=== PATIENT | male | born 1965 | race Caucasian/White ===

== ENCOUNTER → 2016-07-03 | Outpatient (CLI) | payer BC ==
[~2016-07-03] MED LIST: CALC500T7 PO; CEPH-583 PO; DAPT500V3 IV; ESOM20CA PO; HYDR-4246 PO; HYDR25TA PO; INSU100I3 SQ; INSU100V13 SQ; INSU3INS3 SQ; LEVO750T46 PO; MAGN400T31 PO; METF-200 PO; NITR0.4T39 SL; POLY17PO6 PO; POTA10CA37 PO; PRAV20TA4 PO
--- NOTE | 2016-07-03 21:37 | WOUNDCONF ---
DATE July 03, 2016. CHIEF COMPLAINT Infectious Disease consultation was requested by Dr. Lira for antibiotic recommendations for osteomyelitis. HISTORY OF PRESENT ILLNESS Mr. Mcclelland is a 50-year-old man who has been followed in the wound clinic for wound to the bottom of the right foot that has been present since approximately and more recently for a wound involving the left great toe. The wound involving the right foot has been improving. However, the wound on the left great toe he states has been present since June 18. Records, however, indicate that the wound has been present for about that same period of time. The patient is not sure how this wound started. However, he was noted to have an area of blackness within this ulcer. He underwent an MRI of the left foot with and without contrast on June 21 which showed focal edema within the great toe distal phalanx consistent with osteomyelitis. He had a wound culture obtained June 21 which had rare gram positive cocci on the Gram stain and grew methicillin-resistant Staph aureus resistant only to oxacillin. He was referred to Dr. Nolasco who took him to surgery on June 28 for debridement to bone of the left foot diabetic foot ulcer with left great toe distal phalanx bone biopsy. There were two specimens sent for culture from that surgery and they both grew methicillin-resistant Staph aureus. However, this was sensitive only to doxycycline, gentamicin, linezolid, tetracycline, Bactrim and vancomycin. The biopsy was not sent for pathology. He was started on doxycycline on July 01. PAST MEDICAL HISTORY Diabetes mellitus type 2 on insulin, with diabetic nephropathy and neuropathy. Coronary artery disease status post stenting. Hyperlipidemia. Hypertension. Sleep apnea. Depression. History of myocardial infarction. PAST SURGICAL HISTORY Status post appendectomy. Irrigation and debridement of scrotal abscess. Cardiac catheterization with stent placements. ALLERGIES Penicillin caused a rash. SOCIAL HISTORY He quit smoking several years ago. He admits to drinking 12-24 beers on the weekends. He denies any drug use to me. FAMILY HISTORY Reviewed, noncontributory. REVIEW OF SYSTEMS He reports that he has some shaking chills in the evenings when he goes to bed and he cannot tell me how long this has been going on but least for one month. He has taken his temperature during these episodes and is not having any fevers. He denies any sweats. He does report that he has some diarrhea off and on. He denies much in the way of pain in his foot. He denies any cough or shortness of breath, any headaches, any rashes or skin problems. Denies any problems with urination. The rest of the review of systems is negative other than that mentioned above. PHYSICAL EXAMINATION Temperature 97, blood pressure 128/85. Pulse is 103, respirations 12. Weight is 288 pounds. GENERAL: He appears comfortable and is in no acute distress. HEENT: Pupils equal, round, reactive to light. EOMI. Oropharynx is clear. He is missing a few teeth. Dentition is rather poor. NECK: Supple. HEART: Regular rate and rhythm. No murmurs noted. LUNGS: Clear to auscultation bilaterally anteriorly. ABDOMEN: Soft, nontender. He has bowel sounds present. EXTREMITIES: No joint effusions are noted. He has 1+ edema involving the left lower extremity. No significant edema of the right lower extremity. His wound is covered. However, I reviewed photographs on the computer. The initial photograph had an area of black eschar over this ulcer and more recently there is a wound with some granulation tissue but also some fibrinous exudate noted. NEUROLOGIC: Exam is grossly nonfocal. He is alert and oriented x 3. Speech is normal. PSYCHIATRIC: His mood and affect are appropriate. SKIN: No rashes. LABORATORY Reviewed from June 21. White count 9.9, hemoglobin 13.3, platelets 291,000. Creatinine 0.9. Liver function tests are normal. Sedimentation rate was 76. C-reactive protein was 28. IMPRESSION 1. Acute osteomyelitis of the left great toe distal phalanx, bone biopsy culture with methicillin-resistant Staph aureus obtained June 28, 2016. 2. Diabetes mellitus type 2 with neuropathy and requiring insulin. 3. Hypertension. 4. Hyperlipidemia. 5. Coronary artery disease. 6. Sleep apnea. 8. History of depression. 9. Penicillin allergy, rash. 7. Alcohol use. PLAN/DISCUSSION I discussed with the patient that I would recommend six weeks of IV antibiotics to try to treat this bone infection and help his wound heal. He is agreeable to that and in fact is thinking that it might be the easiest for him just to come in to the infusion center here at the hospital for his doses every day. Will make arrangements for a PICC line to be placed. I would recommend daptomycin 6 mg/kg IV daily for six weeks. Will check weekly labs including a CBC with differential, BMP, CRP, sed rate and CPK while he is on the IV antibiotic. I will plan to see him back in followup in approximately three weeks. Thank you for allowing me to participate in the care of this patient. MURRAY
== END ==
LOC: NWCC 10:29
PROVIDERS: ATTEND Internal Medicine
DX: E11.621 Type 2 diabetes mellitus with foot ulcer (principal); L97.412 Non-pressure chronic ulcer of right heel and midfoot with fat layer exposed; Y83.5 Amputation of limb(s) as the cause of abnormal reaction of the patient, or of later complication, without mention of misadventure at the time of the procedure; Y82.8 Other medical devices associated with adverse incidents; M86.172 Other acute osteomyelitis, left ankle and foot; Z86.14 Personal history of Methicillin resistant Staphylococcus aureus infection; I10 Essential (primary) hypertension; E78.5 Hyperlipidemia, unspecified; I25.10 Atherosclerotic heart disease of native coronary artery without angina pectoris; Z87.898 Personal history of other specified conditions; Z72.89 Other problems related to lifestyle; G47.30 Sleep apnea, unspecified; R60.0 Localized edema; Z87.891 Personal history of nicotine dependence; E11.40 Type 2 diabetes mellitus with diabetic neuropathy, unspecified; E11.21 Type 2 diabetes mellitus with diabetic nephropathy

== ENCOUNTER → 2016-07-15 | Outpatient (CLI) | payer BC | LOC: NWCC 11:19 | PROVIDERS: ATTEND Internal Medicine | DX: E10.621 Type 1 diabetes mellitus with foot ulcer (principal); L97.412 Non-pressure chronic ulcer of right heel and midfoot with fat layer exposed; L97.522 Non-pressure chronic ulcer of other part of left foot with fat layer exposed; M86.172 Other acute osteomyelitis, left ankle and foot | CPT/HCPCS: 11042; 11045 ==

== ENCOUNTER 2016-07-25 09:47 | Day surgery (SDC) | payer BC ==
[~2016-07-25] VITALS: Ht 172.7 cm; Wt 122.7 kg
[2016-07-25] VITALS (10 sets, daily range): BP systolic 106–163; BP diastolic 58–94; PULSE 88–98; RESP 16–21; TEMP 97.3–98.3; O2SAT 94–98; Ht 172.7 cm; Wt 122.7 kg
[~2016-07-25 09:47] MED LIST changes: -CEPH-583 PO; +LIDOCAINE 1% (10mg/ml) 2ml SDV INJ ONE; +LR 1,000 ML IV PRN
--- OUTSIDE RECORDS SUMMARY | 2016-07-25 09:51 | XMS REPORT | Continuity of Care Document ---
Author Author [facility] Organization [facility] Address Unknown Phone Unavailable Support Name Relationship Address Phone LESLEY MARK MD Caregiver [address] [place] [address] Unavailable PRESTON TRAVIS MD Caregiver [address] [place] [address] [place] [address] Unavailable SOM KEANE Next Of Kin [address] [place] [address] C Insurance Providers Guarantor Harvey Keane Iii Address [address] [place] [place] [address] C Email [email or web address] Policy Number [id number] Subscriber's Name Harvey Keane Iii Relationship 18 Self Group Number [id number] Advance Directives Directive Response Recorded Date/Time Ordered Resuscitation Status Full Code 07/16/16 5:58pm Resuscitation Documents on File No 07/17/16 6:22am DPOA for Healthcare Only No 07/17/16 6:22am Living Will No 07/17/16 6:22am Problems Active Problems Medical Problem Onset Date Status Chest pain Unknown Acute Dizziness Unknown Acute Hand Laceration Unknown Acute Headache Unknown Acute Heart burn Unknown Acute Right calf pain Unknown Acute Right-sided chest wall pain Unknown Acute Vision changes Unknown Acute Past Problems Medical Problem Onset Date Cellulitis Unknown Diabetic foot ulcer Unknown Medications Current Home Medications Medication Dose Units Route Directions Days Qty Instructions Start Date Calcium Carbonate (Tums) 200 Mg Tab.chew 1-2 Tab Oral Every 2 Hr Prn 06/26/16 Daptomycin 500 Mg Vial 340 Mg Intraven Daily 07/17/16 Esomeprazole Mag Trihydrate (Nexium) 20 Mg Capsule 1 Tab Oral Daily as needed for Heartburn 06/26/16 Hydrochlorothiazide 25 Mg Tablet 12.5 Mg Oral Daily 06/26/16 Hydrocodone/Acetaminophen ([place] 5-325 Tablet) 5-325 Tablet 1-2 Tab Oral Every 6 Hours as needed for Pain 40 Tablet This medication contains Tylenol , do not take more than 3,000 mg of Tylenol in a 24 hr period. 06/28/16 Insulin Aspart (Novolog Flexpen) 1 Unit Pen 5 Unit Sub-Q Before Meals 06/26/16 Insulin Glargine,Hum.rec.anlog (Lantus Solostar) 1 Unit Pen 15 Unit Sub-Q Bedtime 06/26/16 Magnesium Oxide (Magox 400) 400 Mg Tablet 400 Mg Oral Daily 06/26 Metformin Hcl 500 Mg Tablet 1,000 Mg Oral Twice A Day 09/15/11 Pravastatin Sodium 20 Mg Tablet 20 Mg Oral Bedtime 06/26/16 Past Home Medications Medication Directions Ordered Status Exenatide Microspheres (Bydureon Pen) 2 Mg/0.65 Ml Pen.injctr, Unknown Dose Sub-Q 1 Week 02/05/15 Discontinued Famotidine (Pepcid) 20 Mg Tablet, 40 Mg Oral Daily 02/05/15 Discontinued Glyburide 5 Mg Tablet, 5 Mg Oral Twice A Day 09/15/11 Discontinued Lisinopril 5 Mg Tablet, 5 Mg Oral Daily 11/21/14 Discontinued Lisinopril 20 Mg Tablet, 20 Mg Oral Daily 09/15/11 Discontinued Lovastatin 10 Mg Tablet, 10 Mg Oral Daily 09/15/11 Discontinued Meloxicam (Mobic) 15 Mg Tablet, 15 Mg Oral Daily 09/15/11 Discontinued Sitagliptin Phosphate (Januvia) 100 Mg Tablet, 100 Mg Oral Daily 09/15/11 Discontinued Social History Social History Problem Response Recorded Date/Time Onset Date Status Reason for Hospitalization heart cath 07/17/2016 10:55am Not Applicable Not Applicable Chewing Tobacco Status No 07/17/2016 6:30am Not Applicable Not Applicable Hx Substance Use Y HISTORY OF MARIJUANA USE, LAST TIME ABOUT 4 YEARS AGO 12/2016 6:30am Not Applicable Not Applicable Hx Alcohol Use Y ADMITS TO 30-40 BEERS ON WEEKENDS 07/17/2016 6:30am Not Applicable Not Applicable Has the pt used tobacco in the last 12 months No 07/17/2016 6:30am Not Applicable Not Applicable Tobacco Usage none 03/01/2015 10:52pm Not Applicable Not Applicable Query Response Start Date Stop Date Smoking Status Former smoker Hospital Discharge Instructions Instructions: Care Instructions: I was in the hospital because (patient own words): "ANGIOGRAM" Discharge Diet: Resume heart healthy diet Discharge Activity: Limit activity for 2 days. No lifting more than 10 pounds, no pushing or pulling for 1 week. Follow Up Appointments: Follow up with Dr. Travis on: 08/06/16 at 11:10AM Pending Lab / Results: No Pending Lab Patient Instructions: Do not drive, operate machinery or drink alcohol for 2 days. You may resume your Metformin on the evening of Friday the Expected Signs/Symptoms: Bruising and tenderness at the site. Notify Physician If: Site is bleeding, abnormal drainage, increased pain or fever of 101.5 or more. During Business Hours:: Call Dr. Travis's office at [phone]. After Business Hours:: Please call [phone] and have the aviation electronic warfare operator page the physician. Pain Management/Treatment: Over the counter pain medication if needed. Pain Scale Utilized to Educate Patient: 0-10 Pain Scale Wound/Incision Care: Keep site clean and dry. No tub baths or swimming for 1 week. You may shower. Condition at time of discharge: Good Plan of Care Discharge Date 07/17/16 11:35am Instructions/Education Provided [facility] [place] Prescriptions See Medication Section Functional Status Query Response Date Recorded Mobility Status Ambulatory July 17, 2016 6:26am Assistive Devices Cane July 17, 2016 6:26am Activity Limitations None July 17, 2016 6:26am Feeding Ability Independent July 17, 2016 6:26am Toileting Ability Independent July 17, 2016 6:26am Grooming Ability Independent July 17, 2016 6:26am Dressing Ability Independent July 17, 2016 6:26am Driving Ability Independent July 17, 2016 6:26am Housework Ability Independent July 17, 2016 6:26am Meal Preparation Ability Independent July 17, 2016 6:26am Stair Climbing Ability Independent July 17, 2016 6:26am Ability to complete ADL's impeded by No change July 17, 2016 6:26am Cognitive/Perceptual Impairments Impaired vision July 17, 2016 6:26am Visual Assistive Devices Glasses With patient July 17, 2016 6:26am Preferred Method of Learning Reading Listening July 17, 2016 6:26am Allergies, Adverse Reactions, Alerts Allergen Type Severity Reaction Status Last Updated Penicillin Allergy Unknown HIVES Active 07/17/16 Lisinopril Allergy Intermediate DIZZINESS Active 03/08/17 Immunizations Query Response on File Recorded Date/Time Hx Influenza Vaccination Y 201507/17/16 6:30am Hx Pneumococcal Vaccination Y 201507/17/16 6:30am Hx Tetanus, Diptheria, Pertussis Y 02/16/13 02/05/15 7:34pm Hx Influenza Vaccination Y 201507/17/16 6:30am Hx Tetanus, Diptheria, Pertussis Y 02/16/13 02/05/15 7:34pm Influenza Vaccine Hx FEB 2016 07/17/16 6:55am Vital Signs Acute Vital Signs Vital Response Date/Time Temperature (Fahrenheit) 98.0 deg F (96.8 - 99.1) 07/17/2016 8:35am Temperature (Calculated Celsius) 36.41538 degrees C (36.0 - 37.3) 07/17/2016 8:35am Temperature Source Oral 07/17/2016 8:35am Pulse Rate (adult) 86 bpm (60 - 100) 07/17/2016 11:15am Respiratory Rate 18 breaths/min (10 - 20) 07/17/2016 11:15am O2 Sat by Pulse Oximetry 98 % (90 - 100) 07/17/2016 11:15am Oxygen Delivery Method Room Air 07/17/2016 11:15am Oxygen Delivery Method Room Air 07/17/2016 6:28am Oxygen Flow Rate 2.00 L/min 07/17/2016 10:00am Blood Pressure 150/80 mm Hg 07/17/2016 11:15am Blood Pressure Source Automatic Cuff 07/17/2016 11:15am Height (Feet) 5 feet 07/17/2016 6:22am Height (Inches) 8.00 inches 07/17/2016 6:22am Weight (Kilograms) 123.100 kg 07/17/2016 6:29am Body Mass Index (BMI) 41.3 07/17/2016 6:22am Results Laboratory Results Test Name Result Units Flags Reference Collection Date/Time Result Date/ Time Comments Total Bilirubin 0.60 MG/DL 0.20-1.30 06/21/2016 9:28am 06/21/2016 9: 43am Alkaline Phosphatase 73 U/L 38-126 06/21/2016 9:28am 06/21/2016 9:43am Total Protein 7.9 G/DL 6.3-8.2 06/21/2016 9:06/21/2016 9:43am Albumin 3.8 G/DL 3.5-5.0 06/21/2016 9:06/21/2016 9:43am Globulin 4.1 G/DL H 2.4-3.6 06/21/2016 9:06/21/2016 9:43am Albumin/Globulin Ratio 0.9 RATIO L 1.1-2.2 06/21/2016 9:06/21/2016 9:43am Aspartate Amino Transf (AST/SGOT) 19 U/L 17-59 06/21/2016 9:2016 9:43am Alanine Aminotransferase (ALT/SGPT) 25 U/L 21-72 06/21/2016 9:02/2017 9:43am D-Dimer < 150 NG/ML 0-230 06/18/2016 12:55pm 06/18/2016 1:19pm <230 NG /ML D-DU=PRESUMPTIVE NEGATIVE FOR PE OR DVT >230 NG/ML D-DU=ADDITIONAL EVAL FOR PE OR DVT RECOMMENDED Magnesium Level 1.5 MG/DL L 1.6-2.3 06/20/2016 11:56am 06/20/2016 12: 14pm Glucometer 177 mg/dL H 75-110 06/28/2016 12:40pm 06/28/2016 12:50pm Neutrophils % (Manual) 60.0 % 33-66 07/15/2016 10:33am 07/15/2016 11: 32am Band Neutrophils % 6.0 % 0-6 07/15/2016 10:33am 07/15/2016 11:32am Lymphocytes % (Manual) 25.0 % 23-45 07/15/2016 10:33am 07/15/2016 11: 32am Monocytes % (Manual) 3.0 % 0-9.0 07/15/2016 10:33am 07/15/2016 11:32am Eosinophils % (Manual) 5.0 % H 0-4 07/15/2016 10:33am 07/15/2016 11: 32am Basophils % (Manual) 1.0 % 0-2 07/08/2016 10:26am 07/08/2016 11:25am Metamyelocytes % 1.0 % H 0-0 07/15/2016 10:33am 07/15/2016 11:32am Band Neutrophils # 0.6 T/MM3 07/15/2016 10:33am 07/15/2016 11:32am Absolute Neutrophils (Manual) 5.7 T/MM3 1.8-7.7 07/15/2016 10:33am 10/2016 11:32am Lymphocytes # (Manual) 2.4 T/MM3 1-4.8 07/15/2016 10:33am 07/15/2016 11 :32am Monocytes # (Manual) 0.3 T/MM3 0-0.8 07/15/2016 10:33am 07/15/2016 11: 32am Eosinophils # (Manual) 0.5 T/MM3 0-0.5 07/15/2016 10:33am 07/15/2016 11 :32am Basophils # (Manual) 0.1 T/MM3 0-0.2 07/08/2016 10:26am 07/08/2016 11: 25am Metamyelocytes # 0.1 T/MM3 07/15/2016 10:33am 07/15/2016 11:32am Red Cell Morphology Comment NORMAL 07/15/2016 10:33am 07/15/2016 11 :32am Total Creatine Kinase 56 U/L 55-170 07/15/2016 10:33am 07/15/2016 3: 02pm C-Reactive Protein 22.7 MG/L H 0-9 07/15/2016 10:33am 07/15/2016 11: 10am Erythrocyte Sedimentation Rate 89 mm/h H 0-15 07/15/2016 10:34am 2016 11:37pm Sedimentation Rate performed at [facility] Reference Lab, [address] , [place] [address] Paving Crew Foreman Christine Romeo DO White Blood Count 10.4 T/MM3 4.5-11.0 07/17/2016 6:33am 07/17/2016 6: 56am Red Blood Count 4.43 M/MM3 L 4.50-5.90 07/17/2016 6:33am 07/17/2016 6: 56am Hemoglobin 11.9 GM/DL L 13.5-17.5 07/17/2016 6:33am 07/17/2016 6:56am Hematocrit 36.6 % L 41-53 07/17/2016 6:3307/17/2016 6:56am Mean Corpuscular Volume 82.6 UM3 80-100 07/17/2016 6:33am 07/17/2016 6: 56am Mean Corpuscular Hemoglobin 26.9 UUG 26-34 07/17/2016 6:33am 2016 6:56am Mean Corpuscular Hemoglobin Concent 32.5 GM/DL 31-37 07/17/2016 6:3307/17/2016 6:56am RDW Standard Deviation 37.8 FL 36.9-50.2 07/17/2016 6:3307/17/2016 6 :56am Platelet Count 398 T/MM3 130-400 07/17/2016 6:3307/17/2016 6:56am Mean Platelet Volume 10.4 UM3 9.4-12.4 07/17/2016 6:33am 07/17/2016 6: 56am Neutrophils (%) (Auto) 64.2 % 33-66 07/17/2016 6:3307/17/2016 6: 56am Lymphocytes (%) (Auto) 27.2 % 23-45 07/17/2016 6:33am 07/17/2016 6: 56am Monocytes (%) (Auto) 5.7 % 0-9.0 07/17/2016 6:3307/17/2016 6:56am Eosinophils (%) (Auto) 2.2 % 0-4 07/17/2016 6:33am 07/17/2016 6:56am Basophils (%) (Auto) 0.3 % 0-2 07/17/2016 6:07/17/2016 6:56am Immature Granulocyte % (Auto) 0.4 % 0.0-0.5 07/17/2016 6:33am 2016 6:56am Absolute Neutrophils (auto) 6.7 T/MM3 1.8-7.7 07/17/2016 6:332016 6:56am Absolute Lymphocytes (auto) 2.8 T/MM3 1-4.8 07/17/2016 6:33am 2016 6:56am Absolute Monocytes (auto) 0.6 T/MM3 0-0.8 07/17/2016 6:3307/17/2016 6:56am Absolute Eosinophils (auto) 0.2 T/MM3 0-0.5 07/17/2016 6:332016 6:56am Absolute Basophils (auto) 0.0 T/MM3 0-0.2 07/17/2016 6:3307/17/2016 6:56am Absolute Immature Granulocyte (auto 0.04 T/MM3 H 0.00-0.03 07/17/2016 6: 3307/17/2016 6:56am Icterus Index < 2 0-7 07/17/2016 6:3307/17/2016 7:10am Chemistry Specimen Hemolysis < 15 0-25 07/17/2016 6:3307/17/2016 7 :10am 0-25: Specimen Exhibited No Hemolysis. Turbidity < 20 0-20 07/17/2016 6:3307/17/2016 7:10am Sodium Level 139 MEQ/L 134-144 07/17/2016 6:3307/17/2016 7:10am Potassium Level 4.2 MEQ/L 3.6-5 07/17/2016 6:3307/17/2016 7:10am Chloride Level 99 MEQ/L 98-107 07/17/2016 6:3307/17/2016 7:10am Carbon Dioxide Level 27 MEQ/L 22-30 07/17/2016 6:3307/17/2016 7: 10am Anion Gap 13 MEQ/L 5-15 07/17/2016 6:3307/17/2016 7:10am Blood Urea Nitrogen 26.0 MG/DL H 9-20 07/17/2016 6:3307/17/2016 7: 10am Creatinine 0.8 MG/DL 0.8-1.5 07/17/2016 6:3307/17/2016 7:10am BUN/Creatinine Ratio 33 RATIO H 6-26 07/17/2016 6:3307/17/2016 7: 10am Glomerular Filtration Rate Calc 103 07/17/2016 6:3307/17/2016 7: 10am Glucose Level 258 MG/DL H 75-110 07/17/2016 6:3307/17/2016 7:10am Calculated Osmolality 282 MOSM/KG H 261-280 07/17/2016 6:332016 7:10am Calcium Level 9.5 MG/DL 8.4-10.2 07/17/2016 6:33am 07/17/2016 7:10am Microbiology Results Procedure Source Organism/Result Collection Date/Time Result Date/Time Result Status WOUND CULTURE DEEP TISS-AER/AN Unknown S. AUREUS, METH-RESISTANT 2016 9:01am 06/24/2016 11:57am Final COAG NEGATIVE STAPHYLOCOCCUS 06/21/2016 9:01am 06/24/2016 11:57am Final ENTEROCOC FAECALIS - (GROUP D) 06/21/2016 9:01am 06/24/2016 11:57am Final Surgical Culture Toe, Left First S. AUREUS, METH-RESISTANT 06/28/2016 11: 45am 06/30/2016 8:19am Final WOUND CULTURE DEEP TISS-AER/AN Toe, Left First S. AUREUS, METH-RESISTANT 11:48am 06/30/2016 8:21am Final Procedures Procedure Status Date Provider(s) Shayla subq tissue 20 sq cm/< Completed 04/25/16 Office/outpatient visit est Completed 04/25/16 079956"COLLAGEN DRESSING, PAD SIZE 16 SQ. IN. OR LESS, EACH" Completed Shayla subq tissue 20 sq cm/< Completed 05/09/16 Office/outpatient visit est Completed 05/09/16 249332"BORDER, EACH DRESSING" Completed 05/09/16 112853"EQUAL TO 48 SQ. IN., WITHOUT ADHESIVE BORDER, EACH DR Completed Shayla subq tissue 20 sq cm/< Completed 05/22/16 563213"BORDER, EACH DRESSING" Completed 05/22/16 718925"BORDER, EACH DRESSING" Completed 05/22/16 Shayla subq tissue 20 sq cm/< Completed 06/10/16 093963"BORDER, EACH DRESSING" Completed 06/10/16 045976"EQUAL TO 48 SQ. IN., WITHOUT ADHESIVE BORDER, EACH DR Completed Shayla subq tissue 20 sq cm/< Completed 06/17/16 836055"BORDER, EACH DRESSING" Completed 06/17/16 972765"BORDER, EACH DRESSING" Completed 06/17/16 Shayla subq tissue 20 sq cm/< Completed 06/21/16 Routine venipuncture Completed 06/21/16 Comprehen metabolic panel Completed 06/21/16 Bl smear w/diff wbc count Completed 06/21/16 Complete cbc automated Completed 06/21/16 Rbc sed rate automated Completed 06/21/16 C-reactive protein Completed 06/21/16 Culture othr specimn aerobic Completed 06/21/16 Cultr bacteria except blood Completed 06/21/16 Culture aerobic identify Completed 06/21/16 Culture type immunologic Completed 06/21/16 Microbe susceptible kristel Completed 06/21/16 Microbe susceptible kristel Completed 06/21/16 Smear gram stain Completed 06/21/16 Office/outpatient visit est Completed 06/21/16 [id number]"EQUAL TO 48 SQ. IN., WITHOUT ADHESIVE BORDER, EACH DR Completed Fibrin degradation quant Completed 06/18/16 Lower extremity study Completed 06/18/16 Extremity study Completed 06/18/16 Routine venipuncture Completed 06/20/16 Assay of magnesium Completed 06/20/16 Assay of serum potassium Completed 06/20/16 Mri lwr extremity w/o&w/dye Completed 06/21/16 GADAVIST 10ML SDV - Contrast,Gadavist 10ml Completed 06/21/16 Shayla subq tissue 20 sq cm/< Completed 06/24/16 Shayla musc/fascia 20 sq cm/< Completed 06/28/16 BETH LUJAN MD Bone biopsy trocar/needle Completed 06/28/16 BETH LUJAN MD Routine venipuncture Completed 06/28/16 Metabolic panel total ca Completed 06/28/16 Reagent strip/blood glucose Completed 06/28/16 Culture othr specimn aerobic Completed 06/28/16 Culture othr specimn aerobic Completed 06/28/16 Cultr bacteria except blood Completed 06/28/16 Cultr bacteria except blood Completed 06/28/16 Culture type immunologic Completed 06/28/16 Culture type immunologic Completed 06/28/16 Microbe susceptible kristel Completed 06/28/16 Microbe susceptible kristel Completed 06/28/16 Smear gram stain Completed 06/28/16 Smear gram stain Completed 06/28/16 Electrocardiogram tracing Completed 06/28/16 540679"16 SQ. IN. OR LESS, WITHOUT ADHESIVE BORDER, EACH ADOLFO Completed 699857"INJECTION, MIDAZOLAM HYDROCHLORIDE, PER 1 MG" Completed 06/28/16 PROPOFOL INJ 500 MG/50ML Completed 06/28/16 [id number]"RINGERS LACTATE INFUSION, UP TO 1000 CC" Completed 06/28/16 Encounters Encounter Location Arrival/Admit Date Discharge/Depart Date Attending Provider Departed [facility] 07/17/16 5:54am 07/17/16 11:35am PRESTON TRAVIS MD Registered [facility] 07/16/16 4:00pm KRISTI INMAN MD Registered [facility] 07/15/16 11:19am WES CANO MD Registered [facility] 07/08/16 11:17am WES CANO MD Registered [facility] 07/03/16 10:29am WES CANO MD Registered [facility] 07/01/16 11:22am WES CANO MD Departed [facility] 06/28/16 8:53am 06/28/16 1: 50pm BETH LUJAN MD Registered [facility] 06/24/16 2:49pm WES CANO MD Registered [facility] 06/21/16 4:05pm WES CANO MD Registered [facility] 06/21/16 8:33am WES CANO MD Registered [facility] 06/20/16 11:43am LESLEY MARK MD Registered [facility] 06/18/16 12:42pm LESLEY MARK MD Registered [facility] 06/17/16 1:25pm WES CANO MD Registered [facility] 06/10/16 1:19pm WES CANO MD Registered [facility] 05/22/16 11:17am WES CANO MD Registered [facility] 05/09/16 10:45am WES CANO MD Registered [facility] 04/25/16 9:50am WES CANO MD
--- OUTSIDE RECORDS SUMMARY | 2016-07-25 09:51 | XMS REPORT | Continuity of Care Document ---
Author Author [facility] Organization [facility] Address Unknown Phone Unavailable Support Name Relationship Address Phone LESLEY MARK MD Caregiver [address] [place] [address] Unavailable BETH NOLASCO MD Caregiver [address] [place] [address] Unavailable SOM KEANE Next Of Kin [address] [address] C Insurance Providers Guarantor Harvey Keane Iii Address [address] [address] C Email [email or web address] [facility] Policy Number [id number] Subscriber's Name Harvey Keane Iii Relationship 18 Self Group Number [id number] Advance Directives Directive Response Recorded Date/Time Ordered Resuscitation Status Full Code, unverified 06/27/16 2:53pm Resuscitation Documents on File No 06/28/16 10:01am DPOA for Healthcare Only No 06/28/16 10:01am Living Will No 06/28/16 10:01am Problems Active Problems Medical Problem Onset Date [...] Tab Oral Every 2 Hr Prn 06/26/16 Esomeprazole Mag Trihydrate (Nexium) 20 Mg Capsule 1 Tab Oral Daily as needed for Heartburn 06/26/16 Hydrochlorothiazide 25 Mg Tablet 12.5 Mg Oral Daily 06/26/16 Hydrocodone/Acetaminophen ([place] 5-325 Tablet) 5-325 Tablet 1-2 Tab Oral Every 6 Hours as needed for Pain 40 Tablet This medication contains Tylenol , do not take more than 3,000 mg of Tylenol in a 24 hr period. 06/28/16 Insulin Aspart (Novolog Flexpen) 1 Unit Pen 5 Unit Sub-Q Before Meals 06/26/16 Insulin Glargine,Hum.rec.anlog (Lantus Solostar) 1 Unit Pen 15 Unit Sub-Q Bedtime 06/26/16 Levofloxacin 750 Mg Tablet 750 Mg Oral Before Breakfast Once daily before breakfast. 06/26/16 Magnesium Oxide (Magox 400) 400 Mg Tablet 400 Mg Oral Daily 06/26 Metformin Hcl 500 Mg Tablet 1,000 Mg Oral Twice A Day 09/15/11 Nitroglycerin 0.4 Mg Tab.subl 0.4 Mg Sublingual Every 5 Minutes X 3 as needed for Chest Pain 10/17/14 Polyethylene Glycol 3350 (Miralax) 17 Gm Powd.pack 17 G Oral Daily as needed for Constipation 1 Bottle Take 17 Grams (1 capful), by mouth, once a day. 06/28/16 Pravastatin Sodium 20 Mg Tablet 20 Mg [...] Date/Time Onset Date Status Reason for Hospitalization DEBRIDEMENT WITH BONE BIOPSY LEFT FOOT 06/28/2016 12:58pm Not Applicable Not Applicable Chewing Tobacco Status No 06/26/2016 3:56pm Not Applicable Not Applicable Hx Substance Use Y HISTORY OF MARIJUANA USE, LAST TIME ABOUT 4 YEARS AGO 3:56pm Not Applicable Not Applicable Hx Alcohol Use Y ADMITS TO 30-40 BEERS ON WEEKENDS 06/26/2016 3:56pm Not Applicable Not Applicable Has the pt used tobacco in the last 12 months No 06/26/2016 3:56pm Not Applicable Not Applicable Tobacco Usage none 03/01/2015 10:52pm Not Applicable Not Applicable Query Response Start Date Stop Date Smoking Status Former smoker Hospital Discharge Instructions Instructions: Care Instructions: I was in the hospital because (patient own words): "MAKE WOUND BIGGER, CLEAN IT OUT, AND CHECK BONE Discharge Diet: Resume your normal diet as tolerated. Discharge Activity: -Elevate extremity while sitting or sleeping at night to reduce swelling. Follow Up Appointments: Follow up in wound clinic on Friday07/01/16 @ 11:30 AM[address] Follow up with Dr. Nolasco 07/15/16 at 2:45 PM Pending Lab / Results: No Pending Lab Patient Instructions: DO NOT DRIVE, OPERATE MACHINERY, DRINK ALCOHOL, OR SIGN IMPORTANT PAPERS FOR 24 HOURS OR WHILE TAKING PAIN MEDICATIONS. Expected Signs/Symptoms: You can expect some pain around the incsion site. Notify Physician If: You should contact our office if you develop significant drainage from the surgical incision, redness, or fever about 102 degrees. During Business Hours:: Please call our office at [phone]. After Business Hours:: After office hours, please call [facility] at [phone] and have the embossing unit operator page the physician. Pain Management/Treatment: Use prescribed medications Wound/Incision Care: -Do not remove splint and/or dressings. -Keep the incision clean and dry. -Do not apply creams or ointments (bacitracin, tiple antibiotic) to the to the incisions. -Do not soak in a tub or go swimming. Condition at time of discharge: Good Plan of Care Discharge Date 06/28/16 1:50pm Prescriptions See Medication Section Functional Status Query Response Date Recorded Ability to complete ADL's impeded by No change June 28, 2016 10:01am Allergies, Adverse Reactions, Alerts Allergen Type Severity Reaction Status Last Updated Penicillin Allergy Unknown HIVES Active 06/28/16 Immunizations Query Response on File Recorded Date/Time Hx Influenza Vaccination Y 201506/26/16 3:56pm Hx Pneumococcal Vaccination [place]BE IN 201506/26/16 3:56pm Hx Tetanus, Diptheria, Pertussis Y 02/16/13 02/05/15 7:34pm Hx Influenza Vaccination Y 201506/26/16 3:56pm Hx Tetanus, Diptheria, Pertussis Y 02/16/13 02/05/15 7:34pm Vital Signs Acute Vital Signs Vital Response Date/Time Temperature (Fahrenheit) 97.0 deg F (96.8 - 99.1) 06/28/2016 12:05pm Temperature (Calculated Celsius) 36.96170 degrees C (36.0 - 37.3) 06/28/2016 12:05pm Temperature Source Temporal 06/28/2016 12:05pm Pulse Rate (adult) 95 bpm (60 - 100) 06/28/2016 1:30pm Respiratory Rate 20 breaths/min (10 - 20) 06/28/2016 1:30pm O2 Sat by Pulse Oximetry 96 % (90 - 100) 06/28/2016 1:30pm Oxygen Delivery Method Room Air 06/28/2016 1:30pm Oxygen Flow Rate 5.00 L/min 06/28/2016 12:10pm Blood Pressure 160/78 mm Hg 06/28/2016 1:30pm Blood Pressure Source Automatic Cuff 06/28/2016 1:30pm Height (Feet) 5 feet 06/28/2016 9:51am Height (Inches) 8.00 inches 06/28/2016 9:51am Weight (Kilograms) 125.800 kg 06/28/2016 9:51am Body Mass Index (BMI) 42.2 06/28/2016 9:51am Results Laboratory Results Test Name Result Units Flags Reference Collection Date/Time Result Date/ Time Comments White Blood Count 9.9 T/MM3 4.5-11.0 06/21/2016 9:28am 06/21/2016 9: 33am Red Blood Count 4.60 M/MM3 4.50-5.90 06/21/2016 9:28am 06/21/2016 9: 33am Hemoglobin 13.3 GM/DL L 13.5-17.5 06/21/2016 9:28am 06/21/2016 9:33am Hematocrit 39.0 % L 41-53 06/21/2016 9:28am 06/21/2016 9:33am Mean Corpuscular Volume 84.8 UM3 80-100 06/21/2016 9:28am 06/21/2016 9: 33am Mean Corpuscular Hemoglobin 28.9 UUG 26-34 06/21/2016 9:2016 9:33am Mean Corpuscular Hemoglobin Concent 34.1 GM/DL 31-37 06/21/2016 9:06/21/2016 9:33am RDW Standard Deviation 40.1 FL 36.9-50.2 06/21/2016 9:06/21/2016 9 :33am Platelet Count 291 T/MM3 130-400 06/21/2016 9:06/21/2016 9:33am Mean Platelet Volume 10.6 UM3 9.4-12.4 06/21/2016 9:06/21/2016 9: 33am Neutrophils % (Manual) 70.0 % H 33-66 06/21/2016 9:06/21/2016 9: 50am Lymphocytes % (Manual) 25.0 % 23-45 06/21/2016 9:06/21/2016 9: 50am Monocytes % (Manual) 4.0 % 0-9.0 06/21/2016 9:06/21/2016 9:50am Basophils % (Manual) 1.0 % 0-2 06/21/2016 9:06/21/2016 9:50am Absolute Neutrophils (Manual) 6.9 T/MM3 1.8-7.7 06/21/2016 9:06/21 9:50am Lymphocytes # (Manual) 2.5 T/MM3 1-4.8 06/21/2016 9:06/21/2016 9: 50am Monocytes # (Manual) 0.4 T/MM3 0-0.8 06/21/2016 9:06/21/2016 9: 50am Basophils # (Manual) 0.1 T/MM3 0-0.2 06/21/2016 9:06/21/2016 9: 50am Red Cell Morphology Comment NORMAL 06/21/2016 9:06/21/2016 9: 50am Total Bilirubin 0.60 MG/DL 0.20-1.30 06/21/2016 9:06/21/2016 9: 43am Alkaline Phosphatase 73 U/L 38-126 06/21/2016 9:06/21/2016 9:43am Total Protein 7.9 G/DL 6.3-8.2 06/21/2016 9:06/21/2016 9:43am Albumin 3.8 G/DL 3.5-5.0 06/21/2016 9:06/21/2016 9:43am Globulin 4.1 G/DL H 2.4-3.6 06/21/2016 9:06/21/2016 9:43am Albumin/Globulin Ratio 0.9 RATIO L 1.1-2.2 06/21/2016 9:06/21/2016 9:43am Aspartate Amino Transf (AST/SGOT) 19 U/L 17-59 06/21/2016 9:2016 9:43am Alanine Aminotransferase (ALT/SGPT) 25 U/L 21-72 06/21/2016 9:02/2017 9:43am C-Reactive Protein 28.0 MG/L H 0-9 06/21/2016 9:06/21/2016 9:45am Erythrocyte Sedimentation Rate 76 mm/h H 0-15 06/21/2016 9:2016 5:30pm Sedimentation Rate performed at [facility], [address] [place] [address] Hydrographical Technical Officer Christine Romeo DO D-Dimer < 150 NG/ML 0-230 06/18/2016 12:55pm 06/18/2016 1:19pm <230 NG /ML D-DU=PRESUMPTIVE NEGATIVE FOR PE OR DVT >230 NG/ML D-DU=ADDITIONAL EVAL FOR PE OR DVT RECOMMENDED Magnesium Level 1.5 MG/DL L 1.6-2.3 06/20/2016 11:56am 06/20/2016 12: 14pm Icterus Index < 2 0-7 06/28/2016 9:33am 06/28/2016 9:53am Chemistry Specimen Hemolysis < 15 0-25 06/28/2016 9:33am 06/28/2016 9 :53am 0-25: Specimen Exhibited No Hemolysis. Turbidity < 20 0-20 06/28/2016 9:33am 06/28/2016 9:53am Sodium Level 135 MEQ/L 134-144 06/28/2016 9:33am 06/28/2016 9:53am Potassium Level 4.9 MEQ/L 3.6-5 06/28/2016 9:33am 06/28/2016 9:53am Chloride Level 98 MEQ/L 98-107 06/28/2016 9:33am 06/28/2016 9:53am Carbon Dioxide Level 29 MEQ/L 22-30 06/28/2016 9:33am 06/28/2016 9: 53am Anion Gap 8 MEQ/L 5-15 06/28/2016 9:33am 06/28/2016 9:53am Blood Urea Nitrogen 29.0 MG/DL H 9-20 06/28/2016 9:33am 06/28/2016 9: 53am Creatinine 1.1 MG/DL 0.8-1.5 06/28/2016 9:33am 06/28/2016 9:53am BUN/Creatinine Ratio 26 RATIO 6-06/28/2016 9:33am 06/28/2016 9:53am Glomerular Filtration Rate Calc 71 06/28/2016 9:33am 06/28/2016 9: 53am Glucose Level 221 MG/DL H 75-110 06/28/2016 9:33am 06/28/2016 9:53am Calculated Osmolality 273 MOSM/KG 261-280 06/28/2016 9:33am 06/28/2016 9:53am Calcium Level 9.6 MG/DL 8.4-10.2 06/28/2016 9:33am 06/28/2016 9:53am Glucometer 177 mg/dL H 75-110 06/28/2016 12:40pm 06/28/2016 12:50pm Microbiology Results Procedure Source Organism/Result Collection Date/Time Result Date/Time Result Status WOUND CULTURE DEEP TISS-AER/AN Unknown S. AUREUS, METH-RESISTANT 2016 9:01am 06/24/2016 11:57am Final COAG NEGATIVE STAPHYLOCOCCUS 06/21/2016 9:01am 06/24/2016 11:57am Final ENTEROCOC FAECALIS - (GROUP D) 06/21/2016 9:01am 06/24/2016 11:57am Final Surgical Culture Toe, Left First CULTURE INITIATED - RESULTS PENDING 2016 11:45am 06/28/2016 12:54pm Preliminary WOUND CULTURE DEEP TISS-AER/AN Toe, Left First CULTURE INITIATED - RESULTS PENDING 06/28/2016 11:48am 06/28/2016 12:54pm Preliminary Procedures Procedure Status Date Provider(s) Rmvl devital tis 20 cm/< Completed 04/03/16 MARIPOSA FAYE MD Emergency dept visit Completed 04/03/16 016463"16 SQ. IN. OR LESS, WITHOUT ADHESIVE BORDER, EACH ADOLFO Completed Shayla subq tissue 20 sq cm/< Completed 04/10/16 Culture othr specimn aerobic Completed 04/10/16 Cultr bacteria except blood Completed 04/10/16 Culture type immunologic Completed 04/10/16 Microbe susceptible kristel Completed 04/10/16 Smear gram stain Completed 04/10/16 Office/outpatient visit est Completed 04/10/16 [id number]"EQUAL TO 48 SQ. IN., WITHOUT ADHESIVE BORDER, EACH DR Completed 017857"WOUND CLEANSERS, ANY TYPE, ANY SIZE" Completed 04/10/16 Shayla subq tissue 20 sq cm/< Completed 04/17/16 [id number]"COLLAGEN DRESSING, PAD SIZE 16 SQ. IN. OR LESS, EACH" Completed 867300"BORDER, EACH DRESSING" Completed 04/17/16 X-ray exam of foot Completed 04/10/16 Shayla subq tissue 20 sq cm/< Completed 04/25/16 Office/outpatient visit est Completed 04/25/16 [id number]"COLLAGEN DRESSING, PAD SIZE 16 SQ. IN. OR LESS, EACH" Completed Shayla subq tissue 20 sq cm/< Completed 05/09/16 Office/outpatient visit est Completed 05/09/16 541046"BORDER, EACH DRESSING" Completed 05/09/16 523562"EQUAL TO 48 SQ. IN., WITHOUT ADHESIVE BORDER, EACH DR Completed Shayla subq tissue 20 sq cm/< Completed 05/22/16 [id number]"BORDER, EACH DRESSING" Completed 05/22/16 [id number]"BORDER, EACH DRESSING" Completed 05/22/16 Shayla subq tissue 20 sq cm/< Completed 06/10/16 [id number]"BORDER, EACH DRESSING" Completed 06/10/16 722142"EQUAL TO 48 SQ. IN., WITHOUT ADHESIVE BORDER, EACH DR Completed Fibrin degradation quant Completed 06/18/16 Lower extremity study Completed 06/18/16 Extremity study Completed 06/18/16 Routine venipuncture Completed 06/20/16 Assay of magnesium Completed 06/20/16 Assay of serum potassium Completed 06/20/16 Incision and drainage of joint Completed 06/28/16 BETH NOLASCO MD Encounters Encounter Location Arrival/Admit Date Discharge/Depart Date Attending Provider Departed Surgical Day Care [facility] 06/28/16 8:53am 06/28/16 1: 50pm BETH NOLASCO MD Registered [facility] 06/24/16 2:49pm WES CANO MD Registered [facility] 06/21/16 4:05pm WES CANO MD Registered [facility] 06/21/16 8:33am WES CANO MD Registered [facility] 06/20/16 11:43am LESLEY MARK MD Registered [facility] 06/18/16 12:42pm LESLEY MARK MD Registered [facility] 06/17/16 1:25pm WES CANO MD Registered [facility] 06/10/16 1:19pm WES CANO MD Registered [facility] 05/22/16 11:17am WES CANO MD Registered [facility] 05/09/16 10:45am WES CANO MD Registered [facility] 04/25/16 9:50am WES CANO MD Registered [facility] 04/17/16 11:00am WES CANO MD Registered [facility] 04/10/16 4:25pm WES CANO MD Registered [facility] 04/10/16 2:34pm WES CANO MD Departed Emergency Room [facility] 04/03/16 11:26pm 04/04/16 1: 32am MARIPOSA FAYE MD
--- NOTE | 2016-07-25 11:19 | ANESPREOP ---
Anesthesia Record Date and Time DATE: 07/25/16 TIME: 11:08 Proposed Surgical Procedure LEFT TOE AMPUTATION NPO since: > MN Allergies: Coded Allergies: lisinopril (Verified Allergy, Intermediate, DIZZINESS, 07/17/16) Penicillins (Verified Allergy, Unknown, HIVES, 07/17/16) Ht/Wt/BMI Height: 5 ' 8.00 " Weight: 122.700 kg BMI: 41.1 kg/m2 Vital Signs Date Time Temp Pulse Resp B/P Pulse Ox O2 Delivery O2 Flow Rate FiO2 07/25/16 10:58 98.3 98 18 146/82 98 Room Air Medications Inpatient Medications Current Medications Medications (Trade) Dose Ordered Sig/Ariadne Start Time Stop Time Status Last Admin Dose Admin Lactated Ringer's (Lactated Ringers) 1,000 ml @ 50 mls/hr Q20H PRN 07/25/16 07:00 Calcium Carbonate (Tums) 200 Mg Tab.chew, 1-2 TAB PO Q2HPRN, (Reported) Daptomycin (Daptomycin) 500 Mg Vial, 340 MG IV DAILY, (Reported) Esomeprazole Mag Trihydrate (Nexium) 20 Mg Capsule, 1 TAB PO DAILY PRN for HEARTBURN, (Reported) Hydrochlorothiazide (Hydrochlorothiazide) 25 Mg Tablet, 1 TAB PO DAILY, ( Reported) Hydrocodone/Acetaminophen ([place] 5-325 Tablet) 5-325 Tablet, 1-2 TAB PO Q6H PRN for PAIN This medication contains Tylenol, do not take more than 3,000 mg of Tylenol in a 24 hr period. Insulin Aspart (Novolog Flexpen) 1 Unit Pen, 5 UNIT SQ ACB, (Reported) Insulin Aspart (Novolog) 100 Unit/Ml Inj, 7 UNIT SQ ACL, (Reported) Insulin Aspart (Novolog) 100 Unit/Ml Inj, 7 UNIT SQ ACS, (Reported) Insulin Glargine,Hum.rec.anlog (Lantus Solostar) 1 Unit Pen, 18 UNIT SQ HS, ( Reported) Magnesium Oxide (Magox 400) 400 Mg Tablet, 400 MG PO DAILY, (Reported) Metformin Hcl (Metformin Hcl) 500 Mg Tablet, 1,000 MG PO BID, (Reported) Potassium Chloride (Potassium Chloride) 10 Meq Capsule.er, 10 MEQ PO WB, ( Reported) Take 1 capsule, by mouth, daily with breakfast Pravastatin Sodium (Pravastatin Sodium) 20 Mg Tablet, 20 MG PO HS, (Reported) Currently on Beta Vivien: No Medical/Surgical History Anesthesia PMH: Reports: *Angina (NONE SINCE STENT PLACEMENT in 2011), * Diabetes (IDDM), *Hypertension, *NC (2011 STENT PLACED), Arthritis (KNEES; RT SHOULDER TORN ROTATOR CUFF), Hyperlipidemia, Obesity, Pneumonia (HX OF IN 2015) , Reflux (TUMS OR NEXIUM PRN), Sleep Apnea, Denies: *Dyspnea, Anesthesia Reactions, Asthma, Blood Transfusion Reac, CHF, COPD, CVA/Stroke/TIA, Cancer, Cardiac Arrythmia, Clotting Problems, Deep Vein Thrombosis, Glaucoma, Hepatitis , Hiatal Hernia, Malignant Hyperthermia, Pacemaker, Renal Disease, Rheumatic Fever, Seizures, Thyroid Disease, Tuberculosis Smoking Status: Former smoker (quit 1988) Has pt. smoked today?: No Use Chewing Tobacco?: No Second Hand Exposure: No Substance Use Type: does not use Alcohol Intake: none, a few times a month Past Surgical History Orthopedic Surgeries: Yes - L TOE SURGERY 06/2016 Abdominal Surgeries: Yes - APPENDIX Genitourinary Surgeries: No Cardiac Surgeries: Yes - HEART CATH X3, STENT Endocrine Surgeries: No Reproductive Surgeries: Yes - SCROTAL INFECTION 2006 Neurological Surgeries: No Ear Surgeries: No Nose Surgeries: No Throat Surgeries: No Other Surgeries: Yes - HEART CATH X3, STENT, PICC LINE Anesthesia Adverse Reactions: FOUND none Family Hx of Anesthesia Advers: none Hx of Motion Sickness: No Pertinent Findings EKG Rhythm: Sinus Rhythm Physical Exam Respiratory: Lungs clear Cardiovascular: FOUND Regular rate, rhythm Airway Assessment Mallampati Score: III TMD: 3 Fingerbreadths Neck Extension: Good Teeth: Poor Dentation Overall Assessment: No Airway Concerns ASA: 3 Plan Anesthesia Plan: TIVA, LMA, MAC Discussion Discussed risks/options/alternatives of anesthesia and questions answered. Patient consents. Nursing pain assessment noted. Present: Spouse Attestation Statement Prior to the delivery of any anesthetic medication, I examined the patient, developed the plan, obtained the patient's consent and discussed the risk and benefits of the procedure with the patient/guardian. CASSIDY AGUIAR CONSUMER RELATIONS COMPLAINT CLERK STUDENT Jul 25, 2016 11:13
[2016-07-25] MEDS ORDERED: PROPOFOL 200mg 20 ML IV ONE (11:47)
[2016-07-25] MEDS ORDERED: LIDOCAINE (2%) 100 MG/5 ML PF SYRINGE IV ONE (12:01)
[2016-07-25] MEDS ORDERED: BUPIVACAINE 0.25% (2.5mg/ml) INJ 30ml SDV ONE (12:02)
[2016-07-25] MEDS ORDERED: LIDOCAINE 1% (10mg/ml) 30ml SDV ONE (12:02)
--- NOTE | 2016-07-25 12:07 | HPPDOC ---
Ortho HPI HPI Elements HPI DATE 07/25/2016 CHIEF COMPLAINT Followup for osteomyelitis of the left great toe. HISTORY OF PRESENT ILLNESS Mr. Mcclelland is a 50-year-old man who has been followed in the wound clinic for a wound to the bottom of the right foot since approximately [place] which has nearly healed and more recently he has been followup for a wound involving the left great toe. The wound on the left great toe has been present since June 18. He was noted to have an area of blackness within the ulcer there. He underwent MRI of the left foot with and without contrast June 21 which showed focal edema in the great toe distal phalanx consistent with osteomyelitis. He had a wound culture obtained June 21 which had rare gram-positive cocci on the Gram stain and grew methicillin-resistant Staph aureus resistant only to oxacillin. Dr. Nolasco took him to surgery June 28 for debridement to bone of the left foot diabetic foot ulcer with left great toe distal phalanx bone biopsy. There were two specimens sent for culture from that surgery and they both grew methicillin-resistant Staph aureus. That isolate was sensitive to doxycycline, gentamicin, linezolid, tetracycline, Bactrim and vancomycin. The biopsy was not sent for pathology. He was started on doxycycline on July 01. I saw him on July 03 and recommended IV antibiotics for six weeks. He had a PICC line placed and was started on daptomycin at 6 mg/kg IV daily. He has been going to the infusion center and he denies missing any doses. He returns for followup today and he has been on this for three weeks now. He reports that over the past week he has developed increased swelling of the left foot and his left great toe has turned black. He also underwent an angiogram on July 17 which was negative for any significant vascular disease. Past Medical History Adult Past Medical History Patient History: (1) Diabetes (2) Hyperlipemia (3) Hypertension (4) Coronary artery disease (5) MAXIME (obstructive sleep apnea) (6) Depression Current Medications Calcium Carbonate (Tums) 200 Mg Tab.chew, 1-2 TAB PO Q2HPRN, (Reported) Last Taken: Unknown Dose on 07/23/16 Daptomycin (Daptomycin) 500 Mg Vial, 340 MG IV DAILY, (Reported) Last Taken: Unknown Dose on 07/24/16 Esomeprazole Mag Trihydrate (Nexium) 20 Mg Capsule, 1 TAB PO DAILY PRN for HEARTBURN, (Reported) Hydrochlorothiazide (Hydrochlorothiazide) 25 Mg Tablet, 1 TAB PO DAILY, ( Reported) Last Taken: Unknown Dose on 07/24/16 Hydrocodone/Acetaminophen ([place] 5-325 Tablet) 5-325 Tablet, 1-2 TAB PO Q6H PRN for PAIN This medication contains Tylenol, do not take more than 3,000 mg of Tylenol in a 24 hr period. Last Taken: Unknown Dose on 07/23/16 Insulin Aspart (Novolog Flexpen) 1 Unit Pen, 5 UNIT SQ ACB, (Reported) Last Taken: Unknown Dose on 07/24/16 Insulin Aspart (Novolog) 100 Unit/Ml Inj, 7 UNIT SQ ACL, (Reported) Last Taken: 7U on 07/24/16 Insulin Aspart (Novolog) 100 Unit/Ml Inj, 7 UNIT SQ ACS, (Reported) Last Taken: Unknown Dose on 07/24/16 Insulin Glargine,Hum.rec.anlog (Lantus Solostar) 1 Unit Pen, 18 UNIT SQ HS, (Reported) Last Taken: Unknown Dose on 07/23/16 Magnesium Oxide (Magox 400) 400 Mg Tablet, 400 MG PO DAILY, (Reported) Last Taken: Unknown Dose on 07/24/16 Metformin Hcl (Metformin Hcl) 500 Mg Tablet, 1,000 MG PO BID, (Reported) Last Taken: Unknown Dose on 07/24/16 Potassium Chloride (Potassium Chloride ) 10 Meq Capsule.er, 10 MEQ PO WB, (Reported) Take 1 capsule, by mouth, daily with breakfast Last Taken: Unknown Dose on 07/24/16 Pravastatin Sodium (Pravastatin Sodium ) 20 Mg Tablet, 20 MG PO HS, (Reported) Last Taken: Unknown Dose on 07/23/16 Allergies Allergies: Coded Allergies: lisinopril (Verified Allergy, Intermediate, DIZZINESS, 07/17/16) Penicillins (Verified Allergy, Unknown, HIVES, 07/17/16) Vaccines FEB 20162015 Social History Smoking Status: Former smoker (quit 1988) Does patient use chewing tobac: No Second Hand Exposure: No Substance Use Type: does not use Sexuality: female partner Advance Directives: No DPOA for Healthcare Only Review of Systems Constitutional: DENIES: chills, fever, night sweats Cardiovascular DENIES: chest pain Rhythm/Rate: DENIES: palpitations GI Upper Abdomen: DENIES: nausea, vomiting Lower Abdomen: DENIES: pain General: DENIES: burning, dysuria, pain Musculoskeletal General: see HPI Integumentary Skin: see HPI Neurological General: DENIES: paralysis/paresis, syncope Psychiatric Psychiatric: depression Physical Exam General General: well developed, no acute distress, obese Respiratory FOUND non-labored Cardiovascular FOUND pedal pulses intact Musculoskeletal Comments He has some edema of bilat LE. The left great toe has a large hardened necrotic area at the tip with some edematous changes in the great toe itself. There is mild erythema to the level of the MTP joint. No signs of cellulitis extending proximally. Neurologic FOUND no deficits Psychiatric FOUND alert Assessment & Plan Problems: (1) Osteomyelitis of toe of left foot Status: Acute Assessment & Plan: PLAN/DISCUSSION IMPRESSION 1. Osteomyelitis of the left great toe distal phalanx, now with developing gangrene of the left great toe. Bone biopsy June 28, 2016 cultured out methicillin-resistant Staph aureus. Clinically it appears that his toe is worsening despite the IV daptomycin. His angiogram did not show any significant vascular disease. The pt has seen Dr Nolasco and he recommends an amputation of this toe. After his amputation, he will not need to complete the entire course of IV antibiotics. His IV antibiotics will be stopped within 24 hours of surgery. He might need some additional oral antibiotics to treat any remaining soft tissue infection. TIFFANIE DOMINGO Jul 25, 2016 12:01
[2016-07-25] MEDS ORDERED: CEFAZOLIN 2 G in NORMAL SALINE 100 ML IV ONE (12:49)
[2016-07-25] MEDS ORDERED: ONDANSETRON 4mg/2ml INJECTION ONE (13:10)
[2016-07-25] MEDS ORDERED: DEXAMETHASONE 4mg/ml - 1ml INJECTION ONE (13:10)
[2016-07-25] MEDS ORDERED: CEPH-583 PO (13:14)
[2016-07-25] MEDS ORDERED: HYDR-4246 PO (13:14)
[2016-07-25] MEDS ORDERED: POLY17PO6 PO (13:14)
--- NOTE | 2016-07-25 14:17 | ANESPO ---
Post-Op Note Date 07/25/16 Time: 14:16 Status Pt Participated in Evaluation: Pt participated in person Vital Signs Date Time Temp Pulse Resp B/P Pulse Ox O2 Delivery O2 Flow Rate FiO2 07/25/16 14:00 95 16 140/75 95 Room Air 07/25/16 13:25 97.3 Respiratory Function: Airway patent Cardiovascular Function: Regular pulse Telemetry Pattern: SR Mental Status: Alert/oriented Pain Level Intensity: 0 Hydration: Taking po fluids Complications during Recovery None apparent Follow-Up Instructions Instructions Per Surgeon PEDRO MCKEON SHEET ROCK NAILER Jul 25, 2016 14:17
--- NOTE | 2016-07-25 14:41 | NUR ---
STATUS CONTACTED WOUND CARE CLINIC IN REGARDS TO FOLLOW UP APPOINTMENT FOR PATIENT. PATIENT HAS FOLLOW UP APPOINTMENT ON 07/30/16 AT 11:00. RN INSTRUCTED TO INFORM PATIENT AND PATIENT IF DRESSING BECOMES SOILED AND NEEDS CHANGED PRIOR TO CONTACT WOUND CARE CLINIC AND APPOINTMENT WOULD BE MADE SOONER
--- NOTE | 2016-07-25 14:45 | NUR ---
STATUS PATIENT TAKEN VIA W/C TO INFUSION THERAPY PER ORDER.
--- NOTE | 2016-07-25 21:17 | OPNOTEF ---
DATE OF SURGERY 07/25/2016 PREOPERATIVE DIAGNOSIS Left big toe osteomyelitis. POSTOPERATIVE DIAGNOSIS Left big toe osteomyelitis. PROCEDURE Left great toe amputation. SURGEON Kim Nolasco MD [employer] None. COMPLICATIONS None. ANESTHESIA General. DESCRIPTION OF PROCEDURE Mr. Mcclelland and his left big toe were identified. He was brought back to the operating suite and placed supine on the operating table. He was placed under general anesthesia. The left lower extremity was prepped and draped in my normal sterile fashion. Timeout was performed. His wound was significant with exposed distal and proximal phalanx of the great toe. There was full-thickness skin loss encompassing about 25%-40% of the medial and distal aspect of the toe. I began by debriding first the distal phalanx and then proximal phalanx. This was done with a series of rongeurs as well as sharply dividing the ligaments and tendons as needed. Once the entire distal and proximal phalanxes were removed I did evaluate the metatarsal head which appeared to be in good shape without signs of infection or damage. The wound was thoroughly irrigated. I cleaned up the skin edges to allow for a closure over the first metatarsal head with no tension. This was a fishmouth type of closure. Final closure was done with 3-0 nylon in a simple interrupted fashion. I used a tiny bit of cautery at the very end for some skin bleeders but a tourniquet was not used during the case. The foot was then cleaned and a sterile dressing placed with Xeroform, 4 x 4's and Kerlix. The drapes were then removed. He was placed into a postop shoe, allowed to awaken from general anesthesia and taken to the recovery room under the care of Anesthesia. He tolerated the procedure well. There were no complications. MURRAY
== END 2016-07-25 14:45 | disposition home or self-care (01) ==
LOC: SCU 09:47
PROVIDERS: ATTEND Orthopaedic Surgery
DX: M86.8X7 Other osteomyelitis, ankle and foot (principal); Z88.0 Allergy status to penicillin; Z88.8 Allergy status to other drugs, medicaments and biological substances; Z87.891 Personal history of nicotine dependence; Z95.5 Presence of coronary angioplasty implant and graft
CPT/HCPCS: 28820; 82948; A6222; J0690; J1100; J2405; J2704; J7050; J7120; S0020

== ENCOUNTER → 2016-07-30 | Outpatient (CLI) | payer BC ==
[~2016-07-30] MED LIST changes: +CEPH-583 PO; -LEVO750T46 PO; -LIDOCAINE 1% (10mg/ml) 2ml SDV INJ ONE; -LR 1,000 ML IV PRN; -NITR0.4T39 SL
== END ==
LOC: NWCC 11:37
PROVIDERS: ATTEND Internal Medicine
DX: T87.9 Unspecified complications of amputation stump (principal); Y83.8 Other surgical procedures as the cause of abnormal reaction of the patient, or of later complication, without mention of misadventure at the time of the procedure; E10.8 Type 1 diabetes mellitus with unspecified complications; Z79.4 Long term (current) use of insulin
CPT/HCPCS: 99212; A6210

== ENCOUNTER → 2016-08-07 | Outpatient (CLI) | payer BC ==
--- NOTE | 2016-08-07 18:57 | WOUNDPNF ---
DATE 08/07/2016 CHIEF COMPLAINT One week status post left great toe amputation. SUBJECTIVE Mr. Mcclelland is doing well. He is off of antibiotics now. His pain seems to be well controlled. PHYSICAL EXAMINATION Exam of the amputation site of the left great toe shows sutures are intact. The wound is well approximated. There is a small opening in the most lateral aspect of the incision with no drainage. No erythema. He has healthy appearing subcutaneous tissue after eschar is removed. ASSESSMENT Status post amputation of left great toe. PLAN I would like to treat his incision with silver dressing. I will have him change it every two days. I would like to see him back in one week. We will leave the sutures in at this time. MURRAY
--- NOTE | 2016-08-07 19:07 | WOUNDPNF ---
DATE August 07, 2016 CHIEF COMPLAINT Followup for osteomyelitis of the great toe. HISTORY OF PRESENT ILLNESS Mr. Mcclelland is a 50-year-old man who has been followed in the wound clinic for a wound to the bottom of the right foot since approximately . This wound has nearly healed but more recently he has developed a wound involving the left great toe since June 18. MRI done June 21 showed focal edema in the great toe distal phalanx consistent with osteomyelitis. A wound culture obtained June 21 had rare gram-positive cocci on the Gram stain and grew methicillin-resistant Staph aureus. Dr. Nolasco took him to surgery June 28 for debridement to bone of the left foot diabetic foot ulcer with great toe distal phalanx bone biopsy. Two specimens were sent for culture from that surgery and they both grew methicillin-resistant Staph aureus. He was started on doxycycline on July 01. I saw him initially July 03 and recommended IV antibiotics for six weeks. He had a PICC line placed and was started on daptomycin at 6 mg/kg IV daily. He returned for followup on July 24 and the left great toe had turned black. He also had an angiogram July 17 which was negative for any significant vascular disease. Given the appearance of the great toe on July 24 he was taken to surgery by Dr. Nolasco on July 25 for amputation of the left great toe. Intraoperatively it was noted that the metatarsal head appeared within normal limits. There were no cultures obtained during that surgery. He was given Keflex for five days postoperatively. I am seeing him today for the first time since his surgery. He states he has been doing well although he does report some diarrhea just in the past two days. He states that his son has diarrhea currently as well. PAST MEDICAL HISTOR/PAST SURGICAL HISTORY Reviewed. ALLERGIES Penicillin caused a rash. SOCIAL HISTORY He quit smoking several years ago. He does drink some alcohol on weekends. REVIEW OF SYSTEMS He denies fevers, chills or sweats. He denies any nausea or vomiting. He reports having about four watery stools per day in the past two days. He denies any abdominal cramping or pain. He denies any other complaints. PHYSICAL EXAM VITAL SIGNS: Temperature is 97.1, blood pressure 133/88, pulse 96, respirations 12. Weight is 277 pounds. GENERAL: He appears comfortable and is in no acute distress. HEENT: Pupils are equal, round, reactive to light. Extraocular movements are intact. Oropharynx is clear. NECK: Supple. HEART: Regular rate and rhythm. No murmur is noted. LUNGS: Clear to auscultation bilaterally anteriorly. ABDOMEN: Soft, nontender. He has bowel sounds present, although somewhat hypoactive. No guarding or rebound. EXTREMITIES: He has trace edema of the left foot and the edema actually appears improved. The left great toe is surgically absent and the incision appears to be intact. There is no redness or drainage noted around the incision. The sutures remain intact. There is no superficial erythema noted. NEUROLOGIC: Exam is grossly nonfocal. SKIN: No rashes. IMPRESSION 1. Osteomyelitis of the left great toe distal phalanx, with bone biopsy June 28, 2016 growing out methicillin-resistant Staph aureus. 2. Gangrene of the left great toe leading to amputation on July 25, 2016. 3. 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 4. Hypertension. 5. Hyperlipidemia. 6. Coronary artery disease. 7. Sleep apnea. 8. History of depression. 9. Penicillin allergy, rash. 10. Alcohol use. RECOMMENDATIONS At this point I do not feel that he needs any further antibiotics. I would assume that the infected bone has been resected. He does not appear to have any evidence of a soft tissue infection at this particular time. With regard to his diarrhea I discussed with him that he is at risk for Clostridium difficile infection given his recent antibiotic use. He did not think that he needed to submit any stool samples today. However, if he continues to have diarrhea then I recommend that he be tested for Clostridium difficile. I will plan to see him back in followup as needed. MURRAY
== END ==
LOC: NWCC 10:03
PROVIDERS: ATTEND Internal Medicine
DX: T87.9 Unspecified complications of amputation stump (principal); Y83.8 Other surgical procedures as the cause of abnormal reaction of the patient, or of later complication, without mention of misadventure at the time of the procedure; E11.40 Type 2 diabetes mellitus with diabetic neuropathy, unspecified; Z79.4 Long term (current) use of insulin; I10 Essential (primary) hypertension; E78.5 Hyperlipidemia, unspecified; I25.10 Atherosclerotic heart disease of native coronary artery without angina pectoris; G47.30 Sleep apnea, unspecified; Z87.898 Personal history of other specified conditions; Z72.89 Other problems related to lifestyle
CPT/HCPCS: 99212; A6210

== ENCOUNTER → 2016-08-19 | Outpatient (CLI) | payer BC | LOC: NWCC 11:30 | PROVIDERS: ATTEND Internal Medicine | DX: T87.89 Other complications of amputation stump (principal); Y83.8 Other surgical procedures as the cause of abnormal reaction of the patient, or of later complication, without mention of misadventure at the time of the procedure; E11.40 Type 2 diabetes mellitus with diabetic neuropathy, unspecified | CPT/HCPCS: 99212; A6209 ==

== ENCOUNTER → 2016-08-26 | Outpatient (CLI) | payer BC ==
[~2016-08-26] MED LIST changes: +CALMOSEPTINE OINTMENT 3.5 G PACKET TOP ONE
== END ==
LOC: NWCC 11:24
PROVIDERS: ATTEND Internal Medicine
DX: T87.89 Other complications of amputation stump (principal); Y83.8 Other surgical procedures as the cause of abnormal reaction of the patient, or of later complication, without mention of misadventure at the time of the procedure; S90.822A Blister (nonthermal), left foot, initial encounter; E11.40 Type 2 diabetes mellitus with diabetic neuropathy, unspecified
CPT/HCPCS: 11042; 99213; A6209; A6212

== ENCOUNTER → 2016-09-09 | Outpatient (CLI) | payer BC ==
[~2016-09-09] MED LIST changes: -CALMOSEPTINE OINTMENT 3.5 G PACKET TOP ONE
== END ==
LOC: NWCC 11:30
PROVIDERS: ATTEND Internal Medicine
DX: T87.89 Other complications of amputation stump (principal); Y83.8 Other surgical procedures as the cause of abnormal reaction of the patient, or of later complication, without mention of misadventure at the time of the procedure; S90.822A Blister (nonthermal), left foot, initial encounter; E11.8 Type 2 diabetes mellitus with unspecified complications
CPT/HCPCS: 99213; A6209

== ENCOUNTER 2016-10-21 19:38 | Observation (INO) ==
[2016-10-21] MEDS ORDERED: ASPIRIN 81 MG CHEWABLE TABLET PO ONE (19:46)
[2016-10-21] MEDS ORDERED: SALINE FLUSH 10ml SYRINGE IVF PRN (19:47)
--- NOTE | 2016-10-21 19:48 | Emergency Department Report ---
Chest Pain HPI - General Stated Complaint: Chest Pain Time Seen by Provider: 10/21/16 19:46 Source: patient Limitations: no limitations - History of Present Illness HPI narrative: Patient is a 50-year-old male presents emergency room for evaluation of chest discomfort. Patient does have a history of prior IL with LAD stenting in 2011 repeat catheterization 2014 showing no significant lesions anywhere. Patient was outside working in the heat, started to feel short of air so went into the house and rested. Patient started to feel better went back outside and developed some anterior chest pressure with radiation up to his left arm associated nausea and diaphoresis. Patient states this feels the same as when he had his prior IL in 2011 so patient decided present to the ER for evaluation. On arrival patient's current complaint is 4/10 anterior left-sided chest pain/pressure MD complaint: chest pain Occurred At: home Onset (ago): hour(s) (1) Duration: constant Onset: during exertion Pain location: substernal, left chest Severity: moderate Severity scale (1-10): 4 Aspirin Today: 81 mg x 4, provided by ED - Related Data Home Medications Medication Instructions Recorded Confirmed Metformin HCl 1,000 mg PO BID #0 09/15/11 10/21/16 Insulin Aspart [Novolog Flexpen] 7 unit SQ ACB #0 06/26/16 10/21/16 Insulin Glargine,Hum.rec.anlog 18 unit SQ HS #0 06/26/16 10/21/16 [Lantus Solostar] Pravastatin Sodium 20 mg PO HS #0 06/26/16 10/21/16 hydroCHLOROthiazide 25 mg PO DAILY #0 06/26/16 10/21/16 [Hydrochlorothiazide] Insulin Aspart [NovoLOG] 10 unit SQ ACL #0 vial 07/24/16 10/21/16 Insulin Aspart [NovoLOG] 10 unit SQ ACS #0 vial 07/24/16 10/21/16 Potassium Chloride 10 meq PO WB #0 cap 07/24/16 10/21/16 Doxycycline [Vibramycin] 100 mg PO BID 10/21/16 10/21/16 Magnesium Oxide [Magnesium] 400 mg PO DAILY 10/21/16 10/21/16 Allergies Allergy/AdvReac Type Severity Reaction Status Date / Time lisinopril Allergy Intermediate DIZZINESS Verified 10/17/16 09:34 Penicillins Allergy Unknown HIVES Verified 10/17/16 09:34 Review of Systems Constitutional: Reports: weakness. Denies: fever, chills ENT: Denies: ear pain Cardiovascular: Reports: chest pain, dyspnea on exertion. Denies: palpitations Respiratory: Denies: cough, dyspnea, wheezes Gastrointestinal: Denies: abdominal pain, nausea, vomiting Musculoskeletal: Denies: back pain Neurological: Denies: headache, weakness Psychiatric: Denies: anxiety, depression Endocrine: Reports: fatigue PFSH Patient Stated Medical History Angina Yes Coronary Artery Disease Yes Hypertension Yes Myocardial Infarction Yes Sleep Apnea Yes Diabetes Mellitus Type 1 Yes Diabetes Mellitus Type 2 Yes Gastroesophageal Reflux Yes Disease Cellulitis Yes Clinic Medical History (Last Updated 10/21/16 @ 21:20 by Neel Mcfarland MD) HTN (hypertension) (Chronic Medical) Myocardial infarction (Chronic Medical) Type 2 diabetes mellitus (Chronic Medical) Surgical History: Amputation left first toe - Social History Smoking status: Former smoker Substance use type: does not use Alcohol intake frequency: does not drink Physical Exam - Limitations Limitations: no limitations - General General appearance: alert, in no apparent distress - Eye Eye exam: Present: EOMI. Absent: periorbital swelling - Neck Neck exam: Present: full ROM, trachea midline. Absent: tenderness - Chest Chest inspection: Present: symmetric chest wall rise. Absent: tenderness - Respiratory Respiratory exam: Present: normal lung sounds bilaterally. Absent: respiratory distress, stridor, accessory muscle use - Cardiovascular Cardiovascular exam: Present: regular rate, normal rhythm - Abdominal Exam Abdominal exam: Present: soft. Absent: distention, tenderness, guarding, rebound - Back Exam Back exam: Present: normal inspection - Skin Skin exam: Present: warm, dry - Neurological Exam Neurological exam: Present: alert, oriented X3 - Psychiatric Psychiatric exam: Present: normal affect, normal mood Course Vital Signs Temperature 99.1 F 10/21/16 19:40 Pulse Rate 94 10/21/16 19:40 Respiratory Rate 18 10/21/16 19:40 Blood Pressure 147/71 H 10/21/16 19:40 Pulse Oximetry 98 10/21/16 19:40 Temperature 97.4 F 10/22/16 02:40 Pulse Rate 81 10/22/16 02:40 Respiratory Rate 20 10/22/16 02:40 Blood Pressure 137/83 10/22/16 02:40 Pulse Oximetry 98 10/22/16 02:40 Chest Pain - Differential Diagnosis Likely: pneumothorax, stable angina, unstable angina pectoris, atypical chest pain, chest pain - Medical Records Data Attestation: I reviewed the patient's medical records. - Lab Data Attestation: I reviewed the patient's lab results. Result diagrams: 10/21/16 19:56 10/21/16 19:56 Lab Results 10/21/16 10/21/16 Range/Units 19:56 19:56 WBC 12.0 H (4.5-11.0) T/MM3 RBC 4.32 L (4.50-5.90) M/MM3 Hgb 12.3 L (13.5-17.5) GM/DL Hct 36.5 L (41-53) % MCV 84.5 (80-100) UM3 MCH 28.5 (26-34) UUG MCHC 33.7 (31-37) GM/DL RDW Std Deviation 41.6 (36.9-50.2) FL Plt Count 477 H D (130-400) T/MM3 MPV 10.4 (9.4-12.4) UM3 Immature Gran % (Auto) 0.2 (0.0-0.5) % Neut % (Auto) 79.9 H (33-66) % Lymph % (Auto) 13.4 L (23-45) % Stephenson % (Auto) 5.3 (0-9.0) % Eos % (Auto) 1.0 (0-4) % Baso % (Auto) 0.2 (0-2) % Neut # 9.6 H (1.8-7.7) T/MM3 Lymph # 1.6 (1-4.8) T/MM3 Stephenson # 0.6 (0-0.8) T/MM3 Eos # 0.1 (0-0.5) T/MM3 Baso # 0.0 (0-0.2) T/MM3 Abs Immat Gran (auto) 0.03 (0.00-0.03) T/MM3 Turbidity < 20 (0-20) Sodium 141 (134-144) MEQ/L Potassium 4.8 (3.6-5) MEQ/L Chloride 101 (98-107) MEQ/L Carbon Dioxide 25 (22-30) MEQ/L Anion Gap 15 (5-15) MEQ/L BUN 25.0 H (9-20) MG/DL Creatinine 1.7 H (0.8-1.5) MG/DL GFR Calculation 43 BUN/Creatinine Ratio 15 (6-26) RATIO Glucose 108 (75-110) MG/DL Calculated Osmolality 276 (261-280) MOSM/KG Calcium 9.5 (8.4-10.2) MG/DL Magnesium 1.7 (1.6-2.3) MG/DL Total Bilirubin 0.50 (0.20-1.30) MG/DL Icterus Index < 2 (0-7) AST 19 (17-59) U/L ALT 35 (21-72) U/L Alkaline Phosphatase 90 (38-126) U/L Troponin I < 0.012 (0-0.12) ng/ml B-Natriuretic Peptide 234 H (0-175) pg/mL Total Protein 8.6 H (6.3-8.2) G/DL Albumin 4.2 (3.5-5.0) G/DL Globulin 4.4 H (2.4-3.6) G/DL Albumin/Globulin Ratio 1.0 L (1.1-2.2) RATIO TSH 1.73 (0.47-4.68) MIU/L Specimen Hemolysis < 15 (0-25) - Radiology Data Attestation: I reviewed the patient's radiology results. Single view chest no acute cardiopulmonary findings - ECG Data Tracing #1 I reviewed this ECG and interpreted as documented below: Normal sinus rhythm, normal axis, normal rate, right bundle-branch block, no acute ST elevations or depressions ECG compared to prior tracings: there are no significant changes Disposition Clinical Impression: Chest pain Qualifiers: Chest pain type: unspecified Qualified Code(s): R07.9 - Chest pain, unspecified Disposition: [facility] [place] Condition: Stable - Seen By: physician
[2016-10-21] MEDS: NITROGLYCERIN 0.4 MG SUBLINGUAL TABLET SL PRN ×3 (19:57→20:37)
[2016-10-21] MEDS ORDERED: NS 1,000 ML IV ONE (20:14)
[2016-10-21] MEDS ORDERED: KETOROLAC 30 MG/ML INJECTION IVP ONE (20:26)
[2016-10-21] MEDS ORDERED: MORPHINE SULFATE 2 MG SYRINGE IVP ONE (20:48)
[2016-10-21] MEDS: 1/2 NS 1,000 ML IV SCH (22:34)
[2016-10-21] MEDS ORDERED: PRAVASTATIN 20 MG TABLET PO ONE (23:27)
--- NOTE | 2016-10-22 08:36 | XRay Report ---
Indication: chest pain PROCEDURE: XR chest 1V: Encounter: Initial Comparison: March 01, 2015 FINDINGS: The lungs are clear. There is no abnormal airspace opacity, pleural effusion or pneumothorax identified. The heart size, pulmonary vasculature and mediastinum are within normal limits. No significant skeletal abnormality is seen. IMPRESSION: No acute cardiopulmonary abnormality. .
[2016-10-22] MEDS ORDERED: NITROGLYCERIN 0.4 MG SUBLINGUAL TABLET SL PRN (08:54)
[2016-10-22] MEDS ORDERED: MORPHINE SULFATE 10 MG SYRINGE IVP PRN (09:04)
[2016-10-22] MEDS: 1/2 NS 1,000 ML IV SCH ×2 (09:14→19:31)
--- NOTE | 2016-10-22 11:01 | Cardiology Consult Note ---
History of Present Illness Consult date: 10/22/16 <Josefina Xie 10/22/16 11:09> Requesting physician: Elver Best <Josefina Xie 10/22/16 11:09> Consult reason: chest pain <Josefina Xie 10/22/16 11:09> Chief complaint: chest pain <Josefina Xie 10/22/16 11:09> History of present illness: Fer is a 50-year-old male who is well known to Dr. Galvez with a history of SC , CAD with LAD Stent in 2011, HTN, HLD, DM II who presented to the ED for evaluation of chest discomfort last evening. Catheterization in 2014 showing RCA posterolateral occlusion with left to right collaterals. He was outside working in the heat, started to feel short of air so went into the office and rested. He started to feel better went back outside and developed some anterior chest pressure with radiation up to his left arm associated nausea and diaphoresis. He states this feels the same as when he had his prior SC in 2011 so patient decided present to the ED for evaluation. He was admitted to Dr. Best and Dr. Page is consulted. Fer is examined in his room on Medical. He currently denies chest pain or pressure. He denies palpitations, dyspnea, dizziness, or syncope. He denies recent illness, fever, chills, N/V/D. <Josefina Xie 10/22/16 11:09> Review of Systems - Constitutional Constitutional: Present: fatigue. Absent: chills, fever(s) <Josefina Xie 10/22/16 11:09> - EENMT Eyes: Present: change in vision (prior to chest pain) <Josefina Xie 11:09> Mouth/Throat: Absent: sore throat <Josefina Xie 10/22/16 11:09> - Cardiovascular Cardiovascular: Present: chest pain, dyspnea on exertion. Absent: palpitations , syncope, orthopnea <Josefina Xie 10/22/16 11:09> - Respiratory Respiratory: Absent: cough <Josefina Xie 10/22/16 11:09> - Gastrointestinal Gastrointestinal: Absent: diarrhea, nausea, vomiting <Josefina Xie - 11:09> - Genitourinary Genitourinary: Absent: dysuria <Josefina Xie - 10/22/16 11:09> - Neurological Neurological: Absent: dizziness <RojasJosefina mcgregor - 10/22/16 11:09> FORMERLY [facility], 1928–1983 Patient Stated Medical History Angina Yes Coronary Artery Disease Yes Hypertension Yes Myocardial Infarction Yes Sleep Apnea Yes Diabetes Mellitus Type 1 Yes Diabetes Mellitus Type 2 Yes Gastroesophageal Reflux Yes Disease Cellulitis Yes Clinic Medical History (Last Updated 10/22/16 @ 11:09 by Josefina Xie APRN) HTN (hypertension) (Chronic Medical) Myocardial infarction (Chronic Medical) Type 2 diabetes mellitus (Chronic Medical) <Tremaine Page - 10/24/16 13:27> Patient Stated Medical History Angina Yes Coronary Artery Disease Yes Hypertension Yes Myocardial Infarction Yes Sleep Apnea Yes Diabetes Mellitus Type 1 Yes Diabetes Mellitus Type 2 Yes Gastroesophageal Reflux Yes Disease Cellulitis Yes Clinic Medical History (Last Updated 10/21/16 @ 21:20 by Neel Mcfarland MD) HTN (hypertension) (Chronic Medical) Myocardial infarction (Chronic Medical) Type 2 diabetes mellitus (Chronic Medical) <Josefina Xie - 10/22/16 11:09> Surgical History: Amputation left first toe <Josefina Xie - 10/22/16 11:09> - Social History Smoking status: Former smoker <Josefina Xie - 10/22/16 11:09> Medications Home Medications Medication Instructions Recorded Confirmed Type Insulin Aspart [Novolog Flexpen] 7 unit SQ ACB #0 06/26/16 10/21/16 History Insulin Glargine,Hum.rec.anlog 18 unit SQ HS #0 06/26/16 10/21/16 History [Lantus Solostar] Pravastatin Sodium 20 mg PO HS #0 06/26/16 10/21/16 History hydroCHLOROthiazide 25 mg PO DAILY #0 06/26/16 10/21/16 History [Hydrochlorothiazide] Insulin Aspart [NovoLOG] 10 unit SQ ACL #0 vial 07/24/16 10/21/16 History Insulin Aspart [NovoLOG] 10 unit SQ ACS #0 vial 07/24/16 10/21/16 History Potassium Chloride 10 meq PO WB #0 cap 07/24/16 10/21/16 History Doxycycline [Vibramycin] 100 mg PO BID 10/21/16 10/21/16 History Magnesium Oxide [Magnesium] 400 mg PO DAILY 10/21/16 10/21/16 History <Tremaine Page - 10/24/16 13:27> Allergies Allergy/AdvReac Type Severity Reaction Status Date / Time lisinopril Allergy Intermediate DIZZINESS Verified 10/17/16 09:34 Penicillins Allergy Unknown HIVES Verified 10/17/16 09:34 <Tremaine Page - 10/24/16 13:27> Exam Vital signs: Temp Pulse Resp BP Pulse Ox 95.8 F L 82 18 143/69 H 98 10/22/16 16:00 10/22/16 16:00 10/22/16 16:00 10/22/16 16:00 10/22/16 16:00 <ShakiraTremaine hyman - 10/24/16 13:27> Temp Pulse Resp BP Pulse Ox 95.5 F L 85 16 143/79 H 97 10/22/16 08:00 10/22/16 09:10 10/22/16 08:57 10/22/16 09:10 10/22/16 08:57 <Josefina Xie [facility] 10/22/16 11:09> - Constitutional no acute distress, obese, cooperative <Josefina Xie [facility] 10/22/16 11:09> - Routine HEENT Exam ENT: Present: mucous membranes moist <Josefina Xie 10/22/16 11:09> - Routine Neck Exam Absent: JVD, carotid bruit <Josefina Xie 10/22/16 11:09> - Routine Chest/Breast/Axilla Exam Chest wall: Absent: tenderness <Josefina Xie 10/22/16 11:09> - Routine Respiratory Exam Present: CTA bilaterally. Absent: rales, wheezes <Josefina Xie 10/22/16 11:09> - Routine Cardiovascular Exam Present: RRR, no murmur. Absent: JVD <Josefina Xie 10/22/16 11:09> - Routine Abdominal Exam Present: soft, non tender <Josefina Xie 10/22/16 11:09> - Routine Skin Exam Absent: rash <Josefina Xie - 10/22/16 11:09> - Routine Neurological Exam Present: alert, oriented X3 <Josefina Xie - 10/22/16 11:09> - Routine Psychiatric Exam Present: normal affect, normal thought process <Josefina Xie - 10/22/16 11: 09> Results 10/22/16 07:55 10/22/16 07:55 <Tremaine Page - 10/24/16 13:27> Cardiac Enzymes 10/22/16 10/22/16 Range/Units 02:12 07:55 Troponin I < 0.012 < 0.012 (0-0.12) ng/ml CBC 10/22/16 Range/Units 07:55 WBC 8.5 (4.5-11.0) T/MM3 RBC 4.20 L (4.50-5.90) M/MM3 Hgb 12.0 L (13.5-17.5) GM/DL Hct 35.7 L (41-53) % Plt Count 404 H (130-400) T/MM3 Neut # 5.5 (1.8-7.7) T/MM3 Lymph # 2.1 (1-4.8) T/MM3 [place] # 0.6 (0-0.8) T/MM3 Eos # 0.2 (0-0.5) T/MM3 Baso # 0.0 (0-0.2) T/MM3 Comprehensive Metabolic Panel 10/22/16 Range/Units 07:55 Sodium 140 (134-144) MEQ/L Potassium 4.1 (3.6-5) MEQ/L Chloride 103 (98-107) MEQ/L Carbon Dioxide 26 (22-30) MEQ/L BUN 26.0 H (9-20) MG/DL Creatinine 1.1 D (0.8-1.5) MG/DL Glucose 120 H (75-110) MG/DL Calcium 9.0 (8.4-10.2) MG/DL Intake and Output 10/21/16 10/22/16 10/22/16 22:59 06:59 14:59 Intake Total 240 / 240 1920 / 1920 Output Total 450 / 450 800 / 800 Balance 240 / 240 -450 / -450 1120 / 1120 Intake: IV 1000 / 1000 2 Normal Saline 1,000 1000 / 1000 ml @ 100 mls/hr IV .Q10H [facility] Rx#:[id number] Oral 240 / 240 920 / 920 Output: Urine 450 / 450 800 / 800 Other: Weight 285 lb 11.505 oz Patient Weight 10/23/16 06:59 Weight 285 lb 11.505 oz Laboratory Results - last 48 hr 10/21/16 10/21/16 10/21/16 19:56 19:56 23:44 WBC 12.0 H RBC 4.32 L Hgb 12.3 L Hct 36.5 L MCV 84.5 MCH 28.5 MCHC 33.7 RDW Std Deviation 41.6 Plt Count 477 H D MPV 10.4 Immature Gran % (Auto) 0.2 Neut % (Auto) 79.9 H Lymph % (Auto) 13.4 L [place] % (Auto) 5.3 Eos % (Auto) 1.0 Baso % (Auto) 0.2 Neut # 9.6 H Lymph # 1.6 [place] # 0.6 Eos # 0.1 Baso # 0.0 Abs Immat Gran (auto) 0.03 D-Dimer Turbidity < 20 Sodium 141 Potassium 4.8 Chloride 101 Carbon Dioxide 25 Anion Gap 15 BUN 25.0 H Creatinine 1.7 H GFR Calculation 43 BUN/Creatinine Ratio 15 Glucose 108 Glucometer 133 Calculated Osmolality 276 Calcium 9.5 Magnesium 1.7 Total Bilirubin 0.50 Icterus Index < 2 AST 19 ALT 35 Alkaline Phosphatase 90 Troponin I < 0.012 B-Natriuretic Peptide 234 H Total Protein 8.6 H Albumin 4.2 Globulin 4.4 H Albumin/Globulin Ratio 1.0 L TSH 1.73 Specimen Hemolysis < 15 10/22/16 10/22/16 10/22/16 02:12 06:18 07:55 WBC RBC Hgb Hct MCV MCH MCHC RDW Std Deviation Plt Count MPV Immature Gran % (Auto) Neut % (Auto) Lymph % (Auto) [place] % (Auto) Eos % (Auto) Baso % (Auto) Neut # Lymph # [place] # Eos # Baso # Abs Immat Gran (auto) D-Dimer Turbidity Sodium Potassium Chloride Carbon Dioxide Anion Gap BUN Creatinine GFR Calculation BUN/Creatinine Ratio Glucose Glucometer 104 Calculated Osmolality Calcium Magnesium Total Bilirubin Icterus Index AST ALT Alkaline Phosphatase Troponin I < 0.012 < 0.012 B-Natriuretic Peptide Total Protein Albumin Globulin Albumin/Globulin Ratio TSH Specimen Hemolysis 22 < 15 10/22/16 10/22/16 10/22/16 07:55 07:55 07:55 WBC 8.5 RBC 4.20 L Hgb 12.0 L Hct 35.7 L MCV 85.0 MCH 28.6 MCHC 33.6 RDW Std Deviation 41.5 Plt Count 404 H MPV 10.8 Immature Gran % (Auto) 0.2 Neut % (Auto) 64.5 Lymph % (Auto) 24.8 [place] % (Auto) 7.4 Eos % (Auto) 2.6 Baso % (Auto) 0.5 Neut # 5.5 Lymph # 2.1 [place] # 0.6 Eos # 0.2 Baso # 0.0 Abs Immat Gran (auto) 0.02 D-Dimer < 150 Turbidity < 20 Sodium 140 Potassium 4.1 Chloride 103 Carbon Dioxide 26 Anion Gap 11 BUN 26.0 H Creatinine 1.1 D GFR Calculation 71 BUN/Creatinine Ratio 24 Glucose 120 H Glucometer Calculated Osmolality 275 Calcium 9.0 Magnesium Total Bilirubin Icterus Index < 2 AST ALT Alkaline Phosphatase Troponin I B-Natriuretic Peptide Total Protein Albumin Globulin Albumin/Globulin Ratio TSH Specimen Hemolysis < 15 <Josefina Xie - 10/22/16 11:09> - Imaging and Cardiology Imaging & Cardiology Narrative: Date of Exam: 10/21/16 Ordering Provider: Neel Mcfarland MD Type of Exam(s): XR chest 1V Reason for Exam(s): chest pain Indication: chest pain PROCEDURE: XR chest 1V: Encounter: Initial Comparison: March 01, 2015 FINDINGS: The lungs are clear. There is no abnormal airspace opacity, pleural effusion or pneumothorax identified. The heart size, pulmonary vasculature and mediastinum are within normal limits. No significant skeletal abnormality is seen. IMPRESSION: No acute cardiopulmonary abnormality. 10/22/16 11:04 <Josefina Xie 10/22/16 11:09> EKG interpretations - EKG EKG shows: sinus rhythm <Josefina Xie 10/22/16 11:09> - Blocks, axis, hypertrophy, ST abn AV and intraventricular conduction: right bundle branch block (fixed/ intermittent, complete/incomplete) (incomplete) <Josefina Xie 10/22/16 11: 09> Assessment and Plan (1) Chest pain Status: Acute (2) Atherosclerotic heart disease of [place] coronary artery without angina pectoris Status: Chronic (3) Essential (primary) hypertension Status: Chronic (4) Mixed hyperlipidemia Status: Chronic (5) Type 2 diabetes mellitus without complications Status: Chronic <Tremaine Page - 10/24/16 13:27> (1) Chest pain Start date: 10/21/16 Status: Acute Chest pain while at work, diaphoresis and nausea. Serial troponin levels negative, EKG without ischemic changes. Scheduled for stress test in January, will move it up to 11/21/16 at 11:15 (2) Atherosclerotic heart disease of [place] coronary artery without angina pectoris Status: Chronic Stent LAD 09/2011, last cath 10/2014, no intervention. (3) Essential (primary) hypertension Status: Chronic Takes HCTZ 25mg daily. Add Losartan 50mg daily for better control. (4) Mixed hyperlipidemia Status: Chronic Takes Pravastatin. PCP manages (5) Type 2 diabetes mellitus without complications Status: Chronic PCP manages <Josefina Xie - 10/22/16 15:51> Hospital Course Summary Disclaimer: The visit summary below is not to be considered part of the above Progress Note. <Tremaine Page - 10/24/16 13:27> The visit summary below is not to be considered part of the above Progress Note. <Josefina Xie - 10/22/16 11:09> Hospital Course: 10/24/16 13:27 Recommendation After examining the patient I agree with the above assessment. I am involved in the formulation of the patient's plan of care. <Tremaine Page - 10/24/16 13:27> Sepsis Assessment - Evaluation Sepsis screening result: No Definite Risk <Josefina Xie 10/22/16 11:09> - Focused Exam Vital Signs Temp Pulse Resp BP Pulse Ox 10/22/16 09:10 85 143/79 H 10/22/16 08:57 65 16 172/87 H 97 10/22/16 08:00 95.5 F L 85 16 162/87 H 98 10/22/16 02:40 97.4 F 81 20 137/83 98 <Josefina Xie 10/22/16 11:09>
--- NOTE | 2016-10-22 11:54 | CT Scan Report ---
Indication: Recurrent headache PROCEDURE: CT head/brain wo con: Encounter: Initial Comparison: 02/05/2015 Technique: Axial CT images through the head were performed without contrast. Iterative Reconstruction dose reducing technique was utilized. FINDINGS: The ventricles are of normal size, shape, and configuration for the patient's age. There is no evidence of acute intracranial hemorrhage, midline displacement, or mass effect. The CT attenuation of the brain parenchyma is normal within the cerebellum, brain stem, and cerebral hemispheres. The tympanic cavities and mastoid air cells are free of appreciable disease. There are no definite fractures of the skull base, calvarium, or visualized portion of the midface. IMPRESSION: No CT evidence of acute intracranial abnormality. Stable head CT. .
[2016-10-22] MEDS ORDERED: LOSARTAN 50 MG TABLET PO SCH (16:00)
[2016-10-22] MEDS ORDERED: METFORMIN 500 MG TABLET PO SCH (17:00)
[2016-10-22] MEDS ORDERED: POM INSULIN ASPART 100unit/ml INJECTION SQ SCH (17:00)
--- NOTE | 2016-10-22 18:49 | Discharge Summary ---
Discharge Plan - Med Rec/Dispo Referrals/Follow Up: Elver Best MD [Family Provider] - 1 Week Prescriptions: New Insulin Glargine,Hum.rec.anlog [Lantus] 18 unit SQ HS vial Metformin [Glucophage] 500 mg PO WB Aspirin *EC* [Ecotrin] 81 mg PO DAILY Losartan [Cozaar] 50 mg PO DAILY #30 Continue Pravastatin Sodium 20 mg PO HS #0 Insulin Glargine,Hum.rec.anlog [Lantus Solostar] 18 unit SQ HS #0 Insulin Aspart [NovoLOG] 10 unit SQ ACL #0 vial Magnesium Oxide [Magnesium] 400 mg PO DAILY Doxycycline [Vibramycin] 100 mg PO BID hydroCHLOROthiazide [Hydrochlorothiazide] 25 mg PO DAILY #0 Insulin Aspart [Novolog Flexpen] 7 unit SQ ACB #0 Potassium Chloride 10 meq PO WB #0 cap Insulin Aspart [NovoLOG] 10 unit SQ ACS #0 vial Discontinued Metformin HCl 1,000 mg PO BID #0 - Disposition 01 Discharged Home, Self-Care
--- NOTE | 2016-10-22 20:04 | History and Physical ---
ADMITTING DIAGNOSES 1. Chest pain. 2. Coronary artery disease. 3. Headache. 4. Type 2 diabetes mellitus needing insulin. 5. Chronic diabetic left foot infection. REASON FOR ADMISSION Patient is a 50-year-old male who presented to [facility] ER last evening with chief complaint of chest pressure, chest tightness that started at work earlier that day and went into his left arm. Feels a squeezing * * in his chest. He was treated with nitroglycerin which did not help. He got some relief with morphine sulfate in the emergency room. He has a history of coronary artery disease and had a stent to the LAD in 2011. He had cardiac catheterization in 2014 that showed no significant lesions at that time. Medical management was just suggested by his trimmer hand, Dr. Page. PAST MEDICAL HISTORY 1. Hypertension. 2. Dyslipidemia. 3. Coronary artery disease with stent to LAD. 4. Type 2 diabetes mellitus needing insulin - poorly controlled. 5. GERD. 6. Sleep apnea. 7. Myocardial infarction in the past. 8. Diabetic foot ulcer. FAMILY HISTORY Not recorded. REVIEW OF SYSTEMS Patient denies chest pain other than when I first saw him this morning. When I finished the evaluation he was having chest pressure again. Denies palpitations , orthopnea, PND, leg-swelling, hematochezia, melena, TIA or seizure symptoms. CURRENT MEDICATIONS 1. Metformin 1000 mg p.o. b.i.d. 2. NovoLog 7 units subcutaneously a.c. breakfast, 10 units subcutaneously lunch , 10 units subcutaneously supper. 3. Lantus 18 units at bedtime. 4. Pravastatin 20 mg at bedtime. 5. Hydrochlorothiazide 25 mg one tablet daily. 6. Potassium chloride 10 mEq one tablet with breakfast. 7. Doxycycline 100 mg p.o. b.i.d. 8. Magnesium oxide 400 mg one tablet daily. ALLERGIES Lisinopril, penicillin which cause dizziness and hives, respectively. PHYSICAL EXAM GENERAL: The patient looks comfortable, in no distress at this moment. VITAL SIGNS (in the morning when recorded at 8 a.m.): Blood pressure 160/87, pulse 85, temperature 95.5, oxygen saturation 98% on room air. NECK: Supple. LUNGS: Clear. CARDIOVASCULAR: Regular rate and rhythm. ABDOMEN: Soft. No tenderness. EXTREMITIES: No significant changes other than the ulcer. His left foot is wrapped and is being cared for by Dr. Lira in the wound center. I did not get a chance to look at the wound this morning. ASSESSMENT 1. Angina/chest pain. 2. Coronary artery disease. 3. Type 2 diabetes mellitus needing insulin - poorly controlled. 4. Hypertension. Blood pressure is slightly high today. PLAN I had a lengthy discussion with the patient. Went over differential diagnoses. His and son were at bedside. I told him I will have Dr. Page see him in consultation since his symptoms seem to be angina-related. Dr. Page is the patient's trimmer hand and is well known to him. Will go ahead and do D-dimer. If high, will do CT chest angiogram. In the meantime will get CT of his head because of the persistent headache he has been having over the last week or so. Will resume his home medications as well. I told him I would probably send him home later today after Dr. Page has seen him and thinks the patient can go home from a cardiac standpoint. This is a late dictation from this morning rounding. MURRAY
[2016-10-22] MEDS ORDERED: INSULIN GLARGINE 100unit/ml INJECTION SQ SCH (22:00)
[2016-10-22] MEDS ORDERED: PRAVASTATIN 20 MG PO SCH (22:00)
[2016-10-22] MEDS ORDERED: PRAVASTATIN 20 MG TABLET PO SCH (22:00)
[2016-10-23] MEDS ORDERED: POM INSULIN ASPART 100unit/ml INJECTION SQ SCH ×2 (06:30→11:30)
[2016-10-23] MEDS ORDERED: ASPIRIN *EC* 81 MG TABLET PO SCH (09:00)
[2016-10-23] MEDS ORDERED: MAGNESIUM OXIDE 400 MG TABLET PO SCH (09:00)
--- NOTE | 2016-10-26 12:41 | Discharge Summary ---
FINAL DIAGNOSES 1. Chest pain. 2. Coronary artery disease. 3. Headache. 4. Type 2 diabetes needing insulin. 5. Chronic diabetic, left wound infection. CONSULTANTS Dr. Page. REASON FOR ADMISSION Patient is a 50-year-old male who presented to [facility] in the evening with chief complaint of chest pressure/chest tightness that started when he was at work earlier that day. It went to his left arm. He felt some squeezing sensation in his chest. He was started with sublingual nitro in the emergency room. That did not help. He got some relief with morphine sulfate. He has a history of coronary artery disease with a stent to LAD in 2011. He had cardiac catheterization in 2014 that showed no significant lesion at that time. 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 PHYSICAL EXAMINATION GENERAL: Patient looks comfortable, in no distress. NECK: Supple. LUNGS: Clear. CARDIOVASCULAR: Regular rate and rhythm. ABDOMEN: Soft. EXTREMITIES: There is no significant edema at this time. NEUROLOGIC: Grossly intact. LABORATORY DATA Chest x-ray is unremarkable. EKG shows no acute ischemic changes. Troponin I is normal. Other labs show no concern. HOSPITAL COURSE Patient admitted to general medical floor under the care of Dr. Elver Best. Patient was admitted on an outpatient basis. He had serial cardiac enzymes which were normal on two occasions. No EKG changes throughout hospitalization. Dr. Page saw this patient. He believed that the patient can be sent home in the absence of EKG changes or elevated troponin I. The plan was for the patient to go his office and set up a stress test on an outpatient basis. Patient also was treated for headache that was very worrisome to him while he was in the hospital. Patient's chest pain was resolved with morphine. His headache was improved with morphine sulfate. He had a CT head that was unremarkable. A D-dimer was less than 150. He was dismissed to home at the suggestion of Cardiology and to follow up at the office. Patient's creatinine was 1.7. It improved to 1.1 after hydration. His metformin was decreased from 2000 mg daily to 500 mg daily. DISCHARGE MEDICATIONS 1. Losartan 50 mg one tablet daily. 2. Aspirin 81 mg one tablet daily. 3. Doxycycline 100 mg p.o. twice daily. 4. Hydrochlorothiazide 25 mg one tablet p.o. daily. 5. NovoLog 7 units a.c. breakfast, NovoLog 10 units a.c. lunch. NovoLog 10 units a.c. supper. 6. Lantus 18 units at bedtime. 7. Magnesium 500 mg p.o. daily. 8. Metformin 500 mg with breakfast. 9. Potassium chloride 10 mEq one tablet with breakfast. 10. Pravastatin 20 mg one tablet daily. 11. Sublingual nitroglycerin. FOLLOWUP 1. Follow up with Dr. Page as scheduled. 2. Follow up with Dr. Best in one week. We need to repeat his BMP at that time. MTDD
== END 2016-10-22 20:05 | disposition home or self-care (01) ==
LOC: MED 19:38 → ED 19:38 → MED 21:24
PROVIDERS: ADMIT Family Medicine; ATTEND Family Medicine

== ENCOUNTER 2016-11-28 09:35 | Inpatient (IN) ==
[2016-11-28 10:39] VITALS: BMI 39.9
[2016-11-28] MEDS: LR 1,000 ML IV SCH ×3 (11:34→16:19)
[2016-11-28] MEDS ORDERED: ROPIVACAINE 0.5% (5mg/ml) 30ml INJ ONE ×2 (12:28→16:04)
[2016-11-28] MEDS ORDERED: FentaNYL 100 MCG/2 ML INJECTION ONE ×2 (12:34→13:33)
[2016-11-28] MEDS ORDERED: KETAMINE 500 MG/10 ML INJECTION ONE (12:34)
[2016-11-28] MEDS ORDERED: PROPOFOL 500 MG/50 ML VIAL IV ONE (12:34)
[2016-11-28] MEDS ORDERED: MIDAZOLAM 2mg/2ml INJECTION IVP ONE (13:01)
[2016-11-28] MEDS ORDERED: MIDAZOLAM 2mg/2ml INJECTION ONE (13:34)
[2016-11-28] MEDS ORDERED: SALINE FLUSH 10ml SYRINGE ONE (13:58)
[2016-11-28] MEDS ORDERED: PHENYLEPHRINE INJ 10 MG/ML VIAL IV ONE (13:58)
--- NOTE | 2016-11-28 14:10 | Anesthesia Preoperative Report ---
Anesthesia Preoperative Record - Date and Time Date: 11/28/16 Preoperative Diagnosis: BELOW KNEE AMPUTATION ON THE LEFT, M86.172 Proposed Procedure: left below the knee amputation NPO Since Date: 11/27/16 NPO Since Time: 23:00 Allergies/Adverse Reactions: Allergies Allergy/AdvReac Type Severity Reaction Status Date / Time lisinopril Allergy Intermediate DIZZINESS Verified 11/28/16 10:39 Penicillins Allergy Unknown HIVES Verified 11/28/16 10:39 - Vital Signs Vital Signs: Temperature 98.3 F 11/28/16 10:36 Pulse Rate 88 11/28/16 13:27 Respiratory Rate 15 11/28/16 13:27 Blood Pressure 132/67 11/28/16 13:27 Pulse Oximetry 96 11/28/16 13:27 Oxygen Delivery Method Room Air Height and Weight: Height 5 ft 10 in Weight 126.1 kg Body Mass Index 39.9 - Medications Inpatient Medications: Current Medications Lactated Ringer's (Lactated Ringers) 1,000 mls @ 50 mls/hr IV .Q20H MARILUZ Last Admin: 11/28/16 11:34 Dose: 50 mls/hr Home Medications: Home Medications Medication Instructions Recorded Confirmed Type Insulin Aspart [Novolog Flexpen] 7 unit SQ ACB #0 06/26/16 11/28/16 History hydroCHLOROthiazide 25 mg PO DAILY #0 06/26/16 11/28/16 History [Hydrochlorothiazide] Insulin Aspart [NovoLOG] 10 unit SQ ACL #0 vial 07/24/16 11/28/16 History Insulin Aspart [NovoLOG] 10 unit SQ ACS #0 vial 07/24/16 11/28/16 History Potassium Chloride 10 meq PO WB #0 cap 07/24/16 11/28/16 History Doxycycline [Vibramycin] 100 mg PO BID 10/21/16 11/28/16 History Magnesium Oxide [Magnesium] 400 mg PO DAILY 10/21/16 11/28/16 History Pregabalin Cap [Lyrica] 50 mg PO TID 11/04/16 11/28/16 History Is Patient on Beta Vivien?: No - Medical History Respiratory: Reports: Sleep Apnea DENIES: Asthma Cardiovascular: Reports: Angina (none since stents in 2011), Coronary Artery Disease, Hypertension, Myocardial Infarction (2011) DENIES: Congestive Heart Failure Gastrointestional: DENIES: Gastroesophageal Reflux Disease Renal/Endocrine: Reports: Diabetes Mellitus Type 1 Other History: DENIES: Anesthesia Reactions - Surgical History Neurological Surgeries: Reports: Other (HX MIGRAINE) Cardiac Surgeries/Treatments: Reports: Cardiac Catheterization (x3, Stent 2011) , Other Respiratory Surgery/Treatments: Reports: Other (DOES NOT WEAR CPAP) GI Surgery/Treatments: Reports: Appendectomy Musculoskeletal Surgery/Tx: Reports: Other (debridements,toe amputations) Reproductive Surgery/Treatment: Reports: Other (Scrotum 2006) Anesthesia Reactions: None Hx Family Anesthesia Reaction: No History of Motion Sickness: No - Social History Smoking Status: Former smoker Hx Chewing Tobacco Use: No Second Hand Exposure: No Substance Use Type: does not use - Physical Exam Respiratory Exam: Present: lungs clear Cardiovascular Exam: Present: regular rate and rhythm - Airway Assessment Mallampati Score: II TMD: 3 Fingerbreadths Neck Extension: good Teeth: poor dentation (multiple missing, exposed roots) Overall Assessment: may be difficult mask vent, may be difficult intubation - ASA ASA Score: 3 - Plan Anesthesia: General Inhalation Gases - Discussion Discussion: Discussed risks/options/alternatives of anesthesia and questions answered. Patient consents. Nursing pain assessment noted. Present for Discussion: spouse Attestation Statement: Prior to the delivery of any anesthetic medication, I examined the patient, developed the plan, obtained the patient's consent and discussed the risk and benefits of the procedure with the patient/guardian. - Additional Information Seen by Anesthesia: Yes
[2016-11-28] MEDS ORDERED: FentaNYL 100 MCG/2 ML INJECTION IVP PRN (15:41)
[2016-11-28] MEDS ORDERED: ACETAMINOPHEN IV 1,000 MG/100 ML VIAL IV ONE (15:42)
--- NOTE | 2016-11-28 15:47 | Operative Note ---
- Procedure Date of Admission: 11/28/16 Side: left Preoperative Diagnosis: other (left foot chronic osteomyelitis and diabetic foot ulceration) Postoperative Diagnosis: Same as preoperative diagnosis. Operation: Left leg transtibial amputation Surgeon: Kim Nolasco MD Funeral Director'S Assistant: GWYN Rosa Complications: None. Anesthesia: General Inhalation Gases Estimated Blood Loss: See Anesthesia Record. Fluids: Please see Anesthesia Record. Description of Procedure: Mr. Mcclelland in his left leg were identified and marked in the preoperative holding area. He was brought back to the operating suite and placed supine on the operating table. His left lower extremity was prepped and draped in the normal sterile fashion. Timeout was performed. I leanna out incisions starting 13 cm distal to the joint line. Short anterior flap and a long posterior flap were withdrawn. A tourniquet was placed on his left thigh but was not used during the case. We started amputation with the skin incision anteriorly. Cautery was then used to subcutaneous tissue to the anterior compartment as well as the lateral compartments bleeders were cauterized or tied off as they were encountered. Dissection was very down to the tibia periosteum was removed to allow for a tibial cut 1 cm proximal to the anterior skin flap cut was made with sagittal saw and the tibia was beveled anteriorly and medially. The fibula was dissected out and again a saw was used make an osteotomy 1 cm proximal to the tibial transection level. Sharp dissection was then carried down just posterior to the tibia and fibula coming out through the previously marked skin incision posteriorly. The leg was then handed off the table. This point we begun debulking musculature posteriorly as well as some anteriorly. His deep vessels unfortunately were severely calcified. Approximately 50% of these vessels are calcified. Once the muscle was sufficiently debulked to allow the posterior flap to come over top the wound was thoroughly irrigated and hemostasis was obtained with electrocautery. A 15 Indian drain was then placed out the lateral skin. The posterior flap was then brought over and the deep fascia was brought to the anterior fashion periosteum with #1 Vicryl. Once the deep layer was closed superficial layer was closed with 2-0 Vicryl. 3-0 nylon was then used in the skin in a simple interrupted fashion. A sterile dressing was then placed the drapes were removed and he was allowed to awake from general anesthesia and taken to the recovery room under the care of anesthesia. He tolerated the procedure well and there were no complications.
[2016-11-28] MEDS: HYDROMORPHONE 2 MG/ML INJECTION IVP PRN ×3 (15:56→16:44)
--- NOTE | 2016-11-28 16:26 | Anesthesia Procedure Note ---
Peripheral Nerve Blockade - Procedure Physician: Chris Nolasco MD Date: 11/28/16 Surgical Procedure: left BKA Discussion: Discussed risks/options/alternatives of anesthesia and questions answered. Patient consents. Nursing pain assessment noted. Block Start: 16:08 Block Stop: 16:12 Blocked Employed: Popliteal Indication: Post-Operative Pain Approach: Left Side Confirmed Position: Supine Patient: Consent, Risks/Benefits Discussed, Informed, Post Block Act. Discussed IV Sedation: No Sedation: Awake Initial Vital Signs: Temperature 98.3 F 11/28/16 10:36 Temperature Source Oral 11/28/16 10:36 Pulse Rate 98 11/28/16 10:36 Respiratory Rate 17 11/28/16 10:36 Blood Pressure 147/82 H 11/28/16 10:36 Blood Pressure Mean 103 11/28/16 10:36 Blood Pressure Position Sitting 11/28/16 10:36 Pulse Oximetry 97 11/28/16 10:36 Oxygen Delivery Method 11/28/16 10:36 Post Vital Signs: Temperature 98.3 F 11/28/16 10:36 Pulse Rate 88 11/28/16 13:27 Respiratory Rate 15 11/28/16 13:27 Blood Pressure 132/67 11/28/16 13:27 Pulse Oximetry 96 11/28/16 13:27 Oxygen Delivery Method Room Air Initial Pain Pain Score: 8 Post Block Pain Score: 0 (waiting to assess) Prep: Chlorhexadine/ETOH Ultrasound Used?: Yes - Nerve Simulator Paresthesia/Pain: None - Injectate Ropivacaine (%): 0.5 Ropivacaine (mL): 30 Was Epi 1:200,000 Used?: No Injection: Injection made incrementally with constant monitoring and aspiration every ml
--- NOTE | 2016-11-28 16:58 | Anesthesia Postoperative Note ---
- Date and Time Date: 11/28/16 Time: 16:58 - Status Patient Participated in Evaluation: Patient Participated in Person Vital Signs: Temperature 97.6 F 11/28/16 15:30 Pulse Rate 80 11/28/16 16:30 Respiratory Rate 10 11/28/16 16:30 Blood Pressure 97/54 11/28/16 16:30 Pulse Oximetry 100 11/28/16 16:30 Oxygen Delivery Method Nasal Cannula Oxygen Flow Rate 4 Respiratory Function: Airway Patent Cardiovascular Function: Regular Pulse Mental Status: Alert and Oriented Pain Intensity: 4 Hydration: IV Infusing Complications During Recover: None Apparent - Follow-Up Instructions Instructions: Per Surgeon
[2016-11-28] MEDS ORDERED: ONDANSETRON 4 MG/2 ML INJECTION IVP PRN (17:39)
[2016-11-28] MEDS ORDERED: LORazepam 1 MG TABLET PO PRN (17:39)
[2016-11-28] MEDS ORDERED: SENNA + DOCUSATE TABLET PO PRN (17:39)
[2016-11-28] MEDS: NS 1,000 ML IV SCH (17:44)
[2016-11-28] MEDS: HYDROCODONE/APAP 7.5 MG/325 MG TABLET PO PRN ×2 (18:07→22:13)
[2016-11-28] MEDS: LOSARTAN 50 MG TABLET PO SCH (18:25)
[2016-11-28] MEDS: PRAVASTATIN 20 MG TABLET PO SCH (21:29)
[2016-11-28] MEDS: PREGABALIN 50 MG CAPSULE PO SCH (21:29)
[2016-11-28] MEDS: INSULIN ASPART 100unit/ml INJECTION SQ PRN (21:29)
[2016-11-28] MEDS: INSULIN GLARGINE 100unit/ml INJECTION SQ SCH (21:30)
[2016-11-29] MEDS: HYDROCODONE/APAP 7.5 MG/325 MG TABLET PO PRN ×5 (03:34→21:46)
[2016-11-29] MEDS: HYDROMORPHONE 2 MG/ML INJECTION IVP PRN ×2 (04:29→10:31)
[2016-11-29] MEDS: INSULIN ASPART 100unit/ml INJECTION SQ PRN (06:19)
[2016-11-29] MEDS: INSULIN ASPART 100unit/ml INJECTION SQ SCH ×3 (08:37→17:29)
[2016-11-29] MEDS: NS 1,000 ML IV SCH ×2 (08:38→22:18)
[2016-11-29] MEDS: METFORMIN 500 MG TABLET PO SCH (08:39)
[2016-11-29] MEDS: PREGABALIN 50 MG CAPSULE PO SCH ×3 (08:39→21:45)
[2016-11-29] MEDS: LOSARTAN 50 MG TABLET PO SCH (08:39)
[2016-11-29] MEDS: MAGNESIUM OXIDE 400 MG TABLET PO SCH (08:39)
[2016-11-29] MEDS: ASPIRIN *EC* 81 MG TABLET PO SCH (08:40)
[2016-11-29] MEDS: PRAVASTATIN 20 MG TABLET PO SCH (21:45)
[2016-11-29] MEDS: INSULIN GLARGINE 100unit/ml INJECTION SQ SCH (21:46)
[2016-11-30] MEDS: NS 1,000 ML IV SCH (07:09)
[2016-11-30] MEDS: HYDROCODONE/APAP 7.5 MG/325 MG TABLET PO PRN (07:54)
[2016-11-30] MEDS: INSULIN ASPART 100unit/ml INJECTION SQ SCH ×3 (08:15→17:05)
--- NOTE | 2016-11-30 09:06 | Orthopedic Progress Note ---
Date: Subjective/Severity of Illness: Fer reports moderate pain most of the time. He did sleep okay. Eating well. No N/V. No drainage on the bandage and minimal output in the Jvac. Transfers are going ok but he has pain with movement. Orthopedic Objective PO Vital signs: Temperature 96.8 F 11/30/16 04:33 Pulse Rate 87 11/30/16 04:33 Respiratory Rate 16 11/30/16 04:33 Blood Pressure 137/70 11/30/16 04:33 Pulse Oximetry 96 11/30/16 04:33 Oxygen Delivery Method BiPAP Oxygen Flow Rate 2.0 Fraction of Inspired Oxygen 21 Height and Weight: Height 5 ft 10 in Weight 278 lb 10.629 oz Body Mass Index 39.9 - Constitutional General Appearance: Present: alert, mild distress - Respiratory Exam Present: non-labored - Surgical Site Incision: dressing intact, no drainage Drains Present: marie naqvi Drain Output: minimal amount - Psychiatric Exam Present: alert, normal affect - Labs Result Diagrams: 11/30/16 04:26 11/30/16 04:26 Abnormal lab results 11/30/16 11/30/16 Range/Units 04:26 04:26 WBC 11.9 H (4.5-11.0) T/MM3 RBC 3.34 L (4.50-5.90) M/MM3 Hgb 9.1 L (13.5-17.5) GM/DL Hct 27.9 L (41-53) % Neut % (Auto) 76.2 H (33-66) % Lymph % (Auto) 15.4 L (23-45) % Neut # 9.1 H (1.8-7.7) T/MM3 Abs Immat Gran (auto) 0.05 H (0.00-0.03) T/MM3 Sodium 133 L (134-144) MEQ/L Glucose 151 H (75-110) MG/DL H & H 11/29/16 11/30/16 Range/Units 04:07 04:26 Hgb 9.5 L 9.1 L (13.5-17.5) GM/DL Hct 29.5 L 27.9 L (41-53) % Orthopedic Assessment and Plan (1) Osteomyelitis of left foot Status: Acute Assessment and Plan: S/P BKA left LE 11/28/16. Blood sugars have been 120-180 range throughout the hospitalization. J-vac removed this AM. Monitor for drainage this AM and consider discharge later today if dressing is dry and pain controlled. Will try Oxycodone IR in place of Dexter for better pain management. He has done well with PT/OT. WBC stable, Hgb about 9. Stop IVF this AM. 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 Continue to monitor closely. Hospital Course Summary Disclaimer: The visit summary below is not to be considered part of the above Progress Note.
--- NOTE | 2016-11-30 09:17 | Discharge Summary ---
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 operator use Qualified Code( s): E11.9 - Type 2 diabetes mellitus without complications; Z79.4 - intermodal dispatcher ( current) use of insulin Status: Chronic - Procedures Procedures: Left BKA 11/28/16 - Laboratory Result Diagrams: 11/30/16 04:26 11/30/16 04:26 Laboratory: Abnormal lab results 11/30/16 11/30/16 Range/Units 04:26 04:26 WBC 11.9 H (4.5-11.0) T/MM3 RBC 3.34 L (4.50-5.90) M/MM3 Hgb 9.1 L (13.5-17.5) GM/DL Hct 27.9 L (41-53) % Neut % (Auto) 76.2 H (33-66) % Lymph % (Auto) 15.4 L (23-45) % Neut # 9.1 H (1.8-7.7) T/MM3 Abs Immat Gran (auto) 0.05 H (0.00-0.03) T/MM3 Sodium 133 L (134-144) MEQ/L Glucose 151 H (75-110) MG/DL H & H 11/29/16 11/30/16 Range/Units 04:07 04:26 Hgb 9.5 L 9.1 L (13.5-17.5) GM/DL Hct 29.5 L 27.9 L (41-53) % Orthopedic Discharge HPI - HPI Comments Pt admitted for Left BKA due to chronic osteomyelitis of the left foot that has not responded to debridement, antibiotics and treatment by the wound care center. See H&P for more details. Orthopedic Hospital Course Hospital course: 11/30/16 09:59 After appropriate preoperative clearance and signing of operative consent, the patient was given IV antibiotics, according to orthopedic protocol. The patient was taken to the operating room and underwent a BKA of the left leg. Following surgery, antibiotics were discontinued less than 24 hours. Aspirin was initiated and SCDs added to the Rt LE for DVT prevention. The dressing was clean, dry, and intact. J-vac removed on POD #2. Pain control was obtained via multimodal approach. Bowel motivation addressed with scheduled and PRN medications. Early mobilization was initiated through PT services. Discharge arrangements made by a collaborative effort between the patient and Case Management. Follow-up is scheduled next week. Discharge instructions given by orthopedic providers and nursing staff at discharge. Discharge condition was good. Ongoing care required?: Yes Discharge Plan - Med Rec/Dispo Referrals/Follow Up: Jason Valdez PA [Physician Publishing Agent] - 12/04/16 8:30 am [place] Instructions: [facility] [place]o Postop Instructions Prescriptions: New Oxycodone *Ir* [Roxicodone *Ir*] 5 - 15 mg PO Q3H PRN #60 tablet PRN Reason: Pain Senna + Docusate [Senna Plus Tablet] 1 tab PO BID PRN tablet PRN Reason: Constipation Milk of Magnesia [Mom] 30 ml PO DAILY PRN udc PRN Reason: Constipation Peg 3350 238 G Bottle [Miralax] 17 gm PO DAILY PRN #1 bottle PRN Reason: Constipation Continue Insulin Aspart [NovoLOG] 10 unit SQ ACL #0 vial Metformin [Glucophage] 500 mg PO WB Insulin Aspart [Novolog Flexpen] 7 unit SQ ACB #1 Insulin Aspart [NovoLOG] 10 unit SQ ACS #1 vial Magnesium Oxide [Magnesium] 400 mg PO DAILY 30 Days Pregabalin Cap [Lyrica] 50 mg PO TID 30 Days hydroCHLOROthiazide [Hydrochlorothiazide] 25 mg PO DAILY #0 Aspirin *EC* [Ecotrin] 81 mg PO DAILY Losartan [Cozaar] 50 mg PO DAILY #30 Potassium Chloride 10 meq PO WB #1 cap insulin glargine 100 unit/mL (3 mL) subcutaneous pen 18 unit SQ HS #15 ml pravastatin 20 mg tablet 20 mg PO HS #90 tab Discontinued Doxycycline [Vibramycin] 100 mg PO BID Hydrocodone/APAP 7.5/325 [Belen 7.5/325] 1 - 2 tab PO Q4H PRN #60 tablet PRN Reason: Pain - Disposition 01 Discharged Home, Self-Care
[2016-11-30] MEDS: ASPIRIN *EC* 81 MG TABLET PO SCH (09:39)
[2016-11-30] MEDS: LOSARTAN 50 MG TABLET PO SCH (09:39)
[2016-11-30] MEDS: PREGABALIN 50 MG CAPSULE PO SCH ×2 (09:39→15:09)
[2016-11-30] MEDS: MAGNESIUM OXIDE 400 MG TABLET PO SCH (09:39)
[2016-11-30] MEDS: METFORMIN 500 MG TABLET PO SCH (09:39)
[2016-11-30] MEDS: Oxycodone *IR* 5 MG TABLET PO PRN ×3 (09:45→15:44)
[2016-11-30] MEDS: INSULIN ASPART 100unit/ml INJECTION SQ PRN ×2 (11:32→15:16)
[2016-11-30 16:10] VITALS: RESP 18
[2016-11-30 20:01] VITALS: BP 167/71; PULSE 100; TEMP 99.7; O2SAT 95
--- NOTE | 2016-12-23 13:53 | History and Physical ---
CHIEF COMPLAINT Left foot osteomyelitis. HISTORY OF PRESENT ILLNESS Mr. Mcclelland is a kind gentleman I am treating for his left foot diabetic foot ulcerations and osteomyelitis. He has undergone two previous amputations. Unfortunately his osteomyelitis persists and his wounds are worsening. After a thorough discussion, we did decide to proceed with left transtibial amputation. We discussed the risks and benefits of surgery and expected postoperative course. He agreed with this plan and all questions were answered. PAST MEDICAL HISTORY 1. Type 2 diabetes. 2. Gastroesophageal reflux disease. 3. Hypertension. 4. Hyperlipidemia. 5. Sleep apnea. 6. Coronary artery disease. 7. Depression. 8. History of myocardial infarction. PAST SURGICAL HISTORY 1. Appendectomy. 2. I&D of scrotal abscess. 3. Heart cath with stent placements. MEDICATIONS I reviewed his current home medication list and it is available in the EMR. ALLERGIES PENICILLIN. REVIEW OF SYSTEMS Negative for chills, fever, skin infection, rash, numbness of extremity, chest pain or shortness of breath. PHYSICAL EXAM GENERAL: He is alert and oriented, in no acute distress. He is well nourished and well developed. He is here with his this morning. EXTREMITIES: Exam of his left lower extremity shows he has an open grade 4 diabetic foot ulceration over a transmetatarsal amputation site of the left foot. Skin over the tibia is intact without rashes or signs of infection. ASSESSMENT Left foot diabetic foot ulceration with osteomyelitis. PLAN I reviewed with him again the risks and benefits of left [id number] amputation as well as the expected postoperative course. He agreed with this plan and we will proceed with this surgery today. MURRAY
== END 2016-11-30 19:35 | disposition home or self-care (01) | DRG 617 ==
LOC: SUR 09:35 → SRG 09:36 → SUR 11-30 19:35 → SRG 12-03 13:16
PROVIDERS: ADMIT Orthopaedic Surgery; ATTEND Orthopaedic Surgery

== ENCOUNTER 2016-12-26 19:01 | Inpatient (IN) ==
--- NOTE | 2016-12-26 19:08 | Emergency Department Report ---
Lower Extremity Injury HPI - General Stated Complaint: Fall Source: patient, EMS Mode of arrival: EMS Limitations: no limitations - History of Present Illness HPI Narrative: 51yo man presented to the ER by EMS for evaluation of a left leg injury. Pt is appx 3wks s/p BKA for complications of DM, HTN, HL, and obesity. Wound has not healed well; pt was scheduled to follow up with operating surgeon tomorrow (Dr. Nolasco). Tonight, pt fell off his scooter onto his left stump. The surgical site dehisced on contact and pt began to bleed. Pt called EMS for transport. MD complaint: leg injury Onset (ago): minute(s) Type of Injury: blunt Place: home Severity: severe Severity scale (1-10): 8 Relieving factors: nothing Exacerbating factors: weight bearing, movement, palpation Context: fall Associated symptoms: other (Wound dehisced) Other symptoms: none Treatments prior to arrival: cold therapy, bandage - Related Data Home Medications Medication Instructions Recorded Confirmed hydroCHLOROthiazide 25 mg PO DAILY #0 06/26/16 12/26/16 [Hydrochlorothiazide] Insulin Aspart [NovoLOG] 10 unit SQ ACL #0 vial 07/24/16 12/26/16 doxycycline hyclate 100 mg capsule 100 mg PO BID 12/25/16 12/26/16 Metformin [Glucophage] 1,000 mg PO BID 12/26/16 12/26/16 Previous Rx's Medication Instructions Recorded Aspirin *EC* [Ecotrin] 81 mg PO DAILY 10/22/16 Losartan [Cozaar] 50 mg PO DAILY #30 10/22/16 insulin glargine 100 unit/mL (3 18 unit SQ HS #15 ml 11/16/16 mL) subcutaneous pen pravastatin 20 mg tablet 20 mg PO HS #90 tab 11/25/16 Insulin Aspart [NovoLOG] 10 unit SQ ACS #1 vial 11/30/16 Insulin Aspart [Novolog Flexpen] 7 unit SQ ACB #1 11/30/16 Magnesium Oxide [Magnesium] 400 mg PO DAILY 30 Days 11/30/16 Potassium Chloride 10 meq PO WB #1 cap 11/30/16 Allergies Allergy/AdvReac Type Severity Reaction Status Date / Time lisinopril Allergy Intermediate DIZZINESS Verified 12/26/16 19:13 Penicillins Allergy Unknown HIVES Verified 12/26/16 19:13 Review of Systems All systems: reviewed and negative except as stated Musculoskeletal: Reports: as per HPI Integumentary: Reports: as per HPI PFSH Patient Stated Medical History Migraine Yes Angina Yes: none since stents in 2011 Congestive Heart Failure No Coronary Artery Disease Yes Hypertension Yes Myocardial Infarction Yes: 2011 Asthma No Bronchitis Yes Sleep Apnea Yes Diabetes Mellitus Type 1 Yes Diabetes Mellitus Type 2 Yes Gastroesophageal Reflux No Disease Cellulitis Yes Anesthesia Reactions No Clinic Medical History (Last Reviewed 12/26/16 @ 08:34 by Chris Nolasco MD) HTN (hypertension) (Chronic Medical) Myocardial infarction (Chronic Medical) Type 2 diabetes mellitus (Chronic Medical) Surgical History: Amputation left first toe, Remainder toes removed, Below knee ampuation, appendectomy Family History: Family History (Last Reviewed 12/26/16 @ 08:34 by Chris Nolasco MD) Mother Diabetes Father Heart problem Sister Diabetes Heart attack Sister Diabetes - Social History Smoking status: Former smoker Physical Exam - Limitations Limitations: no limitations - General General appearance: alert, in no apparent distress, obese - Normal Exams: Head:: Normocephalic without trauma Eyes:: Pupils are PERRLA w/ EOMI, No scleral icterus, irritation, or foreign bodies noted ENMT:: No facial trauma, nasal exudates, pharyngeal erythema, or exudates are noted Neck:: Full range of motion, without adenopathy Chest/Respirations:: Clear all gómez, with good airflow Cardiovascular:: Regular rate and rhythm, without murmur or gallop Abdomen:: Bowel sounds positive, soft, non-tender Lymphatic:: No lymphadenopathy Musculoskeletal:: No tenderness Neurological:: Patient is alert, and oriented Psychiatric:: Patient exhibits, appropriate attention - Skin Skin exam: Present: warm, dry. Absent: intact (Left BKA amputation; incision is completely dehisced. Underlying tissue is dark and wound edges are dusky.), rash Course - Consultations Consultation #1: Dr. Nolasco: Will admit pt and discuss with OR staff. Make pt NPO. Washout and dress the wound as best as possible. Draw Pre-op labs. Give Vanc for coverage. Consult hospitalist to help manage pts other comorbidities. Time: 19:07 Vital Signs Respiratory Rate 18 12/26/16 19:00 Temperature 99.3 F 12/30/16 03:34 Pulse Rate 107 H 12/30/16 03:34 Respiratory Rate 20 12/30/16 03:34 Blood Pressure 164/85 H 12/30/16 03:34 Pulse Oximetry 97 12/30/16 03:34 Procedures - Other Procedure Procedure: Dehisced wound was prepped and draped. Wound edges and subQ tissue was irrigated with NS under low pressured until tissue was clean. Wound then covered with non-adherent dressing and wrapped with non-compression dressing. Extremity Injury, Lower - Differential Diagnosis Likely: puncture wound of foot (Wound dehiscence, surgical infection, arterial bleed) - Medical Records Attestation: I reviewed the patient's medical records. - Lab Data Attestation: I reviewed the patient's lab results. Result diagrams: 12/30/16 04:12 12/30/16 04:12 Lab Results 12/26/16 12/26/16 12/26/16 Range/Units 19:21 19:21 19:28 WBC 8.5 (4.5-11.0) T/MM3 RBC 4.61 (4.50-5.90) M/MM3 Hgb 12.5 L (13.5-17.5) GM/DL Hct 37.9 L (41-53) % MCV 82.2 (80-100) UM3 MCH 27.1 (26-34) UUG MCHC 33.0 (31-37) GM/DL RDW Std Deviation 44.0 (36.9-50.2) FL Plt Count 327 (130-400) T/MM3 MPV 11.4 (9.4-12.4) UM3 Immature Gran % (Auto) 0.5 (0.0-0.5) % Neut % (Auto) 61.9 (33-66) % Lymph % (Auto) 27.8 (23-45) % Ida % (Auto) 6.8 (0-9.0) % Eos % (Auto) 2.5 (0-4) % Baso % (Auto) 0.5 (0-2) % Neut # 5.3 (1.8-7.7) T/MM3 Lymph # 2.4 (1-4.8) T/MM3 Ida # 0.6 (0-0.8) T/MM3 Eos # 0.2 (0-0.5) T/MM3 Baso # 0.0 (0-0.2) T/MM3 Abs Immat Gran (auto) 0.04 H (0.00-0.03) T/MM3 Turbidity < 20 (0-20) Sodium 144 (134-144) MEQ/L Potassium 4.7 (3.6-5) MEQ/L Chloride 107 (98-107) MEQ/L Carbon Dioxide 26 (22-30) MEQ/L Anion Gap 11 (5-15) MEQ/L BUN 18.0 (9-20) MG/DL Creatinine 1.0 (0.8-1.5) MG/DL GFR Calculation 79 BUN/Creatinine Ratio 18 (6-26) RATIO Glucose 126 H (75-110) MG/DL Calculated Osmolality 281 H (261-280) MOSM/KG Calcium 9.6 (8.4-10.2) MG/DL Icterus Index < 2 (0-7) Specimen Hemolysis < 15 (0-25) Blood Type O Positive Antibody Screen Negative - Radiology Data Attestation: I reviewed the patient's radiology results. CXR: Stable chest; no acute CT pathology. Disposition Clinical Impression: Wound dehiscence Disposition: 02 To [facility] [place] Acute Care Condition: Improved - Seen By: physician
[2016-12-26] MEDS ORDERED: MORPHINE SULFATE 4 MG SYRINGE IVP ONE (19:28)
[2016-12-26] MEDS: SALINE FLUSH 10ml SYRINGE IVF PRN (20:02)
[2016-12-26] MEDS ORDERED: MORPHINE SULFATE 4 MG SYRINGE IVP PRN (20:53)
[2016-12-26] MEDS ORDERED: INSULIN DETEMIR 100unit/ml INJECTION SQ SCH (21:00)
[2016-12-26] MEDS ORDERED: NS 1,000 ML IV SCH ×2 (21:00→23:27)
--- NOTE | 2016-12-26 21:15 | Consult Note ---
<Víctor Collins Monserrat - Last Filed: 12/26/16 21:12> Consult Information - Data of Consult Consult date: 12/26/16 Requesting Physician: Chris Nolasco MD Primary Care Provider: GLORIA Tan MD Family Provider: Elver Best MD - Consult Narrative Reason for consult: T2DM, CAD, HTN, other History of present illness: Please note that the patient was seen via telemedicine with nursing assistance on 12/26/2016. Mr. Mcclelland is a very pleasant 51yo man with h/o CAD s/p [place] 2011, T2DM on insulin and metformin, essential HTN, dyslpidemia, MAXIME not on CPAP, and class 3 obesity BMI 43 now after 11/28/[address] Nolasco for osteomyelitis with fall leading to stump dehiscence. No syncope, CP, SOB, nausea or chills recognizes. Started on cefazolin yesterday after office visit after sleeve/ prosthesis eval with irritation and some bloody ooze and was to go for wound care eval/HBO assessment tomorrow. Pain 5/10 now after Morphine in ED. Last BM today. Had not eaten a full dinner so assessment for surgery now. [facility] Patient Stated Medical History Migraine Yes Angina Yes: none since stents in 2011 Congestive Heart Failure No Coronary Artery Disease Yes Hypertension Yes Myocardial Infarction Yes: 2011 Asthma No Bronchitis Yes Sleep Apnea Yes Diabetes Mellitus Type 2 Yes Gastroesophageal Reflux No Disease Cellulitis Yes Anesthesia Reactions No Clinic Medical History (Last Reviewed 12/26/16 @ 08:34 by Chris Nolasco MD) HTN (hypertension) (Chronic Medical) Myocardial infarction (Chronic Medical) Type 2 diabetes mellitus (Chronic Medical) Surgical History: Amputation left first toe, Remainder toes removed, Below knee ampuation, appendectomy Family History: Family History (Last Reviewed 12/26/16 @ 08:34 by Chris Nolasco MD) Mother Diabetes Father Heart problem Sister Diabetes Heart attack Sister Diabetes - Social History Smoking status: Former smoker Substance use type: does not use Alcohol intake frequency: does not drink Household members: spouse Review of Systems Review of systems: 10+ negative aside from in HPI Medications Home Medications Medication Instructions Recorded Confirmed Type hydroCHLOROthiazide 25 mg PO DAILY #0 06/26/16 12/26/16 History [Hydrochlorothiazide] Insulin Aspart [NovoLOG] 10 unit SQ ACL #0 vial 07/24/16 12/26/16 History doxycycline hyclate 100 mg capsule 100 mg PO BID 12/25/16 12/26/16 History Metformin [Glucophage] 1,000 mg PO BID 12/26/16 12/26/16 History Allergies Allergy/AdvReac Type Severity Reaction Status Date / Time lisinopril Allergy Intermediate DIZZINESS Verified 12/26/16 19:13 Penicillins Allergy Unknown HIVES Verified 12/26/16 19:13 Exam Vital Signs: Pulse Rate 89 12/26/16 20:30 Respiratory Rate 18 12/26/16 19:00 Blood Pressure 122/72 12/26/16 20:29 Pulse Oximetry 98 12/26/16 20:30 Telemetry Rhythm: Sinus Rhythm - Constitutional Present: no acute distress - Routine HEENT Exam Head: Present: normocephalic Eye: Present: EOMI - Routine Neck Exam Present: full ROM - Routine Respiratory Exam Present: CTA bilaterally. Absent: accessory muscle use, respiratory distress - Routine Cardiovascular Exam Present: RRR, S1, S2 - Routine Abdominal Exam Present: soft, normoactive bowel sounds, non tender - Routine Skin Exam Comments: stump dresses/ROCKY wrapped - Routine Neurological Exam Present: alert, oriented X3, CN II-XII intact - Routine Psychiatric Exam Present: normal affect Results - Labs CBC & Chem 7: 12/26/16 19:21 12/26/16 19:21 Assessment and Plan (1) Dehiscence of amputation stump Current visit: Yes Status: Acute 12/26/16 21:23 TO OR tonight with NPO, prn MSO4, etc. 12/26/16 21:25 Reassess renal function in the AM with pharmacy eval for Vanco to continue. (2) DM2 (diabetes mellitus, type 2) Current visit: Yes Status: Acute (3) Atherosclerotic heart disease of [place] coronary artery without angina pectoris Current visit: No Status: Chronic 12/26/16 21:24 stable, asa, statin, ?bblocker Essential HTN--hold ARB and HCTZ for now. Dyslipidemia--statin Class 3 obesity BMI 43 MAXIME no CPAP currently. Will need. (4) DM2 (diabetes mellitus, type 2) Current visit: Yes Status: Acute 12/26/16 21:24 only 10 units levemir instead of 18u for now qhs with SSI and hold scheduled novolog and metformin Resuscitation Status: Full Code Hospital Course Summary Disclaimer: The visit summary below is not to be considered part of the above Progress Note. 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 Diabetes Mellitus Type 2 Yes Gastroesophageal Reflux Yes: occasionally, well controlled otherwise Disease Cellulitis Yes Anesthesia Reactions No Clinic Medical History (Last Reviewed 12/26/16 @ 08:34 by Chris Nolasco MD) HTN (hypertension) (Chronic Medical) Myocardial infarction (Chronic Medical) Type 2 diabetes mellitus (Chronic Medical) Family History: Family History (Last Reviewed 12/26/16 @ 08:34 by Chris Nolasco MD) Mother Diabetes Father Heart problem Sister Diabetes Heart attack Sister Diabetes Exam Vital Signs: Temperature 97.0 F 12/27/16 07:57 Pulse Rate 84 12/27/16 07:57 Respiratory Rate 16 12/27/16 07:57 Blood Pressure 129/77 12/27/16 07:57 Pulse Oximetry 94 12/27/16 07:57 Oxygen Delivery Method Room Air Height/Weight/BMI: Weight 129 kg Results - Labs CBC & Chem 7: 12/27/16 04:26 12/27/16 04:26 Assessment and Plan (1) Dehiscence of amputation stump Current visit: Yes Status: Acute (2) Atherosclerotic heart disease of [place] coronary artery without angina pectoris Current visit: No Status: Chronic (3) DM2 (diabetes mellitus, type 2) Current visit: Yes Status: Chronic Assessment and Plan: Have independently interviewed and examined pt. Chart reviewed. Reviewed above not and concur. CC: injury to left stump HPI: 51 y/o presents to [facility] ER via EMS secondary to injury to his left stump. Was getting up in to wheel chair when became dizzy/unsteady and lost balance. Sustained trauma to left stump. Painful. BKA wound opened up (had left BKA 11/28) . Admitted by Dr Nolasco for wound care. Taken to OR last night for debridement. Wound vac placed. Currently pain about an 8/10 (just received pain medication before my visit). Denies f/u. Breathing stable without SOA, cough or congestion. Denies chest pressure or pain. Bowels stable. Urinating well. PMHx: CAD, HTN, HDL, MAXIME, Morbid obesity PSHx: Appy. Left BKA 11/28/16 - had multiple prior amputation of toes secondary to osteo prior. All: Lisinopril, Penicillin. Meds: see mar SHx: , lives in [place]. Recently laid off from [employer]. No smoke. FHx: Father: Heart disease. Mother: DM. Sister: DM/CAD. Sister: DM ROS: As in HPI. GI: constipation post discharge from BKA but resolve-bowels stable. Remainder of 10 point ROS negative Exam GEN: WDWNWM Interacts appropriately. HEENT: NC/AT PERRLA EOMI MMM Neck: supple, midline, no tracheal deviation Lung: clear bilaterally without crackles, wheezes or distress CV: regular AB: soft, Obese, NT/ND, +BS EXT: wound vac in place on left stump. MS: left BKA. Moves ext well. Neuro: CN II-XII intact. No focal deficits. Psych: awake alert appropriate. Thoughts linear. Skin: warm and dry. Lab: reviewed Assessment: as above Plan: Will restart Cozaar tomorrow for BP control, monitor today. Restart home insulin as taking po well - could start Metformin today if sugars not low. May stop IV as taking oral well. PT/OT to help functional status. PRN medications for bowels. Monitor lab. Will follow along with Dr Nolasco. Hospital Course Summary Disclaimer: The visit summary below is not to be considered part of the above Progress Note.
--- NOTE | 2016-12-26 21:30 | Anesthesia Preoperative Report ---
Anesthesia Preoperative Record - Date and Time Date: 12/26/16 Preoperative Diagnosis: Wound Dehiscence NPO Since Date: 12/26/16 NPO Since Time: 18:00 Allergies/Adverse Reactions: Allergies Allergy/AdvReac Type Severity Reaction Status Date / Time lisinopril Allergy Intermediate DIZZINESS Verified 12/26/16 19:13 Penicillins Allergy Unknown HIVES Verified 12/26/16 19:13 - Vital Signs Vital Signs: Temperature 96.3 F L 12/26/16 21:13 Pulse Rate 88 12/26/16 21:13 Respiratory Rate 18 12/26/16 21:13 Blood Pressure 126/71 12/26/16 21:13 Pulse Oximetry 98 12/26/16 21:13 Oxygen Delivery Method Room Air - Medications Inpatient Medications: Current Medications Sodium Chloride (Normal Saline) 1,000 mls @ 100 mls/hr IV .Q10H MARILUZ Insulin Aspart (Novolog) 0 unit SQ SS PRN; Protocol PRN Reason: Hyperglycemia Insulin Detemir (Levemir) 10 unit SQ HS MARILUZ Morphine Sulfate (Morphine Sulfate Inj) 4 mg IVP Q3H PRN PRN Reason: Pain Pravastatin Sodium (Pravachol) 20 mg PO HS MARILUZ Sodium Chloride (Iv Flush) 10 - 80 ml IVF PRN PRN PRN Reason: Flushing Last Admin: 12/26/16 20:02 Dose: 30 ml Home Medications: Home Medications Medication Instructions Recorded Confirmed Type hydroCHLOROthiazide 25 mg PO DAILY #0 06/26/16 12/26/16 History [Hydrochlorothiazide] Insulin Aspart [NovoLOG] 10 unit SQ ACL #0 vial 07/24/16 12/26/16 History doxycycline hyclate 100 mg capsule 100 mg PO BID 12/25/16 12/26/16 History Metformin [Glucophage] 1,000 mg PO BID 12/26/16 12/26/16 History Is Patient on Beta Vivien?: No - Medical History Respiratory: Reports: Sleep Apnea Cardiovascular: Reports: Angina (occasionally with exertion), Hypertension, High Cholesterol, Myocardial Infarction (2011 s/p heart stent) Gastrointestional: Reports: Gastroesophageal Reflux Disease (occasionally, well controlled otherwise), Morbid Obesity Neuro/Musculoskeletal: Reports: Muscle Weakness (balance problems d/t amputation ) Renal/Endocrine: Reports: 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) - Surgical History Neurological Surgeries: Reports: Other (HX MIGRAINE) Cardiac Surgeries/Treatments: Reports: Cardiac Catheterization (x3, Stent 2011) , Other Respiratory Surgery/Treatments: Reports: Other (DOES NOT WEAR CPAP) GI Surgery/Treatments: Reports: Appendectomy Musculoskeletal Surgery/Tx: Reports: Other (Left Below-knee amputation, debridements) Reproductive Surgery/Treatment: Reports: Other (Scrotum 2007) Anesthesia Reactions: None Hx Family Anesthesia Reaction: No History of Motion Sickness: No - Social History Smoking Status: Former smoker (quit completely 10 years ago) Hx Chewing Tobacco Use: No Second Hand Exposure: No Substance Use Type: marijuana (used last night. Use to use quite a bit.) Alcohol Intake: current (drank some beer last night) Alcohol Intake Frequency: former alcohol drinker - Physical Exam Respiratory Exam: Present: lungs clear, bilateral breath sounds equal Cardiovascular Exam: Present: regular rate and rhythm - Airway Assessment Mallampati Score: III TMD: 3 Fingerbreadths Neck Extension: fair, other (thick neck ) Teeth: chipped teeth/crowns (with some missing), poor dentation Overall Assessment: may be difficult intubation - ASA ASA Score: 3, E - Plan Anesthesia: General Inhalation Gases, Neuroaxial Regional/Trunk Block: Spinal - Discussion Discussion: Discussed risks/options/alternatives of anesthesia and questions answered. Patient consents. Nursing pain assessment noted. Present for Discussion: family member Attestation Statement: Prior to the delivery of any anesthetic medication, I examined the patient, developed the plan, obtained the patient's consent and discussed the risk and benefits of the procedure with the patient/guardian. - Additional Information Seen by Anesthesia: Yes
[2016-12-26] MEDS ORDERED: KETAMINE 500 MG/10 ML INJECTION ONE (21:44)
[2016-12-26] MEDS ORDERED: MIDAZOLAM 2mg/2ml INJECTION ONE (21:44)
[2016-12-26] MEDS ORDERED: FentaNYL 100 MCG/2 ML INJECTION ONE (21:44)
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
[2016-12-26] MEDS ORDERED: LR 1,000 ML IV SCH (22:54)
[2016-12-26] MEDS ORDERED: ONDANSETRON 4 MG/2 ML INJECTION IVP PRN (23:27)
--- NOTE | 2016-12-26 23:27 | Anesthesia Postoperative Note ---
- Date and Time Date: 12/26/16 Time: 23:25 - Status Patient Participated in Evaluation: Patient Participated in Person Vital Signs: Temperature 98.0 F 12/26/16 22:54 Pulse Rate 80 12/26/16 23:10 Respiratory Rate 12 12/26/16 23:10 Blood Pressure 96/55 12/26/16 23:10 Pulse Oximetry 97 12/26/16 23:10 Oxygen Delivery Method Room Air Respiratory Function: Airway Patent, Regular Respirations Cardiovascular Function: Regular Pulse Mental Status: Alert and Oriented Pain Intensity: 0 Hydration: IV Infusing Complications During Recover: None Apparent - Follow-Up Instructions Instructions: Per Surgeon
[2016-12-27] MEDS: PRAVASTATIN 20 MG TABLET PO SCH ×2 (00:13→21:56)
[2016-12-27] MEDS: HYDROCODONE/APAP 7.5 MG/325 MG TABLET PO PRN ×2 (06:09→10:04)
[2016-12-27] MEDS: ASPIRIN *EC* 325 MG TABLET PO SCH ×2 (08:07→21:56)
[2016-12-27] MEDS: MAGNESIUM OXIDE 400 MG TABLET PO SCH (08:07)
--- NOTE | 2016-12-27 08:08 | Operative Note ---
DATE 12/26/2016 PREOPERATIVE DIAGNOSIS Left [id number]-[id number] amputation stump dehiscence. POSTOPERATIVE DIAGNOSIS Left rlemx-ibo-[id number] amputation stump dehiscence. PROCEDURE Irrigation, debridement and wound VAC placement to left [id number] amputation stump. SURGEON Chris Nolasco MD ANESTHESIA Spinal. COMPLICATIONS None. DESCRIPTION OF PROCEDURE Mr. Mcclelland and his left stump were identified in the hospital room bed. He was brought back to the operating suite and spinal anesthetic was administered. He was then placed in the supine position and his left lower extremity was prepped and draped in my sterile fashion using Betadine scrub. Time-out was performed. DESCRIPTION OF PROCEDURE I began by assessing the wound. The skin incision had dehisced 100%. The deep muscular flap remained intact except for approximately a 1 cm portion in the center of the wound which was in line with the bone. I did open this up slightly so I could curet the end of the bone. I then proceeded to sharply debride all devitalized soft tissue which really was minimal. The deep tissue did appear very healthy, had no necrosis noted. The skin edges did have some nonviable tissue and this was debrided sharply. After I felt a very thorough and complete debridement of all devitalized tissue was performed, I irrigated the entire wound with 3 liters of normal saline using cysto tubing. I then irrigated again with half a liter of IrriSept solution. I then lined the skin edges with DuoDERM and then I placed a wound VAC over the open incision and set it to 125 mmHg of continuous suction, obtained a good seal. The drapes were then removed and he was taken back to the recovery room under the care of Anesthesia. The tolerated the procedure well. There were no complications. MURRAY
--- NOTE | 2016-12-27 08:45 | XRay Report ---
Indication: Pre-op PROCEDURE: XR chest 1V: Encounter: Initial Comparison: October 21, 2016 FINDINGS: The lungs are clear. There is no abnormal airspace opacity, pleural effusion or pneumothorax identified. The heart size, pulmonary vasculature and mediastinum are within normal limits. No significant skeletal abnormality is seen. IMPRESSION: No acute cardiopulmonary abnormality. .
[2016-12-27] MEDS ORDERED: BISACODYL 10 MG SUPPOSITORY RECTALLY PRN (11:04)
[2016-12-27] MEDS: INSULIN ASPART 100unit/ml INJECTION SQ SCH ×2 (11:59→17:10)
--- NOTE | 2016-12-27 12:53 | Orthopedic Progress Note ---
Date: Subjective/Severity of Illness: Fer fell and opened the wound of his recent amputation site. He underwent exploration, I&D of this late last evening by Dr Nolasco. The spinal has worn off and his pain is moderate this AM. Oxycodone works better for him and he would like to switch over from Hydrocodone. Wound vac in place with no apparent leaks. Pt otherwise is feeling ok. Orthopedic Objective PO Vital signs: Temperature 95.5 F L 12/27/16 11:24 Pulse Rate 79 12/27/16 11:24 Respiratory Rate 16 12/27/16 11:24 Blood Pressure 109/73 12/27/16 11:24 Pulse Oximetry 96 12/27/16 11:24 Oxygen Delivery Method Room Air Height and Weight: Weight 284 lb 6.341 oz - Constitutional General Appearance: Present: alert, no acute distress, well developed, obese - Respiratory Exam Present: non-labored - Surgical Site Incision: dressing intact Wound Drainage: minimal amount Drains Present: negative pressure therapy - Psychiatric Exam Present: alert, normal affect - Wound Management Left Lower Leg Wound Type: Laceration Wound Length: 12 Wound Width: 2 Wound Depth: 1.5 Surrounding Tissue Appearance: [place] - Labs Result Diagrams: 12/27/16 04:26 12/27/16 04:26 Abnormal lab results 12/27/16 Range/Units 04:26 RBC 3.76 L (4.50-5.90) M/MM3 Hgb 10.2 L D (13.5-17.5) GM/DL Hct 31.6 L D (41-53) % H & H 12/27/16 Range/Units 04:26 Hgb 10.2 L D (13.5-17.5) GM/DL Hct 31.6 L D (41-53) % Orthopedic Assessment and Plan (1) Dehiscence of amputation stump Status: Acute Assessment and Plan: Continue wound vac. Plan to retun to the OR on Friday to check his wound and consider closure vs reapplication of the vac. Continue Vanco per pharmacy. Check labs in AM. Hospitalist service to manage DM and other medical concerns. Will switch to Oxycodone per pt preference and improved pain control. Hospital Course Summary Disclaimer: The visit summary below is not to be considered part of the above Progress Note.
--- NOTE | 2016-12-27 13:43 | Pharmacy Consult-Antibiotics ---
Pharmacy Consult-Vancomycin - Laboratory Information WBC 9.7 T/MM3 (4.5-11.0) 12/27/16 04:26 BUN 18.0 MG/DL (9-20) 12/27/16 04:26 Creatinine 0.8 MG/DL (0.8-1.5) D 12/27/16 04:26 - Consult Information 51 y.o. Male admitted with wound to surgical site of recent left lower leg amputation. Patient fell and reopened surgical site wound. Explorative surgery performed 12/26/[address] in [address] with plan to consider surgical wound closure on 12/29/16. Vancomycin 2 G was given 12/26/16 @2000 pre-op explorative surgery and Vancomycin 1 G IV @0800, 12/27/16 12 Hours after pre-op dose. Vancomycin per pharmacy protocol ordered. goal trough range= 10 to 15 mcg/ml Will give Vancomycin 1.5 G IV Q8H. This dose gives a predicted trough of ~12.5 mcg/ml. Pharmacy will monitor and adjust as needed. Thank you, Rox Feliciano [facility]
[2016-12-27] MEDS: METFORMIN 1,000 MG TABLET PO SCH (17:10)
[2016-12-27] MEDS: Oxycodone *IR* 5 MG TABLET PO PRN (17:51)
[2016-12-27] MEDS ORDERED: FALL RISK - PHARMACY CONSULT XX PRN (19:48)
[2016-12-27] MEDS: INSULIN GLARGINE 100unit/ml INJECTION SQ SCH (21:55)
[2016-12-27] MEDS: SENNA + DOCUSATE TABLET PO PRN (21:57)
[2016-12-27] MEDS: SALINE FLUSH 10ml SYRINGE IVF PRN (22:01)
[2016-12-28] MEDS: Oxycodone *IR* 5 MG TABLET PO PRN ×3 (07:01→19:55)
[2016-12-28] MEDS: INSULIN ASPART 100unit/ml INJECTION SQ SCH ×3 (08:28→17:31)
[2016-12-28] MEDS: METFORMIN 1,000 MG TABLET PO SCH ×2 (08:29→17:31)
[2016-12-28] MEDS: LOSARTAN 50 MG TABLET PO SCH (08:30)
[2016-12-28] MEDS: MAGNESIUM OXIDE 400 MG TABLET PO SCH (08:30)
[2016-12-28] MEDS: ASPIRIN *EC* 325 MG TABLET PO SCH ×2 (08:30→21:32)
--- NOTE | 2016-12-28 09:05 | Orthopedic Progress Note ---
Date: Subjective/Severity of Illness: Fer is doing well. He is rating his pain at a "4". Denies any CP or Resp problems. Wound vac functioning ok. No concerns. Orthopedic Objective PO Vital signs: Temperature 98.3 F 12/28/16 07:30 Pulse Rate 89 12/28/16 07:30 Respiratory Rate 16 12/28/16 07:30 Blood Pressure 139/79 12/28/16 07:30 Pulse Oximetry 97 12/28/16 07:30 Oxygen Delivery Method Room Air Height and Weight: Weight 284 lb 6.341 oz - Constitutional General Appearance: Present: alert, no acute distress, well developed, obese - Respiratory Exam Present: non-labored - Surgical Site Incision: dressing intact Wound Drainage: minimal amount Drains Present: negative pressure therapy - Psychiatric Exam Present: alert, normal affect - Wound Management Left Lower Leg Wound Type: Laceration Wound Length: 12 Wound Width: 2 Wound Depth: 1.5 Surrounding Tissue Appearance: [place] Drainage Description: Sanguineous Drainage Amount: Moderate Primary Dressing: Medicated Gauze Pad - Labs Result Diagrams: 12/28/16 04:27 12/28/16 04:27 Abnormal lab results 12/28/16 12/28/16 Range/Units 04:27 04:27 RBC 3.76 L (4.50-5.90) M/MM3 Hgb 10.1 L (13.5-17.5) GM/DL Hct 31.6 L (41-53) % Neut % (Auto) 67.3 H (33-66) % Lymph % (Auto) 20.1 L (23-45) % Eos % (Auto) 4.4 H (0-4) % Abs Immat Gran (auto) 0.04 H (0.00-0.03) T/MM3 Glucose 142 H (75-110) MG/DL AST 15 L (17-59) U/L Albumin 3.4 L (3.5-5.0) G/DL Albumin/Globulin Ratio 0.9 L (1.1-2.2) RATIO H & H 12/27/16 12/28/16 Range/Units 04:26 04:27 Hgb 10.2 L D 10.1 L (13.5-17.5) GM/DL Hct 31.6 L D 31.6 L (41-53) % Orthopedic Assessment and Plan (1) Dehiscence of amputation stump Status: Acute Assessment and Plan: IV Vanco per pharmacy protocol. NPO after midnight for planned wound check tomorrow. Closure vs re-application of wound vac. Hospitalist following for medical needs. Pts questions answered. Hospital Course Summary Disclaimer: The visit summary below is not to be considered part of the above Progress Note.
--- NOTE | 2016-12-28 10:14 | Progress Note ---
Subjective: F/U: Type II DM, HTN; left stump wound dehiscence Doing well this morning. Pain controlled, slightly groggy/sleepy from pain medications. Eating well-no ab pain or nausea. Did have stool this morning. Breathing well without SOA, cough or congestion. No chest pressure or pain. Urinating well. No f/c. Blood sugars and blood pressure stable. Objective Vital signs: Temperature 98.3 F 12/28/16 07:30 Pulse Rate 89 12/28/16 07:30 Respiratory Rate 16 12/28/16 07:30 Blood Pressure 139/79 12/28/16 07:30 Pulse Oximetry 97 12/28/16 07:30 Oxygen Delivery Method Room Air Height/Weight/BMI: Weight 129 kg - Constitutional Present: well nourished, well developed, morbidly obese, cooperative - Routine HEENT Exam Head: Present: normocephalic, atraumatic Eye: Present: EOMI, PERRL ENT: Present: mucous membranes moist - Routine Respiratory Exam Present: CTA bilaterally. Absent: respiratory distress, rhonchi, wheezes, crackles, distant breath sounds - Routine Cardiovascular Exam Present: RRR, no murmur - Routine Abdominal Exam Present: soft, normoactive bowel sounds, non distended, non tender. Absent: guarding - Routine Extremities Exam Present: pulses intact. Absent: cyanosis, clubbing, edema - Routine Musculoskeletal Exam Musculoskeletal: Present: no clubbing or cyanosis, normal strength - Routine Skin Exam Present: warm, normal turgor, wounds (Wound vac present of left BKA stump) - Routine Neurological Exam Present: alert, oriented X3, CN II-XII intact, vision grossly intact, hearing grossly intact. Absent: motor deficit - Routine Psychiatric Exam Present: normal affect, normal thought process, cooperative, good insight, good judgment. Absent: anxious, agitated Results - Labs CBC & Chem 7: 12/28/16 04:27 12/28/16 04:27 Assessment and Plan (1) Dehiscence of amputation stump Current visit: Yes Status: Acute (2) DM2 (diabetes mellitus, type 2) Current visit: Yes Status: Chronic (3) Atherosclerotic heart disease of [place] coronary artery without angina pectoris Current visit: No Status: Chronic (4) Essential (primary) hypertension Current visit: No Status: Chronic (5) Mixed hyperlipidemia Current visit: No Status: Chronic DVT Prophylaxis: SCD's Assessment and Plan: Assessment Dehiscence of amputation stump Type II DM - insulin requiring (A1c 8.4% on 11/25/16) CAD HTN HDL MAXIME Morbid obesity Plan Home diabetic medications restarted and blood sugars showing control. Blood pressure stable on home ARB - renal status and potassium normal. Continue with pain control - ortho changing to oral medications. Encourage IS for pulm toilet. PT/OT consulted to help functional status. Continue with wound care as per Dr Nolasco - anticipate reexploration of wound tomorrow. Medically stable and responding to treatments. Sepsis Assessment - Evaluation Sepsis screening result: No Definite Risk Hospital Course Summary Disclaimer: The visit summary below is not to be considered part of the above Progress Note.
--- NOTE | 2016-12-28 15:13 | Pharmacy Consult-Antibiotics ---
Pharmacy Consult-Vancomycin - Laboratory Information WBC 9.5 T/MM3 (4.5-11.0) 12/28/16 04:27 BUN 20.0 MG/DL (9-20) 12/28/16 04:27 Creatinine 1.0 MG/DL (0.8-1.5) D 12/28/16 04:27 Vancomycin Trough 23.51 UG/ML (15-20) H* 12/28/16 13:36 51 y.o. Male admitted with wound to surgical site of recent left lower leg amputation. Patient fell and reopened surgical site wound. Explorative surgery performed 12/26/[address] with plan to consider surgical wound closure on 12/29/16. Serum Creatinine = 1.0 mg/dL Estimated Creatinine Clearance ~ 119 mL/min Trough = 23.51 mcg/mL Vancomycin 2 G was given 12/26/16 @2000 pre-op explorative surgery and Vancomycin 1 G IV @0800, 12/27/16 12 Hours after pre-op dose. Vancomycin per pharmacy protocol ordered. goal trough range= 10 to 15 mcg/ml. Then the Vancomycin was changed to Vancomycin 1,500 mg iv every 8 hours. With the trough above 20 mcg/mL, I changed the Vancomycin to 1,750 mg every 12 hours , which should a trough of around 16 mcg/mL. The pharmacy will continue to monitor the renal function and the vancomycin troughs and will adjust the Vancomycin accordingly. Thank you for the Vancomycin Protocol, Luigi Paz, Pharmacist.
[2016-12-28] MEDS: PRAVASTATIN 20 MG TABLET PO SCH (21:32)
[2016-12-28] MEDS: INSULIN GLARGINE 100unit/ml INJECTION SQ SCH (21:32)
[2016-12-29] MEDS: ASPIRIN *EC* 325 MG TABLET PO SCH ×2 (09:02→20:47)
[2016-12-29] MEDS: INSULIN ASPART 100unit/ml INJECTION SQ SCH ×3 (09:02→17:50)
[2016-12-29] MEDS: METFORMIN 1,000 MG TABLET PO SCH ×2 (09:02→17:50)
[2016-12-29] MEDS: MAGNESIUM OXIDE 400 MG TABLET PO SCH (09:02)
[2016-12-29] MEDS: LOSARTAN 50 MG TABLET PO SCH (09:02)
[2016-12-29] MEDS: NS 1,000 ML IV SCH ×2 (09:15→14:22)
--- NOTE | 2016-12-29 11:16 | Progress Note ---
<Raisa Osborne - Last Filed: 12/29/16 11:11> Subjective: Fer is seen today in follow up. He is NPO for surgery today. Only c/o is feeling hungry. No other c/o. WILLY RN this morning- started IVF given NPO status. Chart reviewed for collateral information. Objective Vital signs: Temperature 97.8 F 12/29/16 07:46 Pulse Rate 87 12/29/16 07:46 Respiratory Rate 16 12/29/16 07:46 Blood Pressure 111/65 12/29/16 07:46 Pulse Oximetry 94 12/29/16 07:46 Oxygen Delivery Method Room Air Height/Weight/BMI: Weight 133.9 kg - Constitutional Present: no acute distress, well nourished, well developed, obese, cooperative - Routine HEENT Exam Head: Present: normocephalic, atraumatic Eye: Present: EOMI, PERRL, normal accommodation ENT: Present: mucous membranes moist. Absent: dentition normal (Missing teeth) - Routine Respiratory Exam Present: CTA bilaterally. Absent: rhonchi, stridor, crackles - Routine Cardiovascular Exam Present: RRR, S1, S2 - Routine Abdominal Exam Present: soft, normoactive bowel sounds, non distended, non tender - Routine Extremities Exam Present: no edema, amputation (Wound vac left leg) - Routine Musculoskeletal Exam Musculoskeletal: Present: no clubbing or cyanosis, normal strength - Routine Skin Exam Present: dry, warm - Routine Neurological Exam Present: alert, oriented X3, CN II-XII intact - Routine Psychiatric Exam Present: normal affect, cooperative Results - Labs CBC & Chem 7: 12/28/16 04:27 12/28/16 04:27 Microbiology Results: Cx reviewed. Assessment and Plan (1) Atherosclerotic heart disease of [place] coronary artery without angina pectoris Current visit: No Status: Chronic 12/26/16 21:24 stable, asa, statin, ?bblocker Essential HTN--hold ARB and HCTZ for now. Dyslipidemia--statin Class 3 obesity BMI 43 MAXIME no CPAP currently. Will need. (2) Essential (primary) hypertension Current visit: No Status: Chronic (3) Mixed hyperlipidemia Current visit: No Status: Chronic (4) Dehiscence of amputation stump Current visit: Yes Status: Acute 12/26/16 21:23 TO OR tonight with NPO, prn MSO4, etc. 12/26/16 21:25 Reassess renal function in the AM with pharmacy eval for Vanco to continue. (5) DM2 (diabetes mellitus, type 2) Current visit: Yes Status: Chronic 12/26/16 21:24 only 10 units levemir instead of 18u for now qhs with SSI and hold scheduled novolog and metformin DVT Prophylaxis: SCD's Assessment and Plan: Assessment Dehiscence of amputation stump MRSA, MDR Coag Negative Staph Infection Type II DM - insulin requiring (A1c 8.4% on 11/25/16) CAD HTN HDL MAXIME Morbid obesity Plan 12/29/16 Pt to OR today for wound I&D. Continue Vancomycin- past cx sens to Vanco. Consider DC Doxycyline as Vanco will cover both organisms. BG has been stable. Holding insulin today due to NPO. Hold Metformin x 48 hours due to surgical need. Started IVF until eating post-op. BP is controlled- Losartan- HCTZ. Plan to repeat labs in AM. Mild anemia, stable. - Time spent with patient 25 - 35 minutes Sepsis Assessment - Evaluation Sepsis screening result: No Definite Risk Hospital Course Summary Disclaimer: The visit summary below is not to be considered part of the above Progress Note. Hospital Course: 12/29/16 11:23 Pt to OR today for wound I&D. Continue Vancomycin- past cx sens to Vanco. Consider DC Doxycyline as Vanco will cover both organisms. BG has been stable. Holding insulin today due to NPO. Hold Metformin x 48 hours due to surgical need. Started IVF until eating post-op. BP is controlled- Losartan- HCTZ. Plan to repeat labs in AM. Mild anemia, stable. <Jeremiah Schulte D - Last Filed: 12/29/16 15:54> Objective Vital signs: Temperature 97.5 F 12/29/16 14:35 Pulse Rate 76 12/29/16 14:50 Respiratory Rate 18 12/29/16 14:50 Blood Pressure 111/63 12/29/16 14:50 Pulse Oximetry 100 12/29/16 14:50 Oxygen Delivery Method Nasal Cannula Oxygen Flow Rate 2 Height/Weight/BMI: Weight 133.9 kg Results - Labs CBC & Chem 7: 12/28/16 04:27 12/28/16 04:27 Assessment and Plan (1) Dehiscence of amputation stump Current visit: Yes Status: Acute (2) DM2 (diabetes mellitus, type 2) Current visit: Yes Status: Chronic (3) Atherosclerotic heart disease of [place] coronary artery without angina pectoris Current visit: No Status: Chronic (4) Essential (primary) hypertension Current visit: No Status: Chronic (5) Mixed hyperlipidemia Current visit: No Status: Chronic Assessment and Plan: Assessment Dehiscence of amputation stump MRSA, MDR Coag Negative Staph Infection Type II DM - insulin requiring (A1c 8.4% on 11/25/16) CAD HTN HDL MAXIME Morbid obesity Have independently interviewed and examined pt. Chart reviewed. Cased discussed with Dr Nolasco and my HISTORIOGRAPHY TEACHER. Above care plan developed with my supervision; agree with above. Doing well post op. No nausea or ab pain. Eating well. Not feeling SOA or congested. No pain with breathing. No chest pressure or discomfort. Urinating well. Bowels feel slightly slow. Lungs: decreased, no distress CV: regular AB: soft nt/nd +BS MSE: awake alert appropriate Plan: Will stop IVF as taking oral well. Release hold of metformin. Continue with Vanco for antimicrobial coverage. Dr Nolasco replaced wound vac-found area of wound that was starting to tunnel. Will needed continued wound vac and wound care. Monitor lab. Hospital Course Summary Disclaimer: The visit summary below is not to be considered part of the above Progress Note. Hospital Course: 12/28/16 Home diabetic medications restarted and blood sugars showing control. Blood pressure stable on home ARB - renal status and potassium normal. Continue with pain control - ortho changing to oral medications. Encourage IS for pulm toilet. PT/OT consulted to help functional status. Continue with wound care as per Dr Nolasco - anticipate reexploration of wound tomorrow. Medically stable and responding to treatments. 12/29/16 Pt to OR today for wound I&D. Continue Vancomycin- past culture sensitive to Vancomycin. Can discontinue doxycycline as Vancomycin will cover both organisms. BG has been stable. Holding insulin today due to NPO. Started IVF until eating post-op. BP is controlled- Losartan- HCTZ. Plan to repeat labs in AM. Mild anemia, stable.
[2016-12-29] MEDS ORDERED: HYDROMORPHONE 2 MG/ML INJECTION ONE (12:55)
[2016-12-29] MEDS ORDERED: MIDAZOLAM 2mg/2ml INJECTION ONE ×2 (12:55)
[2016-12-29] MEDS ORDERED: FentaNYL 100 MCG/2 ML INJECTION ONE (12:56)
[2016-12-29] MEDS ORDERED: PROPOFOL 500 MG/50 ML VIAL IV ONE ×2 (13:01→13:19)
--- NOTE | 2016-12-29 13:27 | Anesthesia Preoperative Report ---
Anesthesia Preoperative Record - Date and Time Date: 12/29/16 Preoperative Diagnosis: Wound Dehiscence Proposed Procedure: left BKA wound exploration and wound vac exchange NPO Since Date: 12/28/16 NPO Since Time: 23:00 Allergies/Adverse Reactions: Allergies Allergy/AdvReac Type Severity Reaction Status Date / Time lisinopril Allergy Intermediate DIZZINESS Verified 12/26/16 19:13 Penicillins Allergy Unknown HIVES Verified 12/26/16 19:13 - Vital Signs Vital Signs: Temperature 98.1 F 12/29/16 12:20 Pulse Rate 92 12/29/16 12:20 Respiratory Rate 20 12/29/16 12:20 Blood Pressure 160/90 H 12/29/16 12:20 Pulse Oximetry 97 12/29/16 12:20 Oxygen Delivery Method Room Air Height and Weight: Weight 133.9 kg - Medications Inpatient Medications: Current Medications Aspirin (Ecotrin) 325 mg PO BID [facility] Last Admin: 12/29/16 09:02 Dose: Not Given Bisacodyl (Dulcolax) 10 mg RECTALLY DAILY PRN PRN Reason: Constipation Doxycycline Hyclate (Vibramycin) 100 mg PO BIDBS [facility] Last Admin: 12/29/16 09:16 Dose: 100 mg Folic Acid/Iron/Vitamin B12 (Niferex Forte) 1 cap PO WL [facility] Hydrochlorothiazide (Hydrodiuril) 25 mg PO DAILY [facility] Last Admin: 12/29/16 09:02 Dose: Not Given Vancomycin HCl 1,750 mg/ (Sodium Chloride) 500 mls @ 250 mls/hr IV Q12H [facility] Last Infusion: 12/29/16 09:15 Dose: Infused Sodium Chloride (Normal Saline) 1,000 mls @ 100 mls/hr IV .Q10H [facility] Last Admin: 12/29/16 09:15 Dose: 100 mls/hr Insulin Aspart (Novolog) 0 unit SQ SS PRN; Protocol PRN Reason: Hyperglycemia Insulin Aspart (Novolog) 10 unit SQ ACS [facility] Last Admin: 12/28/16 17:31 Dose: 10 unit Insulin Aspart (Novolog) 7 unit SQ ACB [facility] Last Admin: 12/29/16 09:02 Dose: Not Given Insulin Aspart (Novolog) 10 unit SQ ACL [facility] Last Admin: 12/29/16 12:16 Dose: Not Given Insulin Glargine (Lantus) 18 unit SQ HS [facility] Last Admin: 12/28/16 21:32 Dose: 18 unit Losartan Potassium (Cozaar) 50 mg PO DAILY [facility] Last Admin: 12/29/16 09:02 Dose: Not Given Magnesium Hydroxide (Mom) 30 ml PO DAILY PRN PRN Reason: Constipation Magnesium Oxide (Magox) 400 mg PO DAILY [facility] Last Admin: 12/29/16 09:02 Dose: Not Given Metformin HCl (Glucophage) 1,000 mg PO BIDWM [facility] Last Admin: 12/29/16 09:02 Dose: Not Given Morphine Sulfate (Morphine Sulfate Inj) 4 mg IVP Q3H PRN PRN Reason: Pain Last Admin: 12/27/16 04:29 Dose: 4 mg Ondansetron HCl (Zofran) 4 mg IVP Q6H PRN PRN Reason: Nausea &/or vomiting Oxycodone HCl (Roxicodone *Ir*) 5 - 15 mg PO Q3H PRN PRN Reason: Pain Last Admin: 12/28/16 19:55 Dose: 10 mg Pharmacy Consult (Pharmacy Consult - Fall Risk) 1 each XX ONE TIME PRN PRN Reason: PRN orders Potassium Chloride (Micro-K) 10 meq PO WB [facility] Last Admin: 12/29/16 09:02 Dose: Not Given Pravastatin Sodium (Pravachol) 20 mg PO HS [facility] Last Admin: 12/28/16 21:32 Dose: 20 mg Senna/Docusate Sodium (Senna Plus Tablet) 1 tab PO BID PRN PRN Reason: Constipation Last Admin: 12/27/16 21:57 Dose: 1 tab Home Medications: Home Medications Medication Instructions Recorded Confirmed Type hydroCHLOROthiazide 25 mg PO DAILY #0 06/26/16 12/26/16 History [Hydrochlorothiazide] Insulin Aspart [NovoLOG] 10 unit SQ ACL #0 vial 07/24/16 12/26/16 History doxycycline hyclate 100 mg capsule 100 mg PO BID 12/25/16 12/26/16 History Metformin [Glucophage] 1,000 mg PO BID 12/26/16 12/26/16 History Is Patient on Beta Vivien?: No - Medical History Respiratory: Reports: Sleep Apnea (likely) Cardiovascular: Reports: Coronary Artery Disease, Hypertension, Myocardial Infarction (2012 with stent) Gastrointestional: Reports: Gastroesophageal Reflux Disease (well controlled), Morbid Obesity Neuro/Musculoskeletal: Reports: Other (phantom pains to left leg) Renal/Endocrine: Reports: Diabetes Mellitus Type 2 Other History: DENIES: Anesthesia Reactions - Surgical History Neurological Surgeries: Reports: Other (HX MIGRAINE) Cardiac Surgeries/Treatments: Reports: Cardiac Catheterization (x3, Stent 2011) , Other Respiratory Surgery/Treatments: Reports: Other (DOES NOT WEAR CPAP) GI Surgery/Treatments: Reports: Appendectomy Musculoskeletal Surgery/Tx: Reports: Other (Left Below-knee amputation, debridements) Reproductive Surgery/Treatment: Reports: Other (Scrotum 2007) Anesthesia Reactions: None Hx Family Anesthesia Reaction: No History of Motion Sickness: No - Social History Smoking Status: Former smoker Hx Chewing Tobacco Use: No Second Hand Exposure: No Substance Use Type: does not use - Pertinent Findings Laboratory: CBC and BMP 12/28/16 04:27 12/28/16 04:27 - Physical Exam Respiratory Exam: Present: lungs clear, bilateral breath sounds equal Cardiovascular Exam: Present: regular rate and rhythm - Airway Assessment Mallampati Score: III TMD: 3 Fingerbreadths Neck Extension: fair, other (thick neck ) Teeth: chipped teeth/crowns (with some missing), poor dentation Overall Assessment: may be difficult mask vent, may be difficult intubation - ASA ASA Score: 3 - Plan Anesthesia: General TIVA, Neuroaxial - Discussion Discussion: Discussed risks/options/alternatives of anesthesia and questions answered. Patient consents. Nursing pain assessment noted. Present for Discussion: family member Attestation Statement: Prior to the delivery of any anesthetic medication, I examined the patient, developed the plan, obtained the patient's consent and discussed the risk and benefits of the procedure with the patient/guardian. - Additional Information Seen by Anesthesia: Yes
[2016-12-29] MEDS ORDERED: ONDANSETRON 4 MG/2 ML INJECTION IVP PRN (13:28)
[2016-12-29] MEDS ORDERED: ACETAMINOPHEN IV 1,000 MG/100 ML VIAL IV ONE (13:30)
[2016-12-29] MEDS: HYDROMORPHONE 2 MG/ML INJECTION IVP PRN ×3 (14:04→14:24)
--- NOTE | 2016-12-29 14:19 | Anesthesia Postoperative Note ---
- Date and Time Date: 12/29/16 Time: 14:18 - Status Patient Participated in Evaluation: Patient Participated in Person Vital Signs: Temperature 98.7 F 12/29/16 13:42 Pulse Rate 79 12/29/16 14:10 Respiratory Rate 16 12/29/16 14:10 Blood Pressure 81/49 12/29/16 14:10 Pulse Oximetry 99 12/29/16 14:10 Oxygen Delivery Method Nasal Cannula Oxygen Flow Rate 2 Respiratory Function: Airway Patent Cardiovascular Function: Regular Pulse EKG Rhythm: Normal Sinus Rhythm Mental Status: Alert and Oriented Pain Intensity: 6 (RN continuing to give PRN pain meds to get better control) Hydration: IV Infusing Complications During Recover: None Apparent - Follow-Up Instructions Instructions: Per Surgeon
[2016-12-29] MEDS: Oxycodone *IR* 5 MG TABLET PO PRN ×2 (15:24→20:54)
[2016-12-29] MEDS: INSULIN ASPART 100unit/ml INJECTION SQ PRN (17:51)
[2016-12-29] MEDS: INSULIN GLARGINE 100unit/ml INJECTION SQ SCH (20:47)
[2016-12-29] MEDS: PRAVASTATIN 20 MG TABLET PO SCH (20:47)
[2016-12-30] MEDS: Oxycodone *IR* 5 MG TABLET PO PRN ×3 (06:03→20:23)
[2016-12-30] MEDS: INSULIN ASPART 100unit/ml INJECTION SQ SCH ×3 (08:18→18:14)
[2016-12-30] MEDS: METFORMIN 1,000 MG TABLET PO SCH ×2 (08:22→18:14)
[2016-12-30] MEDS: LOSARTAN 50 MG TABLET PO SCH (08:22)
[2016-12-30] MEDS: MAGNESIUM OXIDE 400 MG TABLET PO SCH (08:22)
--- NOTE | 2016-12-30 08:46 | Orthopedic Progress Note ---
Date: Subjective/Severity of Illness: Fer is having more pain today. Wound vac is not working correctly and is scheduled for flush this AM. Pt denies CV or Resp complaints. His only concern is pain control. Orthopedic Objective PO Vital signs: Temperature 99.8 F 12/30/16 07:43 Pulse Rate 106 H 12/30/16 07:43 Respiratory Rate 20 12/30/16 07:43 Blood Pressure 121/55 12/30/16 07:43 Pulse Oximetry 93 12/30/16 07:43 Oxygen Delivery Method Room Air Oxygen Flow Rate 2 Height and Weight: Weight 295 lb 3.183 oz - Constitutional General Appearance: Present: alert, mild distress (but is sitting up in bed eating breakfast.), obese - Respiratory Exam Present: non-labored - Surgical Site Incision: dressing intact Wound Drainage: minimal amount Drains Present: negative pressure therapy - Integumentary Exam Present: other (Surrounding tissues look healthy. ) - Psychiatric Exam Present: alert, normal affect - Wound Management Left Lower Leg Wound Type: Amputation (Left BKA.) Wound Length: 12 Wound Width: 2 Wound Depth: 1.5 Packing Type: Woundvac Sponge Dressing Change Patient Tolerance: Tolerated Well - Labs Result Diagrams: 12/30/16 04:12 12/30/16 04:12 Abnormal lab results 12/30/16 12/30/16 Range/Units 04:12 04:12 RBC 3.35 L (4.50-5.90) M/MM3 Hgb 9.1 L (13.5-17.5) GM/DL Hct 28.3 L (41-53) % Neut % (Auto) 71.3 H (33-66) % Lymph % (Auto) 15.0 L (23-45) % [place] % (Auto) 9.4 H (0-9.0) % [place] # 1.0 H (0-0.8) T/MM3 Abs Immat Gran (auto) 0.05 H (0.00-0.03) T/MM3 BUN 21.0 H (9-20) MG/DL Glucose 170 H (75-110) MG/DL Albumin 3.4 L (3.5-5.0) G/DL Albumin/Globulin Ratio 1.0 L (1.1-2.2) RATIO H & H 12/27/16 12/28/16 12/30/16 Range/Units 04:26 04:27 04:12 Hgb 10.2 L D 10.1 L 9.1 L (13.5-17.5) GM/DL Hct 31.6 L D 31.6 L 28.3 L (41-53) % Orthopedic Assessment and Plan (1) Dehiscence of amputation stump Status: Acute Assessment and Plan: Aspirin for DVT coverage. Wound care team involved with wound vac function. Hospitalist to manage pt medically including blood sugar regulation. Plan to go to the OR tomorrow (Friday12/31/16) for stump revision / exploration with possible closure vs wound vac placement. Will add IV Dilaudid for improved pain control. Hospital Course Summary Disclaimer: The visit summary below is not to be considered part of the above Progress Note. Hospital Course: 12/28/16 Home diabetic medications restarted and blood sugars showing control. Blood pressure stable on home ARB - renal status and potassium normal. Continue with pain control - ortho changing to oral medications. Encourage IS for pulm toilet. PT/OT consulted to help functional status. Continue with wound care as per Dr Nolasco - anticipate reexploration of wound tomorrow. Medically stable and responding to treatments. 12/29/16 Pt to OR today for wound I&D. Continue Vancomycin- past culture sensitive to Vancomycin. Can discontinue doxycycline as Vancomycin will cover both organisms. BG has been stable. Holding insulin today due to NPO. Started IVF until eating post-op. BP is controlled- Losartan- HCTZ. Plan to repeat labs in AM. Mild anemia, stable.
[2016-12-30] MEDS: ASPIRIN *EC* 325 MG TABLET PO SCH ×2 (09:17→22:01)
--- NOTE | 2016-12-30 11:29 | Progress Note ---
Subjective: F/U: Type II DM, HTN; left stump wound dehiscence [facility] (reports both are his providers). Rough morning. Wound vac stopped working early (about 3 or 4 am)-not able to sleep due to noise of vac. Wound vac replaced this am-very painful. Still sore. Dilaudid ordered, but pt reports has not received dose yet. Not having ab pain or nausea. Passing flatus. Eating well. Breathing well-denies SOA, cough or congestion. No chest pressure or pain. Urinating well. No f/c. Objective Vital signs: Temperature 99.8 F 12/30/16 07:43 Pulse Rate 106 H 12/30/16 07:43 Respiratory Rate 20 12/30/16 07:43 Blood Pressure 121/55 12/30/16 07:43 Pulse Oximetry 93 12/30/16 07:43 Oxygen Delivery Method Room Air Oxygen Flow Rate 2 Rhythm: Normal Sinus Rhythm Height/Weight/BMI: Weight 133.9 kg - Constitutional Present: mild distress (Looks uncomfortable. ), well nourished, well developed, morbidly obese, cooperative - Routine HEENT Exam Head: Present: normocephalic, atraumatic Eye: Present: EOMI, PERRL ENT: Present: mucous membranes moist - Routine Respiratory Exam Present: CTA bilaterally. Absent: respiratory distress, rhonchi, wheezes, crackles - Routine Cardiovascular Exam Present: RRR, no murmur - Routine Abdominal Exam Present: soft, normoactive bowel sounds, non distended, non tender. Absent: guarding - Routine Extremities Exam Present: edema (+1 RLE ), pulses intact - Routine Musculoskeletal Exam Musculoskeletal: Present: no clubbing or cyanosis, moving extremities well - Routine Skin Exam Present: normal turgor, wounds (Wound vac on right BKA stump). Absent: mottling - Routine Neurological Exam Present: alert, oriented X3, CN II-XII intact, vision grossly intact, hearing grossly intact. Absent: motor deficit - Routine Psychiatric Exam Present: normal affect, normal thought process, cooperative. Absent: anxious, agitated Results - Labs CBC & Chem 7: 12/30/16 04:12 12/30/16 04:12 Assessment and Plan (1) Dehiscence of amputation stump Current visit: Yes Status: Acute 12/26/16 21:23 TO OR tonight with NPO, prn MSO4, etc. 12/26/16 21:25 Reassess renal function in the AM with pharmacy eval for Vanco to continue. (2) DM2 (diabetes mellitus, type 2) Current visit: Yes Status: Chronic (3) Atherosclerotic heart disease of redding coronary artery without angina pectoris Current visit: No Status: Chronic (4) Essential (primary) hypertension Current visit: No Status: Chronic (5) Mixed hyperlipidemia Current visit: No Status: Chronic DVT Prophylaxis: SCD's, other (ASA 325mg BID ) Assessment and Plan: Assessment Dehiscence of amputation stump MRSA, MDR Coag Negative Staph Infection Type II DM - insulin requiring (A1c 8.4% on 11/25/16) CAD HTN HDL MAXIME Morbid obesity Plan Increase Lantus from 18 to 20 units to help glycemic control. Continue pain control - ortho added IV Dilaudid. Encourage pulm toilet - IS and deep breathing activities. BP stable - continue medications. Continue Vancomycin and wound vac for wound healing - anticipate return to OR tomorrow to reassess wound. Time spent with patient care 25 minutes. - Time spent with patient 25 - 35 minutes Sepsis Assessment - Evaluation Sepsis screening result: No Definite Risk Hospital Course Summary Disclaimer: The visit summary below is not to be considered part of the above Progress Note. Hospital Course: 12/28/16 Home diabetic medications restarted and blood sugars showing control. Blood pressure stable on home ARB - renal status and potassium normal. Continue with pain control - ortho changing to oral medications. Encourage IS for pulm toilet. PT/OT consulted to help functional status. Continue with wound care as per Dr Nolasco - anticipate reexploration of wound tomorrow. Medically stable and responding to treatments. 12/29/16 Pt to OR today for wound I&D. Continue Vancomycin- past culture sensitive to Vancomycin. Can discontinue doxycycline as Vancomycin will cover both organisms. BG has been stable. Holding insulin today due to NPO. Started IVF until eating post-op. BP is controlled- Losartan- HCTZ. Plan to repeat labs in AM. Mild anemia, stable.
[2016-12-30] MEDS: NIFEREX FORTE 150 CAPSULE PO SCH (13:26)
--- NOTE | 2016-12-30 13:33 | Operative Note ---
DATE OF OPERATION 12/29/2016 PREOPERATIVE DIAGNOSIS Left transtibial amputation stump status post dehiscence with wound VAC placement. POSTOPERATIVE DIAGNOSIS Left transtibial amputation stump status post dehiscence with wound VAC placement. PROCEDURE Exploration, debridement and wound VAC placement to left transtibial amputation stump. SURGEON Kim Nolasco MD ANESTHESIA General EBL AND FLUIDS Please see anesthetic records. COMPLICATIONS None. DESCRIPTION OF PROCEDURE Mr. Mcclelland and his left stump were identified and marked. He was brought back to the operating suite and placed supine on the operating table. He was placed under general anesthesia. The left lower extremity was prepped and draped in my normal sterile fashion. Time-out was performed. We began by inspecting the wound. He did have some necrosis to the skin edges both superiorly and inferiorly, probably 15% of each skin edge. This was debrided sharply. The majority of the subcutaneous tissue did appear healthy although there was a rather large area just lateral to the midline which did have dark necrotic appearing tissue. This was debrided further and it did tunnel proximally about 8 cm. Within this tunnel, there was what appeared to be necrotic fat- appearing tissue. This was fully debrided back to healthy, clean tissue. There were no other areas of necrosis noted. The wound was thoroughly irrigated with three liters of normal saline. I then put three tension sutures using PDS to help bring the skin edges closer together and then placed black foam down at the tunnel as well as over the most distal aspect of the wound and I placed a wound VAC over this black foam. It did achieve a good suction. The drapes were then removed and he was allowed to awake from general anesthesia and taken to the recovery room under the care of Anesthesia. He tolerated the procedure well and there were no complications. MURRAY
[2016-12-30] MEDS: INSULIN GLARGINE 100unit/ml INJECTION SQ SCH ×2 (15:35→21:58)
[2016-12-30] MEDS: HYDROMORPHONE 2 MG/ML INJECTION IVP PRN ×2 (15:48→20:24)
[2016-12-30] MEDS: SALINE FLUSH 10ml SYRINGE IV PRN ×2 (15:50→18:22)
[2016-12-30] MEDS: PRAVASTATIN 20 MG TABLET PO SCH (22:02)
[2016-12-31] MEDS: HYDROMORPHONE 2 MG/ML INJECTION IVP PRN ×6 (06:00→16:19)
[2016-12-31] MEDS: SALINE FLUSH 10ml SYRINGE IV PRN (06:02)
[2016-12-31] MEDS: INSULIN ASPART 100unit/ml INJECTION SQ SCH ×3 (06:10→18:06)
[2016-12-31] MEDS: ASPIRIN *EC* 325 MG TABLET PO SCH ×2 (08:36→20:35)
[2016-12-31] MEDS: MAGNESIUM OXIDE 400 MG TABLET PO SCH (08:36)
[2016-12-31] MEDS: METFORMIN 1,000 MG TABLET PO SCH ×2 (08:50→18:07)
[2016-12-31] MEDS: LOSARTAN 50 MG TABLET PO SCH (08:53)
[2016-12-31] MEDS: NIFEREX FORTE 150 CAPSULE PO SCH (11:31)
--- NOTE | 2016-12-31 12:31 | Progress Note ---
Subjective: Mr. Mcclelland reports no concerns currently. Wound VAC was taken off last night due to leaking. He's tenably scheduled go to the operating room this afternoon for revision of left BKA. He denied dyspnea, lightheadedness, nausea, or fever. He is voiding without difficulty. Objective Vital signs: Temperature 97.8 F 12/31/16 12:21 Pulse Rate 80 12/31/16 12:22 Respiratory Rate 16 12/31/16 12:21 Blood Pressure 115/56 12/31/16 12:21 Pulse Oximetry 97 12/31/16 12:21 Oxygen Delivery Method Room Air EXAM General-NAD, alert, fluent speech HEENT-oropharynx clear, no evidence of thrush Lungs-respirations nonlabored, good airflow, breath sounds clear Cardiac-regular rhythm, S1-S2 Abd-soft, nontender, obese, bowel sounds present Ext-no right lower extremity edema, LLE stump wrapped Neuro-moving upper extremities well Psych-calm, cooperative - Rhythm: Normal Sinus Rhythm Height/Weight/BMI: Weight 141.1 kg Results - Labs CBC & Chem 7: 12/31/16 04:30 12/31/16 04:30 Labs: Vancomycin trough 19.11 Assessment and Plan (1) Dehiscence of amputation stump Current visit: Yes Status: Acute (2) DM2 (diabetes mellitus, type 2) Current visit: Yes Status: Chronic (3) Atherosclerotic heart disease of picayune coronary artery without angina pectoris Current visit: No Status: Chronic (4) Essential (primary) hypertension Current visit: No Status: Chronic DVT Prophylaxis: SCD's Assessment and Plan: Assessment Dehiscence of amputation stump MRSA (10/10/16), MDR Coag Negative Staph (11/20/16) Infection Type II DM - insulin requiring (A1c 8.4% on 11/25/16) Normocytic anemia, surgical CAD HTN HDL MAXIME Morbid obesity - BMI 43 on admission Plan Last blood sugar 122 at 10:30 this morning, patient nothing by mouth in anticipation of surgery. Will monitor every 2 hours until surgery in the event glucose containing fluids become necessary. Overall diabetes control improving. Pain well controlled at present. Peripheral IV being utilized for vancomycin-clarify with orthopedics how long antibiotics anticipated, may benefit from PICC. To the operating room later today for debridement. Blood pressure stable. Hemoglobin down from 12.5 on admission to current value of 8.6; monitor closely for the next couple of days with further surgical debridement. May benefit from nocturnal oximetry prior to discharge due to history of sleep apnea; suspect patient needs repeat sleep study based on history. Sepsis Assessment - Evaluation Sepsis screening result: No Definite Risk Hospital Course Summary Disclaimer: The visit summary below is not to be considered part of the above Progress Note. Hospital Course: 12/28/16 Home diabetic medications restarted and blood sugars showing control. Blood pressure stable on home ARB - renal status and potassium normal. Continue with pain control - ortho changing to oral medications. Encourage IS for pulm toilet. PT/OT consulted to help functional status. Continue with wound care as per Dr Nolasco - anticipate reexploration of wound tomorrow. Medically stable and responding to treatments. 12/29/16 Pt to OR today for wound I&D. Continue Vancomycin- past culture sensitive to Vancomycin. Can discontinue doxycycline as Vancomycin will cover both organisms. BG has been stable. Holding insulin today due to NPO. Started IVF until eating post-op. BP is controlled- Losartan- HCTZ. Plan to repeat labs in AM. Mild anemia, stable. 12/31/16 12:49-Gloria Last blood sugar 122 at 10:30 this morning, patient nothing by mouth in anticipation of surgery. Will monitor every 2 hours until surgery in the event glucose containing fluids become necessary. Overall diabetes control improving. Pain well controlled at present. Peripheral IV being utilized for vancomycin-clarify with orthopedics how long antibiotics anticipated, may benefit from PICC. To the operating room later today for debridement. Blood pressure stable. Hemoglobin down from 12.5 on admission to current value of 8.6; monitor closely for the next couple of days with further surgical debridement. May benefit from nocturnal oximetry prior to discharge due to history of sleep apnea; suspect patient needs repeat sleep study based on history.
[2016-12-31] MEDS ORDERED: LR 1,000 ML IV SCH (12:45)
[2016-12-31] MEDS ORDERED: ACETAMINOPHEN IV 1,000 MG/100 ML VIAL IV ONE (14:21)
[2016-12-31] MEDS ORDERED: MIDAZOLAM 2mg/2ml INJECTION ONE (14:26)
[2016-12-31] MEDS ORDERED: FentaNYL 100 MCG/2 ML INJECTION ONE (14:26)
--- NOTE | 2016-12-31 14:44 | Anesthesia Preoperative Report ---
Anesthesia Preoperative Record - Date and Time Date: 12/31/16 Preoperative Diagnosis: Wound Dehiscence Proposed Procedure: left knee BKA I&D NPO Since Date: 12/31/16 NPO Since Time: 00:00 Allergies/Adverse Reactions: Allergies Allergy/AdvReac Type Severity Reaction Status Date / Time lisinopril Allergy Intermediate DIZZINESS Verified 12/26/16 19:13 Penicillins Allergy Unknown HIVES Verified 12/26/16 19:13 - Vital Signs Vital Signs: Temperature 97.8 F 12/31/16 12:21 Pulse Rate 80 12/31/16 12:22 Respiratory Rate 16 12/31/16 12:21 Blood Pressure 115/56 12/31/16 12:21 Pulse Oximetry 97 12/31/16 12:21 Oxygen Delivery Method Room Air Oxygen Flow Rate 2 Height and Weight: Weight 141.1 kg - Medications Inpatient Medications: Current Medications Aspirin (Ecotrin) 325 mg PO BID [facility] Last Admin: 12/31/16 08:36 Dose: Not Given Bisacodyl (Dulcolax) 10 mg RECTALLY DAILY PRN PRN Reason: Constipation Folic Acid/Iron/Vitamin B12 (Niferex Forte) 1 cap PO WL [facility] Last Admin: 12/31/16 11:31 Dose: Not Given Hydrochlorothiazide (Hydrodiuril) 25 mg PO DAILY [facility] Last Admin: 12/31/16 08:53 Dose: 25 mg Hydromorphone HCl (Dilaudid) 0.5 - 1 mg IVP Q3H PRN PRN Reason: Pain Last Admin: 12/31/16 09:14 Dose: 1 mg Vancomycin HCl 1,750 mg/ (Sodium Chloride) 500 mls @ 250 mls/hr IV Q12H [facility] Last Infusion: 12/31/16 08:05 Dose: Infused Lactated Ringer's (Lactated Ringers) 1,000 mls @ 30 mls/hr IV .Q24H [facility] Last Admin: 12/31/16 12:51 Dose: 30 mls/hr Insulin Aspart (Novolog) 0 unit SQ SS PRN; Protocol PRN Reason: Hyperglycemia Last Admin: 12/29/16 17:51 Dose: 1 unit Insulin Aspart (Novolog) 10 unit SQ ACS [facility] Last Admin: 12/30/16 18:14 Dose: 10 unit Insulin Aspart (Novolog) 7 unit SQ ACB [facility] Last Admin: 12/31/16 06:10 Dose: Not Given Insulin Aspart (Novolog) 10 unit SQ ACL [facility] Last Admin: 12/31/16 11:30 Dose: Not Given Insulin Glargine (Lantus) 20 unit SQ HS [facility] Last Admin: 12/30/16 21:58 Dose: 20 unit Losartan Potassium (Cozaar) 50 mg PO DAILY [facility] Last Admin: 12/31/16 08:53 Dose: 50 mg Magnesium Hydroxide (Mom) 30 ml PO DAILY PRN PRN Reason: Constipation Magnesium Oxide (Magox) 400 mg PO DAILY [facility] Last Admin: 12/31/16 08:36 Dose: Not Given Metformin HCl (Glucophage) 1,000 mg PO BIDWM [facility] Last Admin: 12/31/16 08:50 Dose: Not Given Ondansetron HCl (Zofran) 4 mg IVP Q6H PRN PRN Reason: Nausea &/or vomiting Ondansetron HCl (Zofran) 4 mg IVP O PRN PRN Reason: Nausea &/or vomiting Oxycodone HCl (Roxicodone *Ir*) 5 - 15 mg PO Q3H PRN PRN Reason: Pain Last Admin: 12/30/16 20:23 Dose: 10 mg Pharmacy Consult (Pharmacy Consult - Fall Risk) 1 each XX ONE TIME PRN PRN Reason: PRN orders Potassium Chloride (Micro-K) 10 meq PO WB [facility] Last Admin: 12/31/16 08:35 Dose: Not Given Pravastatin Sodium (Pravachol) 20 mg PO [facility] Last Admin: 12/30/16 22:02 Dose: 20 mg Senna/Docusate Sodium (Senna Plus Tablet) 1 tab PO BID PRN PRN Reason: Constipation Last Admin: 12/27/16 21:57 Dose: 1 tab Sodium Chloride (Iv Flush) 10 - 80 ml IV PRN PRN PRN Reason: Flushing Last Admin: 12/31/16 06:02 Dose: 10 ml Sodium Chloride (Normal Saline) 500 ml IV PRN PRN Home Medications: Home Medications Medication Instructions Recorded Confirmed Type hydroCHLOROthiazide 25 mg PO DAILY #0 06/26/16 12/26/16 History [Hydrochlorothiazide] Insulin Aspart [NovoLOG] 10 unit SQ ACL #0 vial 07/24/16 12/26/16 History doxycycline hyclate 100 mg capsule 100 mg PO BID 12/25/16 12/26/16 History Metformin [Glucophage] 1,000 mg PO BID 12/26/16 12/26/16 History Is Patient on Beta Vivien?: No - Medical History Respiratory: Reports: Sleep Apnea (likely) Cardiovascular: Reports: Coronary Artery Disease, Hypertension, Myocardial Infarction (2012 with stent) Gastrointestional: Reports: Gastroesophageal Reflux Disease (well controlled), Morbid Obesity (super) Neuro/Musculoskeletal: Reports: 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) Renal/Endocrine: Reports: Diabetes Mellitus Type 1, Diabetes Mellitus Type 2 - Surgical History Neurological Surgeries: Reports: Other (HX MIGRAINE) Cardiac Surgeries/Treatments: Reports: Cardiac Catheterization (x3, Stent 2011) , Other Respiratory Surgery/Treatments: Reports: Other (DOES NOT WEAR CPAP) GI Surgery/Treatments: Reports: Appendectomy Musculoskeletal Surgery/Tx: Reports: Other (Left Below-knee amputation, debridements) Reproductive Surgery/Treatment: Reports: Other (Scrotum 2006) - Social History Smoking Status: Former smoker Substance Use Type: does not use - Pertinent Findings Laboratory: CBC and BMP 12/31/16 04:30 12/31/16 04:30 BMP 12/31/16 04:30 Sodium 134 Potassium 4.5 Chloride 101 Carbon Dioxide 24 BUN 20.0 Creatinine 1.0 Glucose 110 Calcium 8.9 EKG Rhythm: Normal Sinus Rhythm - Physical Exam Respiratory Exam: Present: lungs clear, bilateral breath sounds equal Cardiovascular Exam: Present: regular rate and rhythm, no murmur - Airway Assessment Mallampati Score: III TMD: 3 Fingerbreadths Neck Extension: fair, other (thick neck ) Teeth: chipped teeth/crowns (with some missing), poor dentation Overall Assessment: may be difficult mask vent, may be difficult intubation - ASA ASA Score: 3 - Plan Anesthesia: General TIVA - Discussion Discussion: Discussed risks/options/alternatives of anesthesia and questions answered. Patient consents. Nursing pain assessment noted. Present for Discussion: family member Attestation Statement: Prior to the delivery of any anesthetic medication, I examined the patient, developed the plan, obtained the patient's consent and discussed the risk and benefits of the procedure with the patient/guardian. - Additional Information Seen by Anesthesia: Yes
[2016-12-31] MEDS ORDERED: PROPOFOL 1,000 MG/100 ML VIAL IV ONE (14:55)
[2016-12-31] MEDS ORDERED: PROPOFOL 20 ML ONE (15:16)
--- NOTE | 2016-12-31 15:57 | Anesthesia Postoperative Note ---
- Date and Time Date: 12/31/16 Time: 15:56 - Status Patient Participated in Evaluation: Patient Participated in Person Vital Signs: Temperature 97.8 F 12/31/16 12:21 Pulse Rate 80 12/31/16 12:22 Respiratory Rate 16 12/31/16 12:21 Blood Pressure 115/56 12/31/16 12:21 Pulse Oximetry 97 12/31/16 12:21 Oxygen Delivery Method Room Air Oxygen Flow Rate 2 Respiratory Function: Airway Patent Cardiovascular Function: Regular Pulse EKG Rhythm: Normal Sinus Rhythm Mental Status: Alert and Oriented Pain Intensity: 9 (medicating and getting better.) Hydration: IV Infusing Complications During Recover: None Apparent - Follow-Up Instructions Instructions: Per Surgeon
--- NOTE | 2016-12-31 16:04 | Operative Note ---
- Procedure Side: left Preoperative Diagnosis: other (dehiscence of the left [id number] amputation incision) Postoperative Diagnosis: Same as preoperative diagnosis. Operation: other (irrigation debridement and closure of left [id number] amputation wound) Surgeon: Kim Nolasco MD Complications: None. Anesthesia: General TIVA Estimated Blood Loss: See Anesthesia Record. Fluids: Please see Anesthesia Record. Description of Procedure: Mr. Mcclelland in his left stump were identified and marked in the preoperative holding area. He was brought back to the operating suite and placed supine on the operating table. He was placed under general anesthesia. Timeout was performed. He is on scheduled vancomycin. I begun by examining his wound which did not have any signs of necrosis as directed port skin edges. I then proceeded to debulk the subcutaneous tissue which was essentially scar from his previous surgeries. The skin edges were also freshened up with a sharp blade. I release the adhesions between the deep and superficial layers to help with closure. Using a sagittal saw removed half a centimeter of distal tibia and then rounded the edges with the blade. I then thoroughly irrigated the entire wound with normal saline. Hemostasis was obtained with electrocautery. We then closed the deep fascia up over the tibia into the deep fascia above the tibia with #1 PDS. Several more sutures a 1 PDS were used to finish closing the deep layer. I then used a comminution of both 2- 0 PDS and #1 PDS to reapproximate the subcutaneous tissue. #1 PDS was then was again used in a simple fashion to close the skin. There were 2 small lacerations about 2 cm proximal to the incision anteriorly which are likely caused when I was undermining the subcutaneous tissue. These were closed with 2- 0 PDS. A sterile dressing was then placed followed by an Abad bandage. The drapes were then removed and he was allowed to awake from general anesthesia and taken to the recovery room under the care of anesthesia. He tolerated the procedure well and there were no complications.
--- NOTE | 2016-12-31 18:29 | Pharmacy Consult-Antibiotics ---
Pharmacy Consult-Vancomycin - Laboratory Information WBC 10.5 T/MM3 (4.5-11.0) 12/31/16 04:30 BUN 20.0 MG/DL (9-20) 12/31/16 04:30 Creatinine 1.0 MG/DL (0.8-1.5) 12/31/16 04:30 Vancomycin Trough 19.11 UG/ML (15-20) 12/31/16 05:07 - Consult Information vancomycin treatment day 6 goal Vancomycin trough range= 15 to 20 mcg/ml trough is within range. Will continue current dose of Vancomycin 1,750 mg IV Q12H. Pharmacy will monitor and adjust as needed. Thank you for the dosing protocol, Rox Feliciano RPh
[2016-12-31] MEDS: Oxycodone *IR* 5 MG TABLET PO PRN (20:35)
[2016-12-31] MEDS: PRAVASTATIN 20 MG TABLET PO SCH (20:35)
[2016-12-31] MEDS: INSULIN GLARGINE 100unit/ml INJECTION SQ SCH (20:36)
[2017-01-01] MEDS: Oxycodone *IR* 5 MG TABLET PO PRN ×6 (00:33→23:56)
[2017-01-01] MEDS ORDERED: ACETAMINOPHEN 325 MG TABLET PO PRN (00:41)
[2017-01-01] MEDS ORDERED: INSULIN ASPART 100unit/ml INJECTION SQ ONE (08:30)
[2017-01-01] MEDS: ACETAMINOPHEN 325 MG TABLET PO PRN (08:30)
--- NOTE | 2017-01-01 09:00 | XRay Report ---
Indication: fever PROCEDURE: XR chest 1V: Encounter: Initial Comparison: December 26, 2016 FINDINGS: The lungs are clear. There is no abnormal airspace opacity, pleural effusion or pneumothorax identified. The heart size, pulmonary vasculature and mediastinum are within normal limits. No significant skeletal abnormality is seen. IMPRESSION: No acute cardiopulmonary abnormality. .
--- NOTE | 2017-01-01 09:19 | Progress Note ---
<Ami Mckenzie V - Last Filed: 01/01/17 09:39> Subjective: Fer is seen today in follow-up this morning resting in bed. He is noted to have a fever up to 102.5 overnight. He was noted to be tachycardic during fever elevation up to the 120's. He denies having any chills or body aches. He denies feeling short of breath or chest pain. No GI complaints. Wound on LLE was closed yesterday by Dr Nolasco without complication. Objective Vital signs: Temperature 101.6 F H 01/01/17 08:15 Pulse Rate 111 H 01/01/17 08:15 Respiratory Rate 18 01/01/17 08:15 Blood Pressure 135/65 01/01/17 08:15 Pulse Oximetry 91 01/01/17 08:15 Oxygen Delivery Method Room Air Oxygen Flow Rate 2 Height/Weight/BMI: Weight 139 kg - Constitutional Present: no acute distress, well nourished, well developed - Routine HEENT Exam Eye: Present: EOMI, PERRL ENT: Present: mucous membranes moist, dentition normal - Routine Respiratory Exam Present: CTA bilaterally. Absent: wheezes - Routine Cardiovascular Exam Present: RRR, S1, S2, no murmur, tachycardia (105). Absent: murmur - Routine Abdominal Exam Present: soft, normoactive bowel sounds, non distended. Absent: tenderness - Routine Extremities Exam Present: normal capillary refill Comments: Dressing and ice pack to LLE stump - Routine Skin Exam Present: intact, dry, warm - Routine Neurological Exam Present: alert, oriented X3, CN II-XII intact - Routine Lymphatic Exam Lymphatic: Absent: adenopathy - Routine Psychiatric Exam Present: normal affect Results - Labs CBC & Chem 7: 01/01/17 04:34 01/01/17 04:34 Assessment and Plan (1) Atherosclerotic heart disease of [place] coronary artery without angina pectoris Current visit: No Status: Chronic 12/26/16 21:24 stable, asa, statin, ?bblocker Essential HTN--hold ARB and HCTZ for now. Dyslipidemia--statin Class 3 obesity BMI 43 MAXIME no CPAP currently. Will need. (2) Essential (primary) hypertension Current visit: No Status: Chronic (3) Dehiscence of amputation stump Current visit: Yes Status: Acute 12/26/16 21:23 TO OR tonight with NPO, prn MSO4, etc. 12/26/16 21:25 Reassess renal function in the AM with pharmacy eval for Vanco to continue. (4) DM2 (diabetes mellitus, type 2) Current visit: Yes Status: Chronic 12/26/16 21:24 only 10 units levemir instead of 18u for now qhs with SSI and hold scheduled novolog and metformin Assessment and Plan: Assessment Dehiscence of amputation stump MRSA (10/10/16), MDR Coag Negative Staph (11/20/16) Infection Type II DM - insulin requiring (A1c 8.4% on 11/25/16) Normocytic anemia, surgical CAD HTN HDL MAXIME Morbid obesity - BMI 43 on admission Plan- 01/01/17 Given rise in temperature and tachycardia, Sepsis workup obtained. Blood cultures, venous lactate, UA and Chest Xray. Will recheck Lactate later today. Morning laboratory studies were reviewed, white count was normal at 11.0. Neutrophiles are elevated at 82% without bandemia. Persistent mild tachycardia this morning at 105. QSofa sepsis score- currently 0 which is considered a negative likelihood of acute sepsis process. Will continue to follow closely. Continue on Vancomycin IV and monitor blood cultures. Last wound culture was from November reveled Staphylococcus, however this was prior to ambulation. Overall blood sugars appear to be well controlled, fasting sugar this morning was 88. Continue on current regimen including metformin, Novolog insulin. Orders and plan of care discussed with attending Dr Castro. Sepsis Assessment - Evaluation Sepsis screening result: Sepsis Risk Hospital Course Summary Disclaimer: The visit summary below is not to be considered part of the above Progress Note. Hospital Course: 12/28/16 Home diabetic medications restarted and blood sugars showing control. Blood pressure stable on home ARB - renal status and potassium normal. Continue with pain control - ortho changing to oral medications. Encourage IS for pulm toilet. PT/OT consulted to help functional status. Continue with wound care as per Dr Nolasco - anticipate reexploration of wound tomorrow. Medically stable and responding to treatments. 12/29/16 Pt to OR today for wound I&D. Continue Vancomycin- past culture sensitive to Vancomycin. Can discontinue doxycycline as Vancomycin will cover both organisms. BG has been stable. Holding insulin today due to NPO. Started IVF until eating post-op. BP is controlled- Losartan- HCTZ. Plan to repeat labs in AM. Mild anemia, stable. 12/31/16 12:49-Gloria Tamez blood sugar 122 at 10:30 this morning, patient nothing by mouth in anticipation of surgery. Will monitor every 2 hours until surgery in the event glucose containing fluids become necessary. Overall diabetes control improving. Pain well controlled at present. Peripheral IV being utilized for vancomycin-clarify with orthopedics how long antibiotics anticipated, may benefit from PICC. To the operating room later today for debridement. Blood pressure stable. Hemoglobin down from 12.5 on admission to current value of 8.6; monitor closely for the next couple of days with further surgical debridement. May benefit from nocturnal oximetry prior to discharge due to history of sleep apnea; suspect patient needs repeat sleep study based on history. 01/01/17 Increase in fever overnight. Obtained labs, lactate and blood cultures. Continues on Vanco. Blood sugars well controlled <Jackie Castro - Last Filed: 01/01/17 19:36> Objective Vital signs: Temperature 97.4 F 01/01/17 16:00 Pulse Rate 102 H 01/01/17 16:00 Respiratory Rate 18 01/01/17 16:00 Blood Pressure 123/65 01/01/17 16:00 Pulse Oximetry 98 01/01/17 16:00 Oxygen Delivery Method Room Air Oxygen Flow Rate 2 Height/Weight/BMI: Weight 139 kg Results - Labs CBC & Chem 7: 01/01/17 04:34 01/01/17 04:34 Microbiology Results: Microbiology 01/01/17 09:04 Peripheral/Iv Start Blood Culture - Preliminary Culture Initiated - Results Pending 01/01/17 09:12 Peripheral/Iv Start Blood Culture - Preliminary Culture Initiated - Results Pending Assessment and Plan (1) Atherosclerotic heart disease of [place] coronary artery without angina pectoris Current visit: No Status: Chronic (2) Essential (primary) hypertension Current visit: No Status: Chronic (3) Dehiscence of amputation stump Current visit: Yes Status: Acute (4) DM2 (diabetes mellitus, type 2) Current visit: Yes Status: Chronic Assessment and Plan: I have independently evaluated and examined this patient. I reviewed the chart, the patient's history, and the CATALOGUE COMPILER/PA's documented findings as above. We discussed and formulated the assessment and plan as above with additions as below: Mr. Mcclelland described diaphoresis and myalgias overnight with variable stump pain. He additionally complains of spasms in his stump. Temperature as as previously recorded up to 102.5 with subsequent defervescent. Late afternoon nursing reported urinary retention with minimal urine output today and bladder volume greater than 1 L by bladder scan. Patient was drowsy when seen but respirations were nonlabored and breath sounds clear. Abdomen benign. Dressing left BKA stump clean and dry. Lactic acid 0.9 Chest x-ray reviewed by myself revealing no focal abnormalities. Fever reported within 12 hours of surgical debridement-likely due to postoperative inflammation, possible transient bacteremia. New urinary retention-straight cath now and when necessary, UA pending. Surgical findings discussed with Dr. Nolasco; subsequently discussed antibiotic options and fever with Dr. Navarro. Continue vancomycin overnight pending preliminary blood culture results. Provided patient has no recurrent fevers will convert to oral antibiotics in the morning with coverage for staph aureus ( doxycycline or clindamycin). Cannot exclude urinary retention contributing to fever but given identification of urinary retention hours after resolution of fever this seems unlikely. Hospital Course Summary Disclaimer: The visit summary below is not to be considered part of the above Progress Note.
[2017-01-01] MEDS: METFORMIN 1,000 MG TABLET PO SCH ×2 (09:38→19:01)
[2017-01-01] MEDS: LOSARTAN 50 MG TABLET PO SCH (09:38)
[2017-01-01] MEDS: MAGNESIUM OXIDE 400 MG TABLET PO SCH (09:39)
[2017-01-01] MEDS: ASPIRIN *EC* 325 MG TABLET PO SCH ×2 (09:39→21:00)
[2017-01-01] MEDS: NIFEREX FORTE 150 CAPSULE PO SCH (12:35)
[2017-01-01] MEDS: INSULIN ASPART 100unit/ml INJECTION SQ SCH ×2 (14:05→17:56)
[2017-01-01] MEDS: SENNA + DOCUSATE TABLET PO PRN (16:11)
[2017-01-01] MEDS: NS FLUSH BAG 500ml IV PRN (19:02)
[2017-01-01] MEDS: PRAVASTATIN 20 MG TABLET PO SCH (21:00)
[2017-01-01] MEDS: INSULIN GLARGINE 100unit/ml INJECTION SQ SCH (21:01)
[2017-01-01] MEDS: CYCLOBENZAPRINE 10 MG TABLET PO PRN (23:55)
[2017-01-02] MEDS: ACETAMINOPHEN 325 MG TABLET PO PRN
[2017-01-02] MEDS: Oxycodone *IR* 5 MG TABLET PO PRN ×2 (03:33→13:16)
--- NOTE | 2017-01-02 08:06 | Orthopedic Progress Note ---
Date: Subjective/Severity of Illness: Fer states he is feeling okay this AM. His notes he has been sleeping a lot more than normal. He has had to be straight cath'd for urinary retention. He had had a persistent fever over 100, most recent being 100.6. White count is elevated to 14.0 today. Hgb is 6.8 and 1 unit has been ordered. He is on Vanco. He denies sore throat, cough, sputum production, abdominal pain, dysuria , chest pain, shortness of breath, other known open sores, diarrhea. Orthopedic Objective PO Vital signs: Temperature 100.6 F H 01/02/17 07:52 Pulse Rate 107 H 01/02/17 07:52 Respiratory Rate 17 01/02/17 07:52 Blood Pressure 137/69 01/02/17 07:52 Pulse Oximetry 95 01/02/17 07:52 Oxygen Delivery Method Room Air Oxygen Flow Rate 2 Height and Weight: Weight 306 lb 7.08 oz - Constitutional General Appearance: Present: alert, orientated x3, obese - Respiratory Exam Present: non-labored - Cardiovascular Exam Capillary Refill: < 2-3 Seconds - Extremities Exam Extremities: Present: amputation (dressing dry) - Surgical Site Incision: dressing intact Wound Drainage: minimal amount Drains Present: negative pressure therapy - Integumentary Exam Present: other (Surrounding tissues look healthy. ) - Lymphatic Lymphatic: Absent: adenopathy - Psychiatric Exam Present: alert, normal affect - Wound Management Left Lower Leg Wound Type: Amputation (Left BKA.) Wound Length: 12 Wound Width: 2 Wound Depth: 1.5 Surrounding Tissue Appearance: Hannah Drainage Description: Sanguineous Drainage Amount: Moderate Packing Type: Woundvac Sponge Primary Dressing: Medicated Gauze Pad Dressing Change Patient Tolerance: Tolerated Well - Labs Result Diagrams: 01/02/17 04:25 01/02/17 04:25 Abnormal lab results 01/02/17 01/02/17 01/02/17 Range/Units 04:25 04:25 07:18 WBC 14.0 H (4.5-11.0) T/MM3 RBC 2.54 L (4.50-5.90) M/MM3 Hgb 6.8 L D (13.5-17.5) GM/DL Hct 21.1 L D (41-53) % Neut % (Auto) 80.4 H (33-66) % Lymph % (Auto) 10.1 L (23-45) % Neut # 11.3 H (1.8-7.7) T/MM3 Terry # 1.1 H (0-0.8) T/MM3 Abs Immat Gran (auto) 0.05 H (0.00-0.03) T/MM3 Sodium 132 L (134-144) MEQ/L BUN 23.0 H (9-20) MG/DL Calculated Osmolality 259 L (261-280) MOSM/KG C-Reactive Protein 241.5 H (0-9) MG/L Crossmatch (AHG) See Detail H & H 12/27/16 12/28/16 12/30/16 Range/Units 04:26 04:27 04:12 Hgb 10.2 L D 10.1 L 9.1 L (13.5-17.5) GM/DL Hct 31.6 L D 31.6 L 28.3 L (41-53) % 12/31/16 01/01/17 01/02/17 Range/Units 04:30 04:34 04:25 Hgb 8.6 L 8.1 L 6.8 L D (13.5-17.5) GM/DL Hct 26.5 L 25.5 L 21.1 L D (41-53) % Orthopedic Assessment and Plan (1) Dehiscence of amputation stump Status: Acute Assessment and Plan: continue medical management. Clinically he appears better than his labs suggest. Differential diagnosis could include: viral illness, early respiratory infection , C diff. However, none seem to fit at this time. CXR yesterday was neg. he is to get a unit of blood today. Hospital Course Summary Disclaimer: The visit summary below is not to be considered part of the above Progress Note. Hospital Course: 12/28/16 Home diabetic medications restarted and blood sugars showing control. Blood pressure stable on home ARB - renal status and potassium normal. Continue with pain control - ortho changing to oral medications. Encourage IS for pulm toilet. PT/OT consulted to help functional status. Continue with wound care as per Dr Nolasco - anticipate reexploration of wound tomorrow. Medically stable and responding to treatments. 12/29/16 Pt to OR today for wound I&D. Continue Vancomycin- past culture sensitive to Vancomycin. Can discontinue doxycycline as Vancomycin will cover both organisms. BG has been stable. Holding insulin today due to NPO. Started IVF until eating post-op. BP is controlled- Losartan- HCTZ. Plan to repeat labs in AM. Mild anemia, stable. 12/31/16 12:49-Gloria Last blood sugar 122 at 10:30 this morning, patient nothing by mouth in anticipation of surgery. Will monitor every 2 hours until surgery in the event glucose containing fluids become necessary. Overall diabetes control improving. Pain well controlled at present. Peripheral IV being utilized for vancomycin-clarify with orthopedics how long antibiotics anticipated, may benefit from PICC. To the operating room later today for debridement. Blood pressure stable. Hemoglobin down from 12.5 on admission to current value of 8.6; monitor closely for the next couple of days with further surgical debridement. May benefit from nocturnal oximetry prior to discharge due to history of sleep apnea; suspect patient needs repeat sleep study based on history. 01/01/17 Increase in fever overnight. Obtained labs, lactate and blood cultures. Continues on Vanco. Blood sugars well controlled
[2017-01-02] MEDS: INSULIN ASPART 100unit/ml INJECTION SQ SCH ×4 (08:43→22:51)
[2017-01-02] MEDS: LOSARTAN 50 MG TABLET PO SCH (08:44)
[2017-01-02] MEDS: MAGNESIUM OXIDE 400 MG TABLET PO SCH (08:44)
[2017-01-02] MEDS: ASPIRIN *EC* 325 MG TABLET PO SCH ×2 (08:44→20:39)
[2017-01-02] MEDS: METFORMIN 1,000 MG TABLET PO SCH ×2 (08:45→17:22)
[2017-01-02] MEDS ORDERED: ACETAMINOPHEN 325 MG TABLET PO PRN ×2 (09:50→12:06)
--- NOTE | 2017-01-02 09:54 | Progress Note ---
<Ami Mckenzie V - Last Filed: 01/02/17 09:51> Subjective: Fer is seen today in follow up. He is resting in bed with at the bedside. He continues to be somewhat drowsy during conversation. He is unable to keep his eyes open. notes that he is somewhat confused at times and much more tired than normal. He has been receiving oxycodone 10-15 milligrams fairly routinely as well as Flexeril. He complains of pain to the stump. He otherwise denies having shortness of breath, chest pain or abdominal pain, He did have some urinary retention overnight requiring straight catheterization. Objective Vital signs: Temperature 100.6 F H 01/02/17 07:52 Pulse Rate 107 H 01/02/17 07:52 Respiratory Rate 17 01/02/17 07:52 Blood Pressure 137/69 01/02/17 07:52 Pulse Oximetry 95 01/02/17 07:52 Oxygen Delivery Method Room Air Oxygen Flow Rate 2 Height/Weight/BMI: Weight 139 kg - Constitutional Present: no acute distress, well nourished, well developed - Routine HEENT Exam Eye: Present: EOMI, PERRL ENT: Present: mucous membranes moist, dentition normal - Routine Respiratory Exam Present: CTA bilaterally. Absent: wheezes - Routine Cardiovascular Exam Present: RRR, S1, S2, no murmur. Absent: murmur - Routine Abdominal Exam Present: soft, normoactive bowel sounds, non distended. Absent: tenderness - Routine Extremities Exam Present: normal capillary refill Comments: LLE with dressing and selvin wrap intact without evidence of drainage. No erythema to thigh. - Routine Skin Exam Present: intact, dry, warm - Routine Neurological Exam Present: alert, oriented X3, CN II-XII intact - Routine Lymphatic Exam Lymphatic: Absent: adenopathy - Routine Psychiatric Exam Present: normal affect, normal thought process Results - Labs CBC & Chem 7: 01/02/17 09:30 01/02/17 04:25 Microbiology Results: Microbiology 01/01/17 09:04 Peripheral/Iv Start Blood Culture - Preliminary No Growth After 1 Day 01/01/17 09:12 Peripheral/Iv Start Blood Culture - Preliminary No Growth After 1 Day Assessment and Plan (1) Atherosclerotic heart disease of [place] coronary artery without angina pectoris Current visit: No Status: Chronic 12/26/16 21:24 stable, asa, statin, ?bblocker Essential HTN--hold ARB and HCTZ for now. Dyslipidemia--statin Class 3 obesity BMI 43 MAXIME no CPAP currently. Will need. (2) Essential (primary) hypertension Current visit: No Status: Chronic (3) Dehiscence of amputation stump Current visit: Yes Status: Acute 12/26/16 21:23 TO OR tonight with NPO, prn MSO4, etc. 12/26/16 21:25 Reassess renal function in the AM with pharmacy eval for Vanco to continue. (4) DM2 (diabetes mellitus, type 2) Current visit: Yes Status: Chronic 12/26/16 21:24 only 10 units levemir instead of 18u for now qhs with SSI and hold scheduled novolog and metformin Assessment and Plan: 01/02/17-plan Recheck H&H this morning In light of decline in hemoglobin. 4. A.m. blood draw revealed hemoglobin of 6.8, redraw at 930. Indicates 7.5. Did check an ammonia level given encephalopathy and confusion however it was negative less than 9. Oxycodone is decreased to 5 milligrams as this may play a role in confusion. Continues to have fevers overnight of unknown origin. Highest fever was 100.8. White count this morning did increase to 14. No tachycardia or other sirs criteria. Chest x-ray was performed yesterday that was unremarkable, urine was negative. He did have urinary retention overnight and required straight catheterization. He does not have any other indication of skin wound source of infection. No diarrhea or abdominal pain. Blood cultures remain negative at 24 hour eren. Continue with Vancomycin given fever and leukocytosis Will discuss blood transfusion with attending. Will discuss further order and plan of care with orthopedic team and attending Sepsis Assessment - Evaluation Sepsis screening result: Sepsis Risk Hospital Course Summary Disclaimer: The visit summary below is not to be considered part of the above Progress Note. Hospital Course: 12/28/16 Home diabetic medications restarted and blood sugars showing control. Blood pressure stable on home ARB - renal status and potassium normal. Continue with pain control - ortho changing to oral medications. Encourage IS for pulm toilet. PT/OT consulted to help functional status. Continue with wound care as per Dr Nolasco - anticipate reexploration of wound tomorrow. Medically stable and responding to treatments. 12/29/16 Pt to OR today for wound I&D. Continue Vancomycin- past culture sensitive to Vancomycin. Can discontinue doxycycline as Vancomycin will cover both organisms. BG has been stable. Holding insulin today due to NPO. Started IVF until eating post-op. BP is controlled- Losartan- HCTZ. Plan to repeat labs in AM. Mild anemia, stable. 12/31/16 12:49-Gloria Tamez blood sugar 122 at 10:30 this morning, patient nothing by mouth in anticipation of surgery. Will monitor every 2 hours until surgery in the event glucose containing fluids become necessary. Overall diabetes control improving. Pain well controlled at present. Peripheral IV being utilized for vancomycin-clarify with orthopedics how long antibiotics anticipated, may benefit from PICC. To the operating room later today for debridement. Blood pressure stable. Hemoglobin down from 12.5 on admission to current value of 8.6; monitor closely for the next couple of days with further surgical debridement. May benefit from nocturnal oximetry prior to discharge due to history of sleep apnea; suspect patient needs repeat sleep study based on history. 01/01/17 Increase in fever overnight. Obtained labs, lactate and blood cultures. Continues on Vanco. Blood sugars well controlled 01/02/17-plan Recheck H&H this morning In light of decline in hemoglobin. 4. A.m. blood draw revealed hemoglobin of 6.8, redraw at 930. Indicates 7.5. Did check an ammonia level given encephalopathy and confusion however it was negative less than 9. Oxycodone is decreased to 5 milligrams as this may play a role in confusion. Continues to have fevers overnight of unknown origin. Highest fever was 100.8. White count this morning did increase to 14. No tachycardia or other sirs criteria. Chest x-ray was performed yesterday that was unremarkable, urine was negative. He did have urinary retention overnight and required straight catheterization. He does not have any other indication of skin wound source of infection. No diarrhea or abdominal pain. Blood cultures remain negative at 24 hour eren. Continue with Vancomycin given fever and leukocytosis Will discuss blood transfusion with attending. Will discuss further order and plan of care with orthopedic team and attending <Jackie Castro - Last Filed: 01/02/17 17:06> Objective Vital signs: Temperature 100 F 01/02/17 15:00 Pulse Rate 91 01/02/17 15:00 Respiratory Rate 16 01/02/17 15:00 Blood Pressure 115/58 01/02/17 15:00 Pulse Oximetry 94 01/02/17 15:00 Oxygen Delivery Method Room Air Oxygen Flow Rate 2 Height/Weight/BMI: Weight 139 kg Results - Labs CBC & Chem 7: 01/02/17 09:30 01/02/17 04:25 Microbiology Results: Microbiology 01/01/17 09:04 Peripheral/Iv Start Blood Culture - Preliminary No Growth After 1 Day 01/01/17 09:12 Peripheral/Iv Start Blood Culture - Preliminary No Growth After 1 Day Assessment and Plan (1) Atherosclerotic heart disease of [place] coronary artery without angina pectoris Current visit: No Status: Chronic (2) Essential (primary) hypertension Current visit: No Status: Chronic (3) Dehiscence of amputation stump Current visit: Yes Status: Acute (4) DM2 (diabetes mellitus, type 2) Current visit: Yes Status: Chronic Assessment and Plan: Impression: Excessive somnolence Fevers Dehiscence of amputation stump MRSA (10/10/16), MDR Coag Negative Staph (11/20/16) Infection Type II DM - insulin requiring (A1c 8.4% on 11/25/16) Normocytic anemia, surgical CAD HTN HDL MAXIME Morbid obesity - BMI 43 on admission I have independently evaluated and examined this patient. I reviewed the chart, the patient's history, and the SOFTWARE ENGINEER/PA's documented findings as above. We discussed and formulated the assessment and plan as above with additions as below: Fer has been evaluated twice today-this morning he was relatively awake and able to answer questions appropriately without somnolence. He is required catheterization several times overnight due to inability to urinate and Khan catheter subsequently been placed. He reports increased pain in the left stump following second surgical procedure compared to the first with stabbing pains and intense cramping. Narcotic use is increased per nursing. Second visit late this afternoon demonstrated the patient to be up in a chair and more lethargic; he would awaken to answer questions but followed sleep again quickly. He denied cough or dyspnea. Respirations are nonlabored but breath sounds are diminished anteriorly and posteriorly. Lung gómez are clear throughout. Abdomen is benign, bowel sounds diminished Skin without rash. UA negative, white count up slightly, hemoglobin today down as was sodium on initial labs-repeat hemoglobin improved compared to initial labs this morning but reflex downward drift since surgery. Narcotics decreased, Tylenol scheduled 4 times daily; patient reminded that Flexeril is available in the event spasms underlie most of the pain the patient is experiencing. Recheck H&H tonight. Has continued to have low-grade fevers this afternoon-blood cultures drawn yesterday negative to date. Discussed with Dr. Nolasco and Dr. Navarro; chest x-ray ordered for tomorrow morning. Hospital Course Summary Disclaimer: The visit summary below is not to be considered part of the above Progress Note.
[2017-01-02] MEDS: NIFEREX FORTE 150 CAPSULE PO SCH (12:17)
[2017-01-02] MEDS: ACETAMINOPHEN 325 MG TABLET PO SCH ×3 (13:19→20:39)
[2017-01-02] MEDS: CYCLOBENZAPRINE 10 MG TABLET PO PRN (17:23)
[2017-01-02] MEDS: NS FLUSH BAG 500ml IV PRN (17:59)
[2017-01-02] MEDS: SALINE FLUSH 10ml SYRINGE IV PRN (17:59)
[2017-01-02] MEDS: PRAVASTATIN 20 MG TABLET PO SCH (20:39)
[2017-01-02] MEDS: SENNA + DOCUSATE TABLET PO PRN (20:39)
[2017-01-02] MEDS: INSULIN GLARGINE 100unit/ml INJECTION SQ SCH (20:39)
[2017-01-02] MEDS: INSULIN ASPART 100unit/ml INJECTION SQ PRN (20:41)
[2017-01-03] MEDS: ACETAMINOPHEN 325 MG TABLET PO SCH ×4 (08:52→21:13)
[2017-01-03] MEDS: LOSARTAN 50 MG TABLET PO SCH (08:53)
[2017-01-03] MEDS: METFORMIN 1,000 MG TABLET PO SCH ×2 (08:53→17:12)
[2017-01-03] MEDS: ASPIRIN *EC* 325 MG TABLET PO SCH (08:53)
[2017-01-03] MEDS: MAGNESIUM OXIDE 400 MG TABLET PO SCH (08:54)
[2017-01-03] MEDS: INSULIN ASPART 100unit/ml INJECTION SQ SCH ×3 (09:08→17:11)
--- NOTE | 2017-01-03 09:59 | Orthopedic Progress Note ---
Date: Subjective/Severity of Illness: Fer is not feeling well this AM. He reports some tingling on the right side of his body and some on the left side. He has trouble focusing on the TV with or without his glasses. He wants the telles out but admits he is too weak to stand on his right leg to go to the BR. No increased drainage from the wound. Dressings are dry. WBC down a little today. Afebrile and VSS. Hospitalist on board to manage him medically. Blood sugars have been good. Orthopedic Objective PO Vital signs: Temperature 98.3 F 01/03/17 09:06 Pulse Rate 95 01/03/17 09:06 Respiratory Rate 20 01/03/17 09:06 Blood Pressure 143/77 H 01/03/17 09:06 Pulse Oximetry 93 01/03/17 09:06 Oxygen Delivery Method Room Air Oxygen Flow Rate 2 Height and Weight: Weight 309 lb 11.991 oz - Constitutional General Appearance: Present: alert, orientated x2, no acute distress, obese - Respiratory Exam Present: non-labored (CXR done this AM . Results pending.) - Extremities Exam Extremities: Present: amputation (dressing dry) - Surgical Site Incision: dressing intact - Lymphatic Lymphatic: Present: adenopathy - Psychiatric Exam Present: alert, other (restless and appears frustrated.) - Wound Management Left Lower Leg Wound Type: Amputation (Left BKA.) Wound Length: 12 Wound Width: 2 Wound Depth: 1.5 Dressing Change Patient Tolerance: Tolerated Well - Labs Result Diagrams: 01/03/17 10:22 01/03/17 10:22 Abnormal lab results 01/02/17 01/02/17 01/03/17 Range/Units 07:18 19:18 00:54 WBC 13.4 H (4.5-11.0) T/MM3 RBC 2.80 L (4.50-5.90) M/MM3 Hgb 7.0 L 7.8 L D (13.5-17.5) GM/DL Hct 21.1 L 23.6 L D (41-53) % Neut % (Auto) 78.3 H (33-66) % Lymph % (Auto) 10.5 L (23-45) % Neut # 10.5 H (1.8-7.7) T/MM3 [place] # 1.1 H (0-0.8) T/MM3 Abs Immat Gran (auto) 0.05 H (0.00-0.03) T/MM3 Sodium (134-144) MEQ/L Potassium (3.6-5) MEQ/L BUN (9-20) MG/DL Calculated Osmolality (261-280) MOSM/KG Phosphorus (2.5-4.5) MG/DL Albumin (3.5-5.0) G/DL Specimen Hemolysis (0-25) Crossmatch ([facility]) See Detail 01/03/17 Range/Units 00:54 WBC (4.5-11.0) T/MM3 RBC (4.50-5.90) M/MM3 Hgb (13.5-17.5) GM/DL Hct (41-53) % Neut % (Auto) (33-66) % Lymph % (Auto) (23-45) % Neut # (1.8-7.7) T/MM3 [place] # (0-0.8) T/MM3 Abs Immat Gran (auto) (0.00-0.03) T/MM3 Sodium 131 L (134-144) MEQ/L Potassium 5.3 H D (3.6-5) MEQ/L BUN 22.0 H (9-20) MG/DL Calculated Osmolality 256 L (261-280) MOSM/KG Phosphorus 4.8 H (2.5-4.5) MG/DL Albumin 3.3 L (3.5-5.0) G/DL Specimen Hemolysis 145 H (0-25) Crossmatch ([facility]) H & H 12/27/16 12/28/16 12/30/16 Range/Units 04:26 04:27 04:12 Hgb 10.2 L D 10.1 L 9.1 L (13.5-17.5) GM/DL Hct 31.6 L D 31.6 L 28.3 L (41-53) % 12/31/16 01/01/17 01/02/17 Range/Units 04:30 04:34 04:25 Hgb 8.6 L 8.1 L 6.8 L D (13.5-17.5) GM/DL Hct 26.5 L 25.5 L 21.1 L D (41-53) % 01/02/17 01/02/17 01/03/17 Range/Units 09:30 19:18 00:54 Hgb 7.5 L 7.0 L Cancelled (13.5-17.5) GM/DL Hct 21.1 L (41-53) % 01/03/17 Range/Units 00:54 Hgb 7.8 L D (13.5-17.5) GM/DL Hct 23.6 L D (41-53) % Orthopedic Assessment and Plan (1) Dehiscence of amputation stump Status: Acute Assessment and Plan: Hospitalist to evaluate him this AM. Blood cultures negative to date. Will d/c Flexeril for now. Consider switching his pain meds. Will discuss with hospitalist. I looked at Fer's incision and there is some discoloration at the midsection superiorly which could be necrotic tissue. Given his recent fevers and malaise and without another explanation I recommended a surgical debridement and cultures and likely wound vac placement. He ate at 1:00 so we will plan on surgery later this evening. Hospital Course Summary Disclaimer: The visit summary below is not to be considered part of the above Progress Note. Hospital Course: 12/28/16 Home diabetic medications restarted and blood sugars showing control. Blood pressure stable on home ARB - renal status and potassium normal. Continue with pain control - ortho changing to oral medications. Encourage IS for pulm toilet. PT/OT consulted to help functional status. Continue with wound care as per Dr Nolasco - anticipate reexploration of wound tomorrow. Medically stable and responding to treatments. 12/29/16 Pt to OR today for wound I&D. Continue Vancomycin- past culture sensitive to Vancomycin. Can discontinue doxycycline as Vancomycin will cover both organisms. BG has been stable. Holding insulin today due to NPO. Started IVF until eating post-op. BP is controlled- Losartan- HCTZ. Plan to repeat labs in AM. Mild anemia, stable. 12/31/16 12:49-[facility] Last blood sugar 122 at 10:30 this morning, patient nothing by mouth in anticipation of surgery. Will monitor every 2 hours until surgery in the event glucose containing fluids become necessary. Overall diabetes control improving. Pain well controlled at present. Peripheral IV being utilized for vancomycin-clarify with orthopedics how long antibiotics anticipated, may benefit from PICC. To the operating room later today for debridement. Blood pressure stable. Hemoglobin down from 12.5 on admission to current value of 8.6; monitor closely for the next couple of days with further surgical debridement. May benefit from nocturnal oximetry prior to discharge due to history of sleep apnea; suspect patient needs repeat sleep study based on history. 01/01/17 Increase in fever overnight. Obtained labs, lactate and blood cultures. Continues on Vanco. Blood sugars well controlled 01/02/17-plan Recheck H&H this morning In light of decline in hemoglobin. 4. A.m. blood draw revealed hemoglobin of 6.8, redraw at 930. Indicates 7.5. Did check an ammonia level given encephalopathy and confusion however it was negative less than 9. Oxycodone is decreased to 5 milligrams as this may play a role in confusion. Continues to have fevers overnight of unknown origin. Highest fever was 100.8. White count this morning did increase to 14. No tachycardia or other sirs criteria. Chest x-ray was performed yesterday that was unremarkable, urine was negative. He did have urinary retention overnight and required straight catheterization. He does not have any other indication of skin wound source of infection. No diarrhea or abdominal pain. Blood cultures remain negative at 24 hour eren. Continue with Vancomycin given fever and leukocytosis Will discuss blood transfusion with attending. Will discuss further order and plan of care with orthopedic team and attending
--- NOTE | 2017-01-03 09:59 | Progress Note ---
<Ami Mckenzie V - Last Filed: 01/03/17 10:08> Subjective: Fer is seen today in follow up. He is up in the wheelchair and reports that he is not feeling good today. He reports a change in his vision this morning. Even when placing his glasses on. He is unable to read words on the television and this is new. He complains of feeling bilateral hand/wrist numbness. He also complains of weakness to the right leg. He states that the thigh feels like it is falling asleep. On exam he has no sensation or motor deficits. Complains of mild pain to left stump. Denies chest pain, shortness of breath or GI complaints. Khan cath remains intact. He is passing flatus without bowel movement. Objective Vital signs: Temperature 98.3 F 01/03/17 09:06 Pulse Rate 95 01/03/17 09:06 Respiratory Rate 20 01/03/17 09:06 Blood Pressure 143/77 H 01/03/17 09:06 Pulse Oximetry 93 01/03/17 09:06 Oxygen Delivery Method Room Air Oxygen Flow Rate 2 Height/Weight/BMI: Weight 140.5 kg - Constitutional Present: well nourished, well developed - Routine HEENT Exam Eye: Present: EOMI ENT: Present: mucous membranes moist, dentition normal - Routine Respiratory Exam Present: CTA bilaterally. Absent: wheezes - Routine Cardiovascular Exam Present: RRR, S1, S2. Absent: murmur - Routine Abdominal Exam Present: soft, normoactive bowel sounds, non distended. Absent: tenderness - Routine Extremities Exam Present: full ROM, normal capillary refill - Routine Back/Spine/Pelvis Exam Back/Spine: Present: full ROM - Routine Skin Exam Present: intact, dry, warm - Routine Neurological Exam Present: alert, CN II-XII intact, moving all extremities, vision grossly intact , hearing grossly intact, normal speech. Absent: sensory deficit, motor deficit , facial asymmetry Vision is blurred however intact CN 3-12 intact - Routine Lymphatic Exam Lymphatic: Absent: adenopathy - Routine Psychiatric Exam Present: normal affect Results - Labs CBC & Chem 7: 01/03/17 00:54 01/03/17 00:54 Microbiology Results: Microbiology 01/01/17 09:04 Peripheral/Iv Start Blood Culture - Preliminary No Growth After 2 Days 01/01/17 09:12 Peripheral/Iv Start Blood Culture - Preliminary No Growth After 2 Days Assessment and Plan (1) Atherosclerotic heart disease of [place] coronary artery without angina pectoris Current visit: No Status: Chronic 12/26/16 21:24 stable, asa, statin, ?bblocker Essential HTN--hold ARB and HCTZ for now. Dyslipidemia--statin Class 3 obesity BMI 43 MAXIME no CPAP currently. Will need. (2) Essential (primary) hypertension Current visit: No Status: Chronic (3) Dehiscence of amputation stump Current visit: Yes Status: Acute 12/26/16 21:23 TO OR tonight with NPO, prn MSO4, etc. 12/26/16 21:25 Reassess renal function in the AM with pharmacy eval for Vanco to continue. (4) DM2 (diabetes mellitus, type 2) Current visit: Yes Status: Chronic 12/26/16 21:24 only 10 units levemir instead of 18u for now qhs with SSI and hold scheduled novolog and metformin Assessment and Plan: Impression: Excessive somnolence Fevers Dehiscence of amputation stump MRSA (10/10/16), MDR Coag Negative Staph (11/20/16) Infection Type II DM - insulin requiring (A1c 8.4% on 11/25/16) Normocytic anemia, surgical CAD HTN HDL MAXIME Morbid obesity - BMI 43 on admission Plan- 01/03 Overall changes in vision are concerning this morning. Ct head ordered to rule out intracranial abnormality. Will obtain CBC, BMP, INR, PTT and viral respiratory panel now. Patient may require spinal tap as he did receive spinal anesthesia on day of procedure. Did discuss case with Ag Rolon. Aspirin placed on hold. However, patient did receive this morning's dose. Discussed with GWYN Gomez. He recommends discontinuing Flexeril. Will continue on decreased amount of oxycodone. Hemoglobin was last checked at 1 a.m. it was 7.8. At that time. She did receive a unit of packed red blood cells yesterday Case discussed with attending, Dr Castro Sepsis Assessment - Evaluation Sepsis screening result: No Definite Risk Hospital Course Summary Disclaimer: The visit summary below is not to be considered part of the above Progress Note. Hospital Course: 12/28/16 Home diabetic medications restarted and blood sugars showing control. Blood pressure stable on home ARB - renal status and potassium normal. Continue with pain control - ortho changing to oral medications. Encourage IS for pulm toilet. PT/OT consulted to help functional status. Continue with wound care as per Dr Nolasco - anticipate reexploration of wound tomorrow. Medically stable and responding to treatments. 12/29/16 Pt to OR today for wound I&D. Continue Vancomycin- past culture sensitive to Vancomycin. Can discontinue doxycycline as Vancomycin will cover both organisms. BG has been stable. Holding insulin today due to NPO. Started IVF until eating post-op. BP is controlled- Losartan- HCTZ. Plan to repeat labs in AM. Mild anemia, stable. 12/31/16 12:49-[facility] Last blood sugar 122 at 10:30 this morning, patient nothing by mouth in anticipation of surgery. Will monitor every 2 hours until surgery in the event glucose containing fluids become necessary. Overall diabetes control improving. Pain well controlled at present. Peripheral IV being utilized for vancomycin-clarify with orthopedics how long antibiotics anticipated, may benefit from PICC. To the operating room later today for debridement. Blood pressure stable. Hemoglobin down from 12.5 on admission to current value of 8.6; monitor closely for the next couple of days with further surgical debridement. May benefit from nocturnal oximetry prior to discharge due to history of sleep apnea; suspect patient needs repeat sleep study based on history. 01/01/17 Increase in fever overnight. Obtained labs, lactate and blood cultures. Continues on Vanco. Blood sugars well controlled 01/02/17-plan Recheck H&H this morning In light of decline in hemoglobin. 4. A.m. blood draw revealed hemoglobin of 6.8, redraw at 930. Indicates 7.5. Did check an ammonia level given encephalopathy and confusion however it was negative less than 9. Oxycodone is decreased to 5 milligrams as this may play a role in confusion. Continues to have fevers overnight of unknown origin. Highest fever was 100.8. White count this morning did increase to 14. No tachycardia or other sirs criteria. Chest x-ray was performed yesterday that was unremarkable, urine was negative. He did have urinary retention overnight and required straight catheterization. He does not have any other indication of skin wound source of infection. No diarrhea or abdominal pain. Blood cultures remain negative at 24 hour eren. Continue with Vancomycin given fever and leukocytosis Will discuss blood transfusion with attending. Will discuss further order and plan of care with orthopedic team and attending Plan- 01/03 Overall changes in vision are concerning this morning. Ct head ordered to rule out intracranial abnormality. Will obtain CBC, BMP, INR, PTT and viral respiratory panel now. Patient may require spinal tap as he did receive spinal anesthesia on day of procedure. Did discuss case with Ag Rolon. Aspirin placed on hold. However, patient did receive this morning's dose. Discussed with GWYN Gomez. He recommends discontinuing Flexeril. Will continue on decreased amount of oxycodone. Hemoglobin was last checked at 1 a.m. it was 7.8. At that time. She did receive a unit of packed red blood cells yesterday Case discussed with attending, Dr Castro <Jackie Castro - Last Filed: 01/03/17 16:39> Objective Vital signs: Temperature 96.7 F L 01/03/17 15:00 Pulse Rate 99 01/03/17 15:00 Respiratory Rate 16 01/03/17 15:00 Blood Pressure 150/78 H 01/03/17 15:00 Pulse Oximetry 96 01/03/17 15:00 Oxygen Delivery Method Room Air Oxygen Flow Rate 2 Height/Weight/BMI: Weight 140.5 kg Results - Labs CBC & Chem 7: 01/03/17 10:22 01/03/17 10:22 Microbiology Results: Microbiology 01/03/17 15:48 Csf, Lumbar Puncture CSF Culture - Preliminary Culture Initiated - Results Pending 01/01/17 09:04 Peripheral/Iv Start Blood Culture - Preliminary No Growth After 2 Days 01/01/17 09:12 Peripheral/Iv Start Blood Culture - Preliminary No Growth After 2 Days Assessment and Plan (1) Atherosclerotic heart disease of [place] coronary artery without angina pectoris Current visit: No Status: Chronic (2) Essential (primary) hypertension Current visit: No Status: Chronic (3) Dehiscence of amputation stump Current visit: Yes Status: Acute (4) DM2 (diabetes mellitus, type 2) Current visit: Yes Status: Chronic Assessment and Plan: I have independently evaluated and examined this patient. I reviewed the chart, the patient's history, and the GRAVEL HAULER/PA's documented findings as above. We discussed and formulated the assessment and plan as above with additions as below: Fer was seen with his late this morning. He described tingling in his hands and legs and increased muscle spasm in his right thigh. He denied URI symptoms other than his left ear feeling clogged. Pain control is good. He's not had a bowel movement since his second surgery. Examination reveals the patient to be awake, alert, and speech fluent. He did not fall asleep at any point during our interaction this morning or when reassess this afternoon. Temperature slowly improving-most recent 96.7 Sensation is intact to touch in the upper extremities, bilateral thighs, and right goode. He describes tingling sensation which are superimposed and present independent of touch. Frequent episodes of myoclonus and jerking of the right thigh are noted but no similar events in the left are present today. Motor tone and power are normal and he is able to raise both legs off the bed independently. Right knee jerk +2/brisk Tympanic membranes and external auditory canals are clear bilaterally. Respirations nonlabored, breath sounds clear. Leukocytosis resolving, hemoglobin improved after 1 unit of packed cells last night. Blood sugar stable. Respiratory viral panel negative. CT head reviewed by myself-negative although radiology noted a small left mastoid effusion; chest x-ray unremarkable. Somnolence with unexplained fever followed by progressive neurological symptoms (visual, paresthesias, myoclonus)- proceed with spinal tap to exclude unrecognized pathology. Vancomycin not associated with similar neurological symptoms. Subsequently spoke with Dr. Nolasco reports there is small area of necrosis along the wound margin and further debridement will be needed-cultures requested. Hospital Course Summary Disclaimer: The visit summary below is not to be considered part of the above Progress Note.
--- NOTE | 2017-01-03 10:16 | CT Scan Report ---
Indication: blurred vision PROCEDURE: CT head/brain wo con: Encounter: Initial Comparison: Head CT dated October 22, 2016 Technique: Axial CT images through the head were performed without contrast. Iterative Reconstruction dose reducing technique was utilized. FINDINGS: The ventricles are of normal size, shape, and configuration for the patient's age. There is no evidence of acute intracranial hemorrhage, midline displacement, or mass effect. The CT attenuation of the brain parenchyma is normal within the cerebellum, brain stem, and cerebral hemispheres. New small left mastoid effusion. There are no definite fractures of the skull base, calvarium, or visualized portion of the midface. IMPRESSION: No CT evidence of acute intracranial abnormality. Small left mastoid effusion. .
--- NOTE | 2017-01-03 11:58 | XRay Report ---
INDICATION: fever PROCEDURE: CHEST 2-VIEWS UPRIGHT (PA & LAT) Encounter: Initial COMPARISON: January 01, 2017 FINDINGS: The lungs are clear without evidence of focal abnormal airspace opacity. There is no pleural effusion or pneumothorax. The heart size, mediastinal contours and pulmonary vascularity are within normal limits. IMPRESSION: No acute cardiopulmonary disease. .
[2017-01-03] MEDS: NIFEREX FORTE 150 CAPSULE PO SCH (12:48)
--- NOTE | 2017-01-03 16:14 | Fluoroscopy Report ---
INDICATION: mental status change, vision changes, recent spinal anesthesia Ordering physician:Ami Mckenzie Procedure:FL lumbar puncture LUMBAR PUNCTURE: The procedure, including the benefits, risks, and alternatives were explained in detail to the patient. All of his questions were answered. They were given the option to decline the procedure. They stated that they understood and wished to proceed. Informed consent was obtained. A pre-procedural timeout was done to verify the correct patient and proper procedure. Using sterile technique, local Xylocaine anesthesia, and fluoroscopic guidance throughout, a 20 G spinal needle was advanced from a posterior approach into the subarachnoid space at the L2-3 level. A fluoroscopic image was then obtained and archived. Removal of the stylet showed clear colorless CSF. Opening pressure was 30 centimeters of water when taken in the prone position. Then 12 cc of CSF was taken off and sent to the lab for the requested studies. The needle was removed. The procedure was completed without complication. Following this, the patient was transferred back to his room on the surgical floor in stable condition. Impression: 1. Opening pressure of 30 cm of water in the prone position. 2. 12 cc of clear, colorless CSF removed and sent to lab. Fluoroscopy dose: 8.14 mGy (Cumulative air kerma) Ag Pimentel RPA/VIC performed this under my personal supervision. .
--- NOTE | 2017-01-03 17:44 | Anesthesia Preoperative Report ---
Anesthesia Preoperative Record - Date and Time Date: 01/03/17 Preoperative Diagnosis: Wound Dehiscence chronic infected wound Proposed Procedure: left stump i&d NPO Since Date: 01/03/17 NPO Since Time: 13:30 Allergies/Adverse Reactions: Allergies Allergy/AdvReac Type Severity Reaction Status Date / Time lisinopril Allergy Intermediate DIZZINESS Verified 12/26/16 19:13 Penicillins Allergy Unknown HIVES Verified 12/26/16 19:13 - Vital Signs Vital Signs: Temperature 96.7 F L 01/03/17 15:00 Pulse Rate 99 01/03/17 15:00 Respiratory Rate 16 01/03/17 15:00 Blood Pressure 150/78 H 01/03/17 15:00 Pulse Oximetry 96 01/03/17 15:00 Oxygen Delivery Method Room Air Oxygen Flow Rate 2 Height and Weight: Weight 140.5 kg - Medications Inpatient Medications: Current Medications Acetaminophen (Tylenol) 650 mg PO TID PRN PRN Reason: Discomfort Acetaminophen (Tylenol) 650 mg PO QID [facility] Last Admin: 01/03/17 17:11 Dose: Not Given Bisacodyl (Dulcolax) 10 mg RECTALLY DAILY PRN PRN Reason: Constipation Cyclobenzaprine HCl (Flexeril) 10 mg PO TID PRN PRN Reason: Muscle spasm Last Admin: 01/02/17 17:23 Dose: 10 mg Folic Acid/Iron/Vitamin B12 (Niferex Forte) 1 cap PO WL [facility] Last Admin: 01/03/17 12:48 Dose: 1 cap Hydrochlorothiazide (Hydrodiuril) 25 mg PO DAILY [facility] Last Admin: 01/03/17 08:53 Dose: 25 mg Hydromorphone HCl (Dilaudid) 0.5 - 1 mg IVP Q3H PRN PRN Reason: Pain Last Admin: 12/31/16 09:14 Dose: 1 mg Vancomycin HCl 1,750 mg/ (Sodium Chloride) 500 mls @ 250 mls/hr IV Q12H [facility] Last Infusion: 01/03/17 09:15 Dose: Infused Insulin Aspart (Novolog) 0 unit SQ SS PRN; Protocol PRN Reason: Hyperglycemia Last Admin: 01/02/17 20:41 Dose: 1 unit Insulin Aspart (Novolog) 10 unit SQ ACS [facility] Last Admin: 01/03/17 17:11 Dose: Not Given Insulin Aspart (Novolog) 10 unit SQ ACL [facility] Last Admin: 01/03/17 12:47 Dose: 10 unit Insulin Aspart (Novolog) 7 unit SQ 0730 [facility] Last Admin: 01/03/17 09:08 Dose: 7 unit Insulin Glargine (Lantus) 20 unit SQ HS [facility] Last Admin: 01/02/17 20:39 Dose: 20 unit Losartan Potassium (Cozaar) 50 mg PO DAILY [facility] Last Admin: 01/03/17 08:53 Dose: 50 mg Magnesium Hydroxide (Mom) 30 ml PO DAILY PRN PRN Reason: Constipation Magnesium Oxide (Magox) 400 mg PO DAILY [facility] Last Admin: 01/03/17 08:54 Dose: 400 mg Metformin HCl (Glucophage) 1,000 mg PO BIDWM [facility] Last Admin: 01/03/17 17:12 Dose: Not Given Ondansetron HCl (Zofran) 4 mg IVP Q6H PRN PRN Reason: Nausea &/or vomiting Ondansetron HCl (Zofran) 4 mg IVP O PRN PRN Reason: Nausea &/or vomiting Oxycodone HCl (Roxicodone *Ir*) 5 mg PO Q3H PRN PRN Reason: Pain Last Admin: 01/02/17 13:16 Dose: 5 mg Pharmacy Consult (Pharmacy Consult - Fall Risk) 1 each XX ONE TIME PRN PRN Reason: PRN orders Polyethylene Glycol (Miralax) 17 gm PO DAILY [facility] Potassium Chloride (Micro-K) 10 meq PO WB [facility] Last Admin: 01/03/17 08:54 Dose: 10 meq Pravastatin Sodium (Pravachol) 20 mg PO HS [facility] Last Admin: 01/02/17 20:39 Dose: 20 mg Senna/Docusate Sodium (Senna Plus Tablet) 1 tab PO BID [facility] Sodium Chloride (Iv Flush) 10 - 80 ml IV PRN PRN PRN Reason: Flushing Last Admin: 01/02/17 17:59 Dose: 10 ml Sodium Chloride (Normal Saline) 500 ml IV PRN PRN Last Admin: 01/02/17 17:59 Dose: 500 ml Sodium Chloride (Normal Saline) 500 ml IV PRN PRN Home Medications: Home Medications Medication Instructions Recorded Confirmed Type hydroCHLOROthiazide 25 mg PO DAILY #0 06/26/16 12/26/16 History [Hydrochlorothiazide] Insulin Aspart [NovoLOG] 10 unit SQ ACL #0 vial 07/24/16 12/26/16 History doxycycline hyclate 100 mg capsule 100 mg PO BID 12/25/16 12/26/16 History Metformin [Glucophage] 1,000 mg PO BID 12/26/16 12/26/16 History Is Patient on Beta Vivien?: No - Medical History Respiratory: Reports: Sleep Apnea Cardiovascular: Reports: Myocardial Infarction (2011. Se[address] Coffey, stent was placed ) Gastrointestional: Reports: Morbid Obesity Neuro/Musculoskeletal: Reports: Headaches Renal/Endocrine: Reports: Diabetes Mellitus Type 1 - Surgical History Cardiac Surgeries/Treatments: DENIES: Pacemaker Reproductive Surgery/Treatment: DENIES: Mastectomy Anesthesia Reactions: None Hx Family Anesthesia Reaction: No - Social History Smoking Status: Former smoker Substance Use Type: does not use - Pertinent Findings Laboratory: CBC and BMP 01/03/17 10:22 01/03/17 10:22 BMP 01/03/17 01/03/17 00:54 10:22 Sodium 131 L 138 D Potassium 5.3 H D 4.6 Chloride 101 104 Carbon Dioxide 24 25 BUN 22.0 H 20.0 Creatinine 1.1 0.9 D Glucose 94 122 H Calcium 8.5 8.9 Liver Function 01/03/17 Range/Units 00:54 Albumin 3.3 L (3.5-5.0) G/DL EKG Rhythm: Normal Sinus Rhythm - Physical Exam Respiratory Exam: Present: lungs clear, bilateral breath sounds equal Cardiovascular Exam: Present: regular rate and rhythm, no murmur - Airway Assessment Mallampati Score: III TMD: 3 Fingerbreadths Neck Extension: fair, other (thick neck ) Teeth: chipped teeth/crowns (with some missing), poor dentation Overall Assessment: may be difficult mask vent, may be difficult intubation - ASA ASA Score: 3 - Plan Anesthesia: General TIVA - Discussion Discussion: Discussed risks/options/alternatives of anesthesia and questions answered. Patient consents. Nursing pain assessment noted. Present for Discussion: family member Attestation Statement: Prior to the delivery of any anesthetic medication, I examined the patient, developed the plan, obtained the patient's consent and discussed the risk and benefits of the procedure with the patient/guardian.
[2017-01-03] MEDS: INSULIN GLARGINE 100unit/ml INJECTION SQ SCH (21:10)
[2017-01-03] MEDS: PRAVASTATIN 20 MG TABLET PO SCH (21:11)
[2017-01-03] MEDS: SENNA + DOCUSATE TABLET PO SCH (21:12)
[2017-01-03] MEDS: HYDROMORPHONE 2 MG/ML INJECTION IVP PRN ×3 (21:33→23:31)
[2017-01-03] MEDS ORDERED: MIDAZOLAM 2mg/2ml INJECTION ONE (21:56)
[2017-01-03] MEDS ORDERED: PROPOFOL 20 ML ONE ×2 (21:56→22:28)
[2017-01-03] MEDS ORDERED: FentaNYL 100 MCG/2 ML INJECTION ONE ×2 (21:56→22:27)
[2017-01-03] MEDS ORDERED: KETAMINE 500 MG/10 ML INJECTION ONE (21:56)
[2017-01-03] MEDS ORDERED: LIDOCAINE 2% (100mg/5mL) PF 5ml vl ONE (21:56)
[2017-01-03] MEDS: NS 1,000 ML IV PRN (22:00)
--- NOTE | 2017-01-03 23:14 | Anesthesia Postoperative Note ---
- Date and Time Date: 01/03/17 Time: 23:15 - Status Patient Participated in Evaluation: Patient Participated in Person Vital Signs: Temperature 99.6 F 01/03/17 21:42 Pulse Rate 99 01/03/17 21:42 Respiratory Rate 16 01/03/17 21:42 Blood Pressure 139/71 01/03/17 21:42 Pulse Oximetry 91 01/03/17 21:42 Oxygen Delivery Method Room Air Oxygen Flow Rate 2 Respiratory Function: Airway Patent Cardiovascular Function: Regular Pulse EKG Rhythm: Normal Sinus Rhythm Mental Status: Alert and Oriented Pain Intensity: 0 Hydration: IV Infusing Complications During Recover: None Apparent - Follow-Up Instructions Instructions: Per Surgeon
[2017-01-04] MEDS: INSULIN ASPART 100unit/ml INJECTION SQ PRN ×3 (06:09→17:33)
[2017-01-04] MEDS: SALINE FLUSH 10ml SYRINGE IV PRN ×3 (06:10→21:05)
[2017-01-04] MEDS: HYDROMORPHONE 2 MG/ML INJECTION IVP PRN ×2 (07:59→16:13)
[2017-01-04] MEDS: POLYETHYL GLYCOL 3350 17gm PACKET PO SCH (08:57)
[2017-01-04] MEDS: MAGNESIUM OXIDE 400 MG TABLET PO SCH (08:57)
[2017-01-04] MEDS: INSULIN ASPART 100unit/ml INJECTION SQ SCH ×3 (08:57→18:15)
[2017-01-04] MEDS: SENNA + DOCUSATE TABLET PO SCH ×2 (08:57→21:04)
[2017-01-04] MEDS: ACETAMINOPHEN 325 MG TABLET PO SCH ×4 (08:58→21:04)
[2017-01-04] MEDS: METFORMIN 1,000 MG TABLET PO SCH (08:58)
[2017-01-04] MEDS: LOSARTAN 50 MG TABLET PO SCH (08:58)
--- NOTE | 2017-01-04 09:57 | Orthopedic Progress Note ---
Date: Subjective/Severity of Illness: Feels better today. His hand numbness is improved. Orthopedic Objective Vital signs: Temperature 100.4 F 01/04/17 08:00 Pulse Rate 102 H 01/04/17 08:00 Respiratory Rate 16 01/04/17 08:00 Blood Pressure 137/76 01/04/17 08:00 Pulse Oximetry 95 01/04/17 08:00 Oxygen Delivery Method Room Air Oxygen Flow Rate 2 Height and Weight: Weight 140.5 kg - Constitutional General Appearance: Present: alert, orientated x2, no acute distress, obese - Respiratory Exam Present: non-labored (CXR done this AM . Results pending.) - Lymphatic Lymphatic: Present: adenopathy - Wound Management Left Lower Leg Wound Type: Amputation (Left BKA.) Wound Length: 12 Wound Width: 2 Wound Depth: 1.5 Surrounding Tissue Appearance: [place] Packing Type: Woundvac Sponge Dressing Change Patient Tolerance: Tolerated Well Comments: wound vac working well with good suction - Labs Result Diagrams: 01/04/17 03:53 01/04/17 03:53 Abnormal lab results 01/03/17 01/03/17 01/03/17 Range/Units 10:22 10:22 10:22 WBC 12.3 H (4.5-11.0) T/MM3 RBC 2.95 L (4.50-5.90) M/MM3 Hgb 8.2 L (13.5-17.5) GM/DL Hct 24.7 L (41-53) % Neut % (Auto) 83.6 H (33-66) % Lymph % (Auto) 8.5 L (23-45) % Neut # 10.3 H (1.8-7.7) T/MM3 [place] # (0-0.8) T/MM3 Abs Immat Gran (auto) 0.05 H (0.00-0.03) T/MM3 INR 1.24 H (0.99-1.21) Glucose 122 H (75-110) MG/DL C-Reactive Protein (0-9) MG/L Albumin (3.5-5.0) G/DL Albumin/Globulin Ratio (1.1-2.2) RATIO Specimen Hemolysis (0-25) CSF RBC (0-0) /MM3 01/03/17 01/04/1717 Range/Units 15:48 03:53 03:53 WBC 11.5 H (4.5-11.0) T/MM3 RBC 2.57 L (4.50-5.90) M/MM3 Hgb 7.1 L D (13.5-17.5) GM/DL Hct 21.8 L D (41-53) % Neut % (Auto) 78.8 H (33-66) % Lymph % (Auto) 11.6 L (23-45) % Neut # 9.1 H (1.8-7.7) T/MM3 [place] # 0.9 H (0-0.8) T/MM3 Abs Immat Gran (auto) 0.04 H (0.00-0.03) T/MM3 INR (0.99-1.21) Glucose 144 H (75-110) MG/DL C-Reactive Protein 65.2 H (0-9) MG/L Albumin 2.9 L (3.5-5.0) G/DL Albumin/Globulin Ratio 0.9 L (1.1-2.2) RATIO Specimen Hemolysis 27 H (0-25) CSF RBC 43 H (0-0) /MM3 H & H 12/27/16 12/28/16 12/30/16 Range/Units 04:26 04:27 04:12 Hgb 10.2 L D 10.1 L 9.1 L (13.5-17.5) GM/DL Hct 31.6 L D 31.6 L 28.3 L (41-53) % 12/31/16 01/01/17 01/02/17 Range/Units 04:30 04:34 04:25 Hgb 8.6 L 8.1 L 6.8 L D (13.5-17.5) GM/DL Hct 26.5 L 25.5 L 21.1 L D (41-53) % 01/02/17 01/02/17 01/03/17 Range/Units 09:30 19:18 00:54 Hgb 7.5 L 7.0 L Cancelled (13.5-17.5) GM/DL Hct 21.1 L (41-53) % 01/03/17 01/03/17 01/04/17 Range/Units 00:54 10:22 03:53 Hgb 7.8 L D 8.2 L 7.1 L D (13.5-17.5) GM/DL Hct 23.6 L D 24.7 L 21.8 L D (41-53) % Coagulation 01/03/17 Range/Units 10:22 INR 1.24 H (0.99-1.21) Orthopedic Assessment and Plan (1) Dehiscence of amputation stump Status: Acute Assessment and Plan: Will add boost to his diet because his albumin is low. Will consider returning for a surgical debridement and wound vac change tomorrow evening vs Friday morning Hospital Course Summary Disclaimer: The visit summary below is not to be considered part of the above Progress Note. Hospital Course: 12/28/16 Home diabetic medications restarted and blood sugars showing control. Blood pressure stable on home ARB - renal status and potassium normal. Continue with pain control - ortho changing to oral medications. Encourage IS for pulm toilet. PT/OT consulted to help functional status. Continue with wound care as per Dr Nolasco - anticipate reexploration of wound tomorrow. Medically stable and responding to treatments. 12/29/16 Pt to OR today for wound I&D. Continue Vancomycin- past culture sensitive to Vancomycin. Can discontinue doxycycline as Vancomycin will cover both organisms. BG has been stable. Holding insulin today due to NPO. Started IVF until eating post-op. BP is controlled- Losartan- HCTZ. Plan to repeat labs in AM. Mild anemia, stable. 12/31/16 12:49-Gloria Last blood sugar 122 at 10:30 this morning, patient nothing by mouth in anticipation of surgery. Will monitor every 2 hours until surgery in the event glucose containing fluids become necessary. Overall diabetes control improving. Pain well controlled at present. Peripheral IV being utilized for vancomycin-clarify with orthopedics how long antibiotics anticipated, may benefit from PICC. To the operating room later today for debridement. Blood pressure stable. Hemoglobin down from 12.5 on admission to current value of 8.6; monitor closely for the next couple of days with further surgical debridement. May benefit from nocturnal oximetry prior to discharge due to history of sleep apnea; suspect patient needs repeat sleep study based on history. 01/01/17 Increase in fever overnight. Obtained labs, lactate and blood cultures. Continues on Vanco. Blood sugars well controlled 01/02/17-plan Recheck H&H this morning In light of decline in hemoglobin. 4. A.m. blood draw revealed hemoglobin of 6.8, redraw at 930. Indicates 7.5. Did check an ammonia level given encephalopathy and confusion however it was negative less than 9. Oxycodone is decreased to 5 milligrams as this may play a role in confusion. Continues to have fevers overnight of unknown origin. Highest fever was 100.8. White count this morning did increase to 14. No tachycardia or other sirs criteria. Chest x-ray was performed yesterday that was unremarkable, urine was negative. He did have urinary retention overnight and required straight catheterization. He does not have any other indication of skin wound source of infection. No diarrhea or abdominal pain. Blood cultures remain negative at 24 hour eren. Continue with Vancomycin given fever and leukocytosis Will discuss blood transfusion with attending. Will discuss further order and plan of care with orthopedic team and attending
--- NOTE | 2017-01-04 10:42 | Operative Note ---
DATE OF SURGERY 01/03/2017 PREOPERATIVE DIAGNOSIS Left below-knee amputation stump surgical site infection. POSTOPERATIVE DIAGNOSIS Left below-knee amputation stump surgical site infection. PROCEDURE Exploration and debridement and wound VAC placement to left below-knee amputation stump with bone biopsy. SURGEON Kim Nolasco MD COMPLICATIONS None. ANESTHESIA TIVA EBL/FLUIDS Please see anesthetic records. DESCRIPTION OF PROCEDURE Mr. Mcclelland and his left BKA stump were identified. He was brought back to the operating suite. He was placed supine on the operating table and placed under general anesthesia. The left lower extremity was prepped and draped in my normal sterile fashion. Time-out was performed. Antibiotics were held until after cultures were obtained. His sutures were in place from previous surgery. There was necrosis of the tissue along the anterior flap centrally measuring approximately 3 cm x 3 cm. I was able to express pus from this area with a milking maneuver. At this point I did proceed to open the entire wound, removing all sutures, both superficial and deep. Along the skin edges inferiorly there were minimal small areas of necrosis measuring no more than probably 2 cm total. Similar changes were on the anterior incision line. All of the necrotic tissue was debrided sharply with a knife. There was some scant amount of necrotic subcutaneous tissue which again was also debrided sharply with a knife or with a sharp curette. The tibial bone itself did not appear to be infected but I did remove approximately 3 mm with a sagittal saw to send to Pathology for culture. I also sent a sample of tissue for culture as well as a swab for culture. After all necrotic tissue was thoroughly debrided I irrigated the wound with 3 liters of normal saline using cysto tubing. I then did the same thing with IrriSept, using a total of 500 mL. I then placed a wound VAC using [employer] technology. It did obtain a good seal and was set to 125 mmHg. The drapes were removed and he was taken to the recovery room under the care of Anesthesia. He tolerated the procedure well. There were no complications. MURRAY
--- NOTE | 2017-01-04 11:36 | Progress Note ---
<Raisa Osborne - Last Filed: 01/04/17 11:33> Subjective: Fer is seen today in follow up. He is not feeling well. Reports pain in his low back at site of spinal anesthesia/LP. States he has not been out of bed since LP. Denies headache. He is mildly anxious. Family member at bedside reports that he feels sweaty. Pt. states this is "because I am hot." Fan is on, blowing on pt. He does not report any fever or chills, however, he does have low grade fever on VS record. Chart is reviewed for collateral information. Objective Vital signs: Temperature 97.8 F 01/04/17 10:33 Pulse Rate 102 H 01/04/17 08:00 Respiratory Rate 16 01/04/17 08:00 Blood Pressure 137/76 01/04/17 08:00 Pulse Oximetry 95 01/04/17 08:00 Oxygen Delivery Method Room Air Oxygen Flow Rate 2 Rhythm: Normal Sinus Rhythm Height/Weight/BMI: Weight 140.5 kg - Constitutional Present: mild distress, cooperative Comments: He appears ill; Lips are pale, dry. Skin is warm, diaphoretic. - Routine HEENT Exam Head: Present: normocephalic, atraumatic Eye: Present: EOMI, PERRL, normal accommodation. Absent: conjunctival icterus ENT: Present: mucous membranes dry - Routine Respiratory Exam Present: CTA bilaterally. Absent: accessory muscle use, dyspnea, rhonchi, wheezes, crackles Comments: He is breathing normally. No SOA or adventitious breath sounds are appreciated on exam. - Routine Cardiovascular Exam Present: RRR, S1, S2, no murmur - Routine Abdominal Exam Present: soft, normoactive bowel sounds, non distended, non tender - Routine Exam Comments: Khan. Cloudy yellow urine. - Routine Extremities Exam Present: pulses intact, amputation (Wound vac with sero-sanginous drainage, irrigation. Wound vac is sealed. ) - Routine Back/Spine/Pelvis Exam Back/Spine: Present: paraspinal tenderness. Absent: erythema, warmth Pelvis: Absent: buttock ecchymosis, coccyx swelling, coccyx tenderness Back image: 1 - Mild TTP, swelling to tissues. No redness, warmth, flutuance or drainage. LP site is sealed and dry. - Routine Musculoskeletal Exam Musculoskeletal: Present: moving extremities well. Absent: no tenderness - Routine Skin Exam Present: dry, pallor, warm Comments: He is mildly diaphoretic. - Routine Neurological Exam Present: alert, oriented X3, moving all extremities, normal speech. Absent: sensory deficit, motor deficit, altered mental status, facial asymmetry AAO x 3. He is irritable- seems to be arguing with family member when I enter room. He is fully alert, following commands. TREVINO w/o difficulty. - Routine Psychiatric Exam Present: normal thought process, cooperative, anxious Results - Labs CBC & Chem 7: 01/04/17 03:53 01/04/17 03:53 Microbiology Results: Microbiology 01/01/17 09:04 Peripheral/Iv Start Blood Culture - Preliminary No Growth After 3 Days 01/01/17 09:12 Peripheral/Iv Start Blood Culture - Preliminary No Growth After 3 Days 01/03/17 23:30 Tibia, Left, Bone Surgical Culture - Preliminary Culture Initiated - Results Pending 01/03/17 23:30 Amputation Site Surgical Culture - Preliminary Culture Initiated - Results Pending 01/03/17 23:30 Amputation Site Surgical Culture - Preliminary Culture Initiated - Results Pending 01/03/17 15:48 Csf, Lumbar Puncture Gram Stain - Final 01/03/17 15:48 Csf, Lumbar Puncture CSF Culture - Preliminary Culture Initiated - Results Pending - Imaging and Cardiology CT scan - head Additional comments: IMPRESSION: No CT evidence of acute intracranial abnormality. Small left mastoid effusion. Chest x-ray Additional comments: CXR IMPRESSION: No acute cardiopulmonary disease. Assessment and Plan (1) Atherosclerotic heart disease of [place] coronary artery without angina pectoris Current visit: No Status: Chronic 12/26/16 21:24 stable, asa, statin, ?bblocker Essential HTN--Losartan resumed. Holding HCTZ Dyslipidemia--statin Class 3 obesity BMI 43 MAXIME no CPAP currently. Will need. (2) Essential (primary) hypertension Current visit: No Status: Chronic (3) Dehiscence of amputation stump Current visit: Yes Status: Acute (4) DM2 (diabetes mellitus, type 2) Current visit: Yes Status: Chronic DVT Prophylaxis: Lovenox Resuscitation Status: Full Code Assessment and Plan: Assessment: Left BKA with dehiscence and infection MRSA (10/10/16), MDR Coag Negative Staph (11/20/16) Infection Acute on chronic pain DM2 (A1c 8.4% on 11/25/16) HTN/Hx CAD/HLD MAXIME w/o CPAP Hypokalemia, resolved. Anemia, multifactorial (transfusion 01/03) Vision changes, resolved; Excessive somnolence s/p LP 01/03 Urinary retention Fevers Plan: 01/04/17 s/p wound I&D per Dr. Nolasco. Continue wound vac, Vanco. New onset fevers- CXR, CT is negative LP done, appears negative. Cx NGTD. CRP is trending downward. Repeat UA today. Will obtain BC x 2, one from PICC, one peripheral. DM2- BG is fairly well controlled. He did receive a unit of blood yesterday, HGB is trending down again. Repeat CBC now. Repeat labs in AM. Low back is tender- apply lidoderm patch. Tissue does appear a bit swollen, but not red or warm. Monitor. Start LMWH in AM for DVT prophylaxis if labs remain stable today. - Time spent with patient greater than 35 minutes (High risk- IV pain meds & antibiotics, fever, extensive review of chart, documentation, & imaging.) Sepsis Assessment - Evaluation Sepsis screening result: No Definite Risk Hospital Course Summary Disclaimer: The visit summary below is not to be considered part of the above Progress Note. Hospital Course: 12/28/16 Home diabetic medications restarted and blood sugars showing control. Blood pressure stable on home ARB - renal status and potassium normal. Continue with pain control - ortho changing to oral medications. Encourage IS for pulm toilet. PT/OT consulted to help functional status. Continue with wound care as per Dr Nolasco - anticipate reexploration of wound tomorrow. Medically stable and responding to treatments. 12/29/16 Pt to OR today for wound I&D. Continue Vancomycin- past culture sensitive to Vancomycin. Can discontinue doxycycline as Vancomycin will cover both organisms. BG has been stable. Holding insulin today due to NPO. Started IVF until eating post-op. BP is controlled- Losartan- HCTZ. Plan to repeat labs in AM. Mild anemia, stable. 12/31/16 12:49-[facility] Last blood sugar 122 at 10:30 this morning, patient nothing by mouth in anticipation of surgery. Will monitor every 2 hours until surgery in the event glucose containing fluids become necessary. Overall diabetes control improving. Pain well controlled at present. Peripheral IV being utilized for vancomycin-clarify with orthopedics how long antibiotics anticipated, may benefit from PICC. To the operating room later today for debridement. Blood pressure stable. Hemoglobin down from 12.5 on admission to current value of 8.6; monitor closely for the next couple of days with further surgical debridement. May benefit from nocturnal oximetry prior to discharge due to history of sleep apnea; suspect patient needs repeat sleep study based on history. 01/01/17 Increase in fever overnight. Obtained labs, lactate and blood cultures. Continues on Vanco. Blood sugars well controlled 01/02/17-plan Recheck H&H this morning In light of decline in hemoglobin. 4. A.m. blood draw revealed hemoglobin of 6.8, redraw at 930. Indicates 7.5. Did check an ammonia level given encephalopathy and confusion however it was negative less than 9. Oxycodone is decreased to 5 milligrams as this may play a role in confusion. Continues to have fevers overnight of unknown origin. Highest fever was 100.8. White count this morning did increase to 14. No tachycardia or other sirs criteria. Chest x-ray was performed yesterday that was unremarkable, urine was negative. He did have urinary retention overnight and required straight catheterization. He does not have any other indication of skin wound source of infection. No diarrhea or abdominal pain. Blood cultures remain negative at 24 hour eren. Continue with Vancomycin given fever and leukocytosis Will discuss blood transfusion with attending. Will discuss further order and plan of care with orthopedic team and attending 01/04/17 12:00 01/04/17 s/p wound I&D per Dr. Nolasco. Continue wound vac, Vanco. New onset fevers- CXR, CT is negative LP done, appears negative. Cx NGTD. CRP is trending downward. Repeat UA today. Will obtain BC x 2, one from PICC, one peripheral. DM2- BG is fairly well controlled. He did receive a unit of blood yesterday, HGB is trending down again. Repeat CBC now. Repeat labs in AM. Low back is tender- apply lidoderm patch. Tissue does appear a bit swollen, but not red or warm. Monitor. Start LMWH in AM for DVT prophylaxis if labs remain stable today. <Jackie Castro - Last Filed: 01/04/17 18:36> Objective Vital signs: Temperature 97.1 F 01/04/17 15:17 Pulse Rate 90 01/04/17 15:17 Respiratory Rate 16 01/04/17 15:17 Blood Pressure 142/60 H 01/04/17 15:17 Pulse Oximetry 99 01/04/17 15:17 Oxygen Delivery Method Room Air Oxygen Flow Rate 2 Height/Weight/BMI: Weight 140.5 kg Results - Labs CBC & Chem 7: 01/04/17 12:19 01/04/17 03:53 Microbiology Results: Microbiology 01/03/17 15:48 Csf, Lumbar Puncture Gram Stain - Final 01/03/17 15:48 Csf, Lumbar Puncture CSF Culture - Preliminary No Growth After 1 Day 01/03/17 23:30 Amputation Site Gram Stain - Final 01/03/17 23:30 Amputation Site Surgical Culture - Preliminary Culture Initiated - Results Pending 01/03/17 23:30 Amputation Site Gram Stain - Final 01/03/17 23:30 Amputation Site Surgical Culture - Preliminary Culture Initiated - Results Pending 01/03/17 23:30 Tibia, Left, Bone Gram Stain - Final 01/03/17 23:30 Tibia, Left, Bone Surgical Culture - Preliminary Culture Initiated - Results Pending 01/04/17 12:19 Cath/Port/Line/Picc Blood Culture - Preliminary Culture Initiated - Results Pending 01/04/17 12:19 Cath/Port/Line/Picc Blood Culture - Preliminary Culture Initiated - Results Pending 01/01/17 09:04 Peripheral/Iv Start Blood Culture - Preliminary No Growth After 3 Days 01/01/17 09:12 Peripheral/Iv Start Blood Culture - Preliminary No Growth After 3 Days Assessment and Plan (1) Atherosclerotic heart disease of [place] coronary artery without angina pectoris Current visit: No Status: Chronic (2) Essential (primary) hypertension Current visit: No Status: Chronic (3) Dehiscence of amputation stump Current visit: Yes Status: Acute (4) DM2 (diabetes mellitus, type 2) Current visit: Yes Status: Chronic Assessment and Plan: I have independently evaluated and examined this patient. I reviewed the chart, the patient's history, and the TONG HOOKER/PA's documented findings as above. We discussed and formulated the assessment and plan as above with additions as below: Fer was up in a chair when seen and looked significantly better than he has in the past 3 days. He reported that paresthesias are largely resolved although minor tingling persists in his right leg and fingers. Spasms and myoclonus in the right leg is gone although his head a few spasms in his left thigh at night area continues to have some congestion in his left ear and describes it as feeling like there is water in his ear at times. He has no visual symptoms today and has been staying awake. Overall he feels significantly improved. Surgical results from yesterday evening's debridement discussed with Dr. Nolasco- devitalized/necrotic tissue present and patient will likely require additional debridement. On examination the patient is alert and in no distress No monoclonas was witnessed throughout the exam Respirations are nonlabored with good airflow, clear breath sounds Cardiac rhythm is regular without extra sounds Wound VAC is on the left stump but tissue tissue margins are dusky CSF studies are unremarkable although 3 white cells were present, monocellular predominant; Gram stain without organisms. CSF culture negative after 24 hours. 3 cultures obtained surgically yesterday evening-all with a mixture of gram- negative rods and 2/3 with gram-positive positive cocci Patient is pen allergic with history urticaria. Add Levaquin pending further information for gram-negative bacteria identified and preliminary cultures. Continue vancomycin for recent history of coag-negative staph and MRSA Repeat hemoglobin improved from earlier in the day. Hospital Course Summary Disclaimer: The visit summary below is not to be considered part of the above Progress Note.
[2017-01-04] MEDS: NIFEREX FORTE 150 CAPSULE PO SCH (12:36)
[2017-01-04] MEDS: Oxycodone *IR* 5 MG TABLET PO PRN (12:36)
[2017-01-04] MEDS: LIDOCAINE 5% PATCH TOP SCH (12:37)
[2017-01-04] MEDS: NS 1,000 ML IV PRN (13:23)
[2017-01-04] MEDS: LEVOFLOXACIN PB 750 MG/150 ML BAG IV SCH (15:28)
[2017-01-04] MEDS: INSULIN GLARGINE 100unit/ml INJECTION SQ SCH (21:03)
[2017-01-04] MEDS: LIDOCAINE PATCH REMOVAL TOP SCH (21:04)
[2017-01-04] MEDS: PRAVASTATIN 20 MG TABLET PO SCH (21:04)
[2017-01-05] MEDS: Oxycodone *IR* 5 MG TABLET PO PRN ×2 (03:18→17:55)
[2017-01-05] MEDS: ENOXAPARIN 40 MG/0.4 ML INJECTION SQ SCH (08:47)
[2017-01-05] MEDS: INSULIN ASPART 100unit/ml INJECTION SQ SCH ×3 (08:47→16:50)
[2017-01-05] MEDS: SENNA + DOCUSATE TABLET PO SCH ×2 (08:48→20:43)
[2017-01-05] MEDS: POLYETHYL GLYCOL 3350 17gm PACKET PO SCH ×2 (08:48→20:48)
[2017-01-05] MEDS: MAGNESIUM OXIDE 400 MG TABLET PO SCH (09:01)
[2017-01-05] MEDS: LOSARTAN 50 MG TABLET PO SCH (09:01)
[2017-01-05] MEDS: ACETAMINOPHEN 325 MG TABLET PO SCH ×4 (09:01→20:43)
[2017-01-05] MEDS: HYDROMORPHONE 2 MG/ML INJECTION IVP PRN (09:02)
[2017-01-05] MEDS: LIDOCAINE 5% PATCH TOP SCH (09:02)
--- NOTE | 2017-01-05 09:59 | Orthopedic Progress Note ---
Date: Subjective/Severity of Illness: overall Fer feels better, mild fever, WBC count improving, wound vac working well Orthopedic Objective Vital signs: Temperature 99.3 F 01/05/17 08:21 Pulse Rate 92 01/05/17 08:21 Respiratory Rate 16 01/05/17 08:21 Blood Pressure 132/69 01/05/17 08:21 Pulse Oximetry 93 01/05/17 08:21 Oxygen Delivery Method Room Air Oxygen Flow Rate 2 Height and Weight: Weight 137.6 kg - Constitutional General Appearance: Present: alert, orientated x2, no acute distress, obese - Respiratory Exam Present: non-labored (CXR done this AM . Results pending.) - Extremities Exam Present: amputation (Wound vac with sero-sanginous drainage, irrigation. Wound vac is sealed. ) Comments: Wound vac with a good seal, no signs of tissue necrosis - Wound Management Left Lower Leg Wound Length: 12 Wound Width: 2 Wound Depth: 1.5 Dressing Change Patient Tolerance: Tolerated Well - Labs Result Diagrams: 01/05/17 04:03 01/05/17 04:03 Abnormal lab results 01/02/17 01/04/17 01/04/17 Range/Units 07:18 12:19 13:38 WBC 12.5 H (4.5-11.0) T/MM3 RBC 2.89 L (4.50-5.90) M/MM3 Hgb 7.9 L D (13.5-17.5) GM/DL Hct 24.4 L D (41-53) % Immature Gran % (Auto) (0.0-0.5) % Neut % (Auto) 79.3 H (33-66) % Lymph % (Auto) 10.7 L (23-45) % Neut # 9.9 H (1.8-7.7) T/MM3 [place] # 0.9 H (0-0.8) T/MM3 Abs Immat Gran (auto) 0.06 H (0.00-0.03) T/MM3 Creatinine (0.8-1.5) MG/DL Albumin (3.5-5.0) G/DL Urine Protein Trace A (NEGATIVE) Urine Occult Blood 3+ A (NEGATIVE) Urine RBC 50-200 H (0-3) /HPF Urine Bacteria 1+ H (NEGATIVE) Crossmatch (AHG) See Detail 01/05/17 01/05/17 Range/Units 04:03 04:03 WBC (4.5-11.0) T/MM3 RBC 2.77 L (4.50-5.90) M/MM3 Hgb 7.5 L (13.5-17.5) GM/DL Hct 23.0 L (41-53) % Immature Gran % (Auto) 0.8 H (0.0-0.5) % Neut % (Auto) 75.1 H (33-66) % Lymph % (Auto) 12.5 L (23-45) % Neut # 7.8 H (1.8-7.7) T/MM3 [place] # (0-0.8) T/MM3 Abs Immat Gran (auto) 0.08 H (0.00-0.03) T/MM3 Creatinine 0.7 L D (0.8-1.5) MG/DL Albumin 3.0 L (3.5-5.0) G/DL Urine Protein (NEGATIVE) Urine Occult Blood (NEGATIVE) Urine RBC (0-3) /HPF Urine Bacteria (NEGATIVE) Crossmatch (G) H & H 12/27/16 12/28/16 12/30/16 Range/Units 04:26 04:27 04:12 Hgb 10.2 L D 10.1 L 9.1 L (13.5-17.5) GM/DL Hct 31.6 L D 31.6 L 28.3 L (41-53) % 12/31/16 01/01/17 01/02/17 Range/Units 04:30 04:34 04:25 Hgb 8.6 L 8.1 L 6.8 L D (13.5-17.5) GM/DL Hct 26.5 L 25.5 L 21.1 L D (41-53) % 01/02/17 01/02/17 01/03/17 Range/Units 09:30 19:18 00:54 Hgb 7.5 L 7.0 L Cancelled (13.5-17.5) GM/DL Hct 21.1 L (41-53) % 01/03/17 01/03/17 01/04/17 Range/Units 00:54 10:22 03:53 Hgb 7.8 L D 8.2 L 7.1 L D (13.5-17.5) GM/DL Hct 23.6 L D 24.7 L 21.8 L D (41-53) % 01/04/17 01/05/17 Range/Units 12:19 04:03 Hgb 7.9 L D 7.5 L (13.5-17.5) GM/DL Hct 24.4 L D 23.0 L (41-53) % Coagulation 01/03/17 Range/Units 10:22 INR 1.24 H (0.99-1.21) Orthopedic Assessment and Plan (1) Dehiscence of amputation stump Status: Acute Assessment and Plan: continue current care today plan on repeat I&D and wound vac change in the OR tomorrow at no Hospital Course Summary Disclaimer: The visit summary below is not to be considered part of the above Progress Note. Hospital Course: 12/28/16 Home diabetic medications restarted and blood sugars showing control. Blood pressure stable on home ARB - renal status and potassium normal. Continue with pain control - ortho changing to oral medications. Encourage IS for pulm toilet. PT/OT consulted to help functional status. Continue with wound care as per Dr Nolasco - anticipate reexploration of wound tomorrow. Medically stable and responding to treatments. 12/29/16 Pt to OR today for wound I&D. Continue Vancomycin- past culture sensitive to Vancomycin. Can discontinue doxycycline as Vancomycin will cover both organisms. BG has been stable. Holding insulin today due to NPO. Started IVF until eating post-op. BP is controlled- Losartan- HCTZ. Plan to repeat labs in AM. Mild anemia, stable. 12/31/16 12:49-[facility] Last blood sugar 122 at 10:30 this morning, patient nothing by mouth in anticipation of surgery. Will monitor every 2 hours until surgery in the event glucose containing fluids become necessary. Overall diabetes control improving. Pain well controlled at present. Peripheral IV being utilized for vancomycin-clarify with orthopedics how long antibiotics anticipated, may benefit from PICC. To the operating room later today for debridement. Blood pressure stable. Hemoglobin down from 12.5 on admission to current value of 8.6; monitor closely for the next couple of days with further surgical debridement. May benefit from nocturnal oximetry prior to discharge due to history of sleep apnea; suspect patient needs repeat sleep study based on history. 01/01/17 Increase in fever overnight. Obtained labs, lactate and blood cultures. Continues on Vanco. Blood sugars well controlled 01/02/17-plan Recheck H&H this morning In light of decline in hemoglobin. 4. A.m. blood draw revealed hemoglobin of 6.8, redraw at 930. Indicates 7.5. Did check an ammonia level given encephalopathy and confusion however it was negative less than 9. Oxycodone is decreased to 5 milligrams as this may play a role in confusion. Continues to have fevers overnight of unknown origin. Highest fever was 100.8. White count this morning did increase to 14. No tachycardia or other sirs criteria. Chest x-ray was performed yesterday that was unremarkable, urine was negative. He did have urinary retention overnight and required straight catheterization. He does not have any other indication of skin wound source of infection. No diarrhea or abdominal pain. Blood cultures remain negative at 24 hour eren. Continue with Vancomycin given fever and leukocytosis Will discuss blood transfusion with attending. Will discuss further order and plan of care with orthopedic team and attending 01/04/17 12:00 01/04/17 s/p wound I&D per Dr. Nolasco. Continue wound vac, Vanco. New onset fevers- CXR, CT is negative LP done, appears negative. Cx NGTD. CRP is trending downward. Repeat UA today. Will obtain BC x 2, one from PICC, one peripheral. DM2- BG is fairly well controlled. He did receive a unit of blood yesterday, HGB is trending down again. Repeat CBC now. Repeat labs in AM. Low back is tender- apply lidoderm patch. Tissue does appear a bit swollen, but not red or warm. Monitor. Start LMWH in AM for DVT prophylaxis if labs remain stable today.
[2017-01-05] MEDS: INSULIN ASPART 100unit/ml INJECTION SQ PRN ×2 (11:26→17:20)
[2017-01-05] MEDS: NIFEREX FORTE 150 CAPSULE PO SCH (12:24)
[2017-01-05] MEDS: SALINE FLUSH 10ml SYRINGE IV PRN ×2 (14:52→20:48)
[2017-01-05] MEDS: NS FLUSH BAG 500ml IV PRN (14:52)
[2017-01-05] MEDS: LEVOFLOXACIN PB 750 MG/150 ML BAG IV SCH (14:52)
--- NOTE | 2017-01-05 15:28 | Progress Note ---
Subjective: Mr. Mcclelland was up in a chair and alert when seen. He reports some residual tingling in his hands bilaterally but overall improvement compared to days ago. Similarly mild clonus is improved. He continues to have some visual blurring when looking at the television while using his bifocals. His left ear feels full and hearing on the left feels muffled. He denies dyspnea, fever, chills, or sweats. He is no longer experiencing excessive somnolence as he did several days ago but is sleeping well. He reports some pain in the stump in the low back. Appetite is good and he has no nausea or vomiting. Objective Vital signs: Temperature 98.0 F 01/05/17 11:41 Pulse Rate 90 01/05/17 11:41 Respiratory Rate 18 01/05/17 11:41 Blood Pressure 112/58 01/05/17 11:41 Pulse Oximetry 93 01/05/17 11:41 Oxygen Delivery Method Room Air EXAM General-NAD, alert, no somnolence evident HEENT-conjunctiva clear, oropharynx clear; unilateral vision assessed and patient reports right vision decreased relative to left with glasses on Lungs-respirations nonlabored, good airflow, breath sounds clear anterior/ posteriorly Cardiac-regular rhythm, S1-S2 Abd-soft, nontender, obese, bowel sounds present/diminished Ext-wound VAC present left BKA, some margins appear dusky/necrotic Neuro-alert, moving upper extremity/lower extremities well, no myoclonus present , sensation intact to light touch both hands Psych-calm, cooperative - Rhythm: Normal Sinus Rhythm Height/Weight/BMI: Weight 137.6 kg Results - Labs CBC & Chem 7: 01/05/17 04:03 01/05/17 04:03 Labs: Phosphorus 3.9, magnesium 1.7, albumin 3.0 Microbiology Results: Microbiology 01/03/17 23:30 Tibia, Left, Bone Gram Stain - Final 01/03/17 23:30 Tibia, Left, Bone Surgical Culture - Preliminary Gram Negative Freddie Pseudomonas aeruginosa 01/04/17 12:19 Cath/Port/Line/Picc Blood Culture - Preliminary No Growth After 1 Day 01/04/17 12:19 Cath/Port/Line/Picc Blood Culture - Preliminary No Growth After 1 Day 01/03/17 23:30 Amputation Site Gram Stain - Final 01/03/17 23:30 Amputation Site Surgical Culture - Preliminary Gram Negative Freddie Pseudomonas aeruginosa 01/03/17 23:30 Amputation Site Gram Stain - Final 01/03/17 23:30 Amputation Site Surgical Culture - Preliminary Gram Negative Freddie Pseudomonas aeruginosa 01/01/17 09:04 Peripheral/Iv Start Blood Culture - Preliminary No Growth After 4 Days 01/01/17 09:12 Peripheral/Iv Start Blood Culture - Preliminary No Growth After 4 Days 01/03/17 15:48 Csf, Lumbar Puncture Gram Stain - Final 01/03/17 15:48 Csf, Lumbar Puncture CSF Culture -no growth to date Assessment and Plan (1) Wound infection, posttraumatic Problem details: BKA stump infection, follows wound dehiscence Current visit: Yes Status: Acute (2) Dehiscence of amputation stump Current visit: Yes Status: Acute (3) DM2 (diabetes mellitus, type 2) Problem details: A1c 8.4 on 11/22/16 Current visit: Yes Status: Chronic DVT Prophylaxis: Lovenox Resuscitation Status: Full Code Assessment and Plan: Assessment: Left BKA with dehiscence and infection Soft tissue/wound infection, Pseudomonas/gram-negative freddie cultured 01/03 MRSA (10/10/16), MDR Coag Negative Staph (11/20/16) Infection Acute on chronic pain DM2 (A1c 8.4% on 11/25/16) HTN/Hx CAD/HLD MAXIME w/o CPAP Hypokalemia, resolved. Anemia, multifactorial (transfusion 01/03) Vision changes, resolved; Excessive somnolence s/p LP 01/03 Urinary retention Fevers Plan: Fer continues to improve clinically with resolution of excessive somnolence and other atypical neurological symptoms. Visual symptoms persist and are not currently explained, may require formal eye exam in the near future. Continue Levaquin for pseudomonas and second gram-negative freddie not yet identified in conjunction with vancomycin for previously identified gram- positive organisms. Anticipate return to the operating room tomorrow after discussion with Dr. Nolasco earlier today. CSF culture negative. Blood sugars modestly increased the past 24 hours although remaining under 200. Oral intake improving and insulins have largely been resumed although NovoLog held this morning due to anticipated poor intake. Hemoglobin drifting down, reassess in a.m.-will likely require additional blood with surgery tomorrow. Bladder training initiated, will hopefully be able to discontinue Khan after next procedure. Laboratory data reviewed, surgical plans discussed with Dr. Nolasco; discussed with nursing. Sepsis Assessment - Evaluation Sepsis screening result: No Definite Risk Hospital Course Summary Disclaimer: The visit summary below is not to be considered part of the above Progress Note. Hospital Course: 12/28/16 Home diabetic medications restarted and blood sugars showing control. Blood pressure stable on home ARB - renal status and potassium normal. Continue with pain control - ortho changing to oral medications. Encourage IS for pulm toilet. PT/OT consulted to help functional status. Continue with wound care as per Dr Nolasco - anticipate reexploration of wound tomorrow. Medically stable and responding to treatments. 12/29/16 Pt to OR today for wound I&D. Continue Vancomycin- past culture sensitive to Vancomycin. Can discontinue doxycycline as Vancomycin will cover both organisms. BG has been stable. Holding insulin today due to NPO. Started IVF until eating post-op. BP is controlled- Losartan- HCTZ. Plan to repeat labs in AM. Mild anemia, stable. 12/31/16 12:49-[facility] Last blood sugar 122 at 10:30 this morning, patient nothing by mouth in anticipation of surgery. Will monitor every 2 hours until surgery in the event glucose containing fluids become necessary. Overall diabetes control improving. Pain well controlled at present. Peripheral IV being utilized for vancomycin-clarify with orthopedics how long antibiotics anticipated, may benefit from PICC. To the operating room later today for debridement. Blood pressure stable. Hemoglobin down from 12.5 on admission to current value of 8.6; monitor closely for the next couple of days with further surgical debridement. May benefit from nocturnal oximetry prior to discharge due to history of sleep apnea; suspect patient needs repeat sleep study based on history. 01/01/17 Increase in fever overnight. Obtained labs, lactate and blood cultures. Continues on Vanco. Blood sugars well controlled 01/02/17-plan Recheck H&H this morning In light of decline in hemoglobin. 4. A.m. blood draw revealed hemoglobin of 6.8, redraw at 930. Indicates 7.5. Did check an ammonia level given encephalopathy and confusion however it was negative less than 9. Oxycodone is decreased to 5 milligrams as this may play a role in confusion. Continues to have fevers overnight of unknown origin. Highest fever was 100.8. White count this morning did increase to 14. No tachycardia or other sirs criteria. Chest x-ray was performed yesterday that was unremarkable, urine was negative. He did have urinary retention overnight and required straight catheterization. He does not have any other indication of skin wound source of infection. No diarrhea or abdominal pain. Blood cultures remain negative at 24 hour eren. Continue with Vancomycin given fever and leukocytosis Will discuss blood transfusion with attending. Will discuss further order and plan of care with orthopedic team and attending 01/04/17 12:00 01/04/17 s/p wound I&D per Dr. Nolasco. Continue wound vac, Vanco. New onset fevers- CXR, CT is negative LP done, appears negative. Cx NGTD. CRP is trending downward. Repeat UA today. Will obtain BC x 2, one from PICC, one peripheral. DM2- BG is fairly well controlled. He did receive a unit of blood yesterday, HGB is trending down again. Repeat CBC now. Repeat labs in AM. Low back is tender- apply lidoderm patch. Tissue does appear a bit swollen, but not red or warm. Monitor. Start LMWH in AM for DVT prophylaxis if labs remain stable today. 01/05/17 15:43-[facility] continues to improve clinically with resolution of excessive somnolence and other atypical neurological symptoms. Visual symptoms persist and are not currently explained, may require formal eye exam in the near future. Continue Levaquin for pseudomonas and second gram-negative freddie not yet identified in conjunction with vancomycin for previously identified gram- positive organisms. Anticipate return to the operating room tomorrow after discussion with Dr. Nolasco earlier today. CSF culture negative. Blood sugars modestly increased the past 24 hours although remaining under 200. Oral intake improving and insulins have largely been resumed although NovoLog held this morning due to anticipated poor intake. Hemoglobin drifting down, reassess in a.m.-will likely require additional blood with surgery tomorrow. Bladder training initiated, will hopefully be able to discontinue Khan after next procedure.
[2017-01-05] MEDS: INSULIN GLARGINE 100unit/ml INJECTION SQ SCH (20:43)
[2017-01-05] MEDS: PRAVASTATIN 20 MG TABLET PO SCH (20:43)
[2017-01-05] MEDS: LIDOCAINE PATCH REMOVAL TOP SCH (20:44)
[2017-01-06] MEDS: Oxycodone *IR* 5 MG TABLET PO PRN ×2 (02:05→08:48)
[2017-01-06] MEDS: NS FLUSH BAG 500ml IV PRN ×2 (04:07→13:58)
[2017-01-06] MEDS: ENOXAPARIN 40 MG/0.4 ML INJECTION SQ SCH (08:33)
[2017-01-06] MEDS: SALINE FLUSH 10ml SYRINGE IV PRN ×2 (08:47→11:35)
[2017-01-06] MEDS: LOSARTAN 50 MG TABLET PO SCH (08:47)
[2017-01-06] MEDS: SENNA + DOCUSATE TABLET PO SCH ×2 (08:56→21:45)
[2017-01-06] MEDS: ACETAMINOPHEN 325 MG TABLET PO SCH ×4 (08:56→21:45)
[2017-01-06] MEDS: INSULIN ASPART 100unit/ml INJECTION SQ SCH ×3 (08:56→18:08)
[2017-01-06] MEDS: METFORMIN 1,000 MG TABLET PO SCH ×2 (08:56→18:09)
--- NOTE | 2017-01-06 09:49 | Infectious Disease Consult ---
Infectious Disease Consult Date of Consultation: 01/06/17 Requesting Physician: Jackie Castro Reason for Consultation: antibiotic recs History of Present Illness: Mr. Mcclelland is known to me from the wound clinic. He has been followed in the wound clinic for a wound to the bottom of the right foot since approximately Thanks which healed. He then developed a wound involving the left great toe since June 18. MRI done June 21 showed focal edema in the great toe distal phalanx consistent with osteomyelitis. A wound culture obtained June 21 had rare gram-positive cocci on the Gram stain and grew methicillin- resistant Staph aureus. Dr. Nolasco took him to surgery June 28 for debridement to bone of the left foot diabetic foot ulcer with great toe distal phalanx bone biopsy. Two specimens were sent for culture from that surgery and they both grew methicillin-resistant Staph aureus. He was started on doxycycline on July 01. I saw him initially July 03 and recommended IV antibiotics for six weeks. He had a PICC line placed and was started on daptomycin at 6 mg/kg IV daily. He returned for followup on July 24 and the left great toe had turned black. He also had an angiogram July 17 which was negative for any significant vascular disease. Given the appearance of the great toe on July 24 he was taken to surgery by Dr. Nolasco on July 25 for amputation of the left great toe. Intraoperatively it was noted that the metatarsal head appeared within normal limits. There were no cultures obtained during that surgery. There were continued concerns about wound healing. He had an MRI 10/14 that showed osteomyelitis of the 3rd, 4th, 5th MTP joints concerning for osteomyelitis. He was taken to the OR on 11/[address] Nolasco for a L TMA. He had a repeat MRI on 11/20 that showed recurrent osteomyelitis with diffuse involvement of the 5th MT bone near his wound. There is also involvement of the majority of the 3rd and 4th MT shafts. Wound culture from 11/20 had heavy growth of Coag negative Staph. He was started on doxycycline on 11/22. He underwent L transtibial amputation on 11/28. There were some continued concerns about wound healing and he reports that he was going to start going to HBO therapy. He fell at home on 12/26 and was admitted here for wound dehiscence. Dr. Nolasco took him to the OR on 12/26 for I&D. It appears that the dehiscence did go down to bone. He had continued drainage and problems with wound VAC leaking. He also has had fever and leukocytosis. He was taken back to the OR on 12/31 for I&D. There were 3 cultures obtained during that surgery, and all appear to be growing Pseudomonas and Enterobacter (in some the GNR has not yet been identified as Enterobacter yet). The Enterobacter is resistant to Levaquin. The sensitivities of the Pseudomonas are pending. Gram stains have rare GPC and rare GNRs. One of these surgical cultures is labeled bone. He has been on Vancomycin since admission due to previous cultures, and levaquin was added on 01/04. He is going back to the OR today for another I&D. He had blood cultures on 01/01 that are negative, and also had an LP done which was unremarkable for infection. Medications Home Medications Medication Instructions Recorded Confirmed Type Insulin Aspart [NovoLOG] 10 unit SQ ACL #0 vial 07/24/16 12/26/16 History doxycycline hyclate 100 mg capsule 100 mg PO BID 12/25/16 12/26/16 History Metformin [Glucophage] 1,000 mg PO BID 12/26/16 12/26/16 History Allergies Allergy/AdvReac Type Severity Reaction Status Date / Time lisinopril Allergy Intermediate DIZZINESS Verified 12/26/16 19:13 Penicillins Allergy Unknown HIVES Verified 12/26/16 19:13 [facility] Patient Stated Medical History Migraine Yes Angina Yes: occasionally with exertion Congestive Heart Failure No Coronary Artery Disease Yes Hypertension Yes Myocardial Infarction Yes: 2011. Se[address]. 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 LE Cellulitis Yes Anesthesia Reactions No Clinic Medical History (Last Reviewed 12/26/16 @ 08:34 by Chris Nolasco MD) HTN (hypertension) (Chronic Medical) Myocardial infarction (Chronic Medical) Type 2 diabetes mellitus (Chronic Medical) H/o MRSA infection L great toe Surgical History: Amputation left first toe, Remainder toes removed, Below knee ampuation, appendectomy Family History: Family History (Last Reviewed 12/26/16 @ 08:34 by Chris Nolasco MD) Mother Diabetes Father Heart problem Sister Diabetes Heart attack Sister Diabetes - Social History Smoking status: Former smoker Review of Systems - Constitutional Constitutional: Present: chills (last week), fever(s) (last week) - EENMT Eyes: Absent: change in vision Mouth/Throat: Absent: sore throat - Cardiovascular Cardiovascular: Absent: chest pain - Respiratory Respiratory: Present: cough. Absent: dyspnea - Gastrointestinal Gastrointestinal: Absent: abdominal pain, diarrhea, nausea - Genitourinary Genitourinary: Absent: dysuria - Musculoskeletal Musculoskeletal: Present: other (pain at L BKA stump) - Integumentary/Breasts Integumentary: Absent: rash - Neurological Neurological: Present: paresthesias (UE and LEs) - Allergic/Immunologic Allergic/Immunologic: reports hives with PCN, but states he's taken amoxicillin without problems. But on further questioning, the amoxicillin was before the PCN reaction Exam Vital Signs: Temperature 97.3 F 01/06/17 08:00 Pulse Rate 89 01/06/17 08:00 Respiratory Rate 18 01/06/17 08:00 Blood Pressure 141/87 H 01/06/17 08:00 Pulse Oximetry 98 01/06/17 08:00 Oxygen Delivery Method Room Air Oxygen Flow Rate 2 Height/Weight/BMI: Weight 137.6 kg - Constitutional Present: no acute distress - Routine HEENT Exam Head: Present: normocephalic, atraumatic Eye: Present: EOMI, PERRL ENT: Present: mucous membranes moist Comments: poor dentition - Routine Neck Exam Present: supple - Routine Respiratory Exam Present: CTA bilaterally (anteriorly) - Routine Cardiovascular Exam Present: RRR. Absent: murmur - Routine Abdominal Exam Present: soft, normoactive bowel sounds, non distended. Absent: tenderness - Routine Extremities Exam Absent: cyanosis, clubbing, edema Comments: He is s/p L BKA. BKA stump has skin breakdown and mild erythema around it, VAC is on. Some tenderness to palpation there - Routine Skin Exam Absent: rash - Routine Neurological Exam Present: alert, oriented X3, CN II-XII intact - Routine Psychiatric Exam Present: normal affect Results - Labs CBC & Chem 7: 01/05/17 04:03 01/05/17 04:03 Microbiology Results: Microbiology 01/01/17 09:04 Peripheral/Iv Start Blood Culture - Final No Growth After 5 Days 01/01/17 09:12 Peripheral/Iv Start Blood Culture - Final No Growth After 5 Days 01/03/17 15:48 Csf, Lumbar Puncture Gram Stain - Final 01/03/17 15:48 Csf, Lumbar Puncture CSF Culture - Preliminary No Growth After 2 Days 01/03/17 23:30 Tibia, Left, Bone Gram Stain - Final 01/03/17 23:30 Tibia, Left, Bone Surgical Culture - Preliminary Gram Negative Freddie Pseudomonas aeruginosa 01/03/17 23:30 Amputation Site Gram Stain - Final 01/03/17 23:30 Amputation Site Surgical Culture - Preliminary Gram Negative Freddie Pseudomonas aeruginosa 01/03/17 23:30 Amputation Site Gram Stain - Final 01/03/17 23:30 Amputation Site Surgical Culture - Preliminary Enterobacter cloacae Pseudomonas aeruginosa 01/04/17 12:19 Cath/Port/Line/Picc Blood Culture - Preliminary No Growth After 1 Day 01/04/17 12:19 Cath/Port/Line/Picc Blood Culture - Preliminary No Growth After 1 Day Impression: Fever, leukocytosis, L BKA stump wound infection/dehiscence, s/p I&D 12/26, 12/31 , wound and tibial bone cultures with Pseudomonas and GNR (likely Enterobacter) H/o osteomyelitis of the left great toe distal phalanx, with bone biopsy June 28, 2016 growing out methicillin-resistant Staph aureus. S/p 6 weeks of Daptomycin. H/o Gangrene of the left great toe leading to amputation on July 25, 2016. H/o Recurrent osteomyelitis L 3, 4, 5 toes, s/p L TMA on 11/05. H/o Recurrent osteomyelitis L 3rd, 4th, 5th Metatarsals with wound dehiscence. 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 Hypertension. Hyperlipidemia. Coronary artery disease. Sleep apnea. History of depression. Penicillin allergy, rash. Alcohol use. Recommendation: Recommend changing levaquin to Cefepime since the Enterobacter is resistant to levaquin. I discussed this with him and that there is <10% chance he might have a reaction given his h/o PCN allergy. I discussed with him that I would recommend 6 weeks of IV antibiotics since the bone culture was positive, unless there is more bone debridement, and pathology that shows the margins are negative. Continue Vancomycin for now also. Sepsis Assessment - Evaluation Sepsis screening result: No Definite Risk
--- NOTE | 2017-01-06 10:09 | Pharmacy Consult-Antibiotics ---
Pharmacy Consult-Vancomycin - Laboratory Information WBC 10.3 T/MM3 (4.5-11.0) 01/05/17 04:03 BUN 13.0 MG/DL (9-20) 01/05/17 04:03 Creatinine 0.7 MG/DL (0.8-1.5) L D 01/05/17 04:03 Vancomycin Trough 19.11 UG/ML (15-20) 12/31/16 05:07 - Consult Information Vancomycin treatment day 12 goal trough range= 15 to 20 mcg/ml for osteomyelitis. 01/05/17 0530 Vanco trough = 19.25 mcg/ml Vancomycin trough is therapeutic, will continue current dose Vanco 1.75 G IV Q12h Pharmacy will continue to monitor and adjust as needed. Thank you for the dosing protocol, Rox Feliciano RPh
[2017-01-06] MEDS: LIDOCAINE 5% PATCH TOP SCH (11:30)
[2017-01-06] MEDS: CEFEPIME 1 GM in NS 100 ML IV SCH ×3 (11:31→20:41)
[2017-01-06] MEDS ORDERED: FentaNYL 100 MCG/2 ML INJECTION ONE (12:09)
[2017-01-06] MEDS ORDERED: MIDAZOLAM 2mg/2ml INJECTION ONE (12:09)
[2017-01-06] MEDS ORDERED: PROPOFOL 0 MG/0 ML VIAL IV ONE (12:13)
[2017-01-06] MEDS ORDERED: PROPOFOL 500 MG/50 ML VIAL IV ONE ×2 (12:13→12:35)
--- NOTE | 2017-01-06 12:57 | Anesthesia Preoperative Report ---
Anesthesia Preoperative Record - Date and Time Date: 01/06/17 Preoperative Diagnosis: Wound Dehiscence Proposed Procedure: left BKA wound debridement and wound vac exchange NPO Since Date: 01/05/17 NPO Since Time: 23:00 Allergies/Adverse Reactions: Allergies Allergy/AdvReac Type Severity Reaction Status Date / Time lisinopril Allergy Intermediate DIZZINESS Verified 12/26/16 19:13 Penicillins Allergy Unknown HIVES Verified 12/26/16 19:13 - Vital Signs Vital Signs: Temperature 97.3 F 01/06/17 08:00 Pulse Rate 89 01/06/17 08:00 Respiratory Rate 18 01/06/17 08:00 Blood Pressure 141/87 H 01/06/17 08:00 Pulse Oximetry 98 01/06/17 08:00 Oxygen Delivery Method Room Air Oxygen Flow Rate 2 Height and Weight: Weight 137.6 kg - Medications Inpatient Medications: Current Medications Acetaminophen (Tylenol) 650 mg PO TID PRN PRN Reason: Discomfort Acetaminophen (Tylenol) 650 mg PO QID [facility] Last Admin: 01/06/17 08:56 Dose: Not Given Bisacodyl (Dulcolax) 10 mg RECTALLY DAILY PRN PRN Reason: Constipation Cyclobenzaprine HCl (Flexeril) 10 mg PO TID PRN PRN Reason: Muscle spasm Last Admin: 01/02/17 17:23 Dose: 10 mg Enoxaparin Sodium (Lovenox) 40 mg SQ DAILY [facility] Last Admin: 01/06/17 08:33 Dose: Not Given Folic Acid/Iron/Vitamin B12 (Niferex Forte) 1 cap PO WL [facility] Last Admin: 01/05/17 12:24 Dose: 1 cap Hydrochlorothiazide (Hydrodiuril) 25 mg PO DAILY [facility] Last Admin: 01/03/17 08:53 Dose: 25 mg Hydromorphone HCl (Dilaudid) 0.5 - 1 mg IVP Q3H PRN PRN Reason: Pain Last Admin: 01/05/17 09:02 Dose: 0.5 mg Vancomycin HCl 1,750 mg/ (Sodium Chloride) 500 mls @ 250 mls/hr IV Q12H [facility] Last Admin: 01/06/17 06:24 Dose: 250 mls/hr Cefepime HCl 1 gm/ Sodium (Chloride) 100 mls @ 200 mls/hr IV Q6HR [facility] Last Admin: 01/06/17 11:31 Dose: 200 mls/hr Insulin Aspart (Novolog) 0 unit SQ SS PRN; Protocol PRN Reason: Hyperglycemia Last Admin: 01/05/17 17:20 Dose: 2 unit Insulin Aspart (Novolog) 10 unit SQ ACS [facility] Last Admin: 01/05/17 16:50 Dose: 10 unit Insulin Aspart (Novolog) 10 unit SQ ACL [facility] Last Admin: 01/05/17 13:02 Dose: 10 unit Insulin Aspart (Novolog) 7 unit SQ 0730 [facility] Last Admin: 01/06/17 08:56 Dose: Not Given Insulin Glargine (Lantus) 20 unit SQ HS [facility] Last Admin: 01/05/17 20:43 Dose: 20 unit Lidocaine (Lidoderm) 1 patch TOP DAILY [facility] Stop: 01/09/17 11:59 Last Admin: 01/06/17 11:30 Dose: Not Given Lidocaine HCl/Dextrose (Lidoderm Patch Removal) 1 removal TOP 2100 [facility] Last Admin: 01/05/17 20:44 Dose: 1 removal Losartan Potassium (Cozaar) 50 mg PO DAILY [facility] Last Admin: 01/06/17 08:47 Dose: 50 mg Magnesium Hydroxide (Mom) 30 ml PO DAILY PRN PRN Reason: Constipation Magnesium Oxide (Magox) 400 mg PO DAILY [facility] Last Admin: 01/05/17 09:01 Dose: 400 mg Metformin HCl (Glucophage) 1,000 mg PO BIDWM [facility] Last Admin: 01/06/17 08:56 Dose: Not Given Ondansetron HCl (Zofran) 4 mg IVP Q6H PRN PRN Reason: Nausea &/or vomiting Oxycodone HCl (Roxicodone *Ir*) 5 - 10 mg PO Q3H PRN PRN Reason: Pain Last Admin: 01/06/17 08:48 Dose: 10 mg Pharmacy Consult (Pharmacy Consult - Fall Risk) 1 each XX ONE TIME PRN PRN Reason: PRN orders Polyethylene Glycol (Miralax) 17 gm PO DAILY [facility] Last Admin: 01/05/17 20:48 Dose: 17 gm Pravastatin Sodium (Pravachol) 20 mg PO HS [facility] Last Admin: 01/05/17 20:43 Dose: 20 mg Senna/Docusate Sodium (Senna Plus Tablet) 1 tab PO BID [facility] Last Admin: 01/06/17 08:56 Dose: Not Given Sodium Chloride (Iv Flush) 10 - 80 ml IV PRN PRN PRN Reason: Flushing Last Admin: 01/06/17 11:35 Dose: 10 ml Sodium Chloride (Normal Saline) 500 ml IV PRN PRN Last Admin: 01/06/17 04:07 Dose: 500 ml Sodium Chloride (Normal Saline) 500 ml IV PRN PRN Home Medications: Home Medications Medication Instructions Recorded Confirmed Type Insulin Aspart [NovoLOG] 10 unit SQ ACL #0 vial 07/24/16 12/26/16 History doxycycline hyclate 100 mg capsule 100 mg PO BID 12/25/16 12/26/16 History Metformin [Glucophage] 1,000 mg PO BID 12/26/16 12/26/16 History Is Patient on Beta Vivien?: No - Medical History Cardiovascular: Reports: Angina (hx), Coronary Artery Disease, Hypertension, Myocardial Infarction Gastrointestional: Reports: Gastroesophageal Reflux Disease Renal/Endocrine: Reports: Diabetes Mellitus Type 2 Other History: DENIES: Anesthesia Reactions - Surgical History Cardiac Surgeries/Treatments: DENIES: Pacemaker Reproductive Surgery/Treatment: DENIES: Mastectomy Anesthesia Reactions: None Hx Family Anesthesia Reaction: No History of Motion Sickness: No - Social History Smoking Status: Former smoker Hx Chewing Tobacco Use: No Second Hand Exposure: No Substance Use Type: does not use Alcohol Intake Frequency: does not drink - Pertinent Findings Laboratory: CBC and BMP 01/06/17 10:24 01/05/17 04:03 EKG Rhythm: Normal Sinus Rhythm - Physical Exam Respiratory Exam: Present: lungs clear, bilateral breath sounds equal Cardiovascular Exam: Present: regular rate and rhythm, no murmur - Airway Assessment Mallampati Score: III TMD: 3 Fingerbreadths Neck Extension: fair, other (thick neck ) Teeth: chipped teeth/crowns (with some missing), poor dentation Overall Assessment: may be difficult mask vent, may be difficult intubation - ASA ASA Score: 3 - Plan Anesthesia: General TIVA - Discussion Discussion: Discussed risks/options/alternatives of anesthesia and questions answered. Patient consents. Nursing pain assessment noted. Present for Discussion: family member Attestation Statement: Prior to the delivery of any anesthetic medication, I examined the patient, developed the plan, obtained the patient's consent and discussed the risk and benefits of the procedure with the patient/guardian. - Additional Information Seen by Anesthesia: Yes
[2017-01-06] MEDS ORDERED: HYDROMORPHONE 2 MG/ML INJECTION ONE (13:05)
--- NOTE | 2017-01-06 13:23 | Anesthesia Postoperative Note ---
- Date and Time Date: 01/06/17 Time: 13:21 - Status Patient Participated in Evaluation: Patient Participated in Person Vital Signs: Temperature 97.3 F 01/06/17 08:00 Pulse Rate 89 01/06/17 08:00 Respiratory Rate 18 01/06/17 08:00 Blood Pressure 141/87 H 01/06/17 08:00 Pulse Oximetry 98 01/06/17 08:00 Oxygen Delivery Method Room Air Oxygen Flow Rate 2 Respiratory Function: Airway Patent Cardiovascular Function: Regular Pulse Mental Status: Alert and Oriented Pain Intensity: 6 Hydration: IV Infusing Complications During Recover: None Apparent - Follow-Up Instructions Instructions: Per Surgeon
[2017-01-06] MEDS: HYDROMORPHONE 2 MG/ML INJECTION IVP PRN ×2 (13:38→13:53)
[2017-01-06] MEDS: NIFEREX FORTE 150 CAPSULE PO SCH (13:39)
--- NOTE | 2017-01-06 13:39 | Anesthesia Postoperative Note ---
- Date and Time Date: 01/06/17 Time: 13:18 - Status Patient Participated in Evaluation: Patient Participated in Person Vital Signs: Temperature 97.3 F 01/06/17 08:00 Pulse Rate 89 01/06/17 08:00 Respiratory Rate 18 01/06/17 08:00 Blood Pressure 141/87 H 01/06/17 08:00 Pulse Oximetry 98 01/06/17 08:00 Oxygen Delivery Method Room Air Oxygen Flow Rate 2 Respiratory Function: Airway Patent Cardiovascular Function: Regular Pulse Mental Status: Alert and Oriented Pain Intensity: 4 Hydration: IV Infusing Complications During Recover: None Apparent - Follow-Up Instructions Instructions: Per Surgeon
[2017-01-06] MEDS: MAGNESIUM OXIDE 400 MG TABLET PO SCH (13:52)
[2017-01-06] MEDS: POLYETHYL GLYCOL 3350 17gm PACKET PO SCH (15:56)
--- NOTE | 2017-01-06 16:33 | Operative Note ---
- Procedure Side: left Preoperative Diagnosis: other ([id number] amputation surgical site infection ) Postoperative Diagnosis: Same as preoperative diagnosis. Operation: other (exploration and debridement and wound VAC change left BKA stump) Surgeon: Kim Nolasco MD Parts Cleaner: Jason Valdez Complications: None. Anesthesia: General TIVA Estimated Blood Loss: See Anesthesia Record. Fluids: Please see Anesthesia Record. Description of Procedure: Mr. Mcclelland is left stump were identified and marked his brought back to the operating suite and placed supine on the operating table. He was placed under general anesthesia. He is already on scheduled antibiotics. On inspection his wound appeared about 90% better than my last look Friday evening. He had just minimal areas of slough around the skin edges which were debrided sharply. The vast majority of the deep tissue was of pink beefy-red color. There was bloody drainage coming from the tibial intramedullary canal and some minimal bleeding along the anterior deep fascia which was electrocauterized. I sharply debrided all necrotic tissue which again was minimal. I explored the wound with my fingers and did not find any deep tunneling. The tibial bone itself appeared to be in good condition. I then thoroughly irrigated the wound with half a liter of Irricept solution. And then used another 3 L of normal saline. I then placed of airflow wound VAC with a help of the wound nurse. Once it obtained a good seal the drapes were removed knee was allowed to awake from general anesthesia and taken to the recovery room in the care of anesthesia. He tolerated the procedure well and there were no complications.
[2017-01-06] MEDS: INSULIN ASPART 100unit/ml INJECTION SQ PRN ×2 (18:09→21:43)
--- NOTE | 2017-01-06 18:25 | Progress Note ---
Subjective: Fer was seen this morning prior to going to surgery. He reported some mild ongoing tingling in his hands and right foot (right foot tingling is chronic). He denied palpitations or dyspnea, has had no nausea, and reports he's having bowel movements regularly. Khan catheter remains in place. He had no fevers, chills, or lightheadedness. He had no immediate concerns this morning. Objective Vital signs: Temperature 98.0 F 01/06/17 14:34 Pulse Rate 92 01/06/17 16:59 Respiratory Rate 16 01/06/17 14:15 Blood Pressure 134/71 01/06/17 16:59 Pulse Oximetry 92 01/06/17 16:59 Oxygen Delivery Method Room Air I/O 3016/5800 EXAM General-NAD, alert HEENT-conjunctiva clear, sclera anicteric, pupils round bilaterally, oropharynx clear Lungs-respirations nonlabored, good airflow, breath sounds clear bilaterally Cardiac-regular rhythm, S1-S2 Abd-soft, nontender, obese, diminished bowel sounds Ext-trace edema right lower extremity; midline right upper extremity-site clean/ dry Neuro-no myoclonus Psych-euthymic - Height/Weight/BMI: Weight 137.6 kg Results - Labs CBC & Chem 7: 01/06/17 10:24 01/05/17 04:03 Labs: Accu-Cheks [id number] CRP 68.3 Microbiology Results: Microbiology 01/03/17 23:30 Tibia, Left, Bone Gram Stain - Final 01/03/17 23:30 Tibia, Left, Bone Surgical Culture - Final Enterobacter cloacae Pseudomonas aeruginosa 01/03/17 23:30 Amputation Site Gram Stain - Final 01/03/17 23:30 Amputation Site Surgical Culture - Final Enterobacter cloacae Pseudomonas aeruginosa 01/04/17 12:19 Cath/Port/Line/Picc Blood Culture - Preliminary No Growth After 2 Days 01/04/17 12:19 Cath/Port/Line/Picc Blood Culture - Preliminary No Growth After 2 Days 01/01/17 09:04 Peripheral/Iv Start Blood Culture - Final No Growth After 5 Days 01/01/17 09:12 Peripheral/Iv Start Blood Culture - Final No Growth After 5 Days 01/03/17 15:48 Csf, Lumbar Puncture Gram Stain - Final 01/03/17 15:48 Csf, Lumbar Puncture CSF Culture - Preliminary No Growth After 2 Days 01/03/17 23:30 Amputation Site Gram Stain - Final 01/03/17 23:30 Amputation Site Surgical Culture - Preliminary Enterobacter cloacae Pseudomonas aeruginosa Assessment and Plan (1) Wound infection, posttraumatic Problem details: BKA stump infection, follows wound dehiscence Current visit: Yes Status: Acute (2) Dehiscence of amputation stump Current visit: Yes Status: Acute (3) DM2 (diabetes mellitus, type 2) Problem details: A1c 8.4 on 11/22/16 Current visit: Yes Status: Chronic DVT Prophylaxis: SCD's, Lovenox Resuscitation Status: Full Code Assessment and Plan: Assessment: Left BKA with dehiscence and infection Soft tissue/wound infection, Pseudomonas/Enterobacter cultured 01/03 MRSA (10/10/16), MDR Coag Negative Staph (11/20/16) Infection Acute on chronic pain DM2 (A1c 8.4% on 11/25/16) HTN/Hx CAD/HLD MAXIME w/o CPAP Hypokalemia, resolved. Anemia, multifactorial (transfusion 01/03) Vision changes Excessive somnolence, resolved s/p LP 01/03 Urinary retention Fevers Plan: Dr. Thurston plans return to the operating room for additional debridement of left BKA today. Wound cultures positive for Pseudomonas and Enterobacter-lateral organism resistant to Levaquin, Dr. Navarro consulted. Levaquin discontinued earlier today and cefepime initiated. CSF culture negative and neurological symptoms have largely resolved. Will eventually require formal eye exam but can be pursued as an outpatient unless visual blurring worsens. Blood sugars variable although remaining under 200. Resume insulin postop when taking by mouth. Blood pressure stable. Bladder training initiated, will hopefully be able to discontinue Khan after today's procedure. Laboratory data reviewed, antibiotics discussed with Dr. Navarro. Sepsis Assessment - Evaluation Sepsis screening result: No Definite Risk Hospital Course Summary Disclaimer: The visit summary below is not to be considered part of the above Progress Note. Hospital Course: 12/28/16 Home diabetic medications restarted and blood sugars showing control. Blood pressure stable on home ARB - renal status and potassium normal. Continue with pain control - ortho changing to oral medications. Encourage IS for pulm toilet. PT/OT consulted to help functional status. Continue with wound care as per Dr Nolasco - anticipate reexploration of wound tomorrow. Medically stable and responding to treatments. 12/29/16 Pt to OR today for wound I&D. Continue Vancomycin- past culture sensitive to Vancomycin. Can discontinue doxycycline as Vancomycin will cover both organisms. BG has been stable. Holding insulin today due to NPO. Started IVF until eating post-op. BP is controlled- Losartan- HCTZ. Plan to repeat labs in AM. Mild anemia, stable. 12/31/16 12:49-[facility] Last blood sugar 122 at 10:30 this morning, patient nothing by mouth in anticipation of surgery. Will monitor every 2 hours until surgery in the event glucose containing fluids become necessary. Overall diabetes control improving. Pain well controlled at present. Peripheral IV being utilized for vancomycin-clarify with orthopedics how long antibiotics anticipated, may benefit from PICC. To the operating room later today for debridement. Blood pressure stable. Hemoglobin down from 12.5 on admission to current value of 8.6; monitor closely for the next couple of days with further surgical debridement. May benefit from nocturnal oximetry prior to discharge due to history of sleep apnea; suspect patient needs repeat sleep study based on history. 01/01/17 Increase in fever overnight. Obtained labs, lactate and blood cultures. Continues on Vanco. Blood sugars well controlled 01/02/17-plan Recheck H&H this morning In light of decline in hemoglobin. 4. A.m. blood draw revealed hemoglobin of 6.8, redraw at 930. Indicates 7.5. Did check an ammonia level given encephalopathy and confusion however it was negative less than 9. Oxycodone is decreased to 5 milligrams as this may play a role in confusion. Continues to have fevers overnight of unknown origin. Highest fever was 100.8. White count this morning did increase to 14. No tachycardia or other sirs criteria. Chest x-ray was performed yesterday that was unremarkable, urine was negative. He did have urinary retention overnight and required straight catheterization. He does not have any other indication of skin wound source of infection. No diarrhea or abdominal pain. Blood cultures remain negative at 24 hour eren. Continue with Vancomycin given fever and leukocytosis Will discuss blood transfusion with attending. Will discuss further order and plan of care with orthopedic team and attending 01/04/17 12:00 01/04/17 s/p wound I&D per Dr. Nolasco. Continue wound vac, Vanco. New onset fevers- CXR, CT is negative LP done, appears negative. Cx NGTD. CRP is trending downward. Repeat UA today. Will obtain BC x 2, one from PICC, one peripheral. DM2- BG is fairly well controlled. He did receive a unit of blood yesterday, HGB is trending down again. Repeat CBC now. Repeat labs in AM. Low back is tender- apply lidoderm patch. Tissue does appear a bit swollen, but not red or warm. Monitor. Start LMWH in AM for DVT prophylaxis if labs remain stable today. 01/05/17 15:43-Gloria Joe continues to improve clinically with resolution of excessive somnolence and other atypical neurological symptoms. Visual symptoms persist and are not currently explained, may require formal eye exam in the near future. Continue Levaquin for pseudomonas and second gram-negative dannielle not yet identified in conjunction with vancomycin for previously identified gram- positive organisms. Anticipate return to the operating room tomorrow after discussion with Dr. Nolasco earlier today. CSF culture negative. Blood sugars modestly increased the past 24 hours although remaining under 200. Oral intake improving and insulins have largely been resumed although NovoLog held this morning due to anticipated poor intake. Hemoglobin drifting down, reassess in a.m.-will likely require additional blood with surgery tomorrow. Bladder training initiated, will hopefully be able to discontinue Khan after next procedure.
[2017-01-06] MEDS: INSULIN GLARGINE 100unit/ml INJECTION SQ SCH (21:43)
[2017-01-06] MEDS: LIDOCAINE PATCH REMOVAL TOP SCH (21:45)
[2017-01-06] MEDS: PRAVASTATIN 20 MG TABLET PO SCH (21:45)
[2017-01-07] MEDS: CEFEPIME 1 GM in NS 100 ML IV SCH ×4 (03:10→20:22)
[2017-01-07] MEDS: Oxycodone *IR* 5 MG TABLET PO PRN ×3 (05:33→20:26)
[2017-01-07] MEDS: INSULIN ASPART 100unit/ml INJECTION SQ PRN (06:08)
--- NOTE | 2017-01-07 07:18 | Orthopedic Progress Note ---
Date: Subjective/Severity of Illness: Fer has no new complaints. He denies back pain. Wound vac is working. Orthopedic Objective PO Vital signs: Temperature 98.5 F 01/07/17 03:00 Pulse Rate 88 01/07/17 03:00 Respiratory Rate 16 01/07/17 03:00 Blood Pressure 141/69 H 01/07/17 03:00 Pulse Oximetry 98 01/07/17 03:00 Oxygen Delivery Method Room Air Oxygen Flow Rate 2 Height and Weight: Weight 303 lb 5.697 oz - Constitutional General Appearance: Present: alert, orientated x2, no acute distress, obese - Respiratory Exam Present: non-labored (CXR done this AM . Results pending.) - Extremities Exam Extremities: Present: amputation (dressing dry) - Surgical Site Incision: dressing intact Wound Drainage: minimal amount Drains Present: negative pressure therapy - Integumentary Exam Present: other (Surrounding tissues look healthy. ) - Lymphatic Lymphatic: Present: adenopathy - Psychiatric Exam Present: alert, other (restless and appears frustrated.) - Wound Management Left Lower Leg Wound Type: Amputation (Left BKA.) Wound Length: 12 Wound Width: 2 Wound Depth: 1.5 Surrounding Tissue Appearance: Manter Drainage Description: Sanguineous Drainage Amount: Moderate Packing Type: Woundvac Sponge Primary Dressing: Medicated Gauze Pad Dressing Change Patient Tolerance: Tolerated Well - Labs Result Diagrams: 01/07/17 05:07 01/07/17 05:07 Abnormal lab results 01/06/17 01/06/17 01/07/17 Range/Units 10:24 10:24 05:07 RBC 2.75 L 2.65 L (4.50-5.90) M/MM3 Hgb 7.4 L 7.1 L (13.5-17.5) GM/DL Hct 23.1 L 22.6 L (41-53) % Plt Count 458 H (130-400) T/MM3 Immature Gran % (Auto) 1.8 H 2.1 H (0.0-0.5) % Neut % (Auto) 71.3 H 72.8 H (33-66) % Lymph % (Auto) 15.4 L 14.3 L (23-45) % Eos % (Auto) 4.5 H (0-4) % Abs Immat Gran (auto) 0.16 H 0.22 H (0.00-0.03) T/MM3 Glucose (75-110) MG/DL C-Reactive Protein 68.3 H (0-9) MG/L 01/07/17 Range/Units 05:07 RBC (4.50-5.90) M/MM3 Hgb (13.5-17.5) GM/DL Hct (41-53) % Plt Count (130-400) T/MM3 Immature Gran % (Auto) (0.0-0.5) % Neut % (Auto) (33-66) % Lymph % (Auto) (23-45) % Eos % (Auto) (0-4) % Abs Immat Gran (auto) (0.00-0.03) T/MM3 Glucose 129 H (75-110) MG/DL C-Reactive Protein (0-9) MG/L H & H 12/27/16 12/28/16 12/30/16 Range/Units 04:26 04:27 04:12 Hgb 10.2 L D 10.1 L 9.1 L (13.5-17.5) GM/DL Hct 31.6 L D 31.6 L 28.3 L (41-53) % 12/31/16 01/01/17 01/02/17 Range/Units 04:30 04:34 04:25 Hgb 8.6 L 8.1 L 6.8 L D (13.5-17.5) GM/DL Hct 26.5 L 25.5 L 21.1 L D (41-53) % 01/02/17 01/02/17 01/03/17 Range/Units 09:30 19:18 00:54 Hgb 7.5 L 7.0 L Cancelled (13.5-17.5) GM/DL Hct 21.1 L (41-53) % 01/03/17 01/03/17 01/04/17 Range/Units 00:54 10:22 03:53 Hgb 7.8 L D 8.2 L 7.1 L D (13.5-17.5) GM/DL Hct 23.6 L D 24.7 L 21.8 L D (41-53) % 01/04/17 01/05/17 01/06/17 Range/Units 12:19 04:03 10:24 Hgb 7.9 L D 7.5 L 7.4 L (13.5-17.5) GM/DL Hct 24.4 L D 23.0 L 23.1 L (41-53) % 01/07/17 Range/Units 05:07 Hgb 7.1 L (13.5-17.5) GM/DL Hct 22.6 L (41-53) % Coagulation 01/03/17 Range/Units 10:22 INR 1.24 H (0.99-1.21) Orthopedic Assessment and Plan (1) Dehiscence of amputation stump Status: Acute Assessment and Plan: s/p wound vac change yesterday by Dr. Nolasco. Dr. Nolasco's Op note indicates wound appeared "90%" better. Continue current care. Hospital Course Summary Disclaimer: The visit summary below is not to be considered part of the above Progress Note. Hospital Course: 12/28/16 Home diabetic medications restarted and blood sugars showing control. Blood pressure stable on home ARB - renal status and potassium normal. Continue with pain control - ortho changing to oral medications. Encourage IS for pulm toilet. PT/OT consulted to help functional status. Continue with wound care as per Dr Nolasco - anticipate reexploration of wound tomorrow. Medically stable and responding to treatments. 12/29/16 Pt to OR today for wound I&D. Continue Vancomycin- past culture sensitive to Vancomycin. Can discontinue doxycycline as Vancomycin will cover both organisms. BG has been stable. Holding insulin today due to NPO. Started IVF until eating post-op. BP is controlled- Losartan- HCTZ. Plan to repeat labs in AM. Mild anemia, stable. 12/31/16 12:49-Gloria Last blood sugar 122 at 10:30 this morning, patient nothing by mouth in anticipation of surgery. Will monitor every 2 hours until surgery in the event glucose containing fluids become necessary. Overall diabetes control improving. Pain well controlled at present. Peripheral IV being utilized for vancomycin-clarify with orthopedics how long antibiotics anticipated, may benefit from PICC. To the operating room later today for debridement. Blood pressure stable. Hemoglobin down from 12.5 on admission to current value of 8.6; monitor closely for the next couple of days with further surgical debridement. May benefit from nocturnal oximetry prior to discharge due to history of sleep apnea; suspect patient needs repeat sleep study based on history. 01/01/17 Increase in fever overnight. Obtained labs, lactate and blood cultures. Continues on Vanco. Blood sugars well controlled 01/02/17-plan Recheck H&H this morning In light of decline in hemoglobin. 4. A.m. blood draw revealed hemoglobin of 6.8, redraw at 930. Indicates 7.5. Did check an ammonia level given encephalopathy and confusion however it was negative less than 9. Oxycodone is decreased to 5 milligrams as this may play a role in confusion. Continues to have fevers overnight of unknown origin. Highest fever was 100.8. White count this morning did increase to 14. No tachycardia or other sirs criteria. Chest x-ray was performed yesterday that was unremarkable, urine was negative. He did have urinary retention overnight and required straight catheterization. He does not have any other indication of skin wound source of infection. No diarrhea or abdominal pain. Blood cultures remain negative at 24 hour eren. Continue with Vancomycin given fever and leukocytosis Will discuss blood transfusion with attending. Will discuss further order and plan of care with orthopedic team and attending 01/04/17 12:00 01/04/17 s/p wound I&D per Dr. Nolasco. Continue wound vac, Vanco. New onset fevers- CXR, CT is negative LP done, appears negative. Cx NGTD. CRP is trending downward. Repeat UA today. Will obtain BC x 2, one from PICC, one peripheral. DM2- BG is fairly well controlled. He did receive a unit of blood yesterday, HGB is trending down again. Repeat CBC now. Repeat labs in AM. Low back is tender- apply lidoderm patch. Tissue does appear a bit swollen, but not red or warm. Monitor. Start LMWH in AM for DVT prophylaxis if labs remain stable today. 01/05/17 15:43-Gloria Joe continues to improve clinically with resolution of excessive somnolence and other atypical neurological symptoms. Visual symptoms persist and are not currently explained, may require formal eye exam in the near future. Continue Levaquin for pseudomonas and second gram-negative dannielle not yet identified in conjunction with vancomycin for previously identified gram- positive organisms. Anticipate return to the operating room tomorrow after discussion with Dr. Gaurav earlier today. CSF culture negative. Blood sugars modestly increased the past 24 hours although remaining under 200. Oral intake improving and insulins have largely been resumed although NovoLog held this morning due to anticipated poor intake. Hemoglobin drifting down, reassess in a.m.-will likely require additional blood with surgery tomorrow. Bladder training initiated, will hopefully be able to discontinue Khan after next procedure.
[2017-01-07] MEDS: POLYETHYL GLYCOL 3350 17gm PACKET PO SCH (08:13)
[2017-01-07] MEDS: ACETAMINOPHEN 325 MG TABLET PO SCH ×4 (08:13→21:04)
[2017-01-07] MEDS: SENNA + DOCUSATE TABLET PO SCH ×2 (08:13→20:26)
[2017-01-07] MEDS: INSULIN ASPART 100unit/ml INJECTION SQ SCH ×3 (08:13→18:03)
[2017-01-07] MEDS: ENOXAPARIN 40 MG/0.4 ML INJECTION SQ SCH (08:14)
[2017-01-07] MEDS: MAGNESIUM OXIDE 400 MG TABLET PO SCH (08:14)
[2017-01-07] MEDS: LIDOCAINE 5% PATCH TOP SCH (08:14)
[2017-01-07] MEDS: METFORMIN 1,000 MG TABLET PO SCH ×2 (08:23→18:04)
[2017-01-07] MEDS: LOSARTAN 50 MG TABLET PO SCH (08:23)
[2017-01-07] MEDS: NIFEREX FORTE 150 CAPSULE PO SCH (12:34)
--- NOTE | 2017-01-07 14:40 | Progress Note ---
<Penny Stone - Last Filed: 01/07/17 14:31> Subjective: Fer feels a bit better today. He states that his back isn't bothering him much. More than anything, its his left ear that's annoying him - feels like there is fluid in it, like he's "under water". He told me that Dr. Castro looked at it yesterday and there wasn't anything abnormal. He denies any sinus congestion or drainage. No SOA or dizziness. Appetite is picking up. Objective Vital signs: Temperature 98.4 F 01/07/17 12:07 Pulse Rate 82 01/07/17 12:07 Respiratory Rate 16 01/07/17 12:07 Blood Pressure 131/70 01/07/17 12:07 Pulse Oximetry 98 01/07/17 12:07 Rhythm: Normal Sinus Rhythm Height/Weight/BMI: Weight 136.9 kg - Constitutional Present: no acute distress, well nourished, well developed, obese - Routine HEENT Exam ENT: Present: mucous membranes moist, oropharynx clear - Routine Respiratory Exam Present: CTA bilaterally - Routine Cardiovascular Exam Present: RRR, S1, S2 - Routine Abdominal Exam Present: soft, normoactive bowel sounds, non tender - Routine Extremities Exam Present: edema (trace to RLE) - Routine Musculoskeletal Exam Musculoskeletal: Present: surgical scar (Wound vac intact and functioning to left stump) - Routine Skin Exam Present: intact, dry, warm - Routine Neurological Exam Present: alert, oriented X3, CN II-XII intact - Routine Psychiatric Exam Present: normal affect, normal thought process, cooperative Results - Labs CBC & Chem 7: 01/07/17 05:07 01/07/17 05:07 Microbiology Results: Microbiology 01/04/17 12:19 Cath/Port/Line/Picc Blood Culture - Preliminary No Growth After 3 Days 01/04/17 12:19 Cath/Port/Line/Picc Blood Culture - Preliminary No Growth After 3 Days 01/03/17 15:48 Csf, Lumbar Puncture Gram Stain - Final 01/03/17 15:48 Csf, Lumbar Puncture CSF Culture - Final No Growth After 3 Days 01/03/17 23:30 Amputation Site Gram Stain - Final 01/03/17 23:30 Amputation Site Surgical Culture - Final Enterobacter cloacae Pseudomonas aeruginosa 01/03/17 23:30 Tibia, Left, Bone Gram Stain - Final 01/03/17 23:30 Tibia, Left, Bone Surgical Culture - Final Enterobacter cloacae Pseudomonas aeruginosa 01/03/17 23:30 Amputation Site Gram Stain - Final 01/03/17 23:30 Amputation Site Surgical Culture - Final Enterobacter cloacae Pseudomonas aeruginosa 01/01/17 09:04 Peripheral/Iv Start Blood Culture - Final No Growth After 5 Days 01/01/17 09:12 Peripheral/Iv Start Blood Culture - Final No Growth After 5 Days Assessment and Plan (1) Dehiscence of amputation stump Current visit: Yes Status: Acute 12/26/16 21:23 TO OR tonight with NPO, prn MSO4, etc. 12/26/16 21:25 Reassess renal function in the AM with pharmacy eval for Vanco to continue. (2) DM2 (diabetes mellitus, type 2) Problem details: A1c 8.4 on 11/22/16 Current visit: Yes Status: Chronic 12/26/16 21:24 only 10 units levemir instead of 18u for now qhs with SSI and hold scheduled novolog and metformin (3) Wound infection, posttraumatic Problem details: BKA stump infection, follows wound dehiscence Current visit: Yes Status: Acute DVT Prophylaxis: Lovenox Resuscitation Status: Full Code Assessment and Plan: Assessment: Left BKA with dehiscence and infection Soft tissue/wound infection, Pseudomonas/Enterobacter cultured 01/03 MRSA (10/10/16), MDR Coag Negative Staph (11/20/16) Infection Acute on chronic pain DM2 (A1c 8.4% on 11/25/16) HTN/Hx CAD/HLD MAXIME w/o CPAP Hypokalemia, resolved. Anemia, multifactorial (transfusion 01/03) Vision changes Excessive somnolence, resolved s/p LP 01/03 Urinary retention Fevers Plan: MARISSA Khan this afternoon. Anemia - hgb down to 7.1 though pt is asymptomatic. Recheck in am - may need another transfusion. Continue Vanco and cefepime per Dr. Navarro - she's recommending a 6-week course. Suspect thrombocytosis is reactive. Hyperglycemia associated with supper - likely can resume insulin pump. Sepsis Assessment - Evaluation Sepsis screening result: No Definite Risk Hospital Course Summary Disclaimer: The visit summary below is not to be considered part of the above Progress Note. Hospital Course: 12/28/16 Home diabetic medications restarted and blood sugars showing control. Blood pressure stable on home ARB - renal status and potassium normal. Continue with pain control - ortho changing to oral medications. Encourage IS for pulm toilet. PT/OT consulted to help functional status. Continue with wound care as per Dr Nolasco - anticipate reexploration of wound tomorrow. Medically stable and responding to treatments. 12/29/16 Pt to OR today for wound I&D. Continue Vancomycin- past culture sensitive to Vancomycin. Can discontinue doxycycline as Vancomycin will cover both organisms. BG has been stable. Holding insulin today due to NPO. Started IVF until eating post-op. BP is controlled- Losartan- HCTZ. Plan to repeat labs in AM. Mild anemia, stable. 12/31/16 12:49-[facility] Last blood sugar 122 at 10:30 this morning, patient nothing by mouth in anticipation of surgery. Will monitor every 2 hours until surgery in the event glucose containing fluids become necessary. Overall diabetes control improving. Pain well controlled at present. Peripheral IV being utilized for vancomycin-clarify with orthopedics how long antibiotics anticipated, may benefit from PICC. To the operating room later today for debridement. Blood pressure stable. Hemoglobin down from 12.5 on admission to current value of 8.6; monitor closely for the next couple of days with further surgical debridement. May benefit from nocturnal oximetry prior to discharge due to history of sleep apnea; suspect patient needs repeat sleep study based on history. 01/01/17 Increase in fever overnight. Obtained labs, lactate and blood cultures. Continues on Vanco. Blood sugars well controlled 01/02/17-plan Recheck H&H this morning In light of decline in hemoglobin. 4. A.m. blood draw revealed hemoglobin of 6.8, redraw at 930. Indicates 7.5. Did check an ammonia level given encephalopathy and confusion however it was negative less than 9. Oxycodone is decreased to 5 milligrams as this may play a role in confusion. Continues to have fevers overnight of unknown origin. Highest fever was 100.8. White count this morning did increase to 14. No tachycardia or other sirs criteria. Chest x-ray was performed yesterday that was unremarkable, urine was negative. He did have urinary retention overnight and required straight catheterization. He does not have any other indication of skin wound source of infection. No diarrhea or abdominal pain. Blood cultures remain negative at 24 hour eren. Continue with Vancomycin given fever and leukocytosis Will discuss blood transfusion with attending. Will discuss further order and plan of care with orthopedic team and attending 01/04/17 12:00 01/04/17 s/p wound I&D per Dr. Nolasco. Continue wound vac, Vanco. New onset fevers- CXR, CT is negative LP done, appears negative. Cx NGTD. CRP is trending downward. Repeat UA today. Will obtain BC x 2, one from PICC, one peripheral. DM2- BG is fairly well controlled. He did receive a unit of blood yesterday, HGB is trending down again. Repeat CBC now. Repeat labs in AM. Low back is tender- apply lidoderm patch. Tissue does appear a bit swollen, but not red or warm. Monitor. Start LMWH in AM for DVT prophylaxis if labs remain stable today. 01/05/17 15:43-Gloria Fer continues to improve clinically with resolution of excessive somnolence and other atypical neurological symptoms. Visual symptoms persist and are not currently explained, may require formal eye exam in the near future. Continue Levaquin for pseudomonas and second gram-negative dannielle not yet identified in conjunction with vancomycin for previously identified gram- positive organisms. Anticipate return to the operating room tomorrow after discussion with Dr. Nolasco earlier today. CSF culture negative. Blood sugars modestly increased the past 24 hours although remaining under 200. Oral intake improving and insulins have largely been resumed although NovoLog held this morning due to anticipated poor intake. Hemoglobin drifting down, reassess in a.m.-will likely require additional blood with surgery tomorrow. Bladder training initiated, will hopefully be able to discontinue Khan after next procedure. 01/07/17 DC Khan this afternoon. Anemia - hgb down to 7.1 though pt is asymptomatic. Recheck in am - may need another transfusion. Continue Vanco and cefepime per Dr. Navarro - she's recommending a 6-week course. Suspect thrombocytosis is reactive. Hyperglycemia associated with supper - likely can resume insulin pump. <Jackie Castro - Last Filed: 01/07/17 15:48> Objective Vital signs: Temperature 97.1 F 01/07/17 15:35 Pulse Rate 85 01/07/17 15:35 Respiratory Rate 16 01/07/17 15:35 Blood Pressure 161/80 H 01/07/17 15:35 Pulse Oximetry 99 01/07/17 15:35 Height/Weight/BMI: Weight 136.9 kg Results - Labs CBC & Chem 7: 01/07/17 05:07 01/07/17 05:07 Assessment and Plan (1) Wound infection, posttraumatic Problem details: BKA stump infection, follows wound dehiscence Current visit: Yes Status: Acute (2) Dehiscence of amputation stump Current visit: Yes Status: Acute (3) DM2 (diabetes mellitus, type 2) Problem details: A1c 8.4 on 11/22/16 Current visit: Yes Status: Chronic Assessment and Plan: I have independently evaluated and examined this patient. I reviewed the chart, the patient's history, and the ANSWERING SERVICE AGENT/PA's documented findings as above. We discussed and formulated the assessment and plan as above with additions as below: Additional debridement of left BKA stump performed yesterday; Fer reports no particular concerns today other than fatigue of being in bed and in the recliner. He has ambulated short distances in the room using a walker with assistance of PT. Paresthesias in his hands are now limited to the fingers. Bladder training has been ongoing for several days and he is aware of bladder distention when Khan was clamped. NAD, alert Respirations nonlabored, breath sounds clear Regular rhythm, S1-S2 Wound VAC in place, margins appear healthy Check iron studies in the morning, patient may require IV replacement if significantly low level. Case management has initiated discharge planning, antibiotics will need to be coordinated for discharge-unclear if vancomycin will need to be continued for 6 weeks or simply gram-negative coverage. Please note the patient uses Levemir and NovoLog injections for diabetes management; does not have an insulin pump. Blood glucoses changed to fasting and 2 hours after meals to permit NovoLog adjustment. Status with nursing and case management. Hospital Course Summary Disclaimer: The visit summary below is not to be considered part of the above Progress Note.
[2017-01-07] MEDS: NS FLUSH BAG 500ml IV PRN (14:43)
[2017-01-07] MEDS: SALINE FLUSH 10ml SYRINGE IV PRN ×2 (18:04→21:04)
[2017-01-07] MEDS: INSULIN GLARGINE 100unit/ml INJECTION SQ SCH (20:26)
[2017-01-07] MEDS: PRAVASTATIN 20 MG TABLET PO SCH (20:26)
[2017-01-07] MEDS: LIDOCAINE PATCH REMOVAL TOP SCH (20:28)
[2017-01-08] MEDS: SALINE FLUSH 10ml SYRINGE IV PRN ×2 (02:58→22:05)
[2017-01-08] MEDS: CEFEPIME 1 GM in NS 100 ML IV SCH ×4 (02:58→21:13)
--- NOTE | 2017-01-08 08:49 | Progress Note ---
Subjective Date: 01/08/17 Subjective: Mr. Mcclelland reports that his stump is watershed tender. Denies nausea, vomiting or diarrhea. He is tolerating the cefepime without problems. Denies fever. Exam Vital Signs: Temperature 98.0 F 01/08/17 08:23 Pulse Rate 83 01/08/17 08:23 Respiratory Rate 20 01/08/17 08:23 Blood Pressure 142/84 H 01/08/17 08:23 Pulse Oximetry 96 01/08/17 08:23 Height/Weight/BMI: Weight 136.2 kg - Constitutional Present: no acute distress, well nourished, well developed - Routine HEENT Exam Head: Present: normocephalic Eye: Present: EOMI ENT: Present: mucous membranes moist - Routine Neck Exam Present: supple - Routine Respiratory Exam Present: CTA bilaterally. Absent: wheezes - Routine Cardiovascular Exam Present: RRR. Absent: murmur - Routine Abdominal Exam Present: soft, normoactive bowel sounds, non distended. Absent: tenderness - Routine Extremities Exam Absent: edema Comments: L BKA stump with mild erythema, some warmth and tenderness. VAC on. - Routine Skin Exam Absent: rash Comments: RUE midline site ok - Routine Neurological Exam Present: alert, oriented X3, CN II-XII intact - Routine Psychiatric Exam Present: normal affect Results - Labs CBC & Chem 7: 01/08/17 03:58 01/08/17 03:58 Microbiology Results: Microbiology 01/04/17 12:19 Cath/Port/Line/Picc Blood Culture - Preliminary No Growth After 3 Days 01/04/17 12:19 Cath/Port/Line/Picc Blood Culture - Preliminary No Growth After 3 Days 01/03/17 15:48 Csf, Lumbar Puncture Gram Stain - Final 01/03/17 15:48 Csf, Lumbar Puncture CSF Culture - Final No Growth After 3 Days 01/03/17 23:30 Amputation Site Gram Stain - Final 01/03/17 23:30 Amputation Site Surgical Culture - Final Enterobacter cloacae Pseudomonas aeruginosa 01/03/17 23:30 Tibia, Left, Bone Gram Stain - Final 01/03/17 23:30 Tibia, Left, Bone Surgical Culture - Final Enterobacter cloacae Pseudomonas aeruginosa 01/03/17 23:30 Amputation Site Gram Stain - Final 01/03/17 23:30 Amputation Site Surgical Culture - Final Enterobacter cloacae Pseudomonas aeruginosa 01/01/17 09:04 Peripheral/Iv Start Blood Culture - Final No Growth After 5 Days 01/01/17 09:12 Peripheral/Iv Start Blood Culture - Final No Growth After 5 Days Impression: Fever, leukocytosis, L BKA stump wound infection/dehiscence, s/p I&D 12/26, 12/31 , 01/03, wound and tibial bone cultures with Pseudomonas and Enterobacter (R to cipro). S/p Repeat I&D 01/06/17. H/o osteomyelitis of the left great toe distal phalanx, with bone biopsy June 28, 2016 growing out methicillin-resistant Staph aureus. S/p 6 weeks of Daptomycin. H/o Gangrene of the left great toe leading to amputation on July 25, 2016. H/o Recurrent osteomyelitis L 3, 4, 5 toes, s/p L TMA on 11/05. H/o Recurrent osteomyelitis L 3rd, 4th, 5th Metatarsals with wound dehiscence. 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 Hypertension. Hyperlipidemia. Coronary artery disease. Sleep apnea. History of depression. Penicillin allergy, rash. Alcohol use. Recommendation: Continue Vancomycin and Cefepime for now. Path report from bone biopsy 01/03 is pending. Since the bone culture was positive for Pseudomonas and Enterobacter, I'd recommend cefepime for 6 weeks. This could be dosed 2gm IV q8 hours if needed. I'd continue the Vancomycin for about 10-14 days if possible. His midline might need to be changed to a PICC. Sepsis Assessment - Evaluation Sepsis screening result: No Definite Risk
[2017-01-08] MEDS: SENNA + DOCUSATE TABLET PO SCH ×2 (09:20→21:12)
[2017-01-08] MEDS: LOSARTAN 50 MG TABLET PO SCH (09:20)
[2017-01-08] MEDS: MAGNESIUM OXIDE 400 MG TABLET PO SCH (09:20)
[2017-01-08] MEDS: ACETAMINOPHEN 325 MG TABLET PO SCH ×4 (09:20→21:13)
[2017-01-08] MEDS: ENOXAPARIN 40 MG/0.4 ML INJECTION SQ SCH (09:21)
[2017-01-08] MEDS: METFORMIN 1,000 MG TABLET PO SCH ×2 (09:21→18:39)
[2017-01-08] MEDS: POLYETHYL GLYCOL 3350 17gm PACKET PO SCH (09:21)
[2017-01-08] MEDS: INSULIN ASPART 100unit/ml INJECTION SQ SCH ×3 (09:22→18:40)
[2017-01-08] MEDS: LIDOCAINE 5% PATCH TOP SCH (09:22)
[2017-01-08] MEDS: ASCORBIC ACID 500 MG TABLET PO SCH ×2 (09:31→10:05)
[2017-01-08] MEDS: FERROUS SULFATE 324 MG TABLET PO SCH ×2 (09:31→09:32)
--- NOTE | 2017-01-08 10:34 | Progress Note ---
<Ami Mckenzie V - Last Filed: 01/08/17 10:29> Subjective: Fer is seen today in follow up while eating breakfast. He reports that overall he is feeling better. Reports mild left stump pain that is overall controlled. He denies feeling short of breath or feeling GI complaints. BP 142/84, he remains afebrile. Hgb stable at 7.1. Objective Vital signs: Temperature 98.0 F 01/08/17 08:23 Pulse Rate 83 01/08/17 08:23 Respiratory Rate 20 01/08/17 08:23 Blood Pressure 142/84 H 01/08/17 08:23 Pulse Oximetry 96 01/08/17 08:23 Height/Weight/BMI: Weight 136.2 kg - Constitutional Present: no acute distress, well nourished, well developed - Routine HEENT Exam Eye: Present: EOMI ENT: Present: mucous membranes moist, dentition normal - Routine Respiratory Exam Present: CTA bilaterally. Absent: wheezes - Routine Cardiovascular Exam Present: RRR, S1, S2. Absent: murmur - Routine Abdominal Exam Present: soft, normoactive bowel sounds, non distended. Absent: tenderness - Routine Extremities Exam Present: normal capillary refill - Routine Back/Spine/Pelvis Exam Back/Spine: Present: full ROM - Routine Skin Exam Present: intact, dry, warm Comments: Wound Vac intact to Left stump - Routine Neurological Exam Present: alert, oriented X3, CN II-XII intact - Routine Lymphatic Exam Lymphatic: Absent: adenopathy - Routine Psychiatric Exam Present: normal affect Results - Labs CBC & Chem 7: 01/08/17 03:58 01/08/17 03:58 Microbiology Results: Microbiology 01/04/17 12:19 Cath/Port/Line/Picc Blood Culture - Preliminary No Growth After 3 Days 01/04/17 12:19 Cath/Port/Line/Picc Blood Culture - Preliminary No Growth After 3 Days 01/03/17 15:48 Csf, Lumbar Puncture Gram Stain - Final 01/03/17 15:48 Csf, Lumbar Puncture CSF Culture - Final No Growth After 3 Days 01/03/17 23:30 Amputation Site Gram Stain - Final 01/03/17 23:30 Amputation Site Surgical Culture - Final Enterobacter cloacae Pseudomonas aeruginosa 01/03/17 23:30 Tibia, Left, Bone Gram Stain - Final 01/03/17 23:30 Tibia, Left, Bone Surgical Culture - Final Enterobacter cloacae Pseudomonas aeruginosa 01/03/17 23:30 Amputation Site Gram Stain - Final 01/03/17 23:30 Amputation Site Surgical Culture - Final Enterobacter cloacae Pseudomonas aeruginosa 01/01/17 09:04 Peripheral/Iv Start Blood Culture - Final No Growth After 5 Days 01/01/17 09:12 Peripheral/Iv Start Blood Culture - Final No Growth After 5 Days Assessment and Plan (1) Dehiscence of amputation stump Current visit: Yes Status: Acute 12/26/16 21:23 TO OR tonight with NPO, prn MSO4, etc. 12/26/16 21:25 Reassess renal function in the AM with pharmacy eval for Vanco to continue. (2) DM2 (diabetes mellitus, type 2) Problem details: A1c 8.4 on 11/22/16 Current visit: Yes Status: Chronic 12/26/16 21:24 only 10 units levemir instead of 18u for now qhs with SSI and hold scheduled novolog and metformin (3) Wound infection, posttraumatic Problem details: BKA stump infection, follows wound dehiscence Current visit: Yes Status: Acute Assessment and Plan: Impression: Fever, leukocytosis, L BKA stump wound infection/dehiscence, s/p I&D 12/26, 12/31 , 01/03, wound and tibial bone cultures with Pseudomonas and Enterobacter (R to cipro). S/p Repeat I&D 01/06/17. H/o osteomyelitis of the left great toe distal phalanx, with bone biopsy June 28, 2016 growing out methicillin-resistant Staph aureus. S/p 6 weeks of Daptomycin. H/o Gangrene of the left great toe leading to amputation on July 25, 2016. H/o Recurrent osteomyelitis L 3, 4, 5 toes, s/p L TMA on 11/05. H/o Recurrent osteomyelitis L 3rd, 4th, 5th Metatarsals with wound dehiscence. 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 Hypertension. Hyperlipidemia. Coronary artery disease. Sleep apnea. History of depression. Penicillin allergy, rash. Alcohol use. Plan Overall appears to be stable Overall blood sugars appear to be well controlled. Continue on metformin, current regimen of NovoLog with meals and Lantus 20 units at at bedtime. Bp overall well controlled on Cozaar Iron studies were low and patient was placed on oral iron supplementation. Hemoglobin has remained low, however, is stable at 7.1. Appreciate infectious disease recommendations by Dr. Navarro. Patient will require 6 weeks of IV Cefepime antibiotic therapy as recommended in her progress note. Lovenox SQ for DVT . Laxatives Continue work with PT/OT Sepsis Assessment - Evaluation Sepsis screening result: No Definite Risk Hospital Course Summary Disclaimer: The visit summary below is not to be considered part of the above Progress Note. Hospital Course: 12/28/16 Home diabetic medications restarted and blood sugars showing control. Blood pressure stable on home ARB - renal status and potassium normal. Continue with pain control - ortho changing to oral medications. Encourage IS for pulm toilet. PT/OT consulted to help functional status. Continue with wound care as per Dr Nolasco - anticipate reexploration of wound tomorrow. Medically stable and responding to treatments. 12/29/16 Pt to OR today for wound I&D. Continue Vancomycin- past culture sensitive to Vancomycin. Can discontinue doxycycline as Vancomycin will cover both organisms. BG has been stable. Holding insulin today due to NPO. Started IVF until eating post-op. BP is controlled- Losartan- HCTZ. Plan to repeat labs in AM. Mild anemia, stable. 12/31/16 12:49-Gloria Last blood sugar 122 at 10:30 this morning, patient nothing by mouth in anticipation of surgery. Will monitor every 2 hours until surgery in the event glucose containing fluids become necessary. Overall diabetes control improving. Pain well controlled at present. Peripheral IV being utilized for vancomycin-clarify with orthopedics how long antibiotics anticipated, may benefit from PICC. To the operating room later today for debridement. Blood pressure stable. Hemoglobin down from 12.5 on admission to current value of 8.6; monitor closely for the next couple of days with further surgical debridement. May benefit from nocturnal oximetry prior to discharge due to history of sleep apnea; suspect patient needs repeat sleep study based on history. 01/01/17 Increase in fever overnight. Obtained labs, lactate and blood cultures. Continues on Vanco. Blood sugars well controlled 01/02/17-plan Recheck H&H this morning In light of decline in hemoglobin. 4. A.m. blood draw revealed hemoglobin of 6.8, redraw at 930. Indicates 7.5. Did check an ammonia level given encephalopathy and confusion however it was negative less than 9. Oxycodone is decreased to 5 milligrams as this may play a role in confusion. Continues to have fevers overnight of unknown origin. Highest fever was 100.8. White count this morning did increase to 14. No tachycardia or other sirs criteria. Chest x-ray was performed yesterday that was unremarkable, urine was negative. He did have urinary retention overnight and required straight catheterization. He does not have any other indication of skin wound source of infection. No diarrhea or abdominal pain. Blood cultures remain negative at 24 hour eren. Continue with Vancomycin given fever and leukocytosis Will discuss blood transfusion with attending. Will discuss further order and plan of care with orthopedic team and attending 01/04/17 12:00 01/04/17 s/p wound I&D per Dr. Nolasco. Continue wound vac, Vanco. New onset fevers- CXR, CT is negative LP done, appears negative. Cx NGTD. CRP is trending downward. Repeat UA today. Will obtain BC x 2, one from PICC, one peripheral. DM2- BG is fairly well controlled. He did receive a unit of blood yesterday, HGB is trending down again. Repeat CBC now. Repeat labs in AM. Low back is tender- apply lidoderm patch. Tissue does appear a bit swollen, but not red or warm. Monitor. Start LMWH in AM for DVT prophylaxis if labs remain stable today. 01/05/17 15:43-Gloria Joe continues to improve clinically with resolution of excessive somnolence and other atypical neurological symptoms. Visual symptoms persist and are not currently explained, may require formal eye exam in the near future. Continue Levaquin for pseudomonas and second gram-negative dannielle not yet identified in conjunction with vancomycin for previously identified gram- positive organisms. Anticipate return to the operating room tomorrow after discussion with Dr. Nolasco earlier today. CSF culture negative. Blood sugars modestly increased the past 24 hours although remaining under 200. Oral intake improving and insulins have largely been resumed although NovoLog held this morning due to anticipated poor intake. Hemoglobin drifting down, reassess in a.m.-will likely require additional blood with surgery tomorrow. Bladder training initiated, will hopefully be able to discontinue Khan after next procedure. 01/07/17 DC Khan this afternoon. Anemia - hgb down to 7.1 though pt is asymptomatic. Recheck in am - may need another transfusion. Continue Vanco and cefepime per Dr. Navarro - she's recommending a 6-week course. Suspect thrombocytosis is reactive. Hyperglycemia associated with supper - likely can resume insulin pump. <Peyton Green - Last Filed: 01/08/17 14:08> Objective Vital signs: Temperature 97.5 F 01/08/17 12:00 Pulse Rate 80 01/08/17 12:00 Respiratory Rate 18 01/08/17 12:00 Blood Pressure 159/79 H 01/08/17 12:00 Pulse Oximetry 98 01/08/17 12:00 Height/Weight/BMI: Weight 136.2 kg Results - Labs CBC & Chem 7: 01/08/17 03:58 01/08/17 03:58 Microbiology Results: Microbiology 01/04/17 12:19 Cath/Port/Line/Picc Blood Culture - Preliminary No Growth After 4 Days 01/04/17 12:19 Cath/Port/Line/Picc Blood Culture - Preliminary No Growth After 4 Days 01/03/17 15:48 Csf, Lumbar Puncture Gram Stain - Final 01/03/17 15:48 Csf, Lumbar Puncture CSF Culture - Final No Growth After 3 Days 01/03/17 23:30 Amputation Site Gram Stain - Final 01/03/17 23:30 Amputation Site Surgical Culture - Final Enterobacter cloacae Pseudomonas aeruginosa 01/03/17 23:30 Tibia, Left, Bone Gram Stain - Final 01/03/17 23:30 Tibia, Left, Bone Surgical Culture - Final Enterobacter cloacae Pseudomonas aeruginosa 01/03/17 23:30 Amputation Site Gram Stain - Final 01/03/17 23:30 Amputation Site Surgical Culture - Final Enterobacter cloacae Pseudomonas aeruginosa 01/01/17 09:04 Peripheral/Iv Start Blood Culture - Final No Growth After 5 Days 01/01/17 09:12 Peripheral/Iv Start Blood Culture - Final No Growth After 5 Days Assessment and Plan (1) Dehiscence of amputation stump Current visit: Yes Status: Acute (2) DM2 (diabetes mellitus, type 2) Problem details: A1c 8.4 on 11/22/16 Current visit: Yes Status: Chronic (3) Wound infection, posttraumatic Problem details: BKA stump infection, follows wound dehiscence Current visit: Yes Status: Acute Assessment and Plan: 01/08/2017-I reviewed this chart, the patient history, and the COMPUTER SECURITY SPECIALIST's/PA's documented findings as above. We discussed and formulated the assessment and plan as above with the additions below.-Dr. Green Patient states that he is feeling well. Pain in his stump of his left BKA is doing okay. He states he occasionally needs some when necessary oral pain medication. He has chronic bilateral knee pain that he rates as a 5 on a scale of 1-10. He is trying to keep the pain in his wound at the same level. He is urinating well after Khan removal yesterday. Bowels are moving okay. He is eating and drinking okay. He is breathing without difficulties. The patient does state that he wants to leave the house periodically once he is home and would like directions on how often and for how long he can be gone. Chest is clear to auscultation. Cardiovascular reveals a regular rate and rhythm. Abdomen is soft, obese and nontender with positive bowel sounds. Left leg reveals a BKA with wound VAC in place. Overall, patient is doing well. Will have PICC line placed either today or tomorrow in anticipation of discharge soon. He will need a total of 6 weeks of IV cefepime and 10-14 days of IV vancomycin. Case management is trying to arrange dismissal to home and IV antibiotics at home. Oral iron was added for borderline iron deficiency anemia. Will check B-12 and folate. Continue current treatment for hypertension and diabetes. Hospital Course Summary Disclaimer: The visit summary below is not to be considered part of the above Progress Note.
[2017-01-08] MEDS: NIFEREX FORTE 150 CAPSULE PO SCH (12:27)
[2017-01-08] MEDS ORDERED: FALL RISK - PHARMACY CONSULT XX ONE (12:30)
[2017-01-08] MEDS: PRAVASTATIN 20 MG TABLET PO SCH (21:12)
[2017-01-08] MEDS: INSULIN GLARGINE 100unit/ml INJECTION SQ SCH (21:12)
[2017-01-08] MEDS: LIDOCAINE PATCH REMOVAL TOP SCH (21:18)
[2017-01-09] MEDS: NS FLUSH BAG 500ml IV PRN (03:35)
[2017-01-09] MEDS: CEFEPIME 1 GM in NS 100 ML IV SCH ×4 (03:35→22:09)
[2017-01-09] MEDS: HYDROMORPHONE 2 MG/ML INJECTION IVP PRN (08:19)
[2017-01-09] MEDS: LIDOCAINE 5% PATCH TOP SCH (09:46)
[2017-01-09] MEDS: POLYETHYL GLYCOL 3350 17gm PACKET PO SCH (09:54)
[2017-01-09] MEDS: ASCORBIC ACID 500 MG TABLET PO SCH (09:54)
[2017-01-09] MEDS: ENOXAPARIN 40 MG/0.4 ML INJECTION SQ SCH (09:54)
[2017-01-09] MEDS: METFORMIN 1,000 MG TABLET PO SCH ×2 (09:54→18:00)
[2017-01-09] MEDS: SENNA + DOCUSATE TABLET PO SCH ×2 (09:54→22:09)
[2017-01-09] MEDS: FERROUS SULFATE 324 MG TABLET PO SCH (09:54)
[2017-01-09] MEDS: MAGNESIUM OXIDE 400 MG TABLET PO SCH (09:55)
[2017-01-09] MEDS: ACETAMINOPHEN 325 MG TABLET PO SCH ×4 (09:55→22:10)
[2017-01-09] MEDS: LOSARTAN 50 MG TABLET PO SCH (09:55)
[2017-01-09] MEDS: INSULIN ASPART 100unit/ml INJECTION SQ SCH ×3 (10:54→18:00)
[2017-01-09] MEDS: NIFEREX FORTE 150 CAPSULE PO SCH (13:21)
--- NOTE | 2017-01-09 13:47 | Wound Care Progress Note ---
Wound Management - Patient Status Premedicated Prior to Dressing Change: Yes - Wound Left Leg Wound Type: Surgical Incision (Left BKA site) Wound Present on Admission?: Yes Length: 9.5 Width: 17.5 Depth: 1.8 Wound Bed Appearance: Beefy Red Dariana Wound Appearance: Well Defined Tunneling: Yes (1.5 where bone is located) Undermining: No Drainage Description: Sanguineous Drainage Amount: Moderate Drainage Odor: No Odor Dressing Status: Changed Irrigant Solution: Saline Irrigant Packing Type: Woundvac Sponge Number of Packing Pieces Removed?: 4 Number of Packing Pieces Placed?: 4 Primary Dressing: Foam Dressing Secondary Dressing: Trac Pad (Jj veraflow instill foam) Dressing Change Date: 01/09/17 Dressing Change Time: 08:00 Dressing Change Patient Tolerance: Tolerated Well Microbiology: Microbiology 01/04/17 12:19 Cath/Port/Line/Picc Blood Culture - Final No Growth After 5 Days 01/04/17 12:19 Cath/Port/Line/Picc Blood Culture - Final No Growth After 5 Days
--- NOTE | 2017-01-09 16:42 | Progress Note ---
<Penny Stone - Last Filed: 01/09/17 16:39> Subjective: Fer is doing well - no complaints today. He is looking forward to discharge on Friday. He has been eating well; no nausea or vomiting or abd discomfort. He denies any shortness of breath. Wound seems to be healing well and he hasn't had any issues with the vac. He denies any oral sores or sore throat. Objective Vital signs: Temperature 97.5 F 01/09/17 12:21 Pulse Rate 78 01/09/17 12:21 Respiratory Rate 16 01/09/17 12:21 Blood Pressure 135/71 01/09/17 12:21 Pulse Oximetry 98 01/09/17 12:21 Rhythm: Normal Sinus Rhythm Height/Weight/BMI: Weight 136.2 kg - Constitutional Present: no acute distress, well nourished, well developed, obese - Routine HEENT Exam Head: Present: normocephalic ENT: Present: mucous membranes moist, oropharynx clear - Routine Respiratory Exam Present: CTA bilaterally - Routine Cardiovascular Exam Present: RRR, S1, S2 - Routine Abdominal Exam Present: soft, normoactive bowel sounds, non distended, non tender - Routine Extremities Exam Comments: left bka; wound vac intact and working - Routine Skin Exam Present: dry, warm - Routine Neurological Exam Present: alert, oriented X3, CN II-XII intact, vision grossly intact, hearing grossly intact, normal speech - Routine Psychiatric Exam Present: normal affect, normal thought process, cooperative Results - Labs CBC & Chem 7: 01/09/17 04:31 01/09/17 04:31 Microbiology Results: Microbiology 01/04/17 12:19 Cath/Port/Line/Picc Blood Culture - Final No Growth After 5 Days 01/04/17 12:19 Cath/Port/Line/Picc Blood Culture - Final No Growth After 5 Days 01/03/17 15:48 Csf, Lumbar Puncture Gram Stain - Final 01/03/17 15:48 Csf, Lumbar Puncture CSF Culture - Final No Growth After 3 Days 01/03/17 23:30 Amputation Site Gram Stain - Final 01/03/17 23:30 Amputation Site Surgical Culture - Final Enterobacter cloacae Pseudomonas aeruginosa 01/03/17 23:30 Tibia, Left, Bone Gram Stain - Final 01/03/17 23:30 Tibia, Left, Bone Surgical Culture - Final Enterobacter cloacae Pseudomonas aeruginosa 01/03/17 23:30 Amputation Site Gram Stain - Final 01/03/17 23:30 Amputation Site Surgical Culture - Final Enterobacter cloacae Pseudomonas aeruginosa 01/01/17 09:04 Peripheral/Iv Start Blood Culture - Final No Growth After 5 Days 01/01/17 09:12 Peripheral/Iv Start Blood Culture - Final No Growth After 5 Days Assessment and Plan (1) Dehiscence of amputation stump Current visit: Yes Status: Acute 12/26/16 21:23 TO OR tonight with NPO, prn MSO4, etc. 12/26/16 21:25 Reassess renal function in the AM with pharmacy eval for Vanco to continue. (2) DM2 (diabetes mellitus, type 2) Problem details: A1c 8.4 on 11/22/16 Current visit: Yes Status: Chronic 12/26/16 21:24 only 10 units levemir instead of 18u for now qhs with SSI and hold scheduled novolog and metformin (3) Wound infection, posttraumatic Problem details: BKA stump infection, follows wound dehiscence Current visit: Yes Status: Acute Assessment and Plan: Assessment Fever, leukocytosis, L BKA stump wound infection/dehiscence, s/p I&D 12/26, 12/31 , 01/03, wound and tibial bone cultures with Pseudomonas and Enterobacter (R to cipro). S/p Repeat I&D 01/06/17. H/o osteomyelitis of the left great toe distal phalanx, with bone biopsy June 28, 2016 growing out methicillin-resistant Staph aureus. S/p 6 weeks of Daptomycin. H/o Gangrene of the left great toe leading to amputation on July 25, 2016. H/o Recurrent osteomyelitis L 3, 4, 5 toes, s/p L TMA on 11/05. H/o Recurrent osteomyelitis L 3rd, 4th, 5th Metatarsals with wound dehiscence. 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 Hypertension. Hyperlipidemia. Coronary artery disease. Sleep apnea. History of depression. Penicillin allergy, rash. Alcohol use. Plan BGM under good control. Continue abx per Dr. Navarro: 6 weeks of IV cefepime and 10-14 days of IV vancomycin Discharge is planned on Friday01/13/17 to ensure he tolerates the wound vac. Hgb improved to 7.6. Continue iron supplementation. B12 and folate are still pending. He inquires about Lovenox injections at home - will discuss with attending. He does feel comfortable giving himself injections. Sepsis Assessment - Evaluation Sepsis screening result: No Definite Risk Hospital Course Summary Disclaimer: The visit summary below is not to be considered part of the above Progress Note. Hospital Course: 12/28/16 Home diabetic medications restarted and blood sugars showing control. Blood pressure stable on home ARB - renal status and potassium normal. Continue with pain control - ortho changing to oral medications. Encourage IS for pulm toilet. PT/OT consulted to help functional status. Continue with wound care as per Dr Nolasco - anticipate reexploration of wound tomorrow. Medically stable and responding to treatments. 12/29/16 Pt to OR today for wound I&D. Continue Vancomycin- past culture sensitive to Vancomycin. Can discontinue doxycycline as Vancomycin will cover both organisms. BG has been stable. Holding insulin today due to NPO. Started IVF until eating post-op. BP is controlled- Losartan- HCTZ. Plan to repeat labs in AM. Mild anemia, stable. 12/31/16 12:49-[facility] Last blood sugar 122 at 10:30 this morning, patient nothing by mouth in anticipation of surgery. Will monitor every 2 hours until surgery in the event glucose containing fluids become necessary. Overall diabetes control improving. Pain well controlled at present. Peripheral IV being utilized for vancomycin-clarify with orthopedics how long antibiotics anticipated, may benefit from PICC. To the operating room later today for debridement. Blood pressure stable. Hemoglobin down from 12.5 on admission to current value of 8.6; monitor closely for the next couple of days with further surgical debridement. May benefit from nocturnal oximetry prior to discharge due to history of sleep apnea; suspect patient needs repeat sleep study based on history. 01/01/17 Increase in fever overnight. Obtained labs, lactate and blood cultures. Continues on Vanco. Blood sugars well controlled 01/02/17-plan Recheck H&H this morning In light of decline in hemoglobin. 4. A.m. blood draw revealed hemoglobin of 6.8, redraw at 930. Indicates 7.5. Did check an ammonia level given encephalopathy and confusion however it was negative less than 9. Oxycodone is decreased to 5 milligrams as this may play a role in confusion. Continues to have fevers overnight of unknown origin. Highest fever was 100.8. White count this morning did increase to 14. No tachycardia or other sirs criteria. Chest x-ray was performed yesterday that was unremarkable, urine was negative. He did have urinary retention overnight and required straight catheterization. He does not have any other indication of skin wound source of infection. No diarrhea or abdominal pain. Blood cultures remain negative at 24 hour eren. Continue with Vancomycin given fever and leukocytosis Will discuss blood transfusion with attending. Will discuss further order and plan of care with orthopedic team and attending 01/04/17 12:00 01/04/17 s/p wound I&D per Dr. Nolasco. Continue wound vac, Vanco. New onset fevers- CXR, CT is negative LP done, appears negative. Cx NGTD. CRP is trending downward. Repeat UA today. Will obtain BC x 2, one from PICC, one peripheral. DM2- BG is fairly well controlled. He did receive a unit of blood yesterday, HGB is trending down again. Repeat CBC now. Repeat labs in AM. Low back is tender- apply lidoderm patch. Tissue does appear a bit swollen, but not red or warm. Monitor. Start LMWH in AM for DVT prophylaxis if labs remain stable today. 01/05/17 15:43-Gloria Monroe continues to improve clinically with resolution of excessive somnolence and other atypical neurological symptoms. Visual symptoms persist and are not currently explained, may require formal eye exam in the near future. Continue Levaquin for pseudomonas and second gram-negative dannielle not yet identified in conjunction with vancomycin for previously identified gram- positive organisms. Anticipate return to the operating room tomorrow after discussion with Dr. Nolasco earlier today. CSF culture negative. Blood sugars modestly increased the past 24 hours although remaining under 200. Oral intake improving and insulins have largely been resumed although NovoLog held this morning due to anticipated poor intake. Hemoglobin drifting down, reassess in a.m.-will likely require additional blood with surgery tomorrow. Bladder training initiated, will hopefully be able to discontinue Khan after next procedure. 01/07/17 DC Khan this afternoon. Anemia - hgb down to 7.1 though pt is asymptomatic. Recheck in am - may need another transfusion. Continue Vanco and cefepime per Dr. Navarro - she's recommending a 6-week course. Suspect thrombocytosis is reactive. Hyperglycemia associated with supper - likely can resume insulin pump. <Peyton Green - Last Filed: 01/09/17 20:52> Objective Vital signs: Temperature 96.9 F 01/09/17 20:09 Pulse Rate 84 01/09/17 20:09 Respiratory Rate 18 01/09/17 20:09 Blood Pressure 150/78 H 01/09/17 20:09 Pulse Oximetry 98 01/09/17 20:09 Height/Weight/BMI: Weight 136.2 kg Results - Labs CBC & Chem 7: 01/09/17 04:31 01/09/17 04:31 Microbiology Results: Microbiology 01/04/17 12:19 Cath/Port/Line/Picc Blood Culture - Final No Growth After 5 Days 01/04/17 12:19 Cath/Port/Line/Picc Blood Culture - Final No Growth After 5 Days 01/03/17 15:48 Csf, Lumbar Puncture Gram Stain - Final 01/03/17 15:48 Csf, Lumbar Puncture CSF Culture - Final No Growth After 3 Days 01/03/17 23:30 Amputation Site Gram Stain - Final 01/03/17 23:30 Amputation Site Surgical Culture - Final Enterobacter cloacae Pseudomonas aeruginosa 01/03/17 23:30 Tibia, Left, Bone Gram Stain - Final 01/03/17 23:30 Tibia, Left, Bone Surgical Culture - Final Enterobacter cloacae Pseudomonas aeruginosa 01/03/17 23:30 Amputation Site Gram Stain - Final 01/03/17 23:30 Amputation Site Surgical Culture - Final Enterobacter cloacae Pseudomonas aeruginosa 01/01/17 09:04 Peripheral/Iv Start Blood Culture - Final No Growth After 5 Days 01/01/17 09:12 Peripheral/Iv Start Blood Culture - Final No Growth After 5 Days Assessment and Plan (1) Dehiscence of amputation stump Current visit: Yes Status: Acute (2) DM2 (diabetes mellitus, type 2) Problem details: A1c 8.4 on 11/22/16 Current visit: Yes Status: Chronic (3) Wound infection, posttraumatic Problem details: BKA stump infection, follows wound dehiscence Current visit: Yes Status: Acute Assessment and Plan: 01/09/2017-I reviewed this chart, the patient history, and the [employer]'s/PA's documented findings as above. We discussed and formulated the assessment and plan as above with the additions below.-Dr. Green Patient states he is feeling well. He is having some bilateral knee pain that he rates as a 6 on a scale of 1-10. He has no other complaints. Plans tentatively are for discharge on Friday. He states he is starting hyperbaric oxygen therapy on Friday. We discussed possible need for Lovenox for DVT prophylaxis at discharge. I think this would be a good idea if his insurance will cover this. Overall, he appears to be doing well. On exam he is alert and oriented and in no acute distress. Chest is clear to auscultation. Cardiovascular reveals a regular rate and rhythm. Abdomen is soft and nontender. Wound VAC is on the left BKA stump. Plan Continue with current antibiotics and tentatively plan for discharge on Friday Will try to arrange Lovenox injections at discharge The patient has sleep apnea but has not been using his CPAP because it is broken. He has not seen a sleep specialist in over 10 years. He will need reevaluation with a sleep specialist after discharge. Hospital Course Summary Disclaimer: The visit summary below is not to be considered part of the above Progress Note.
[2017-01-09] MEDS: INSULIN GLARGINE 100unit/ml INJECTION SQ SCH (22:08)
[2017-01-09] MEDS: LIDOCAINE PATCH REMOVAL TOP SCH (22:09)
[2017-01-09] MEDS: PRAVASTATIN 20 MG TABLET PO SCH (22:09)
[2017-01-10] MEDS: CEFEPIME 1 GM in NS 100 ML IV SCH ×4 (03:30→22:13)
[2017-01-10] MEDS: MAGNESIUM OXIDE 400 MG TABLET PO SCH (09:08)
[2017-01-10] MEDS: ASCORBIC ACID 500 MG TABLET PO SCH (09:08)
[2017-01-10] MEDS: FERROUS SULFATE 324 MG TABLET PO SCH (09:08)
[2017-01-10] MEDS: POLYETHYL GLYCOL 3350 17gm PACKET PO SCH (09:08)
[2017-01-10] MEDS: LOSARTAN 50 MG TABLET PO SCH (09:08)
[2017-01-10] MEDS: METFORMIN 1,000 MG TABLET PO SCH ×2 (09:08→17:45)
[2017-01-10] MEDS: SENNA + DOCUSATE TABLET PO SCH ×2 (09:08→22:13)
[2017-01-10] MEDS: INSULIN ASPART 100unit/ml INJECTION SQ SCH ×3 (09:09→17:45)
[2017-01-10] MEDS: ACETAMINOPHEN 325 MG TABLET PO SCH ×4 (09:09→22:13)
[2017-01-10] MEDS: ENOXAPARIN 40 MG/0.4 ML INJECTION SQ SCH (09:10)
--- NOTE | 2017-01-10 10:13 | Pharmacy Consult-Antibiotics ---
Pharmacy Consult-Vancomycin - Laboratory Information WBC 10.3 T/MM3 (4.5-11.0) 01/10/17 04:59 BUN 15.0 MG/DL (9-20) 01/10/17 04:59 Creatinine 0.7 MG/DL (0.8-1.5) L 01/10/17 04:59 Vancomycin Trough 19.44 UG/ML (15-20) 01/10/17 04:59 DAY 16 OF VANCOMYCIN THERAPY. Trough level WNL of 15-20mcg/ml. Renal fx stable. Will continue present regimen of VANCOMYCIN 1750mg IV q12hrs. Thank you.
--- NOTE | 2017-01-10 13:16 | Orthopedic Progress Note ---
Date: Subjective/Severity of Illness: Fer has no new complaints today. Wound vac was changed yesterday. Orthopedic Objective Vital signs: Temperature 95.2 F L 01/10/17 08:00 Pulse Rate 83 01/10/17 08:00 Respiratory Rate 16 01/10/17 08:00 Blood Pressure 146/79 H 01/10/17 08:00 Pulse Oximetry 94 01/10/17 08:00 Height and Weight: Weight 133 kg - Constitutional General Appearance: Present: alert, orientated x2, no acute distress, obese - Respiratory Exam Present: non-labored (CXR done this AM . Results pending.) - Cardiovascular Exam Capillary Refill: < 2-3 Seconds - Integumentary Exam Present: other (Surrounding tissues look healthy. ) - Lymphatic Lymphatic: Absent: adenopathy - Wound Management Left Leg Wound Length: 9.5 Wound Width: 17.5 Wound Depth: 1.8 Bed Appearance: Beefy Red Surrounding Tissue Appearance: Well Defined Drainage Description: Sanguineous Drainage Amount: Moderate Drainage Odor: No Odor Dressing Status: Changed Irrigant Solution: Saline Irrigant Packing Type: Woundvac Sponge Number of Packing Pieces Removed?: 4 Number of Packing Pieces Placed?: 4 Dressing Change Date: 01/09/17 Dressing Change Time: 08:00 Dressing Change Patient Tolerance: Tolerated Well Left Lower Leg Wound Type: Open Wound Wound Length: 12 Wound Width: 2 Wound Depth: 1.5 Surrounding Tissue Appearance: [place] Drainage Description: Serosanguineous Drainage Amount: Moderate Drainage Odor: No Odor Dressing Status: Dry & Intact Irrigant Solution: Saline Irrigant Packing Type: Woundvac Sponge Primary Dressing: Medicated Gauze Pad Dressing Change Patient Tolerance: Tolerated Well - Labs Result Diagrams: 01/10/17 04:59 01/10/17 04:59 Abnormal lab results 01/10/17 01/10/17 Range/Units 04:59 04:59 RBC 2.83 L (4.50-5.90) M/MM3 Hgb 7.6 L (13.5-17.5) GM/DL Hct 23.8 L (41-53) % Plt Count 476 H (130-400) T/MM3 Immature Gran % (Auto) 1.9 H (0.0-0.5) % Neut % (Auto) 70.9 H (33-66) % Lymph % (Auto) 18.2 L (23-45) % Abs Immat Gran (auto) 0.20 H (0.00-0.03) T/MM3 Creatinine 0.7 L (0.8-1.5) MG/DL H & H 12/27/16 12/28/16 12/30/16 Range/Units 04:26 04:27 04:12 Hgb 10.2 L D 10.1 L 9.1 L (13.5-17.5) GM/DL Hct 31.6 L D 31.6 L 28.3 L (41-53) % 12/31/16 01/01/17 01/02/17 Range/Units 04:30 04:34 04:25 Hgb 8.6 L 8.1 L 6.8 L D (13.5-17.5) GM/DL Hct 26.5 L 25.5 L 21.1 L D (41-53) % 01/02/17 01/02/17 01/03/17 Range/Units 09:30 19:18 00:54 Hgb 7.5 L 7.0 L Cancelled (13.5-17.5) GM/DL Hct 21.1 L (41-53) % 01/03/17 01/03/17 01/04/17 Range/Units 00:54 10:22 03:53 Hgb 7.8 L D 8.2 L 7.1 L D (13.5-17.5) GM/DL Hct 23.6 L D 24.7 L 21.8 L D (41-53) % 01/04/17 01/05/17 01/06/17 Range/Units 12:19 04:03 10:24 Hgb 7.9 L D 7.5 L 7.4 L (13.5-17.5) GM/DL Hct 24.4 L D 23.0 L 23.1 L (41-53) % 01/07/17 01/08/17 01/09/17 Range/Units 05:07 03:58 04:31 Hgb 7.1 L 7.1 L 7.6 L (13.5-17.5) GM/DL Hct 22.6 L 22.5 L 24.2 L (41-53) % 01/10/17 Range/Units 04:59 Hgb 7.6 L (13.5-17.5) GM/DL Hct 23.8 L (41-53) % Coagulation 01/03/17 Range/Units 10:22 INR 1.24 H (0.99-1.21) Orthopedic Assessment and Plan (1) Dehiscence of amputation stump Status: Acute Assessment and Plan: Pathology report from previous surgery shows acute osteomylitis. I recommended continued IV abx per ID and wound vac. I will obtain an MRI on Friday to assess the extend of the osteomyelitis before returning to the OR on Friday afternoon for a repeat debridement and wound vac change. - Anticoagulation Therapy Anticoagulation: Lovenox 40 mg SQ Daily x 30 days from day of surgery Hospital Course Summary Disclaimer: The visit summary below is not to be considered part of the above Progress Note. Hospital Course: 12/28/16 Home diabetic medications restarted and blood sugars showing control. Blood pressure stable on home ARB - renal status and potassium normal. Continue with pain control - ortho changing to oral medications. Encourage IS for pulm toilet. PT/OT consulted to help functional status. Continue with wound care as per Dr Nolasco - anticipate reexploration of wound tomorrow. Medically stable and responding to treatments. 12/29/16 Pt to OR today for wound I&D. Continue Vancomycin- past culture sensitive to Vancomycin. Can discontinue doxycycline as Vancomycin will cover both organisms. BG has been stable. Holding insulin today due to NPO. Started IVF until eating post-op. BP is controlled- Losartan- HCTZ. Plan to repeat labs in AM. Mild anemia, stable. 12/31/16 12:49-Gloria Last blood sugar 122 at 10:30 this morning, patient nothing by mouth in anticipation of surgery. Will monitor every 2 hours until surgery in the event glucose containing fluids become necessary. Overall diabetes control improving. Pain well controlled at present. Peripheral IV being utilized for vancomycin-clarify with orthopedics how long antibiotics anticipated, may benefit from PICC. To the operating room later today for debridement. Blood pressure stable. Hemoglobin down from 12.5 on admission to current value of 8.6; monitor closely for the next couple of days with further surgical debridement. May benefit from nocturnal oximetry prior to discharge due to history of sleep apnea; suspect patient needs repeat sleep study based on history. 01/01/17 Increase in fever overnight. Obtained labs, lactate and blood cultures. Continues on Vanco. Blood sugars well controlled 01/02/17-plan Recheck H&H this morning In light of decline in hemoglobin. 4. A.m. blood draw revealed hemoglobin of 6.8, redraw at 930. Indicates 7.5. Did check an ammonia level given encephalopathy and confusion however it was negative less than 9. Oxycodone is decreased to 5 milligrams as this may play a role in confusion. Continues to have fevers overnight of unknown origin. Highest fever was 100.8. White count this morning did increase to 14. No tachycardia or other sirs criteria. Chest x-ray was performed yesterday that was unremarkable, urine was negative. He did have urinary retention overnight and required straight catheterization. He does not have any other indication of skin wound source of infection. No diarrhea or abdominal pain. Blood cultures remain negative at 24 hour eren. Continue with Vancomycin given fever and leukocytosis Will discuss blood transfusion with attending. Will discuss further order and plan of care with orthopedic team and attending 01/04/17 12:00 01/04/17 s/p wound I&D per Dr. Nolasco. Continue wound vac, Vanco. New onset fevers- CXR, CT is negative LP done, appears negative. Cx NGTD. CRP is trending downward. Repeat UA today. Will obtain BC x 2, one from PICC, one peripheral. DM2- BG is fairly well controlled. He did receive a unit of blood yesterday, HGB is trending down again. Repeat CBC now. Repeat labs in AM. Low back is tender- apply lidoderm patch. Tissue does appear a bit swollen, but not red or warm. Monitor. Start LMWH in AM for DVT prophylaxis if labs remain stable today. 01/05/17 15:43-Gloria Joe continues to improve clinically with resolution of excessive somnolence and other atypical neurological symptoms. Visual symptoms persist and are not currently explained, may require formal eye exam in the near future. Continue Levaquin for pseudomonas and second gram-negative dannielle not yet identified in conjunction with vancomycin for previously identified gram- positive organisms. Anticipate return to the operating room tomorrow after discussion with Dr. Nolasco earlier today. CSF culture negative. Blood sugars modestly increased the past 24 hours although remaining under 200. Oral intake improving and insulins have largely been resumed although NovoLog held this morning due to anticipated poor intake. Hemoglobin drifting down, reassess in a.m.-will likely require additional blood with surgery tomorrow. Bladder training initiated, will hopefully be able to discontinue Khan after next procedure. 01/07/17 DC Khan this afternoon. Anemia - hgb down to 7.1 though pt is asymptomatic. Recheck in am - may need another transfusion. Continue Vanco and cefepime per Dr. Navarro - she's recommending a 6-week course. Suspect thrombocytosis is reactive. Hyperglycemia associated with supper - likely can resume insulin pump.
--- NOTE | 2017-01-10 13:21 | Progress Note ---
<Ami Mckenzie V - Last Filed: 01/10/17 13:11> Subjective: Fer is seen this afternoon finishing up lunch. He states he is feeling good without new complaints. Pain is overall controlled. Blood sugars have been well controlled, Fasting sugar this morning was 84 this morning. BP 146/79 this morning. Objective Vital signs: Temperature 95.2 F L 01/10/17 08:00 Pulse Rate 83 01/10/17 08:00 Respiratory Rate 16 01/10/17 08:00 Blood Pressure 146/79 H 01/10/17 08:00 Pulse Oximetry 94 01/10/17 08:00 Height/Weight/BMI: Weight 133 kg - Constitutional Present: no acute distress, well nourished, well developed - Routine HEENT Exam Head: Present: normocephalic Eye: Present: EOMI ENT: Present: mucous membranes moist, dentition normal - Routine Respiratory Exam Present: CTA bilaterally. Absent: wheezes - Routine Cardiovascular Exam Present: RRR, S1, S2. Absent: murmur - Routine Abdominal Exam Present: soft, normoactive bowel sounds, non distended. Absent: tenderness - Routine Extremities Exam Comments: LLE wound vac intact. - Routine Back/Spine/Pelvis Exam Back/Spine: Present: full ROM - Routine Skin Exam Present: intact, dry, warm - Routine Neurological Exam Present: alert, oriented X3, CN II-XII intact - Routine Lymphatic Exam Lymphatic: Absent: adenopathy - Routine Psychiatric Exam Present: normal affect, normal thought process Results - Labs CBC & Chem 7: 01/10/17 04:59 01/10/17 04:59 Microbiology Results: Microbiology 01/04/17 12:19 Cath/Port/Line/Picc Blood Culture - Final No Growth After 5 Days 01/04/17 12:19 Cath/Port/Line/Picc Blood Culture - Final No Growth After 5 Days 01/03/17 15:48 Csf, Lumbar Puncture Gram Stain - Final 01/03/17 15:48 Csf, Lumbar Puncture CSF Culture - Final No Growth After 3 Days 01/03/17 23:30 Amputation Site Gram Stain - Final 01/03/17 23:30 Amputation Site Surgical Culture - Final Enterobacter cloacae Pseudomonas aeruginosa 01/03/17 23:30 Tibia, Left, Bone Gram Stain - Final 01/03/17 23:30 Tibia, Left, Bone Surgical Culture - Final Enterobacter cloacae Pseudomonas aeruginosa 01/03/17 23:30 Amputation Site Gram Stain - Final 01/03/17 23:30 Amputation Site Surgical Culture - Final Enterobacter cloacae Pseudomonas aeruginosa 01/01/17 09:04 Peripheral/Iv Start Blood Culture - Final No Growth After 5 Days 01/01/17 09:12 Peripheral/Iv Start Blood Culture - Final No Growth After 5 Days Assessment and Plan (1) Dehiscence of amputation stump Current visit: Yes Status: Acute 12/26/16 21:23 TO OR tonight with NPO, prn MSO4, etc. 12/26/16 21:25 Reassess renal function in the AM with pharmacy eval for Vanco to continue. (2) DM2 (diabetes mellitus, type 2) Problem details: A1c 8.4 on 11/22/16 Current visit: Yes Status: Chronic 12/26/16 21:24 only 10 units levemir instead of 18u for now qhs with SSI and hold scheduled novolog and metformin (3) Wound infection, posttraumatic Problem details: BKA stump infection, follows wound dehiscence Current visit: Yes Status: Acute Assessment and Plan: Impression Fever, leukocytosis, L BKA stump wound infection/dehiscence, s/p I&D 12/26, 12/31 , 01/03, wound and tibial bone cultures with Pseudomonas and Enterobacter (R to cipro). S/p Repeat I&D 01/06/17. H/o osteomyelitis of the left great toe distal phalanx, with bone biopsy June 28, 2016 growing out methicillin-resistant Staph aureus. S/p 6 weeks of Daptomycin. H/o Gangrene of the left great toe leading to amputation on July 25, 2016. H/o Recurrent osteomyelitis L 3, 4, 5 toes, s/p L TMA on 11/05. H/o Recurrent osteomyelitis L 3rd, 4th, 5th Metatarsals with wound dehiscence. 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 Hypertension. Hyperlipidemia. Coronary artery disease. Sleep apnea. History of depression. Penicillin allergy, rash. Alcohol use. Plan Continue with current antibiotic regimen as recommended by Dr. Navarro Follow up apt made at Dr Mann (pulmonology) office to discuss sleep study- at 1 pm. Located at the Medical [facility] attached to [facility] [address]. Hgb remains stable at 7.6. Have asked nursing staff to teach patient how to give home subcutaneous injections for ongoing Lovenox given his increased risk for DVT Continue to monitor blood sugars At time of discharge medical care will return to PCP was confirmed with patient is Dr. Best Sepsis Assessment - Evaluation Sepsis screening result: No Definite Risk Hospital Course Summary Disclaimer: The visit summary below is not to be considered part of the above Progress Note. Hospital Course: 12/28/16 Home diabetic medications restarted and blood sugars showing control. Blood pressure stable on home ARB - renal status and potassium normal. Continue with pain control - ortho changing to oral medications. Encourage IS for pulm toilet. PT/OT consulted to help functional status. Continue with wound care as per Dr Nolasco - anticipate reexploration of wound tomorrow. Medically stable and responding to treatments. 12/29/16 Pt to OR today for wound I&D. Continue Vancomycin- past culture sensitive to Vancomycin. Can discontinue doxycycline as Vancomycin will cover both organisms. BG has been stable. Holding insulin today due to NPO. Started IVF until eating post-op. BP is controlled- Losartan- HCTZ. Plan to repeat labs in AM. Mild anemia, stable. 12/31/16 12:49-[facility] Last blood sugar 122 at 10:30 this morning, patient nothing by mouth in anticipation of surgery. Will monitor every 2 hours until surgery in the event glucose containing fluids become necessary. Overall diabetes control improving. Pain well controlled at present. Peripheral IV being utilized for vancomycin-clarify with orthopedics how long antibiotics anticipated, may benefit from PICC. To the operating room later today for debridement. Blood pressure stable. Hemoglobin down from 12.5 on admission to current value of 8.6; monitor closely for the next couple of days with further surgical debridement. May benefit from nocturnal oximetry prior to discharge due to history of sleep apnea; suspect patient needs repeat sleep study based on history. 01/01/17 Increase in fever overnight. Obtained labs, lactate and blood cultures. Continues on Vanco. Blood sugars well controlled 01/02/17-plan Recheck H&H this morning In light of decline in hemoglobin. 4. A.m. blood draw revealed hemoglobin of 6.8, redraw at 930. Indicates 7.5. Did check an ammonia level given encephalopathy and confusion however it was negative less than 9. Oxycodone is decreased to 5 milligrams as this may play a role in confusion. Continues to have fevers overnight of unknown origin. Highest fever was 100.8. White count this morning did increase to 14. No tachycardia or other sirs criteria. Chest x-ray was performed yesterday that was unremarkable, urine was negative. He did have urinary retention overnight and required straight catheterization. He does not have any other indication of skin wound source of infection. No diarrhea or abdominal pain. Blood cultures remain negative at 24 hour eren. Continue with Vancomycin given fever and leukocytosis Will discuss blood transfusion with attending. Will discuss further order and plan of care with orthopedic team and attending 01/04/17 12:00 01/04/17 s/p wound I&D per Dr. Nolasco. Continue wound vac, Vanco. New onset fevers- CXR, CT is negative LP done, appears negative. Cx NGTD. CRP is trending downward. Repeat UA today. Will obtain BC x 2, one from PICC, one peripheral. DM2- BG is fairly well controlled. He did receive a unit of blood yesterday, HGB is trending down again. Repeat CBC now. Repeat labs in AM. Low back is tender- apply lidoderm patch. Tissue does appear a bit swollen, but not red or warm. Monitor. Start LMWH in AM for DVT prophylaxis if labs remain stable today. 01/05/17 15:43-Gloria Monroe continues to improve clinically with resolution of excessive somnolence and other atypical neurological symptoms. Visual symptoms persist and are not currently explained, may require formal eye exam in the near future. Continue Levaquin for pseudomonas and second gram-negative dannielle not yet identified in conjunction with vancomycin for previously identified gram- positive organisms. Anticipate return to the operating room tomorrow after discussion with Dr. Nolasco earlier today. CSF culture negative. Blood sugars modestly increased the past 24 hours although remaining under 200. Oral intake improving and insulins have largely been resumed although NovoLog held this morning due to anticipated poor intake. Hemoglobin drifting down, reassess in a.m.-will likely require additional blood with surgery tomorrow. Bladder training initiated, will hopefully be able to discontinue Khan after next procedure. 01/07/17 DC Khan this afternoon. Anemia - hgb down to 7.1 though pt is asymptomatic. Recheck in am - may need another transfusion. Continue Vanco and cefepime per Dr. Navarro - she's recommending a 6-week course. Suspect thrombocytosis is reactive. Hyperglycemia associated with supper - likely can resume insulin pump. 01/10/17 Plan Continue with current antibiotic regimen as recommended by Dr. Navarro Follow up apt made at Dr Mann (pulmonology) office to discuss sleep study- at 1 pm. Located at the Medical office [place] attached to [facility] [address]. Hgb remains stable at 7.6. Have asked nursing staff to teach patient how to give home subcutaneous injections for ongoing Lovenox given his increased risk for DVT Continue to monitor blood sugars At time of discharge medical care will return to PCP was confirmed with patient is Dr. Best <Peyton Green - Last Filed: 01/10/17 15:53> Objective Vital signs: Temperature 95.2 F L 01/10/17 08:00 Pulse Rate 83 01/10/17 08:00 Respiratory Rate 16 01/10/17 08:00 Blood Pressure 146/79 H 01/10/17 08:00 Pulse Oximetry 94 01/10/17 08:00 Height/Weight/BMI: Weight 133 kg Results - Labs CBC & Chem 7: 01/10/17 04:59 01/10/17 04:59 Microbiology Results: Microbiology 01/04/17 12:19 Cath/Port/Line/Picc Blood Culture - Final No Growth After 5 Days 01/04/17 12:19 Cath/Port/Line/Picc Blood Culture - Final No Growth After 5 Days 01/03/17 15:48 Csf, Lumbar Puncture Gram Stain - Final 01/03/17 15:48 Csf, Lumbar Puncture CSF Culture - Final No Growth After 3 Days 01/03/17 23:30 Amputation Site Gram Stain - Final 01/03/17 23:30 Amputation Site Surgical Culture - Final Enterobacter cloacae Pseudomonas aeruginosa 01/03/17 23:30 Tibia, Left, Bone Gram Stain - Final 01/03/17 23:30 Tibia, Left, Bone Surgical Culture - Final Enterobacter cloacae Pseudomonas aeruginosa 01/03/17 23:30 Amputation Site Gram Stain - Final 01/03/17 23:30 Amputation Site Surgical Culture - Final Enterobacter cloacae Pseudomonas aeruginosa 01/01/17 09:04 Peripheral/Iv Start Blood Culture - Final No Growth After 5 Days 01/01/17 09:12 Peripheral/Iv Start Blood Culture - Final No Growth After 5 Days Assessment and Plan (1) Dehiscence of amputation stump Current visit: Yes Status: Acute (2) DM2 (diabetes mellitus, type 2) Problem details: A1c 8.4 on 11/22/16 Current visit: Yes Status: Chronic (3) Wound infection, posttraumatic Problem details: BKA stump infection, follows wound dehiscence Current visit: Yes Status: Acute Assessment and Plan: 01/10/2017-I reviewed this chart, the patient history, and the TANKER DRIVER's/PA's documented findings as above. We discussed and formulated the assessment and plan as above with the additions below.-Dr. Green The patient was seen today accompanied by his mother. He states he is feeling okay. He denies any chest pain, shortness of breath or lightheadedness. He is eating and drinking well. Bowels are moving okay. He is urinating without difficulties. He states that the physical therapist gave him some exercises to do and not is helping with his knee pain. On exam he is alert and oriented and in no acute distress. Chest is clear to auscultation. Cardiovascular reveals a regular rate and rhythm. Abdomen is soft , obese and nontender with positive bowel sounds. Extremities reveal wound VAC on the left BKA. Right lower extremity reveals trace edema. I did talk with Dr. Nolasco today and he stated that pathology showed osteomyelitis and he is recommending repeat MRI on Friday and then proceeding with surgery to remove the areas of osteomyelitis. The patient stated that if he needs an [id number] amputation, that is okay he just wants to make sure all of the infection is gone. Otherwise, the patient appears to be stable. We'll continue with current antibiotics. Blood sugars are very well controlled. Blood pressures are fairly well controlled. Discussed plans with case management today as well. Hospital Course Summary Disclaimer: The visit summary below is not to be considered part of the above Progress Note.
[2017-01-10] MEDS: SALINE FLUSH 10ml SYRINGE IV PRN (15:30)
[2017-01-10] MEDS: INSULIN GLARGINE 100unit/ml INJECTION SQ SCH (22:04)
[2017-01-10] MEDS: PRAVASTATIN 20 MG TABLET PO SCH (22:13)
[2017-01-10] MEDS: NS FLUSH BAG 500ml IV PRN (22:17)
[2017-01-11] MEDS: SALINE FLUSH 10ml SYRINGE IV PRN (03:50)
[2017-01-11] MEDS: CEFEPIME 1 GM in NS 100 ML IV SCH ×4 (03:50→21:08)
[2017-01-11] MEDS: INSULIN ASPART 100unit/ml INJECTION SQ SCH ×3 (08:40→17:46)
[2017-01-11] MEDS: METFORMIN 1,000 MG TABLET PO SCH ×2 (08:41→17:52)
[2017-01-11] MEDS: LOSARTAN 50 MG TABLET PO SCH (08:41)
[2017-01-11] MEDS: ACETAMINOPHEN 325 MG TABLET PO SCH ×4 (08:41→21:09)
[2017-01-11] MEDS: FERROUS SULFATE 324 MG TABLET PO SCH (08:41)
[2017-01-11] MEDS: POLYETHYL GLYCOL 3350 17gm PACKET PO SCH (08:42)
[2017-01-11] MEDS: MAGNESIUM OXIDE 400 MG TABLET PO SCH (08:42)
[2017-01-11] MEDS: ASCORBIC ACID 500 MG TABLET PO SCH (08:42)
--- NOTE | 2017-01-11 09:44 | Orthopedic Progress Note ---
Date: Subjective/Severity of Illness: Fer had several questions about the MRI and surgical plan next week. MRI scheduled for Friday around 11 am. He is tolerating the IV antibiotics ok. Bowels working. He is taking some "Boost" supplements for added nutrition. No other concerns. Pain is doing "okay" this AM. Orthopedic Objective PO Vital signs: Temperature 98.2 F 01/11/17 08:23 Pulse Rate 87 01/11/17 08:23 Respiratory Rate 18 01/11/17 08:23 Blood Pressure 156/78 H 01/11/17 08:23 Pulse Oximetry 97 01/11/17 08:23 Height and Weight: Weight 288 lb 12.889 oz - Constitutional General Appearance: Present: alert, no acute distress, obese - Respiratory Exam Present: non-labored (CXR done this AM . Results pending.) - Extremities Exam Extremities: Present: amputation (dressing dry) - Surgical Site Incision: dressing intact Wound Drainage: minimal amount Drains Present: negative pressure therapy - Integumentary Exam Present: other (Surrounding tissues look healthy. ) - Lymphatic Lymphatic: Present: adenopathy - Psychiatric Exam Present: alert, normal affect - Wound Management Left Leg Wound Type: Surgical Incision (Left BKA site) Wound Length: 9.5 Wound Width: 17.5 Wound Depth: 1.8 Drainage Odor: No Odor Packing Type: Woundvac Sponge Number of Packing Pieces Removed?: 4 Number of Packing Pieces Placed?: 4 Dressing Change Date: 01/09/17 Dressing Change Time: 08:00 Left Lower Leg Wound Length: 12 Wound Width: 2 Wound Depth: 1.5 Dressing Change Patient Tolerance: Tolerated Well - Labs Result Diagrams: 01/10/17 04:59 01/10/17 04:59 H & H 12/27/16 12/28/16 12/30/16 Range/Units 04:26 04:27 04:12 Hgb 10.2 L D 10.1 L 9.1 L (13.5-17.5) GM/DL Hct 31.6 L D 31.6 L 28.3 L (41-53) % 12/31/16 01/01/17 01/02/17 Range/Units 04:30 04:34 04:25 Hgb 8.6 L 8.1 L 6.8 L D (13.5-17.5) GM/DL Hct 26.5 L 25.5 L 21.1 L D (41-53) % 01/02/17 01/02/17 01/03/17 Range/Units 09:30 19:18 00:54 Hgb 7.5 L 7.0 L Cancelled (13.5-17.5) GM/DL Hct 21.1 L (41-53) % 01/03/17 01/03/17 01/04/17 Range/Units 00:54 10:22 03:53 Hgb 7.8 L D 8.2 L 7.1 L D (13.5-17.5) GM/DL Hct 23.6 L D 24.7 L 21.8 L D (41-53) % 01/04/17 01/05/17 01/06/17 Range/Units 12:19 04:03 10:24 Hgb 7.9 L D 7.5 L 7.4 L (13.5-17.5) GM/DL Hct 24.4 L D 23.0 L 23.1 L (41-53) % 01/07/17 01/08/17 01/09/17 Range/Units 05:07 03:58 04:31 Hgb 7.1 L 7.1 L 7.6 L (13.5-17.5) GM/DL Hct 22.6 L 22.5 L 24.2 L (41-53) % 01/10/17 Range/Units 04:59 Hgb 7.6 L (13.5-17.5) GM/DL Hct 23.8 L (41-53) % Coagulation 01/03/17 Range/Units 10:22 INR 1.24 H (0.99-1.21) Orthopedic Assessment and Plan (1) Dehiscence of amputation stump Status: Acute Assessment and Plan: Pathology report from previous surgery shows acute osteomylitis. I recommended continued IV abx per ID and wound vac. I will obtain an MRI on Friday to assess the extend of the osteomyelitis before returning to the OR on Friday afternoon for a repeat debridement and wound vac change. - Anticoagulation Therapy Anticoagulation: other (Lovenox) Hospital Course Summary Disclaimer: The visit summary below is not to be considered part of the above Progress Note. Hospital Course: 12/28/16 Home diabetic medications restarted and blood sugars showing control. Blood pressure stable on home ARB - renal status and potassium normal. Continue with pain control - ortho changing to oral medications. Encourage IS for pulm toilet. PT/OT consulted to help functional status. Continue with wound care as per Dr Nolasco - anticipate reexploration of wound tomorrow. Medically stable and responding to treatments. 12/29/16 Pt to OR today for wound I&D. Continue Vancomycin- past culture sensitive to Vancomycin. Can discontinue doxycycline as Vancomycin will cover both organisms. BG has been stable. Holding insulin today due to NPO. Started IVF until eating post-op. BP is controlled- Losartan- HCTZ. Plan to repeat labs in AM. Mild anemia, stable. 12/31/16 12:49-[facility] Last blood sugar 122 at 10:30 this morning, patient nothing by mouth in anticipation of surgery. Will monitor every 2 hours until surgery in the event glucose containing fluids become necessary. Overall diabetes control improving. Pain well controlled at present. Peripheral IV being utilized for vancomycin-clarify with orthopedics how long antibiotics anticipated, may benefit from PICC. To the operating room later today for debridement. Blood pressure stable. Hemoglobin down from 12.5 on admission to current value of 8.6; monitor closely for the next couple of days with further surgical debridement. May benefit from nocturnal oximetry prior to discharge due to history of sleep apnea; suspect patient needs repeat sleep study based on history. 01/01/17 Increase in fever overnight. Obtained labs, lactate and blood cultures. Continues on Vanco. Blood sugars well controlled 01/02/17-plan Recheck H&H this morning In light of decline in hemoglobin. 4. A.m. blood draw revealed hemoglobin of 6.8, redraw at 930. Indicates 7.5. Did check an ammonia level given encephalopathy and confusion however it was negative less than 9. Oxycodone is decreased to 5 milligrams as this may play a role in confusion. Continues to have fevers overnight of unknown origin. Highest fever was 100.8. White count this morning did increase to 14. No tachycardia or other sirs criteria. Chest x-ray was performed yesterday that was unremarkable, urine was negative. He did have urinary retention overnight and required straight catheterization. He does not have any other indication of skin wound source of infection. No diarrhea or abdominal pain. Blood cultures remain negative at 24 hour eren. Continue with Vancomycin given fever and leukocytosis Will discuss blood transfusion with attending. Will discuss further order and plan of care with orthopedic team and attending 01/04/17 12:00 01/04/17 s/p wound I&D per Dr. Nolasco. Continue wound vac, Vanco. New onset fevers- CXR, CT is negative LP done, appears negative. Cx NGTD. CRP is trending downward. Repeat UA today. Will obtain BC x 2, one from PICC, one peripheral. DM2- BG is fairly well controlled. He did receive a unit of blood yesterday, HGB is trending down again. Repeat CBC now. Repeat labs in AM. Low back is tender- apply lidoderm patch. Tissue does appear a bit swollen, but not red or warm. Monitor. Start LMWH in AM for DVT prophylaxis if labs remain stable today. 01/05/17 15:43-Gloria Monroe continues to improve clinically with resolution of excessive somnolence and other atypical neurological symptoms. Visual symptoms persist and are not currently explained, may require formal eye exam in the near future. Continue Levaquin for pseudomonas and second gram-negative dannielle not yet identified in conjunction with vancomycin for previously identified gram- positive organisms. Anticipate return to the operating room tomorrow after discussion with Dr. Nolasco earlier today. CSF culture negative. Blood sugars modestly increased the past 24 hours although remaining under 200. Oral intake improving and insulins have largely been resumed although NovoLog held this morning due to anticipated poor intake. Hemoglobin drifting down, reassess in a.m.-will likely require additional blood with surgery tomorrow. Bladder training initiated, will hopefully be able to discontinue Khan after next procedure. 01/07/17 DC Khan this afternoon. Anemia - hgb down to 7.1 though pt is asymptomatic. Recheck in am - may need another transfusion. Continue Vanco and cefepime per Dr. Navarro - she's recommending a 6-week course. Suspect thrombocytosis is reactive. Hyperglycemia associated with supper - likely can resume insulin pump. 01/10/17 Plan Continue with current antibiotic regimen as recommended by Dr. Navarro Follow up apt made at Dr Mann (pulmonology) office to discuss sleep study- at 1 pm. Located at the Medical office [place] attached to [facility] [address]. Hgb remains stable at 7.6. Have asked nursing staff to teach patient how to give home subcutaneous injections for ongoing Lovenox given his increased risk for DVT Continue to monitor blood sugars At time of discharge medical care will return to PCP was confirmed with patient is Dr. Best
--- NOTE | 2017-01-11 11:03 | Progress Note ---
<Ami Mckenzie V - Last Filed: 01/11/17 10:57> Subjective: Fer is seen today in follow up while resting this morning. He is without complaints today. Denies chest pain, shortness of breath or GI concerns. Voiding and bowels moving without difficulty. He is taking Boost for additional supplementation. Remains afebrile, blood pressure this morning 156/78. Objective Vital signs: Temperature 98.2 F 01/11/17 08:23 Pulse Rate 87 01/11/17 08:23 Respiratory Rate 18 01/11/17 08:23 Blood Pressure 156/78 H 01/11/17 08:23 Pulse Oximetry 97 01/11/17 08:23 Height/Weight/BMI: Weight 131 kg - Constitutional Present: no acute distress, well nourished, well developed - Routine HEENT Exam Eye: Present: EOMI ENT: Present: mucous membranes moist, dentition normal - Routine Respiratory Exam Present: CTA bilaterally. Absent: wheezes - Routine Cardiovascular Exam Present: RRR, S1, S2. Absent: murmur - Routine Abdominal Exam Present: soft, normoactive bowel sounds, non distended. Absent: tenderness - Routine Extremities Exam Present: non tender, full ROM, normal capillary refill Comments: Wound Vac to LLE - Routine Skin Exam Present: dry, warm - Routine Neurological Exam Present: alert, oriented X3, CN II-XII intact - Routine Lymphatic Exam Lymphatic: Absent: adenopathy - Routine Psychiatric Exam Present: normal affect Results - Labs CBC & Chem 7: 01/10/17 04:59 01/10/17 04:59 Microbiology Results: Microbiology 01/04/17 12:19 Cath/Port/Line/Picc Blood Culture - Final No Growth After 5 Days 01/04/17 12:19 Cath/Port/Line/Picc Blood Culture - Final No Growth After 5 Days 01/03/17 15:48 Csf, Lumbar Puncture Gram Stain - Final 01/03/17 15:48 Csf, Lumbar Puncture CSF Culture - Final No Growth After 3 Days 01/03/17 23:30 Amputation Site Gram Stain - Final 01/03/17 23:30 Amputation Site Surgical Culture - Final Enterobacter cloacae Pseudomonas aeruginosa 01/03/17 23:30 Tibia, Left, Bone Gram Stain - Final 01/03/17 23:30 Tibia, Left, Bone Surgical Culture - Final Enterobacter cloacae Pseudomonas aeruginosa 01/03/17 23:30 Amputation Site Gram Stain - Final 01/03/17 23:30 Amputation Site Surgical Culture - Final Enterobacter cloacae Pseudomonas aeruginosa 01/01/17 09:04 Peripheral/Iv Start Blood Culture - Final No Growth After 5 Days 01/01/17 09:12 Peripheral/Iv Start Blood Culture - Final No Growth After 5 Days Assessment and Plan (1) Dehiscence of amputation stump Current visit: Yes Status: Acute 12/26/16 21:23 TO OR tonight with NPO, prn MSO4, etc. 12/26/16 21:25 Reassess renal function in the AM with pharmacy eval for Vanco to continue. 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 S/p Repeat I&D 01/06/17. H/o osteomyelitis of the left great toe distal phalanx, with bone biopsy June 28, 2016 growing out methicillin-resistant Staph aureus. S/p 6 weeks of Daptomycin. H/o Gangrene of the left great toe leading to amputation on July 25, 2016. H/o Recurrent osteomyelitis L 3, 4, 5 toes, s/p L TMA on 11/05. H/o Recurrent osteomyelitis L 3rd, 4th, 5th Metatarsals with wound dehiscence. 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 Hypertension. Hyperlipidemia. Coronary artery disease. Sleep apnea. History of depression. Penicillin allergy, rash. Alcohol use. 01/11/17-plan Unfortunately, culture does reveal Pseudomonas osteomyelitis. Orthopedic team is planning to repeat MRI on Friday and will likely take patient to the OR for repeat debridement and wound VAC change. Blood sugars continue to be well controlled He remains afebrile without evidence of clinical sepsis. Hgb stable at 7.6 Continue to work with PT/OT Sepsis Assessment - Evaluation Sepsis screening result: No Definite Risk Hospital Course Summary Disclaimer: The visit summary below is not to be considered part of the above Progress Note. Hospital Course: 12/28/16 Home diabetic medications restarted and blood sugars showing control. Blood pressure stable on home ARB - renal status and potassium normal. Continue with pain control - ortho changing to oral medications. Encourage IS for pulm toilet. PT/OT consulted to help functional status. Continue with wound care as per Dr Nolasco - anticipate reexploration of wound tomorrow. Medically stable and responding to treatments. 12/29/16 Pt to OR today for wound I&D. Continue Vancomycin- past culture sensitive to Vancomycin. Can discontinue doxycycline as Vancomycin will cover both organisms. BG has been stable. Holding insulin today due to NPO. Started IVF until eating post-op. BP is controlled- Losartan- HCTZ. Plan to repeat labs in AM. Mild anemia, stable. 12/31/16 12:49-[facility] Last blood sugar 122 at 10:30 this morning, patient nothing by mouth in anticipation of surgery. Will monitor every 2 hours until surgery in the event glucose containing fluids become necessary. Overall diabetes control improving. Pain well controlled at present. Peripheral IV being utilized for vancomycin-clarify with orthopedics how long antibiotics anticipated, may benefit from PICC. To the operating room later today for debridement. Blood pressure stable. Hemoglobin down from 12.5 on admission to current value of 8.6; monitor closely for the next couple of days with further surgical debridement. May benefit from nocturnal oximetry prior to discharge due to history of sleep apnea; suspect patient needs repeat sleep study based on history. 01/01/17 Increase in fever overnight. Obtained labs, lactate and blood cultures. Continues on Vanco. Blood sugars well controlled 01/02/17-plan Recheck H&H this morning In light of decline in hemoglobin. 4. A.m. blood draw revealed hemoglobin of 6.8, redraw at 930. Indicates 7.5. Did check an ammonia level given encephalopathy and confusion however it was negative less than 9. Oxycodone is decreased to 5 milligrams as this may play a role in confusion. Continues to have fevers overnight of unknown origin. Highest fever was 100.8. White count this morning did increase to 14. No tachycardia or other sirs criteria. Chest x-ray was performed yesterday that was unremarkable, urine was negative. He did have urinary retention overnight and required straight catheterization. He does not have any other indication of skin wound source of infection. No diarrhea or abdominal pain. Blood cultures remain negative at 24 hour eren. Continue with Vancomycin given fever and leukocytosis Will discuss blood transfusion with attending. Will discuss further order and plan of care with orthopedic team and attending 01/04/17 12:00 01/04/17 s/p wound I&D per Dr. Nolasco. Continue wound vac, Vanco. New onset fevers- CXR, CT is negative LP done, appears negative. Cx NGTD. CRP is trending downward. Repeat UA today. Will obtain BC x 2, one from PICC, one peripheral. DM2- BG is fairly well controlled. He did receive a unit of blood yesterday, HGB is trending down again. Repeat CBC now. Repeat labs in AM. Low back is tender- apply lidoderm patch. Tissue does appear a bit swollen, but not red or warm. Monitor. Start LMWH in AM for DVT prophylaxis if labs remain stable today. 01/05/17 15:43-[facility]lor[facility] continues to improve clinically with resolution of excessive somnolence and other atypical neurological symptoms. Visual symptoms persist and are not currently explained, may require formal eye exam in the near future. Continue Levaquin for pseudomonas and second gram-negative dannielle not yet identified in conjunction with vancomycin for previously identified gram- positive organisms. Anticipate return to the operating room tomorrow after discussion with Dr. Nolasco earlier today. CSF culture negative. Blood sugars modestly increased the past 24 hours although remaining under 200. Oral intake improving and insulins have largely been resumed although NovoLog held this morning due to anticipated poor intake. Hemoglobin drifting down, reassess in a.m.-will likely require additional blood with surgery tomorrow. Bladder training initiated, will hopefully be able to discontinue Khan after next procedure. 01/07/17 DC Khan this afternoon. Anemia - hgb down to 7.1 though pt is asymptomatic. Recheck in am - may need another transfusion. Continue Vanco and cefepime per Dr. Navarro - she's recommending a 6-week course. Suspect thrombocytosis is reactive. Hyperglycemia associated with supper - likely can resume insulin pump. 01/10/17 Plan Continue with current antibiotic regimen as recommended by Dr. Navarro Follow up apt made at Dr Mann (pulmonology) office to discuss sleep study- at 1 pm. Located at the Medical office [place] attached to [facility] [address]. Hgb remains stable at 7.6. Have asked nursing staff to teach patient how to give home subcutaneous injections for ongoing Lovenox given his increased risk for DVT Continue to monitor blood sugars At time of discharge medical care will return to PCP was confirmed with patient is Dr. 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 Orthopedic team is planning to repeat MRI on Friday and will likely take patient to the OR for repeat debridement and wound VAC change. Blood sugars continue to be well controlled He remains afebrile without evidence of clinical sepsis. 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 Orthopedic team is planning to repeat MRI on Friday and will likely take patient to the OR for repeat debridement and wound VAC change. Blood sugars continue to be well controlled He remains afebrile without evidence of clinical sepsis. Hgb stable at 7.6 Continue to work with PT/OT <Peyton Green - Last Filed: 01/11/17 21:00> Objective Vital signs: Temperature 97.3 F 01/11/17 15:41 Pulse Rate 88 01/11/17 15:41 Respiratory Rate 18 01/11/17 15:41 Blood Pressure 141/72 H 01/11/17 15:41 Pulse Oximetry 97 01/11/17 15:41 Height/Weight/BMI: Weight 131 kg Results - Labs CBC & Chem 7: 01/10/17 04:59 01/10/17 04:59 Microbiology Results: Microbiology 01/04/17 12:19 Cath/Port/Line/Picc Blood Culture - Final No Growth After 5 Days 01/04/17 12:19 Cath/Port/Line/Picc Blood Culture - Final No Growth After 5 Days 01/03/17 15:48 Csf, Lumbar Puncture Gram Stain - Final 01/03/17 15:48 Csf, Lumbar Puncture CSF Culture - Final No Growth After 3 Days 01/03/17 23:30 Amputation Site Gram Stain - Final 01/03/17 23:30 Amputation Site Surgical Culture - Final Enterobacter cloacae Pseudomonas aeruginosa 01/03/17 23:30 Tibia, Left, Bone Gram Stain - Final 01/03/17 23:30 Tibia, Left, Bone Surgical Culture - Final Enterobacter cloacae Pseudomonas aeruginosa 01/03/17 23:30 Amputation Site Gram Stain - Final 01/03/17 23:30 Amputation Site Surgical Culture - Final Enterobacter cloacae Pseudomonas aeruginosa 01/01/17 09:04 Peripheral/Iv Start Blood Culture - Final No Growth After 5 Days 01/01/17 09:12 Peripheral/Iv Start Blood Culture - Final No Growth After 5 Days Assessment and Plan (1) Dehiscence of amputation stump Current visit: Yes Status: Acute (2) DM2 (diabetes mellitus, type 2) Problem details: A1c 8.4 on 11/22/16 Current visit: Yes Status: Chronic (3) Wound infection, posttraumatic Problem details: BKA stump infection, follows wound dehiscence Current visit: Yes Status: Acute Assessment and Plan: 01/11/2017-I reviewed this chart, the patient history, and the SECURITY SERVICES SPECIALIST's/PA's documented findings as above. We discussed and formulated the assessment and plan as above with the additions below.-Peter Patient is feeling well today. He denies any complaints. Chest is clear to auscultation. Cardiovascular reveals a regular rate and rhythm. Abdomen is soft and nontender. Extremities are free of edema. Wound VAC to the left BKA stump looks good. No lab today. Pressure has been mildly to moderately elevated. Restart hydrochlorothiazide 12.5 mg a day. He was previously on 25 mg a day and had some mild hyponatremia. We'll need to monitor for this. The Pseudomonas and Enterobacter from his amputation site are both sensitive to cefepime. Continue cefepime. Will discuss with Dr. Navarro later this week whether or not to continue vancomycin. Hospital Course Summary Disclaimer: The visit summary below is not to be considered part of the above Progress Note.
[2017-01-11] MEDS: ENOXAPARIN 40 MG/0.4 ML INJECTION SQ SCH (11:11)
[2017-01-11] MEDS: SENNA + DOCUSATE TABLET PO SCH ×2 (11:11→21:10)
[2017-01-11] MEDS: INSULIN GLARGINE 100unit/ml INJECTION SQ SCH (21:10)
[2017-01-11] MEDS: PRAVASTATIN 20 MG TABLET PO SCH (21:30)
[2017-01-12] MEDS: CEFEPIME 1 GM in NS 100 ML IV SCH ×4 (03:33→20:12)
[2017-01-12] MEDS: NS FLUSH BAG 500ml IV PRN (03:34)
[2017-01-12] MEDS ORDERED: CALCIUM CARBONATE Chewable 500mg TABLET PO PRN (04:59)
[2017-01-12] MEDS: SALINE FLUSH 10ml SYRINGE IV PRN ×4 (05:11→17:36)
[2017-01-12] MEDS: SENNA + DOCUSATE TABLET PO SCH ×2 (09:00→21:29)
[2017-01-12] MEDS: INSULIN ASPART 100unit/ml INJECTION SQ SCH ×3 (09:00→17:32)
[2017-01-12] MEDS: ACETAMINOPHEN 325 MG TABLET PO SCH ×4 (09:01→21:30)
[2017-01-12] MEDS: POLYETHYL GLYCOL 3350 17gm PACKET PO SCH (09:02)
[2017-01-12] MEDS: ENOXAPARIN 40 MG/0.4 ML INJECTION SQ SCH (09:36)
[2017-01-12] MEDS: FERROUS SULFATE 324 MG TABLET PO SCH (09:39)
[2017-01-12] MEDS: MAGNESIUM OXIDE 400 MG TABLET PO SCH (09:39)
[2017-01-12] MEDS: LOSARTAN 50 MG TABLET PO SCH (09:40)
[2017-01-12] MEDS: METFORMIN 1,000 MG TABLET PO SCH ×2 (09:40→17:32)
[2017-01-12] MEDS: ASCORBIC ACID 500 MG TABLET PO SCH (09:40)
--- NOTE | 2017-01-12 12:06 | Progress Note ---
<Raisa Osborne - Last Filed: 01/12/17 12:02> Subjective: Fer is seen today. He sleeps throughout exam. No acute distress. Chart reviewed for collateral information. Objective Vital signs: Temperature 97.5 F 01/12/17 07:14 Pulse Rate 91 01/12/17 07:14 Respiratory Rate 16 01/12/17 07:14 Blood Pressure 148/81 H 01/12/17 07:14 Pulse Oximetry 98 01/12/17 07:14 Rhythm: Normal Sinus Rhythm Height/Weight/BMI: Weight 130.1 kg - Constitutional Present: no acute distress, obese - Routine HEENT Exam Head: Present: normocephalic, atraumatic - Routine Respiratory Exam Present: CTA bilaterally. Absent: decreased breath sounds, wheezes, crackles - Routine Cardiovascular Exam Present: RRR, S1, S2, no murmur - Routine Abdominal Exam Present: soft, normoactive bowel sounds, non distended, non tender - Routine Extremities Exam Present: no edema, amputation (Wound vac in place) - Routine Skin Exam Present: intact, dry, warm - Routine Psychiatric Exam Present: unable to assess (Sleeping) Results - Labs CBC & Chem 7: 01/12/17 04:41 01/12/17 04:41 Microbiology Results: Microbiology 01/03/17 23:30 Amputation Site Surgical Culture - Final Enterobacter cloacae Pseudomonas aeruginosa Assessment and Plan (1) Dehiscence of amputation stump Current visit: Yes Status: Acute 12/26/16 21:23 TO OR tonight with NPO, prn MSO4, etc. 12/26/16 21:25 Reassess renal function in the AM with pharmacy eval for Vanco to continue. 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 S/p Repeat I&D 01/06/17. H/o osteomyelitis of the left great toe distal phalanx, with bone biopsy June 28, 2016 growing out methicillin-resistant Staph aureus. S/p 6 weeks of Daptomycin. H/o Gangrene of the left great toe leading to amputation on July 25, 2016. H/o Recurrent osteomyelitis L 3, 4, 5 toes, s/p L TMA on 11/05. H/o Recurrent osteomyelitis L 3rd, 4th, 5th Metatarsals with wound dehiscence. 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 Hypertension. Hyperlipidemia. Coronary artery disease. Sleep apnea. History of depression. Penicillin allergy, rash. Alcohol use. Plan: 01/12/17 Continue Cefepime/Vanco due to current cx and hx of MRSA. Wound vac. Planning for MRI and possible further surgery next week due to ongoing osteomyelitis. BP is slowly trending up- continue low dose HCTZ and monitor for hyponatremia. Continue to monitor anemia. s/p transfusion x 1 unit. Continue Iron replacement orally. B12/Folate ok. BG remains well controlled- continue current insulin. - Time spent with patient 25 - 35 minutes Sepsis Assessment - Evaluation Sepsis screening result: No Definite Risk Hospital Course Summary Disclaimer: The visit summary below is not to be considered part of the above Progress Note. 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 S/p Repeat I&D 01/06/17. H/o osteomyelitis of the left great toe distal phalanx, with bone biopsy June 28, 2016 growing out methicillin-resistant Staph aureus. S/p 6 weeks of Daptomycin. H/o Gangrene of the left great toe leading to amputation on July 25, 2016. H/o Recurrent osteomyelitis L 3, 4, 5 toes, s/p L TMA on 11/05. H/o Recurrent osteomyelitis L 3rd, 4th, 5th Metatarsals with wound dehiscence. 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 Hypertension. Hyperlipidemia. Coronary artery disease. Sleep apnea. History of depression. Penicillin allergy, rash. Alcohol use. 12/28/16 Home diabetic medications restarted and blood sugars showing control. Blood pressure stable on home ARB - renal status and potassium normal. Continue with pain control - ortho changing to oral medications. Encourage IS for pulm toilet. PT/OT consulted to help functional status. Continue with wound care as per Dr Nolasco - anticipate reexploration of wound tomorrow. Medically stable and responding to treatments. 12/29/16 Pt to OR today for wound I&D. Continue Vancomycin- past culture sensitive to Vancomycin. Can discontinue doxycycline as Vancomycin will cover both organisms. BG has been stable. Holding insulin today due to NPO. Started IVF until eating post-op. BP is controlled- Losartan- HCTZ. Plan to repeat labs in AM. Mild anemia, stable. 12/31/16 12:49-Gloria Last blood sugar 122 at 10:30 this morning, patient nothing by mouth in anticipation of surgery. Will monitor every 2 hours until surgery in the event glucose containing fluids become necessary. Overall diabetes control improving. Pain well controlled at present. Peripheral IV being utilized for vancomycin-clarify with orthopedics how long antibiotics anticipated, may benefit from PICC. To the operating room later today for debridement. Blood pressure stable. Hemoglobin down from 12.5 on admission to current value of 8.6; monitor closely for the next couple of days with further surgical debridement. May benefit from nocturnal oximetry prior to discharge due to history of sleep apnea; suspect patient needs repeat sleep study based on history. 01/01/17 Increase in fever overnight. Obtained labs, lactate and blood cultures. Continues on Vanco. Blood sugars well controlled 01/02/17-plan Recheck H&H this morning In light of decline in hemoglobin. 4. A.m. blood draw revealed hemoglobin of 6.8, redraw at 930. Indicates 7.5. Did check an ammonia level given encephalopathy and confusion however it was negative less than 9. Oxycodone is decreased to 5 milligrams as this may play a role in confusion. Continues to have fevers overnight of unknown origin. Highest fever was 100.8. White count this morning did increase to 14. No tachycardia or other sirs criteria. Chest x-ray was performed yesterday that was unremarkable, urine was negative. He did have urinary retention overnight and required straight catheterization. He does not have any other indication of skin wound source of infection. No diarrhea or abdominal pain. Blood cultures remain negative at 24 hour eren. Continue with Vancomycin given fever and leukocytosis Will discuss blood transfusion with attending. Will discuss further order and plan of care with orthopedic team and attending 01/04/17 12:00 01/04/17 s/p wound I&D per Dr. Nolasco. Continue wound vac, Vanco. New onset fevers- CXR, CT is negative LP done, appears negative. Cx NGTD. CRP is trending downward. Repeat UA today. Will obtain BC x 2, one from PICC, one peripheral. DM2- BG is fairly well controlled. He did receive a unit of blood yesterday, HGB is trending down again. Repeat CBC now. Repeat labs in AM. Low back is tender- apply lidoderm patch. Tissue does appear a bit swollen, but not red or warm. Monitor. Start LMWH in AM for DVT prophylaxis if labs remain stable today. 01/05/17 15:43-Gloria Monroe continues to improve clinically with resolution of excessive somnolence and other atypical neurological symptoms. Visual symptoms persist and are not currently explained, may require formal eye exam in the near future. Continue Levaquin for pseudomonas and second gram-negative dannielle not yet identified in conjunction with vancomycin for previously identified gram- positive organisms. Anticipate return to the operating room tomorrow after discussion with Dr. Nolasco earlier today. CSF culture negative. Blood sugars modestly increased the past 24 hours although remaining under 200. Oral intake improving and insulins have largely been resumed although NovoLog held this morning due to anticipated poor intake. Hemoglobin drifting down, reassess in a.m.-will likely require additional blood with surgery tomorrow. Bladder training initiated, will hopefully be able to discontinue Khan after next procedure. 01/07/17 DC Khan this afternoon. Anemia - hgb down to 7.1 though pt is asymptomatic. Recheck in am - may need another transfusion. Continue Vanco and cefepime per Dr. Navarro - she's recommending a 6-week course. Suspect thrombocytosis is reactive. Hyperglycemia associated with supper - likely can resume insulin pump. 01/10/17 Plan Continue with current antibiotic regimen as recommended by Dr. Navarro Follow up apt made at Dr Mann (pulmonology) office to discuss sleep study- at 1 pm. Located at the Medical office [place] attached to [facility] [address]. Hgb remains stable at 7.6. Have asked nursing staff to teach patient how to give home subcutaneous injections for ongoing Lovenox given his increased risk for DVT Continue to monitor blood sugars At time of discharge medical care will return to PCP was confirmed with patient is Dr. 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 Orthopedic team is planning to repeat MRI on Friday and will likely take patient to the OR for repeat debridement and wound VAC change. Blood sugars continue to be well controlled He remains afebrile without evidence of clinical sepsis. 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 Orthopedic team is planning to repeat MRI on Friday and will likely take patient to the OR for repeat debridement and wound VAC change. Blood sugars continue to be well controlled He remains afebrile without evidence of clinical sepsis. Hgb stable at 7.6 Continue to work with PT/OT 01/12/17 12:06 01/12/17 12:10 Continue Cefepime/Vanco due to current cx and hx of MRSA. Wound vac. Planning for MRI and possible further surgery next week due to ongoing osteomyelitis. BP is slowly trending up- continue low dose HCTZ and monitor for hyponatremia. Continue to monitor anemia. s/p transfusion x 1 unit. Continue Iron replacement orally. B12/Folate ok. BG remains well controlled- continue current insulin. 01/12/17 12:11 <Peyton Green - Last Filed: 01/12/17 15:24> Objective Vital signs: Temperature 97.4 F 01/12/17 12:25 Pulse Rate 81 01/12/17 12:25 Respiratory Rate 15 01/12/17 12:25 Blood Pressure 145/75 H 01/12/17 12:25 Pulse Oximetry 98 01/12/17 12:25 Height/Weight/BMI: Weight 130.1 kg Results - Labs CBC & Chem 7: 01/12/17 04:41 01/12/17 04:41 Microbiology Results: Microbiology 01/04/17 12:19 Cath/Port/Line/Picc Blood Culture - Final No Growth After 5 Days 01/04/17 12:19 Cath/Port/Line/Picc Blood Culture - Final No Growth After 5 Days 01/03/17 15:48 Csf, Lumbar Puncture Gram Stain - Final 01/03/17 15:48 Csf, Lumbar Puncture CSF Culture - Final No Growth After 3 Days 01/03/17 23:30 Amputation Site Gram Stain - Final 01/03/17 23:30 Amputation Site Surgical Culture - Final Enterobacter cloacae Pseudomonas aeruginosa 01/03/17 23:30 Tibia, Left, Bone Gram Stain - Final 01/03/17 23:30 Tibia, Left, Bone Surgical Culture - Final Enterobacter cloacae Pseudomonas aeruginosa 01/03/17 23:30 Amputation Site Gram Stain - Final 01/03/17 23:30 Amputation Site Surgical Culture - Final Enterobacter cloacae Pseudomonas aeruginosa 01/01/17 09:04 Peripheral/Iv Start Blood Culture - Final No Growth After 5 Days 01/01/17 09:12 Peripheral/Iv Start Blood Culture - Final No Growth After 5 Days Assessment and Plan (1) Dehiscence of amputation stump Current visit: Yes Status: Acute (2) DM2 (diabetes mellitus, type 2) Problem details: A1c 8.4 on 11/22/16 Current visit: Yes Status: Chronic (3) Wound infection, posttraumatic Problem details: BKA stump infection, follows wound dehiscence Current visit: Yes Status: Acute Assessment and Plan: 01/12/2017-I reviewed this chart, the patient history, and the [employer]'s/PA's documented findings as above. We discussed and formulated the assessment and plan as above with the additions below.-Dr. Green Patient is awake and alert and sitting up in the recliner watching TV. He has no complaints. He continues to have chronic knee pain which is better when he does exercises recommended by PT. He is eating and drinking okay. Bowel movements are normal. He is breathing well. On exam chest is clear to auscultation and cardiovascular reveals a regular rate and rhythm. Abdomen is soft and nontender. Extremities reveal no significant edema. Wound VAC is on left BKA. Continue with current treatment. Await MRI results on Friday this week. Watch blood pressure with hydrochlorothiazide that was restarted at half dose yesterday. Hospital Course Summary Disclaimer: The visit summary below is not to be considered part of the above Progress Note.
[2017-01-12] MEDS: PRAVASTATIN 20 MG TABLET PO SCH (21:29)
[2017-01-12] MEDS: INSULIN GLARGINE 100unit/ml INJECTION SQ SCH (21:31)
[2017-01-13] MEDS: CEFEPIME 1 GM in NS 100 ML IV SCH ×4 (02:48→21:23)
[2017-01-13] MEDS: SALINE FLUSH 10ml SYRINGE IV PRN ×3 (05:52→18:08)
[2017-01-13] MEDS: FERROUS SULFATE 324 MG TABLET PO SCH (08:27)
[2017-01-13] MEDS: METFORMIN 1,000 MG TABLET PO SCH ×2 (08:27→17:00)
[2017-01-13] MEDS: SENNA + DOCUSATE TABLET PO SCH ×2 (08:27→21:23)
[2017-01-13] MEDS: ACETAMINOPHEN 325 MG TABLET PO SCH ×4 (08:27→21:22)
[2017-01-13] MEDS: MAGNESIUM OXIDE 400 MG TABLET PO SCH (08:28)
[2017-01-13] MEDS: ASCORBIC ACID 500 MG TABLET PO SCH (08:28)
[2017-01-13] MEDS: ENOXAPARIN 40 MG/0.4 ML INJECTION SQ SCH (08:28)
[2017-01-13] MEDS: INSULIN ASPART 100unit/ml INJECTION SQ SCH ×3 (08:28→16:58)
[2017-01-13] MEDS: LOSARTAN 50 MG TABLET PO SCH (08:28)
[2017-01-13] MEDS: POLYETHYL GLYCOL 3350 17gm PACKET PO SCH (08:29)
--- NOTE | 2017-01-13 10:12 | Progress Note ---
Subjective: The patient is seen today accompanied by his . He states he is feeling fine. He has no complaints. He specifically denies any shortness of breath or chest pain. He is eating and drinking well. Bowels are moving okay. He is urinating without difficulties. Objective Vital signs: Temperature 98.2 F 01/13/17 08:00 Pulse Rate 89 01/13/17 08:00 Respiratory Rate 18 01/13/17 08:00 Blood Pressure 138/71 01/13/17 08:00 Pulse Oximetry 95 01/13/17 08:00 Rhythm: Normal Sinus Rhythm Height/Weight/BMI: Weight 130.1 kg Comments: GEN-alert and oriented, no acute distress CV-regular rate and rhythm CHEST-clear to auscultation bilaterally ABD-soft, nontender with positive bowel sounds -no Khan EXT-no edema of right lower extremity, he has a left BKA with wound VAC NEURO-no focal deficits SKIN-warm and dry and without rashes. Wound VAC on left a Results - Labs CBC & Chem 7: 01/12/17 04:41 01/12/17 04:41 Microbiology Results: Microbiology 01/04/17 12:19 Cath/Port/Line/Picc Blood Culture - Final No Growth After 5 Days 01/04/17 12:19 Cath/Port/Line/Picc Blood Culture - Final No Growth After 5 Days 01/03/17 15:48 Csf, Lumbar Puncture Gram Stain - Final 01/03/17 15:48 Csf, Lumbar Puncture CSF Culture - Final No Growth After 3 Days 01/03/17 23:30 Amputation Site Gram Stain - Final 01/03/17 23:30 Amputation Site Surgical Culture - Final Enterobacter cloacae Pseudomonas aeruginosa 01/03/17 23:30 Tibia, Left, Bone Gram Stain - Final 01/03/17 23:30 Tibia, Left, Bone Surgical Culture - Final Enterobacter cloacae Pseudomonas aeruginosa 01/03/17 23:30 Amputation Site Gram Stain - Final 01/03/17 23:30 Amputation Site Surgical Culture - Final Enterobacter cloacae Pseudomonas aeruginosa 01/01/17 09:04 Peripheral/Iv Start Blood Culture - Final No Growth After 5 Days 01/01/17 09:12 Peripheral/Iv Start Blood Culture - Final No Growth After 5 Days Assessment and Plan (1) Dehiscence of amputation stump Current visit: Yes Status: Acute (2) DM2 (diabetes mellitus, type 2) Problem details: A1c 8.4 on 11/22/16 Current visit: Yes Status: Chronic (3) Wound infection, posttraumatic Problem details: BKA stump infection, follows wound dehiscence Current visit: Yes Status: Acute Assessment and Plan: 01/13/2017 Impression 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 S/p Repeat I&D 01/06/17. H/o osteomyelitis of the left great toe distal phalanx, with bone biopsy June 28, 2016 growing out methicillin-resistant Staph aureus. S/p 6 weeks of Daptomycin. H/o Gangrene of the left great toe leading to amputation on July 25, 2016. H/o Recurrent osteomyelitis L 3, 4, 5 toes, s/p L TMA on 11/05. H/o Recurrent osteomyelitis L 3rd, 4th, 5th Metatarsals with wound dehiscence. 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 Hypertension. Hyperlipidemia. Coronary artery disease. Sleep apnea-needs a repeat sleep evaluation after discharge History of depression. Penicillin allergy, rash. Alcohol use. Plan: 01/12/17 Continue Cefepime/Vanco due to current cx and hx of MRSA. Wound vac. Planning for MRI left leg Friday and further surgery for osteomyelitis BP is slowly trending up- continue low dose HCTZ and monitor for hyponatremia. Continue to monitor anemia. s/p transfusion x 1 unit on 01/02/2017. Stable since that time Continue Iron replacement orally. B12/Folate ok. BG remains well controlled- continue current insulin. Sepsis Assessment - Evaluation Sepsis screening result: No Definite Risk Hospital Course Summary Disclaimer: The visit summary below is not to be considered part of the above Progress Note. 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 S/p Repeat I&D 01/06/17. H/o osteomyelitis of the left great toe distal phalanx, with bone biopsy June 28, 2016 growing out methicillin-resistant Staph aureus. S/p 6 weeks of Daptomycin. H/o Gangrene of the left great toe leading to amputation on July 25, 2016. H/o Recurrent osteomyelitis L 3, 4, 5 toes, s/p L TMA on 11/05. H/o Recurrent osteomyelitis L 3rd, 4th, 5th Metatarsals with wound dehiscence. 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 Hypertension. Hyperlipidemia. Coronary artery disease. Sleep apnea. History of depression. Penicillin allergy, rash. Alcohol use. 12/28/16 Home diabetic medications restarted and blood sugars showing control. Blood pressure stable on home ARB - renal status and potassium normal. Continue with pain control - ortho changing to oral medications. Encourage IS for pulm toilet. PT/OT consulted to help functional status. Continue with wound care as per Dr Nolasco - anticipate reexploration of wound tomorrow. Medically stable and responding to treatments. 12/29/16 Pt to OR today for wound I&D. Continue Vancomycin- past culture sensitive to Vancomycin. Can discontinue doxycycline as Vancomycin will cover both organisms. BG has been stable. Holding insulin today due to NPO. Started IVF until eating post-op. BP is controlled- Losartan- HCTZ. Plan to repeat labs in AM. Mild anemia, stable. 12/31/16 12:49-Gloria Last blood sugar 122 at 10:30 this morning, patient nothing by mouth in anticipation of surgery. Will monitor every 2 hours until surgery in the event glucose containing fluids become necessary. Overall diabetes control improving. Pain well controlled at present. Peripheral IV being utilized for vancomycin-clarify with orthopedics how long antibiotics anticipated, may benefit from PICC. To the operating room later today for debridement. Blood pressure stable. Hemoglobin down from 12.5 on admission to current value of 8.6; monitor closely for the next couple of days with further surgical debridement. May benefit from nocturnal oximetry prior to discharge due to history of sleep apnea; suspect patient needs repeat sleep study based on history. 01/01/17 Increase in fever overnight. Obtained labs, lactate and blood cultures. Continues on Vanco. Blood sugars well controlled 01/02/17-plan Recheck H&H this morning In light of decline in hemoglobin. 4. A.m. blood draw revealed hemoglobin of 6.8, redraw at 930. Indicates 7.5. Did check an ammonia level given encephalopathy and confusion however it was negative less than 9. Oxycodone is decreased to 5 milligrams as this may play a role in confusion. Continues to have fevers overnight of unknown origin. Highest fever was 100.8. White count this morning did increase to 14. No tachycardia or other sirs criteria. Chest x-ray was performed yesterday that was unremarkable, urine was negative. He did have urinary retention overnight and required straight catheterization. He does not have any other indication of skin wound source of infection. No diarrhea or abdominal pain. Blood cultures remain negative at 24 hour eren. Continue with Vancomycin given fever and leukocytosis Will discuss blood transfusion with attending. Will discuss further order and plan of care with orthopedic team and attending 01/04/17 12:00 01/04/17 s/p wound I&D per Dr. Nolasco. Continue wound vac, Vanco. New onset fevers- CXR, CT is negative LP done, appears negative. Cx NGTD. CRP is trending downward. Repeat UA today. Will obtain BC x 2, one from PICC, one peripheral. DM2- BG is fairly well controlled. He did receive a unit of blood yesterday, HGB is trending down again. Repeat CBC now. Repeat labs in AM. Low back is tender- apply lidoderm patch. Tissue does appear a bit swollen, but not red or warm. Monitor. Start LMWH in AM for DVT prophylaxis if labs remain stable today. 01/05/17 15:43-Gloria Fer continues to improve clinically with resolution of excessive somnolence and other atypical neurological symptoms. Visual symptoms persist and are not currently explained, may require formal eye exam in the near future. Continue Levaquin for pseudomonas and second gram-negative dannielle not yet identified in conjunction with vancomycin for previously identified gram- positive organisms. Anticipate return to the operating room tomorrow after discussion with Dr. Nolasco earlier today. CSF culture negative. Blood sugars modestly increased the past 24 hours although remaining under 200. Oral intake improving and insulins have largely been resumed although NovoLog held this morning due to anticipated poor intake. Hemoglobin drifting down, reassess in a.m.-will likely require additional blood with surgery tomorrow. Bladder training initiated, will hopefully be able to discontinue Khan after next procedure. 01/07/17 MARISSA Khan this afternoon. Anemia - hgb down to 7.1 though pt is asymptomatic. Recheck in am - may need another transfusion. Continue Vanco and cefepime per Dr. Navarro - she's recommending a 6-week course. Suspect thrombocytosis is reactive. Hyperglycemia associated with supper - likely can resume insulin pump. 01/10/17 Plan Continue with current antibiotic regimen as recommended by Dr. Navarro Follow up apt made at Dr Mann (pulmonology) office to discuss sleep study- at 1 pm. Located at the Medical office [place] attached to [facility] [place] [address]. Hgb remains stable at 7.6. Have asked nursing staff to teach patient how to give home subcutaneous injections for ongoing Lovenox given his increased risk for DVT Continue to monitor blood sugars At time of discharge medical care will return to PCP was confirmed with patient is Dr. 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 Orthopedic team is planning to repeat MRI on Friday and will likely take patient to the OR for repeat debridement and wound VAC change. Blood sugars continue to be well controlled He remains afebrile without evidence of clinical sepsis. 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 Orthopedic team is planning to repeat MRI on Friday and will likely take patient to the OR for repeat debridement and wound VAC change. Blood sugars continue to be well controlled He remains afebrile without evidence of clinical sepsis. Hgb stable at 7.6 Continue to work with PT/OT 01/12/17 12:06 01/12/17 12:10 Continue Cefepime/Vanco due to current cx and hx of MRSA. Wound vac. Planning for MRI and possible further surgery next week due to ongoing osteomyelitis. BP is slowly trending up- continue low dose HCTZ and monitor for hyponatremia. Continue to monitor anemia. s/p transfusion x 1 unit. Continue Iron replacement orally. B12/Folate ok. BG remains well controlled- continue current insulin. 01/12/17 12:11
--- NOTE | 2017-01-13 10:28 | Orthopedic Progress Note ---
Date: Subjective/Severity of Illness: Fer has no new complaints. Discussed MRI tomorrow. NPO after midnight. No concerns. Orthopedic Objective PO Vital signs: Temperature 98.2 F 01/13/17 08:00 Pulse Rate 89 01/13/17 08:00 Respiratory Rate 18 01/13/17 08:00 Blood Pressure 138/71 01/13/17 08:00 Pulse Oximetry 95 01/13/17 08:00 Height and Weight: Weight 286 lb 13.142 oz - Constitutional General Appearance: Present: alert, no acute distress, obese - Respiratory Exam Present: non-labored - Extremities Exam Extremities: Present: amputation (dressing intact. ) - Surgical Site Incision: dressing intact Wound Drainage: minimal amount Drains Present: negative pressure therapy - Integumentary Exam Present: other (Surrounding tissues look healthy. ) - Lymphatic Lymphatic: Present: adenopathy - Psychiatric Exam Present: alert, normal affect - Wound Management Left Leg Wound Type: Surgical Incision (Left BKA site) Wound Length: 9.5 Wound Width: 17.5 Wound Depth: 1.8 Bed Appearance: Beefy Red Surrounding Tissue Appearance: Well Defined Drainage Description: Sanguineous Drainage Amount: Moderate Drainage Odor: No Odor Dressing Status: Changed Irrigant Solution: Saline Irrigant Packing Type: Woundvac Sponge Number of Packing Pieces Removed?: 4 Number of Packing Pieces Placed?: 4 Dressing Change Date: 01/09/17 Dressing Change Time: 08:00 Dressing Change Patient Tolerance: Tolerated Well Left Lower Leg Wound Type: Surgical Incision (Left BKA site.) Wound Length: 12 Wound Width: 2 Wound Depth: 1.5 Drainage Odor: No Odor Dressing Status: Dry & Intact Packing Type: Woundvac Sponge Dressing Change Patient Tolerance: Tolerated Well - Labs Result Diagrams: 01/12/17 04:41 01/12/17 04:41 H & H 12/27/16 12/28/16 12/30/16 Range/Units 04:26 04:27 04:12 Hgb 10.2 L D 10.1 L 9.1 L (13.5-17.5) GM/DL Hct 31.6 L D 31.6 L 28.3 L (41-53) % 12/31/16 01/01/17 01/02/17 Range/Units 04:30 04:34 04:25 Hgb 8.6 L 8.1 L 6.8 L D (13.5-17.5) GM/DL Hct 26.5 L 25.5 L 21.1 L D (41-53) % 01/02/17 01/02/17 01/03/17 Range/Units 09:30 19:18 00:54 Hgb 7.5 L 7.0 L Cancelled (13.5-17.5) GM/DL Hct 21.1 L (41-53) % 01/03/17 01/03/17 01/04/17 Range/Units 00:54 10:22 03:53 Hgb 7.8 L D 8.2 L 7.1 L D (13.5-17.5) GM/DL Hct 23.6 L D 24.7 L 21.8 L D (41-53) % 01/04/17 01/05/17 01/06/17 Range/Units 12:19 04:03 10:24 Hgb 7.9 L D 7.5 L 7.4 L (13.5-17.5) GM/DL Hct 24.4 L D 23.0 L 23.1 L (41-53) % 01/07/17 01/08/17 01/09/17 Range/Units 05:07 03:58 04:31 Hgb 7.1 L 7.1 L 7.6 L (13.5-17.5) GM/DL Hct 22.6 L 22.5 L 24.2 L (41-53) % 01/10/17 01/12/17 Range/Units 04:59 04:41 Hgb 7.6 L 8.2 L (13.5-17.5) GM/DL Hct 23.8 L 26.1 L (41-53) % Coagulation 01/03/17 Range/Units 10:22 INR 1.24 H (0.99-1.21) Orthopedic Assessment and Plan (1) Dehiscence of amputation stump Status: Acute Assessment and Plan: Pathology report from previous surgery shows acute osteomylitis. I recommended continued IV abx per ID and wound vac. I will obtain an MRI on Friday to assess the extend of the osteomyelitis before returning to the OR on Friday afternoon for a repeat debridement and wound vac change. - Anticoagulation Therapy Anticoagulation: other (Lovenox) Hospital Course Summary Disclaimer: The visit summary below is not to be considered part of the above Progress Note. 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 S/p Repeat I&D 01/06/17. H/o osteomyelitis of the left great toe distal phalanx, with bone biopsy June 28, 2016 growing out methicillin-resistant Staph aureus. S/p 6 weeks of Daptomycin. H/o Gangrene of the left great toe leading to amputation on July 25, 2016. H/o Recurrent osteomyelitis L 3, 4, 5 toes, s/p L TMA on 11/05. H/o Recurrent osteomyelitis L 3rd, 4th, 5th Metatarsals with wound dehiscence. 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 Hypertension. Hyperlipidemia. Coronary artery disease. Sleep apnea. History of depression. Penicillin allergy, rash. Alcohol use. 12/28/16 Home diabetic medications restarted and blood sugars showing control. Blood pressure stable on home ARB - renal status and potassium normal. Continue with pain control - ortho changing to oral medications. Encourage IS for pulm toilet. PT/OT consulted to help functional status. Continue with wound care as per Dr Nolasco - anticipate reexploration of wound tomorrow. Medically stable and responding to treatments. 12/29/16 Pt to OR today for wound I&D. Continue Vancomycin- past culture sensitive to Vancomycin. Can discontinue doxycycline as Vancomycin will cover both organisms. BG has been stable. Holding insulin today due to NPO. Started IVF until eating post-op. BP is controlled- Losartan- HCTZ. Plan to repeat labs in AM. Mild anemia, stable. 12/31/16 12:49-Gloria Last blood sugar 122 at 10:30 this morning, patient nothing by mouth in anticipation of surgery. Will monitor every 2 hours until surgery in the event glucose containing fluids become necessary. Overall diabetes control improving. Pain well controlled at present. Peripheral IV being utilized for vancomycin-clarify with orthopedics how long antibiotics anticipated, may benefit from PICC. To the operating room later today for debridement. Blood pressure stable. Hemoglobin down from 12.5 on admission to current value of 8.6; monitor closely for the next couple of days with further surgical debridement. May benefit from nocturnal oximetry prior to discharge due to history of sleep apnea; suspect patient needs repeat sleep study based on history. 01/01/17 Increase in fever overnight. Obtained labs, lactate and blood cultures. Continues on Vanco. Blood sugars well controlled 01/02/17-plan Recheck H&H this morning In light of decline in hemoglobin. 4. A.m. blood draw revealed hemoglobin of 6.8, redraw at 930. Indicates 7.5. Did check an ammonia level given encephalopathy and confusion however it was negative less than 9. Oxycodone is decreased to 5 milligrams as this may play a role in confusion. Continues to have fevers overnight of unknown origin. Highest fever was 100.8. White count this morning did increase to 14. No tachycardia or other sirs criteria. Chest x-ray was performed yesterday that was unremarkable, urine was negative. He did have urinary retention overnight and required straight catheterization. He does not have any other indication of skin wound source of infection. No diarrhea or abdominal pain. Blood cultures remain negative at 24 hour eren. Continue with Vancomycin given fever and leukocytosis Will discuss blood transfusion with attending. Will discuss further order and plan of care with orthopedic team and attending 01/04/17 12:00 01/04/17 s/p wound I&D per Dr. Nolasco. Continue wound vac, Vanco. New onset fevers- CXR, CT is negative LP done, appears negative. Cx NGTD. CRP is trending downward. Repeat UA today. Will obtain BC x 2, one from PICC, one peripheral. DM2- BG is fairly well controlled. He did receive a unit of blood yesterday, HGB is trending down again. Repeat CBC now. Repeat labs in AM. Low back is tender- apply lidoderm patch. Tissue does appear a bit swollen, but not red or warm. Monitor. Start LMWH in AM for DVT prophylaxis if labs remain stable today. 01/05/17 15:43-Gloria Fer continues to improve clinically with resolution of excessive somnolence and other atypical neurological symptoms. Visual symptoms persist and are not currently explained, may require formal eye exam in the near future. Continue Levaquin for pseudomonas and second gram-negative dannielle not yet identified in conjunction with vancomycin for previously identified gram- positive organisms. Anticipate return to the operating room tomorrow after discussion with Dr. Nolasco earlier today. CSF culture negative. Blood sugars modestly increased the past 24 hours although remaining under 200. Oral intake improving and insulins have largely been resumed although NovoLog held this morning due to anticipated poor intake. Hemoglobin drifting down, reassess in a.m.-will likely require additional blood with surgery tomorrow. Bladder training initiated, will hopefully be able to discontinue Khan after next procedure. 01/07/17 DC Khan this afternoon. Anemia - hgb down to 7.1 though pt is asymptomatic. Recheck in am - may need another transfusion. Continue Vanco and cefepime per Dr. Navarro - she's recommending a 6-week course. Suspect thrombocytosis is reactive. Hyperglycemia associated with supper - likely can resume insulin pump. 01/10/17 Plan Continue with current antibiotic regimen as recommended by Dr. Navarro Follow up apt made at Dr Mann (pulmonology) office to discuss sleep study- at 1 pm. Located at the [facility] [place] attached to [facility] [address]. Hgb remains stable at 7.6. Have asked nursing staff to teach patient how to give home subcutaneous injections for ongoing Lovenox given his increased risk for DVT Continue to monitor blood sugars At time of discharge medical care will return to PCP was confirmed with patient is Dr. 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 Orthopedic team is planning to repeat MRI on Friday and will likely take patient to the OR for repeat debridement and wound VAC change. Blood sugars continue to be well controlled He remains afebrile without evidence of clinical sepsis. 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 Orthopedic team is planning to repeat MRI on Friday and will likely take patient to the OR for repeat debridement and wound VAC change. Blood sugars continue to be well controlled He remains afebrile without evidence of clinical sepsis. Hgb stable at 7.6 Continue to work with PT/OT 01/12/17 12:06 01/12/17 12:10 Continue Cefepime/Vanco due to current cx and hx of MRSA. Wound vac. Planning for MRI and possible further surgery next week due to ongoing osteomyelitis. BP is slowly trending up- continue low dose HCTZ and monitor for hyponatremia. Continue to monitor anemia. s/p transfusion x 1 unit. Continue Iron replacement orally. B12/Folate ok. BG remains well controlled- continue current insulin. 01/12/17 12:11
[2017-01-13] MEDS: NS FLUSH BAG 500ml IV PRN (14:59)
[2017-01-13] MEDS: INSULIN GLARGINE 100unit/ml INJECTION SQ SCH (21:22)
[2017-01-13] MEDS: PRAVASTATIN 20 MG TABLET PO SCH (21:23)
[2017-01-14] MEDS: CEFEPIME 1 GM in NS 100 ML IV SCH ×4 (03:48→20:37)
[2017-01-14] MEDS: INSULIN ASPART 100unit/ml INJECTION SQ SCH ×3 (08:20→19:30)
[2017-01-14] MEDS: LOSARTAN 50 MG TABLET PO SCH (08:41)
[2017-01-14] MEDS: METFORMIN 1,000 MG TABLET PO SCH ×2 (08:41→19:31)
[2017-01-14] MEDS: POLYETHYL GLYCOL 3350 17gm PACKET PO SCH (08:41)
[2017-01-14] MEDS: MAGNESIUM OXIDE 400 MG TABLET PO SCH (08:41)
[2017-01-14] MEDS: FERROUS SULFATE 324 MG TABLET PO SCH (08:41)
[2017-01-14] MEDS: ASCORBIC ACID 500 MG TABLET PO SCH (08:42)
[2017-01-14] MEDS: ACETAMINOPHEN 325 MG TABLET PO SCH ×4 (08:42→20:13)
[2017-01-14] MEDS: SENNA + DOCUSATE TABLET PO SCH ×2 (08:42→20:13)
[2017-01-14] MEDS: ENOXAPARIN 40 MG/0.4 ML INJECTION SQ SCH (08:57)
[2017-01-14] MEDS ORDERED: GADOBUTROL 10mMol/10ml INJECTION IVP ONE (10:59)
[2017-01-14] MEDS ORDERED: SALINE FLUSH 10ml SYRINGE ONE (10:59)
--- NOTE | 2017-01-14 11:24 | Pharmacy Consult-Antibiotics ---
Pharmacy Consult-Vancomycin - Laboratory Information WBC 9.1 T/MM3 (4.5-11.0) 01/14/17 05:31 BUN 17.0 MG/DL (9-20) 01/14/17 05:31 Creatinine 0.8 MG/DL (0.8-1.5) 01/14/17 05:31 Vancomycin Trough 18.68 UG/ML (15-20) 01/14/17 05:31 - Consult Information VANCOMYCIN CONSULT: Vancomycin Trough = 23.5 mcg/ml. Today's SCr = 0.8 mg/dl. Will give Vancomycin 1,250 mg IV q12hrs. Will continue to monitor and make adjustments accordingly. Thank you.
--- NOTE | 2017-01-14 12:38 | Magnetic Resonance Report ---
Indication: Eval for osteomyelitis left distal tibia. S/P Left BKA. PROCEDURE: MR knee LT wo/w con: Encounter: Initial Comparison: None Technique: Multiplanar multisequence MR imaging of the left knee was performed with and without contrast. Contrast: 10 mL Gadavist Findings: Prior below the knee amputation 11.5 cm distal to the knee joint. There is abnormal edema and inflammation within the remaining subcutaneous tissues of the patient's stump. There is abnormal bone marrow signal intensity within the distal tibia. There is a tubular area of T1 hypointensity and T2 hyperintensity extending 4 cm proximal to the resection margin. This area measures 2 cm in transverse dimension on coronal T1 image #20 and shows postcontrast enhancement along the margins. There is complex nonenhancing fluid internally suggesting an intraosseous abscess. The area of abnormal enhancement extends 4.5 cm proximal to the tibial resection margin slightly asymmetric towards the medial cortex. This is best seen on coronal postcontrast image #20. The fibular resection margin appears clean with no abnormal marrow signal or edema. Exam was not tailored for evaluation of the ligaments or menisci. There is a degenerative medial meniscal tear. Small Javier's cyst. Impression: Osteomyelitis of the distal tibial stump extending proximally for 4.5 cm from the resection margin. Evidence of a complex internal fluid collection suggesting an intraosseous abscess. .
[2017-01-14] MEDS: LR 1,000 ML IV SCH (12:52)
[2017-01-14] MEDS ORDERED: FentaNYL 100 MCG/2 ML INJECTION ONE (14:46)
[2017-01-14] MEDS ORDERED: PROPOFOL 500 MG/50 ML VIAL IV ONE ×2 (14:47→16:18)
[2017-01-14] MEDS ORDERED: MIDAZOLAM 2mg/2ml INJECTION ONE (14:48)
[2017-01-14] MEDS ORDERED: PROPOFOL 20 ML ONE (16:04)
--- NOTE | 2017-01-14 16:10 | Progress Note ---
Subjective: The patient was seen at 14:35 with his sig other at bedside in PACU. The patient reports doing well and slept well during the night. He remains NPO for surgery after his MRI this AM. He was working well with physical therapy earlier today- able to ambulate to a chair in the [place]. Denies fevers, chills, sweats. Denies sore throat, shortness of breath, dyspnea on exertion, cough, sputum production, chest pain. Denies nausea, vomiting or diarrhea. Is urinating without difficulty, denies dysuria. Objective Vital signs: Temperature 97.8 F 01/14/17 12:29 Pulse Rate 89 01/14/17 12:29 Respiratory Rate 20 01/14/17 12:29 Blood Pressure 140/69 H 01/14/17 12: Pulse Oximetry 98 01/14/17 12:29 Rhythm: Normal Sinus Rhythm Height/Weight/BMI: Weight 286 lb 2.56 oz - Additional findings Additional findings: In general, the patient is alert and oriented 3, cooperative with exam, and in no respiratory distress. HEENT: Head is atraumatic, normocephalic, no conjunctival petechiae, no oral thrush, mucous membranes are moist and pink. Lungs: Clear to auscultation without wheezes, crackles or rhonchi CV: Regular rate and rhythm without murmur Abdomen: Soft, nontender, bowel sounds are present, there is no guarding no rebound. Extremities: No clubbing, no cyanosis, no edema. L BKA stump Skin: Warm and dry no sign of rash Neuro: Patient is alert PICC in RUE Results - Labs CBC & Chem 7: 01/14/17 05:31 01/14/17 05:31 Microbiology Results: Microbiology 01/04/17 12:19 Cath/Port/Line/Picc Blood Culture - Final No Growth After 5 Days 01/04/17 12:19 Cath/Port/Line/Picc Blood Culture - Final No Growth After 5 Days 01/03/17 15:48 Csf, Lumbar Puncture Gram Stain - Final 01/03/17 15:48 Csf, Lumbar Puncture CSF Culture - Final No Growth After 3 Days 01/03/17 23:30 Amputation Site Gram Stain - Final 01/03/17 23:30 Amputation Site Surgical Culture - Final Enterobacter cloacae Pseudomonas aeruginosa 01/03/17 23:30 Tibia, Left, Bone Gram Stain - Final 01/03/17 23:30 Tibia, Left, Bone Surgical Culture - Final Enterobacter cloacae s to Cefepime Pseudomonas aeruginosa s to Cefepime 01/03/17 23:30 Amputation Site Gram Stain - Final 01/03/17 23:30 Amputation Site Surgical Culture - Final Enterobacter cloacae Pseudomonas aeruginosa 01/01/17 09:04 Peripheral/Iv Start Blood Culture - Final No Growth After 5 Days 01/01/17 09:12 Peripheral/Iv Start Blood Culture - Final No Growth After 5 Days - Imaging and Cardiology Abdominal x-ray Additional comments: MRI of the left knee with and without contrast on 01/14/2017 was reviewed by me. Final report shows osteomyelitis of the distal tibial stump extending proximally for 4.5 cm from the resection margin. Evidence of complex internal fluid collection suggesting an intraosseous abscess. Assessment and Plan (1) Dehiscence of amputation stump Current visit: Yes Status: Acute (2) DM2 (diabetes mellitus, type 2) Problem details: A1c 8.4 on 11/22/16 Current visit: Yes Status: Chronic (3) Wound infection, posttraumatic Problem details: BKA stump infection, follows wound dehiscence Current visit: Yes Status: Acute Assessment and Plan: 01/14/2017 Impression Osteomyelitis of the Left tibia with Enterobacter cloacae and Pseudomonas aeruginos- from surgical left Tibia 01/03 Fever, leukocytosis, L BKA stump wound infection/dehiscence, s/p I&D 12/26, 12/31 , 01/03, wound and tibial bone cultures with Pseudomonas and Enterobacter (R to cipro). S/p Repeat I&D 01/06/17., scheduled for repeat I&D this afternoon H/o osteomyelitis of the left great toe distal phalanx, with bone biopsy June 28, 2016 growing out methicillin-resistant Staph aureus. S/p 6 weeks of Daptomycin. H/o Gangrene of the left great toe leading to amputation on July 25, 2016. H/o Recurrent osteomyelitis L 3, 4, 5 toes, s/p L TMA on 11/05. H/o Recurrent osteomyelitis L 3rd, 4th, 5th Metatarsals with wound dehiscence. 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 Hyperlipidemia. Coronary artery disease. Sleep apnea-needs a repeat sleep evaluation after discharge History of depression. Penicillin allergy, rash. Alcohol use. Plan: 01/14/17 Continue Cefepime/Vanco due to current cx and hx of MRSA. Consider d/c of Vanco in 10-14 days from 01/[address] Navarro Wound vac. BP is slowly trending up- continue low dose HCTZ and monitor for hyponatremia. Continue to monitor anemia. s/p transfusion x 1 unit on 01/02/2017. Stable since that time, today Hgb is 8.4. Continue Iron replacement orally. B12/Folate ok. BG remains well controlled- continue current insulin. Discussed with pt and significant other Sepsis Assessment - Evaluation Sepsis screening result: No Definite Risk Hospital Course Summary Disclaimer: The visit summary below is not to be considered part of the above Progress Note. 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 S/p Repeat I&D 01/06/17. H/o osteomyelitis of the left great toe distal phalanx, with bone biopsy June 28, 2016 growing out methicillin-resistant Staph aureus. S/p 6 weeks of Daptomycin. H/o Gangrene of the left great toe leading to amputation on July 25, 2016. H/o Recurrent osteomyelitis L 3, 4, 5 toes, s/p L TMA on 11/05. H/o Recurrent osteomyelitis L 3rd, 4th, 5th Metatarsals with wound dehiscence. 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 Hypertension. Hyperlipidemia. Coronary artery disease. Sleep apnea. History of depression. Penicillin allergy, rash. Alcohol use. 12/28/16 Home diabetic medications restarted and blood sugars showing control. Blood pressure stable on home ARB - renal status and potassium normal. Continue with pain control - ortho changing to oral medications. Encourage IS for pulm toilet. PT/OT consulted to help functional status. Continue with wound care as per Dr Nolasco - anticipate reexploration of wound tomorrow. Medically stable and responding to treatments. 12/29/16 Pt to OR today for wound I&D. Continue Vancomycin- past culture sensitive to Vancomycin. Can discontinue doxycycline as Vancomycin will cover both organisms. BG has been stable. Holding insulin today due to NPO. Started IVF until eating post-op. BP is controlled- Losartan- HCTZ. Plan to repeat labs in AM. Mild anemia, stable. 12/31/16 12:49-Gloria Last blood sugar 122 at 10:30 this morning, patient nothing by mouth in anticipation of surgery. Will monitor every 2 hours until surgery in the event glucose containing fluids become necessary. Overall diabetes control improving. Pain well controlled at present. Peripheral IV being utilized for vancomycin-clarify with orthopedics how long antibiotics anticipated, may benefit from PICC. To the operating room later today for debridement. Blood pressure stable. Hemoglobin down from 12.5 on admission to current value of 8.6; monitor closely for the next couple of days with further surgical debridement. May benefit from nocturnal oximetry prior to discharge due to history of sleep apnea; suspect patient needs repeat sleep study based on history. 01/01/17 Increase in fever overnight. Obtained labs, lactate and blood cultures. Continues on Vanco. Blood sugars well controlled 01/02/17-plan Recheck H&H this morning In light of decline in hemoglobin. 4. A.m. blood draw revealed hemoglobin of 6.8, redraw at 930. Indicates 7.5. Did check an ammonia level given encephalopathy and confusion however it was negative less than 9. Oxycodone is decreased to 5 milligrams as this may play a role in confusion. Continues to have fevers overnight of unknown origin. Highest fever was 100.8. White count this morning did increase to 14. No tachycardia or other sirs criteria. Chest x-ray was performed yesterday that was unremarkable, urine was negative. He did have urinary retention overnight and required straight catheterization. He does not have any other indication of skin wound source of infection. No diarrhea or abdominal pain. Blood cultures remain negative at 24 hour eren. Continue with Vancomycin given fever and leukocytosis Will discuss blood transfusion with attending. Will discuss further order and plan of care with orthopedic team and attending 01/04/17 12:00 01/04/17 s/p wound I&D per Dr. Nolasco. Continue wound vac, Vanco. New onset fevers- CXR, CT is negative LP done, appears negative. Cx NGTD. CRP is trending downward. Repeat UA today. Will obtain BC x 2, one from PICC, one peripheral. DM2- BG is fairly well controlled. He did receive a unit of blood yesterday, HGB is trending down again. Repeat CBC now. Repeat labs in AM. Low back is tender- apply lidoderm patch. Tissue does appear a bit swollen, but not red or warm. Monitor. Start LMWH in AM for DVT prophylaxis if labs remain stable today. 01/05/17 15:43-Gloria Monroe continues to improve clinically with resolution of excessive somnolence and other atypical neurological symptoms. Visual symptoms persist and are not currently explained, may require formal eye exam in the near future. Continue Levaquin for pseudomonas and second gram-negative dannielle not yet identified in conjunction with vancomycin for previously identified gram- positive organisms. Anticipate return to the operating room tomorrow after discussion with Dr. Nolasco earlier today. CSF culture negative. Blood sugars modestly increased the past 24 hours although remaining under 200. Oral intake improving and insulins have largely been resumed although NovoLog held this morning due to anticipated poor intake. Hemoglobin drifting down, reassess in a.m.-will likely require additional blood with surgery tomorrow. Bladder training initiated, will hopefully be able to discontinue Khan after next procedure. 01/07/17 DC Khan this afternoon. Anemia - hgb down to 7.1 though pt is asymptomatic. Recheck in am - may need another transfusion. Continue Vanco and cefepime per Dr. Navarro - she's recommending a 6-week course. Suspect thrombocytosis is reactive. Hyperglycemia associated with supper - likely can resume insulin pump. 01/10/17 Plan Continue with current antibiotic regimen as recommended by Dr. Navarro Follow up apt made at Dr Mann (pulmonology) office to discuss sleep study- at 1 pm. Located at the Medical office [place] attached to [facility] [place] [facility] [address]. Hgb remains stable at 7.6. Have asked nursing staff to teach patient how to give home subcutaneous injections for ongoing Lovenox given his increased risk for DVT Continue to monitor blood sugars At time of discharge medical care will return to PCP was confirmed with patient is Dr. 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 Orthopedic team is planning to repeat MRI on Friday and will likely take patient to the OR for repeat debridement and wound VAC change. Blood sugars continue to be well controlled He remains afebrile without evidence of clinical sepsis. 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 Orthopedic team is planning to repeat MRI on Friday and will likely take patient to the OR for repeat debridement and wound VAC change. Blood sugars continue to be well controlled He remains afebrile without evidence of clinical sepsis. Hgb stable at 7.6 Continue to work with PT/OT 01/12/17 12:06 01/12/17 12:10 Continue Cefepime/Vanco due to current cx and hx of MRSA. Wound vac. Planning for MRI and possible further surgery next week due to ongoing osteomyelitis. BP is slowly trending up- continue low dose HCTZ and monitor for hyponatremia. Continue to monitor anemia. s/p transfusion x 1 unit. Continue Iron replacement orally. B12/Folate ok. BG remains well controlled- continue current insulin. 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 S/p Repeat I&D 01/06/17. H/o osteomyelitis of the left great toe distal phalanx, with bone biopsy June 28, 2016 growing out methicillin-resistant Staph aureus. S/p 6 weeks of Daptomycin. H/o Gangrene of the left great toe leading to amputation on July 25, 2016. H/o Recurrent osteomyelitis L 3, 4, 5 toes, s/p L TMA on 11/05. H/o Recurrent osteomyelitis L 3rd, 4th, 5th Metatarsals with wound dehiscence. 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 Hypertension. Hyperlipidemia. Coronary artery disease. Sleep apnea-needs a repeat sleep evaluation after discharge History of depression. Penicillin allergy, rash. Alcohol use. Plan: 01/12/17 Continue Cefepime/Vanco due to current cx and hx of MRSA. Wound vac. Planning for MRI left leg Friday and further surgery for osteomyelitis BP is slowly trending up- continue low dose HCTZ and monitor for hyponatremia. Continue to monitor anemia. s/p transfusion x 1 unit on 01/02/2017. Stable since that time Continue Iron replacement orally. B12/Folate ok. BG remains well controlled- continue current insulin. 01/14/17 16:22
[2017-01-14] MEDS: HYDROMORPHONE 2 MG/ML INJECTION IVP PRN ×4 (17:05→17:36)
--- NOTE | 2017-01-14 17:17 | Operative Note ---
- Procedure Side: left Preoperative Diagnosis: other (left tibial osteomyelitis) Postoperative Diagnosis: Same as preoperative diagnosis. Operation: other (expiration debridement and osteotomy of left [id number] amputation wound) Surgeon: Kim Nolasco MD Prior Authorization Nurse: Jason Valdez Complications: None. Anesthesia: General TIVA Estimated Blood Loss: See Anesthesia Record. Fluids: Please see Anesthesia Record. Description of Procedure: Mr. Mcclelland is left BKA stump were identified was brought back to the operating suite and placed supine on the operating table a general anesthesia. The left lower extremity was prepped and draped in normal sterile fashion. On inspection of his wound he had beautiful appearing cannulation tissue covering over 90% of the wound. His tibial bone was exposed. There was no necrotic tissue identified. The wound measured 15 mm from medial lateral and 10 mm from anterior to posterior. I then dissected around the tibial stump back to centimeters then performed osteotomy 1.5 cm from the end. Remaining bone sharp edges were then ground down with the saw. I then proceeded to thoroughly debride the intramedullary canal with sharp curettes. The osteotomized bone was sent to pathology. The wound including the intramedullary canal was then thoroughly irrigated with 3 L normal saline. I then placed back his wound VAC placing nair sponge within the medullary canal. A Veraflow vac was used and achieved a good seal. He was allowed to awake from general anesthesia and taken back to the recovery room under the care of anesthesia.
[2017-01-14] MEDS: INSULIN GLARGINE 100unit/ml INJECTION SQ SCH (20:13)
[2017-01-14] MEDS: PRAVASTATIN 20 MG TABLET PO SCH (20:14)
--- NOTE | 2017-01-14 20:14 | Anesthesia Postoperative Note ---
- Date and Time Date: 01/14/17 Time: 20:14 - Status Patient Participated in Evaluation: Patient Participated in Person Vital Signs: Temperature 95.6 F L 01/14/17 18:30 Pulse Rate 90 01/14/17 19:30 Respiratory Rate 17 01/14/17 18:30 Blood Pressure 146/78 H 01/14/17 19:30 Pulse Oximetry 98 01/14/17 19:30 Respiratory Function: Airway Patent, Regular Respirations Cardiovascular Function: Regular Pulse EKG Rhythm: Normal Sinus Rhythm Mental Status: Alert and Oriented Pain Intensity: 5 Hydration: IV Infusing Complications During Recover: None Apparent - Follow-Up Instructions Instructions: Per Surgeon
[2017-01-15] MEDS: CEFEPIME 1 GM in NS 100 ML IV SCH ×4 (02:48→21:28)
[2017-01-15] MEDS: LR 1,000 ML IV SCH ×2 (02:51→17:33)
--- NOTE | 2017-01-15 09:21 | Progress Note ---
Subjective Date: 01/15/17 Subjective: Mr. Mcclelland was taken to the OR yesterday for revision and repeat debridement. He is still having pain at the stump site. He reports some itchiness around his bottom. Denies fevers, chills, N/V or diarrhea. His path report showed osteomyelitis. Exam Vital Signs: Temperature 96.2 F L 01/15/17 07:00 Pulse Rate 92 01/15/17 07:00 Respiratory Rate 16 01/15/17 07:00 Blood Pressure 142/76 H 01/15/17 07:00 Pulse Oximetry 97 01/15/17 07:00 Height/Weight/BMI: Weight 129.5 kg - Constitutional Present: no acute distress, obese - Routine HEENT Exam Head: Present: normocephalic, atraumatic Eye: Present: EOMI, PERRL ENT: Present: mucous membranes moist - Routine Neck Exam Present: supple - Routine Respiratory Exam Present: CTA bilaterally - Routine Cardiovascular Exam Present: RRR, no murmur - Routine Abdominal Exam Present: soft, normoactive bowel sounds, non distended, non tender - Routine Extremities Exam Absent: edema Comments: Stump site with mild erythema, significant tenderness to palpation, some warmth. VAC on, draining bloody drainage - Routine Skin Exam Present: intact. Absent: rash Comments: mild dry skin noted over bottom, no yeast rash noted - Routine Neurological Exam Present: alert, oriented X3, CN II-XII intact - Routine Psychiatric Exam Present: normal affect, normal thought process Results - Labs CBC & Chem 7: 01/14/17 05:31 01/14/17 05:31 Microbiology Results: Microbiology 01/04/17 12:19 Cath/Port/Line/Picc Blood Culture - Final No Growth After 5 Days 01/04/17 12:19 Cath/Port/Line/Picc Blood Culture - Final No Growth After 5 Days 01/03/17 15:48 Csf, Lumbar Puncture Gram Stain - Final 01/03/17 15:48 Csf, Lumbar Puncture CSF Culture - Final No Growth After 3 Days 01/03/17 23:30 Amputation Site Gram Stain - Final 01/03/17 23:30 Amputation Site Surgical Culture - Final Enterobacter cloacae Pseudomonas aeruginosa 01/03/17 23:30 Tibia, Left, Bone Gram Stain - Final 01/03/17 23:30 Tibia, Left, Bone Surgical Culture - Final Enterobacter cloacae Pseudomonas aeruginosa 01/03/17 23:30 Amputation Site Gram Stain - Final 01/03/17 23:30 Amputation Site Surgical Culture - Final Enterobacter cloacae Pseudomonas aeruginosa 01/01/17 09:04 Peripheral/Iv Start Blood Culture - Final No Growth After 5 Days 01/01/17 09:12 Peripheral/Iv Start Blood Culture - Final No Growth After 5 Days - Impressions MRI 01/14/17: Impression: Osteomyelitis of the distal tibial stump extending proximally for 4.5 cm from the resection margin. Evidence of a complex internal fluid collection suggesting an intraosseous abscess. Impression: Fever, leukocytosis, L BKA stump wound infection/dehiscence with osteomyelitis, s/p I&D 12/26, 12/31, 01/03, wound and tibial bone cultures with Pseudomonas and Enterobacter (R to cipro). S/p Repeat I&D 01/06/17, 01/14/17. H/o osteomyelitis of the left great toe distal phalanx, with bone biopsy June 28, 2016 growing out methicillin-resistant Staph aureus. S/p 6 weeks of Daptomycin. H/o Gangrene of the left great toe leading to amputation on July 25, 2016. H/o Recurrent osteomyelitis L 3, 4, 5 toes, s/p L TMA on 11/05. H/o Recurrent osteomyelitis L 3rd, 4th, 5th Metatarsals with wound dehiscence. 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 Hypertension. Hyperlipidemia. Coronary artery disease. Sleep apnea. History of depression. Penicillin allergy, rash. Alcohol use. Recommendation: Continue Cefepime and Vancomycin. I calculate his creatinine clearance to be > 70, so his cefepime should really be dosed 2gm IV q8 on discharge if that's at all possible. No evidence of MRSA currently, but will continue Vancomycin for coverage. Planning 6 weeks of IV antibiotics from last debridement. Sepsis Assessment - Evaluation Sepsis screening result: No Definite Risk
[2017-01-15] MEDS: INSULIN ASPART 100unit/ml INJECTION SQ SCH ×3 (09:23→17:33)
[2017-01-15] MEDS: ENOXAPARIN 40 MG/0.4 ML INJECTION SQ SCH (09:24)
[2017-01-15] MEDS: SENNA + DOCUSATE TABLET PO SCH ×2 (09:26→21:27)
[2017-01-15] MEDS: POLYETHYL GLYCOL 3350 17gm PACKET PO SCH (09:26)
[2017-01-15] MEDS: ACETAMINOPHEN 325 MG TABLET PO SCH ×4 (09:26→21:27)
[2017-01-15] MEDS: METFORMIN 1,000 MG TABLET PO SCH ×2 (09:27→17:34)
[2017-01-15] MEDS: MAGNESIUM OXIDE 400 MG TABLET PO SCH (09:27)
[2017-01-15] MEDS: FERROUS SULFATE 324 MG TABLET PO SCH (09:27)
[2017-01-15] MEDS: LOSARTAN 50 MG TABLET PO SCH (09:27)
[2017-01-15] MEDS: ASCORBIC ACID 500 MG TABLET PO SCH (09:27)
[2017-01-15] MEDS: INSULIN ASPART 100unit/ml INJECTION SQ PRN ×2 (11:34→21:27)
--- NOTE | 2017-01-15 14:38 | Progress Note ---
<Ami Mckenzie V - Last Filed: 01/15/17 14:34> Subjective: Fer is seen this afternoon while relaxing in the recliner. He is feeling good however complains of the bed bothering his back and being quite uncomfortable. He denies feeling short of breath or having chest pain. No GI concerns, no difficulty with urination or bowel movements. Patient remains afebrile. Objective Vital signs: Temperature 98.3 F 01/15/17 12:27 Pulse Rate 89 01/15/17 12:27 Respiratory Rate 18 01/15/17 12:27 Blood Pressure 145/75 H 01/15/17 12:27 Pulse Oximetry 96 01/15/17 12:27 Height/Weight/BMI: Weight 129.5 kg - Constitutional Present: no acute distress, well nourished, well developed - Routine HEENT Exam Eye: Present: EOMI ENT: Present: mucous membranes moist, dentition normal - Routine Respiratory Exam Present: CTA bilaterally. Absent: wheezes - Routine Cardiovascular Exam Present: RRR, S1, S2. Absent: murmur - Routine Abdominal Exam Present: soft, normoactive bowel sounds, non distended. Absent: tenderness - Routine Extremities Exam Present: normal capillary refill - Routine Skin Exam Present: intact, dry, warm Comments: Wound Vac intact to LLE - Routine Neurological Exam Present: alert, oriented X3, CN II-XII intact - Routine Lymphatic Exam Lymphatic: Absent: adenopathy - Routine Psychiatric Exam Present: normal affect Results - Labs CBC & Chem 7: 01/14/17 05:31 01/14/17 05:31 Microbiology Results: Microbiology 01/04/17 12:19 Cath/Port/Line/Picc Blood Culture - Final No Growth After 5 Days 01/04/17 12:19 Cath/Port/Line/Picc Blood Culture - Final No Growth After 5 Days 01/03/17 15:48 Csf, Lumbar Puncture Gram Stain - Final 01/03/17 15:48 Csf, Lumbar Puncture CSF Culture - Final No Growth After 3 Days 01/03/17 23:30 Amputation Site Gram Stain - Final 01/03/17 23:30 Amputation Site Surgical Culture - Final Enterobacter cloacae Pseudomonas aeruginosa 01/03/17 23:30 Tibia, Left, Bone Gram Stain - Final 01/03/17 23:30 Tibia, Left, Bone Surgical Culture - Final Enterobacter cloacae Pseudomonas aeruginosa 01/03/17 23:30 Amputation Site Gram Stain - Final 01/03/17 23:30 Amputation Site Surgical Culture - Final Enterobacter cloacae Pseudomonas aeruginosa 01/01/17 09:04 Peripheral/Iv Start Blood Culture - Final No Growth After 5 Days 01/01/17 09:12 Peripheral/Iv Start Blood Culture - Final No Growth After 5 Days Assessment and Plan (1) Dehiscence of amputation stump Current visit: Yes Status: Acute 12/26/16 21:23 TO OR tonight with NPO, prn MSO4, etc. 12/26/16 21:25 Reassess renal function in the AM with pharmacy eval for Vanco to continue. (2) DM2 (diabetes mellitus, type 2) Problem details: A1c 8.4 on 11/22/16 Current visit: Yes Status: Chronic 12/26/16 21:24 only 10 units levemir instead of 18u for now qhs with SSI and hold scheduled novolog and metformin (3) Wound infection, posttraumatic Problem details: BKA stump infection, follows wound dehiscence Current visit: Yes Status: Acute Assessment and Plan: Impression Osteomyelitis of the Left tibia with Enterobacter cloacae and Pseudomonas aeruginos- from surgical left Tibia 01/03 Fever, leukocytosis, L BKA stump wound infection/dehiscence, s/p I&D 12/26, 12/31 , 01/03, wound and tibial bone cultures with Pseudomonas and Enterobacter (R to cipro). S/p Repeat I&D 01/06/17., scheduled for repeat I&D this afternoon H/o osteomyelitis of the left great toe distal phalanx, with bone biopsy June 28, 2016 growing out methicillin-resistant Staph aureus. S/p 6 weeks of Daptomycin. H/o Gangrene of the left great toe leading to amputation on July 25, 2016. H/o Recurrent osteomyelitis L 3, 4, 5 toes, s/p L TMA on 11/05. H/o Recurrent osteomyelitis L 3rd, 4th, 5th Metatarsals with wound dehiscence. 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 Hyperlipidemia. Coronary artery disease. Sleep apnea-needs a repeat sleep evaluation after discharge History of depression. Penicillin allergy, rash. Alcohol use. Plan: 01/15/[address] Navarro recommendations from this morning. She she recommends continuing cefepime and vancomycin with total 6 weeks of IV antibiotics Continue with wound Vac. Blood sugars continue to be well controlled Hemoglobin remained stable at 8.4. Possible discharge in the next 1-2 days under the direction of Dr. Nolasco Sepsis Assessment - Evaluation Sepsis screening result: No Definite Risk Hospital Course Summary Disclaimer: The visit summary below is not to be considered part of the above Progress Note. 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 S/p Repeat I&D 01/06/17. H/o osteomyelitis of the left great toe distal phalanx, with bone biopsy June 28, 2016 growing out methicillin-resistant Staph aureus. S/p 6 weeks of Daptomycin. H/o Gangrene of the left great toe leading to amputation on July 25, 2016. H/o Recurrent osteomyelitis L 3, 4, 5 toes, s/p L TMA on 11/05. H/o Recurrent osteomyelitis L 3rd, 4th, 5th Metatarsals with wound dehiscence. 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 Hypertension. Hyperlipidemia. Coronary artery disease. Sleep apnea. History of depression. Penicillin allergy, rash. Alcohol use. 12/28/16 Home diabetic medications restarted and blood sugars showing control. Blood pressure stable on home ARB - renal status and potassium normal. Continue with pain control - ortho changing to oral medications. Encourage IS for pulm toilet. PT/OT consulted to help functional status. Continue with wound care as per Dr Nolasco - anticipate reexploration of wound tomorrow. Medically stable and responding to treatments. 12/29/16 Pt to OR today for wound I&D. Continue Vancomycin- past culture sensitive to Vancomycin. Can discontinue doxycycline as Vancomycin will cover both organisms. BG has been stable. Holding insulin today due to NPO. Started IVF until eating post-op. BP is controlled- Losartan- HCTZ. Plan to repeat labs in AM. Mild anemia, stable. 12/31/16 12:49-Gloria Last blood sugar 122 at 10:30 this morning, patient nothing by mouth in anticipation of surgery. Will monitor every 2 hours until surgery in the event glucose containing fluids become necessary. Overall diabetes control improving. Pain well controlled at present. Peripheral IV being utilized for vancomycin-clarify with orthopedics how long antibiotics anticipated, may benefit from PICC. To the operating room later today for debridement. Blood pressure stable. Hemoglobin down from 12.5 on admission to current value of 8.6; monitor closely for the next couple of days with further surgical debridement. May benefit from nocturnal oximetry prior to discharge due to history of sleep apnea; suspect patient needs repeat sleep study based on history. 01/01/17 Increase in fever overnight. Obtained labs, lactate and blood cultures. Continues on Vanco. Blood sugars well controlled 01/02/17-plan Recheck H&H this morning In light of decline in hemoglobin. 4. A.m. blood draw revealed hemoglobin of 6.8, redraw at 930. Indicates 7.5. Did check an ammonia level given encephalopathy and confusion however it was negative less than 9. Oxycodone is decreased to 5 milligrams as this may play a role in confusion. Continues to have fevers overnight of unknown origin. Highest fever was 100.8. White count this morning did increase to 14. No tachycardia or other sirs criteria. Chest x-ray was performed yesterday that was unremarkable, urine was negative. He did have urinary retention overnight and required straight catheterization. He does not have any other indication of skin wound source of infection. No diarrhea or abdominal pain. Blood cultures remain negative at 24 hour eren. Continue with Vancomycin given fever and leukocytosis Will discuss blood transfusion with attending. Will discuss further order and plan of care with orthopedic team and attending 01/04/17 12:00 01/04/17 s/p wound I&D per Dr. Nolasco. Continue wound vac, Vanco. New onset fevers- CXR, CT is negative LP done, appears negative. Cx NGTD. CRP is trending downward. Repeat UA today. Will obtain BC x 2, one from PICC, one peripheral. DM2- BG is fairly well controlled. He did receive a unit of blood yesterday, HGB is trending down again. Repeat CBC now. Repeat labs in AM. Low back is tender- apply lidoderm patch. Tissue does appear a bit swollen, but not red or warm. Monitor. Start LMWH in AM for DVT prophylaxis if labs remain stable today. 01/05/17 15:43-Gloria Monroe continues to improve clinically with resolution of excessive somnolence and other atypical neurological symptoms. Visual symptoms persist and are not currently explained, may require formal eye exam in the near future. Continue Levaquin for pseudomonas and second gram-negative dannielle not yet identified in conjunction with vancomycin for previously identified gram- positive organisms. Anticipate return to the operating room tomorrow after discussion with Dr. Nolasco earlier today. CSF culture negative. Blood sugars modestly increased the past 24 hours although remaining under 200. Oral intake improving and insulins have largely been resumed although NovoLog held this morning due to anticipated poor intake. Hemoglobin drifting down, reassess in a.m.-will likely require additional blood with surgery tomorrow. Bladder training initiated, will hopefully be able to discontinue Khan after next procedure. 01/07/17 DC Khan this afternoon. Anemia - hgb down to 7.1 though pt is asymptomatic. Recheck in am - may need another transfusion. Continue Vanco and cefepime per Dr. Navarro - she's recommending a 6-week course. Suspect thrombocytosis is reactive. Hyperglycemia associated with supper - likely can resume insulin pump. 01/10/17 Plan Continue with current antibiotic regimen as recommended by Dr. Navarro Follow up apt made at Dr Mann (pulmonology) office to discuss sleep study- at 1 pm. Located at the Medical office [place] attached to [facility] [address] Hgb remains stable at 7.6. Have asked nursing staff to teach patient how to give home subcutaneous injections for ongoing Lovenox given his increased risk for DVT Continue to monitor blood sugars At time of discharge medical care will return to PCP was confirmed with patient is Dr. 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 Orthopedic team is planning to repeat MRI on Friday and will likely take patient to the OR for repeat debridement and wound VAC change. Blood sugars continue to be well controlled He remains afebrile without evidence of clinical sepsis. 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 Orthopedic team is planning to repeat MRI on Friday and will likely take patient to the OR for repeat debridement and wound VAC change. Blood sugars continue to be well controlled He remains afebrile without evidence of clinical sepsis. Hgb stable at 7.6 Continue to work with PT/OT 01/12/17 12:06 01/12/17 12:10 Continue Cefepime/Vanco due to current cx and hx of MRSA. Wound vac. Planning for MRI and possible further surgery next week due to ongoing osteomyelitis. BP is slowly trending up- continue low dose HCTZ and monitor for hyponatremia. Continue to monitor anemia. s/p transfusion x 1 unit. Continue Iron replacement orally. B12/Folate ok. BG remains well controlled- continue current insulin. 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 S/p Repeat I&D 01/06/17. H/o osteomyelitis of the left great toe distal phalanx, with bone biopsy June 28, 2016 growing out methicillin-resistant Staph aureus. S/p 6 weeks of Daptomycin. H/o Gangrene of the left great toe leading to amputation on July 25, 2016. H/o Recurrent osteomyelitis L 3, 4, 5 toes, s/p L TMA on 11/05. H/o Recurrent osteomyelitis L 3rd, 4th, 5th Metatarsals with wound dehiscence. 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 Hypertension. Hyperlipidemia. Coronary artery disease. Sleep apnea-needs a repeat sleep evaluation after discharge History of depression. Penicillin allergy, rash. Alcohol use. Plan: 01/12/17 Continue Cefepime/Vanco due to current cx and hx of MRSA. Wound vac. Planning for MRI left leg Friday and further surgery for osteomyelitis BP is slowly trending up- continue low dose HCTZ and monitor for hyponatremia. Continue to monitor anemia. s/p transfusion x 1 unit on 01/02/2017. Stable since that time Continue Iron replacement orally. B12/Folate ok. BG remains well controlled- continue current insulin. Plan: 01/15/[address] Navarro recommendations from this morning. She she recommends continuing cefepime and vancomycin with total 6 weeks of IV antibiotics Continue with wound Vac. Blood sugars continue to be well controlled Hemoglobin remained stable at 8.4. Possible discharge in the next 1-2 days under the direction of Dr. Nolasco <MarbellaKelsea A - Last Filed: 01/15/17 16:04> Objective Vital signs: Temperature 98.3 F 01/15/17 12:27 Pulse Rate 89 01/15/17 12:27 Respiratory Rate 18 01/15/17 12:27 Blood Pressure 145/75 H 01/15/17 12:27 Pulse Oximetry 96 01/15/17 12:27 Height/Weight/BMI: Weight 285 lb 7.978 oz Results - Labs CBC & Chem 7: 01/14/17 05:31 01/14/17 05:31 Microbiology Results: Microbiology 01/04/17 12:19 Cath/Port/Line/Picc Blood Culture - Final No Growth After 5 Days 01/04/17 12:19 Cath/Port/Line/Picc Blood Culture - Final No Growth After 5 Days 01/03/17 15:48 Csf, Lumbar Puncture Gram Stain - Final 01/03/17 15:48 Csf, Lumbar Puncture CSF Culture - Final No Growth After 3 Days 01/03/17 23:30 Amputation Site Gram Stain - Final 01/03/17 23:30 Amputation Site Surgical Culture - Final Enterobacter cloacae Pseudomonas aeruginosa 01/03/17 23:30 Tibia, Left, Bone Gram Stain - Final 01/03/17 23:30 Tibia, Left, Bone Surgical Culture - Final Enterobacter cloacae Pseudomonas aeruginosa 01/03/17 23:30 Amputation Site Gram Stain - Final 01/03/17 23:30 Amputation Site Surgical Culture - Final Enterobacter cloacae Pseudomonas aeruginosa 01/01/17 09:04 Peripheral/Iv Start Blood Culture - Final No Growth After 5 Days 01/01/17 09:12 Peripheral/Iv Start Blood Culture - Final No Growth After 5 Days Assessment and Plan (1) Dehiscence of amputation stump Current visit: Yes Status: Acute (2) DM2 (diabetes mellitus, type 2) Problem details: A1c 8.4 on 11/22/16 Current visit: Yes Status: Chronic (3) Wound infection, posttraumatic Problem details: BKA stump infection, follows wound dehiscence Current visit: Yes Status: Acute Assessment and Plan: I have independently evaluated and examined this patient. I reviewed the chart, the patient's history, and the LCPC/PA's documented findings as above. We discussed and formulated the assessment and plan as above with additions as below. The patient is sitting up in the chair with his at the bedside when he was examined at 1430. He is tolerating the wound [place] VAC fairly well except with movement. Overall he is doing well. His bowels move. Plans are in place for potential discharge tomorrow morning. In general, the patient is alert and oriented 3, cooperative with exam, and in no respiratory distress. HEENT: Head is atraumatic, normocephalic, no conjunctival petechiae, no oral thrush, mucous membranes are moist and pink. Lungs: Clear to auscultation without wheezes, crackles or rhonchi CV: Regular rate and rhythm without murmur Abdomen: Soft, nontender, bowel sounds are present, there is no guarding no rebound. Extremities: No clubbing, no cyanosis, no edema. Left stump with wound VAC in place Skin: Warm and dry no sign of rash Neuro: Patient is alert Will check hemoglobin this afternoon. Scripts written for IV vancomycin 1750 mg every 12 hours and cefepime 2 g IV every 8 hours for 6 weeks. The patient's weekly lab will include a CBC with a manual differential , CMP, ESR, CRP and a Vanco trough every Friday to be faxed to [phone]. We'll recheck a CBC in the morning to ensure his hemoglobin remained stable with the Veraflow VAC in place. The states he will go home with a regular wound VAC and hyperbaric oxygen.(?) Discussed with Tamar in wound care- the patient will be seen in the wound clinic on Friday and evaluated with the goal of starting on Friday and receiving 5 days a week- ideally will receive 40 treatments. He can see Dr. Navarro on Wednesdays in the wound care clinic. Discussed with pt, pt's , Dr. Navarro, case management and Tamar in wound care. Hospital Course Summary Disclaimer: The visit summary below is not to be considered part of the above Progress Note.
[2017-01-15] MEDS: SALINE FLUSH 10ml SYRINGE IV PRN (14:49)
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
[2017-01-15] MEDS: PRAVASTATIN 20 MG TABLET PO SCH (21:27)
[2017-01-15] MEDS: INSULIN GLARGINE 100unit/ml INJECTION SQ SCH (21:28)
[2017-01-16] MEDS: CEFEPIME 1 GM in NS 100 ML IV SCH ×2 (03:00→09:23)
[2017-01-16] MEDS: LR 1,000 ML IV SCH ×2 (03:01→06:07)
[2017-01-16 04:29] VITALS: O2SAT 96
[2017-01-16] MEDS: Oxycodone *IR* 5 MG TABLET PO PRN ×2 (06:25→12:28)
--- NOTE | 2017-01-16 08:55 | Orthopedic Progress Note ---
Date: Subjective/Severity of Illness: Fer has no complaints. He is seen as his wound vac is getting changed. Discharge is planned for today. Orthopedic Objective PO Vital signs: Temperature 97.3 F 01/16/17 08:00 Pulse Rate 111 H 01/16/17 08:00 Respiratory Rate 20 01/16/17 08:00 Blood Pressure 154/86 H 01/16/17 08:00 Pulse Oximetry 96 01/16/17 08:00 Height and Weight: Weight 287 lb 0.67 oz - Constitutional General Appearance: Present: alert, no acute distress, obese - Respiratory Exam Present: non-labored - Extremities Exam Extremities: Present: amputation (dressing intact. ) - Surgical Site Incision: bloody drainage present (wound vac changed.) Wound Drainage: minimal amount Drains Present: negative pressure therapy - Integumentary Exam Present: other (Surrounding tissues look healthy. ) - Lymphatic Lymphatic: Absent: adenopathy - Psychiatric Exam Present: alert, normal affect - Wound Management Left Leg Wound Type: Surgical Incision (Left BKA site) Wound Length: 9.5 Wound Width: 17.5 Wound Depth: 1.8 Bed Appearance: Beefy Red Surrounding Tissue Appearance: Well Defined Drainage Description: Sanguineous Drainage Amount: Moderate Drainage Odor: No Odor Dressing Status: Changed Irrigant Solution: Saline Irrigant Packing Type: Woundvac Sponge Number of Packing Pieces Removed?: 4 Number of Packing Pieces Placed?: 4 Dressing Change Date: 01/09/17 Dressing Change Time: 08:00 Dressing Change Patient Tolerance: Tolerated Well Left Lower Leg Wound Type: Surgical Incision (Left BKA site.) Wound Length: 12 Wound Width: 2 Wound Depth: 1.5 Surrounding Tissue Appearance: [place] Drainage Description: Serosanguineous Drainage Amount: Moderate Drainage Odor: No Odor Dressing Status: Dry & Intact Irrigant Solution: Saline Irrigant Packing Type: Woundvac Sponge Primary Dressing: Medicated Gauze Pad Dressing Change Patient Tolerance: Tolerated Well - Labs Result Diagrams: 01/16/17 04:22 01/14/17 05:31 Abnormal lab results 01/15/17 01/16/17 Range/Units 16:10 04:22 RBC 3.13 L 2.89 L (4.50-5.90) M/MM3 Hgb 8.3 L 7.8 L (13.5-17.5) GM/DL Hct 26.4 L 24.6 L (41-53) % Plt Count 507 H 450 H (130-400) T/MM3 Immature Gran % (Auto) 0.6 H 0.6 H (0.0-0.5) % Neut % (Auto) 74.7 H 68.4 H (33-66) % Lymph % (Auto) 16.8 L 21.6 L (23-45) % Abs Immat Gran (auto) 0.06 H 0.05 H (0.00-0.03) T/MM3 H & H 12/27/16 12/28/16 12/30/16 Range/Units 04:26 04:27 04:12 Hgb 10.2 L D 10.1 L 9.1 L (13.5-17.5) GM/DL Hct 31.6 L D 31.6 L 28.3 L (41-53) % 12/31/16 01/01/17 01/02/17 Range/Units 04:30 04:34 04:25 Hgb 8.6 L 8.1 L 6.8 L D (13.5-17.5) GM/DL Hct 26.5 L 25.5 L 21.1 L D (41-53) % 01/02/17 01/02/17 01/03/17 Range/Units 09:30 19:18 00:54 Hgb 7.5 L 7.0 L Cancelled (13.5-17.5) GM/DL Hct 21.1 L (41-53) % 01/03/17 01/03/17 01/04/17 Range/Units 00:54 10:22 03:53 Hgb 7.8 L D 8.2 L 7.1 L D (13.5-17.5) GM/DL Hct 23.6 L D 24.7 L 21.8 L D (41-53) % 01/04/17 01/05/17 01/06/17 Range/Units 12:19 04:03 10:24 Hgb 7.9 L D 7.5 L 7.4 L (13.5-17.5) GM/DL Hct 24.4 L D 23.0 L 23.1 L (41-53) % 01/07/17 01/08/17 01/09/17 Range/Units 05:07 03:58 04:31 Hgb 7.1 L 7.1 L 7.6 L (13.5-17.5) GM/DL Hct 22.6 L 22.5 L 24.2 L (41-53) % 01/10/17 01/12/17 01/14/17 Range/Units 04:59 04:41 05:31 Hgb 7.6 L 8.2 L 8.4 L (13.5-17.5) GM/DL Hct 23.8 L 26.1 L 26.6 L (41-53) % 01/15/17 01/16/17 Range/Units 16:10 04:22 Hgb 8.3 L 7.8 L (13.5-17.5) GM/DL Hct 26.4 L 24.6 L (41-53) % Coagulation 01/03/17 Range/Units 10:22 INR 1.24 H (0.99-1.21) Orthopedic Assessment and Plan (1) Dehiscence of amputation stump Status: Acute Assessment and Plan: Will plan on discharge later today with antibiotics as recommended by Dr. Navarro. Follow up made in wound care via Tamar scott. - Anticoagulation Therapy Anticoagulation: other (Lovenox) Hospital Course Summary Disclaimer: The visit summary below is not to be considered part of the above Progress Note. 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 S/p Repeat I&D 01/06/17. H/o osteomyelitis of the left great toe distal phalanx, with bone biopsy June 28, 2016 growing out methicillin-resistant Staph aureus. S/p 6 weeks of Daptomycin. H/o Gangrene of the left great toe leading to amputation on July 25, 2016. H/o Recurrent osteomyelitis L 3, 4, 5 toes, s/p L TMA on 11/05. H/o Recurrent osteomyelitis L 3rd, 4th, 5th Metatarsals with wound dehiscence. 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 Hypertension. Hyperlipidemia. Coronary artery disease. Sleep apnea. History of depression. Penicillin allergy, rash. Alcohol use. 12/28/16 Home diabetic medications restarted and blood sugars showing control. Blood pressure stable on home ARB - renal status and potassium normal. Continue with pain control - ortho changing to oral medications. Encourage IS for pulm toilet. PT/OT consulted to help functional status. Continue with wound care as per Dr Nolasco - anticipate reexploration of wound tomorrow. Medically stable and responding to treatments. 12/29/16 Pt to OR today for wound I&D. Continue Vancomycin- past culture sensitive to Vancomycin. Can discontinue doxycycline as Vancomycin will cover both organisms. BG has been stable. Holding insulin today due to NPO. Started IVF until eating post-op. BP is controlled- Losartan- HCTZ. Plan to repeat labs in AM. Mild anemia, stable. 12/31/16 12:49-[facility] Last blood sugar 122 at 10:30 this morning, patient nothing by mouth in anticipation of surgery. Will monitor every 2 hours until surgery in the event glucose containing fluids become necessary. Overall diabetes control improving. Pain well controlled at present. Peripheral IV being utilized for vancomycin-clarify with orthopedics how long antibiotics anticipated, may benefit from PICC. To the operating room later today for debridement. Blood pressure stable. Hemoglobin down from 12.5 on admission to current value of 8.6; monitor closely for the next couple of days with further surgical debridement. May benefit from nocturnal oximetry prior to discharge due to history of sleep apnea; suspect patient needs repeat sleep study based on history. 01/01/17 Increase in fever overnight. Obtained labs, lactate and blood cultures. Continues on Vanco. Blood sugars well controlled 01/02/17-plan Recheck H&H this morning In light of decline in hemoglobin. 4. A.m. blood draw revealed hemoglobin of 6.8, redraw at 930. Indicates 7.5. Did check an ammonia level given encephalopathy and confusion however it was negative less than 9. Oxycodone is decreased to 5 milligrams as this may play a role in confusion. Continues to have fevers overnight of unknown origin. Highest fever was 100.8. White count this morning did increase to 14. No tachycardia or other sirs criteria. Chest x-ray was performed yesterday that was unremarkable, urine was negative. He did have urinary retention overnight and required straight catheterization. He does not have any other indication of skin wound source of infection. No diarrhea or abdominal pain. Blood cultures remain negative at 24 hour eren. Continue with Vancomycin given fever and leukocytosis Will discuss blood transfusion with attending. Will discuss further order and plan of care with orthopedic team and attending 01/04/17 12:00 01/04/17 s/p wound I&D per Dr. Nolasco. Continue wound vac, Vanco. New onset fevers- CXR, CT is negative LP done, appears negative. Cx NGTD. CRP is trending downward. Repeat UA today. Will obtain BC x 2, one from PICC, one peripheral. DM2- BG is fairly well controlled. He did receive a unit of blood yesterday, HGB is trending down again. Repeat CBC now. Repeat labs in AM. Low back is tender- apply lidoderm patch. Tissue does appear a bit swollen, but not red or warm. Monitor. Start LMWH in AM for DVT prophylaxis if labs remain stable today. 01/05/17 15:43-[facility] continues to improve clinically with resolution of excessive somnolence and other atypical neurological symptoms. Visual symptoms persist and are not currently explained, may require formal eye exam in the near future. Continue Levaquin for pseudomonas and second gram-negative dannielle not yet identified in conjunction with vancomycin for previously identified gram- positive organisms. Anticipate return to the operating room tomorrow after discussion with Dr. Nolasco earlier today. CSF culture negative. Blood sugars modestly increased the past 24 hours although remaining under 200. Oral intake improving and insulins have largely been resumed although NovoLog held this morning due to anticipated poor intake. Hemoglobin drifting down, reassess in a.m.-will likely require additional blood with surgery tomorrow. Bladder training initiated, will hopefully be able to discontinue Khan after next procedure. 01/07/17 DC Khan this afternoon. Anemia - hgb down to 7.1 though pt is asymptomatic. Recheck in am - may need another transfusion. Continue Vanco and cefepime per Dr. Navarro - she's recommending a 6-week course. Suspect thrombocytosis is reactive. Hyperglycemia associated with supper - likely can resume insulin pump. 01/10/17 Plan Continue with current antibiotic regimen as recommended by Dr. Navarro Follow up apt made at Dr Mann (pulmonology) office to discuss sleep study- at 1 pm. Located at the [facility] attached to [facility] [address]. Hgb remains stable at 7.6. Have asked nursing staff to teach patient how to give home subcutaneous injections for ongoing Lovenox given his increased risk for DVT Continue to monitor blood sugars At time of discharge medical care will return to PCP was confirmed with patient is Dr. 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 Orthopedic team is planning to repeat MRI on Friday and will likely take patient to the OR for repeat debridement and wound VAC change. Blood sugars continue to be well controlled He remains afebrile without evidence of clinical sepsis. 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 Orthopedic team is planning to repeat MRI on Friday and will likely take patient to the OR for repeat debridement and wound VAC change. Blood sugars continue to be well controlled He remains afebrile without evidence of clinical sepsis. Hgb stable at 7.6 Continue to work with PT/OT 01/12/17 12:06 01/12/17 12:10 Continue Cefepime/Vanco due to current cx and hx of MRSA. Wound vac. Planning for MRI and possible further surgery next week due to ongoing osteomyelitis. BP is slowly trending up- continue low dose HCTZ and monitor for hyponatremia. Continue to monitor anemia. s/p transfusion x 1 unit. Continue Iron replacement orally. B12/Folate ok. BG remains well controlled- continue current insulin. 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 S/p Repeat I&D 01/06/17. H/o osteomyelitis of the left great toe distal phalanx, with bone biopsy June 28, 2016 growing out methicillin-resistant Staph aureus. S/p 6 weeks of Daptomycin. H/o Gangrene of the left great toe leading to amputation on July 25, 2016. H/o Recurrent osteomyelitis L 3, 4, 5 toes, s/p L TMA on 11/05. H/o Recurrent osteomyelitis L 3rd, 4th, 5th Metatarsals with wound dehiscence. 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 Hypertension. Hyperlipidemia. Coronary artery disease. Sleep apnea-needs a repeat sleep evaluation after discharge History of depression. Penicillin allergy, rash. Alcohol use. Plan: 01/12/17 Continue Cefepime/Vanco due to current cx and hx of MRSA. Wound vac. Planning for MRI left leg Friday and further surgery for osteomyelitis BP is slowly trending up- continue low dose HCTZ and monitor for hyponatremia. Continue to monitor anemia. s/p transfusion x 1 unit on 01/02/2017. Stable since that time Continue Iron replacement orally. B12/Folate ok. BG remains well controlled- continue current insulin. Plan: 01/15/[address] Navarro recommendations from this morning. She she recommends continuing cefepime and vancomycin with total 6 weeks of IV antibiotics Continue with wound Vac. Blood sugars continue to be well controlled Hemoglobin remained stable at 8.4. Possible discharge in the next 1-2 days under the direction of Dr. Nolasco
[2017-01-16] MEDS: INSULIN ASPART 100unit/ml INJECTION SQ SCH ×2 (09:48→12:25)
--- NOTE | 2017-01-16 09:52 | Discharge Instructions ---
Discharge Plan - Med Rec/Dispo Referrals/Follow Up: Elver Best MD [Family Provider] - 1 Month [place] Instructions: Blood Transfusion (GEN) Additional Instructions: Follow up with Wound Care on Friday, Jan 16, for initial evaluation for hyperbaric oxygen. He is anticipated to require 40 treatments. In addition he' ll follow up with wound care for his wound VAC with anticipated changes twice a week. Follow-up with Dr. Margarita Navarro next week, please coordinate with wound care. The patient needs lab work every Friday including a CBC with manual differential, CMP, ESR, C-reactive protein, and Vanco trough level. Ideally the Vanco trough would be drawn by peripheral stick. Prescriptions: New Acetaminophen [Tylenol] 650 mg PO TID PRN tablet PRN Reason: Discomfort Cefepime in Iso-Osm Dextrose [Cefepime 2 gm Injection] 2 gm IV Q8HR #120 froz.piggy HydroCHLOROthiazide [Microzide] 12.5 mg PO WB #30 cap Insulin Glargine,Hum.rec.anlog [Lantus] 20 unit SQ HS vial Vancomycin/0.9 % Sod Chloride [Vanco 1.75 G/250 ml-0.9% NaCl] 1.75 gm IV Q12HR #46 plast..bag Ascorbic Acid [Vitamin C] 500 mg PO DAILY #30 tab Ferrous Sulfate [Feosol] 324 mg PO WB #30 tab Oxycodone *Ir* [Roxicodone *Ir*] 1 - 2 tab PO Q3H PRN #20 tab PRN Reason: Pain Aspirin [ASA] 325 mg PO DAILY tablet Continue Insulin Aspart [NovoLOG] 10 unit SQ ACL #0 vial Insulin Aspart [Novolog Flexpen] 7 unit SQ ACB #1 Insulin Aspart [NovoLOG] 10 unit SQ ACS #1 vial Magnesium Oxide [Magnesium] 400 mg PO DAILY 30 Days Aspirin *EC* [Ecotrin] 81 mg PO DAILY Losartan [Cozaar] 50 mg PO DAILY #30 Metformin [Glucophage] 1,000 mg PO BID pravastatin 20 mg tablet 20 mg PO HS #90 tab Discontinued hydrochlorothiazide 25 mg tablet 25 mg PO QAM #30 tab doxycycline hyclate 100 mg capsule 100 mg PO BID Lantus Solostar (insulin glargine) 100 unit/mL (3 mL) PEN 18 unit SQ HS #15 ml potassium chloride ER 10 mEq capsule,extended release 10 meq PO WB #90 cap Discharge Instructions/Outpatient Orders: Final Provider Discharge Instructions Location: Determined By Patient - Disposition 01 Discharged Home, Self-Care
[2017-01-16] MEDS ORDERED: ASPIRIN 325 MG TABLET PO SCH (11:00)
[2017-01-16] MEDS: ENOXAPARIN 40 MG/0.4 ML INJECTION SQ SCH (11:06)
[2017-01-16] MEDS: ACETAMINOPHEN 325 MG TABLET PO SCH ×2 (11:07→12:26)
[2017-01-16 11:10] VITALS: BP 136/74; PULSE 86; RESP 16; TEMP 98.2
[2017-01-16] MEDS: METFORMIN 1,000 MG TABLET PO SCH (11:22)
[2017-01-16] MEDS: LOSARTAN 50 MG TABLET PO SCH (11:22)
[2017-01-16] MEDS: MAGNESIUM OXIDE 400 MG TABLET PO SCH (11:22)
[2017-01-16] MEDS: FERROUS SULFATE 324 MG TABLET PO SCH (11:22)
[2017-01-16] MEDS: SENNA + DOCUSATE TABLET PO SCH (11:23)
[2017-01-16] MEDS: POLYETHYL GLYCOL 3350 17gm PACKET PO SCH (11:23)
[2017-01-16] MEDS: ASCORBIC ACID 500 MG TABLET PO SCH (11:24)
--- NOTE | 2017-01-16 22:04 | Discharge Summary ---
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 - Laboratory Labs: 01/16/17 04:22 01/14/17 05:31 - Microbiology Microbiology 01/04/17 12:19 Cath/Port/Line/Picc Blood Culture - Final No Growth After 5 Days 01/04/17 12:19 Cath/Port/Line/Picc Blood Culture - Final No Growth After 5 Days 01/03/17 15:48 Csf, Lumbar Puncture Gram Stain - Final 01/03/17 15:48 Csf, Lumbar Puncture CSF Culture - Final No Growth After 3 Days 01/03/17 23:30 Amputation Site Gram Stain - Final 01/03/17 23:30 Amputation Site Surgical Culture - Final Enterobacter cloacae Pseudomonas aeruginosa 01/03/17 23:30 Tibia, Left, Bone Gram Stain - Final 01/03/17 23:30 Tibia, Left, Bone Surgical Culture - Final Enterobacter cloacae Pseudomonas aeruginosa 01/03/17 23:30 Amputation Site Gram Stain - Final 01/03/17 23:30 Amputation Site Surgical Culture - Final Enterobacter cloacae Pseudomonas aeruginosa 01/01/17 09:04 Peripheral/Iv Start Blood Culture - Final No Growth After 5 Days 01/01/17 09:12 Peripheral/Iv Start Blood Culture - Final No Growth After 5 Days Objective Vital signs: Temperature 98.2 F 01/16/17 11:09 Pulse Rate 86 01/16/17 11:09 Respiratory Rate 16 01/16/17 11:09 Blood Pressure 136/74 01/16/17 11:09 Pulse Oximetry 96 01/16/17 11:09 Rhythm: Normal Sinus Rhythm Height/Weight/BMI: Weight 287 lb 0.67 oz - Additional findings Additional findings: In general, the patient is alert and oriented 3, cooperative with exam, and in no respiratory distress. HEENT: Head is atraumatic, normocephalic, no conjunctival petechiae, no oral thrush, mucous membranes are moist and pink. Lungs: Clear to auscultation without wheezes, crackles or rhonchi CV: Regular rate and rhythm without murmur Abdomen: Soft, nontender, bowel sounds are present, there is no guarding no rebound. Extremities: No clubbing, no cyanosis, no edema. Left BKA with wound VAC in place Skin: Warm and dry no sign of rash Neuro: Patient is alert Hospital Course This is a general summary of the patient's hospital course. For more details refer to the complete medical record. 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 S/p Repeat I&D 01/06/17. H/o osteomyelitis of the left great toe distal phalanx, with bone biopsy June 28, 2016 growing out methicillin-resistant Staph aureus. S/p 6 weeks of Daptomycin. H/o Gangrene of the left great toe leading to amputation on July 25, 2016. H/o Recurrent osteomyelitis L 3, 4, 5 toes, s/p L TMA on 11/05. H/o Recurrent osteomyelitis L 3rd, 4th, 5th Metatarsals with wound dehiscence. 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 Hypertension. Hyperlipidemia. Coronary artery disease. Sleep apnea. History of depression. Penicillin allergy, rash. Alcohol use. 12/28/16 Home diabetic medications restarted and blood sugars showing control. Blood pressure stable on home ARB - renal status and potassium normal. Continue with pain control - ortho changing to oral medications. Encourage IS for pulm toilet. PT/OT consulted to help functional status. Continue with wound care as per Dr Nolasco - anticipate reexploration of wound tomorrow. Medically stable and responding to treatments. 12/29/16 Pt to OR today for wound I&D. Continue Vancomycin- past culture sensitive to Vancomycin. Can discontinue doxycycline as Vancomycin will cover both organisms. BG has been stable. Holding insulin today due to NPO. Started IVF until eating post-op. BP is controlled- Losartan- HCTZ. Plan to repeat labs in AM. Mild anemia, stable. 12/31/16 12:49-Gloria Last blood sugar 122 at 10:30 this morning, patient nothing by mouth in anticipation of surgery. Will monitor every 2 hours until surgery in the event glucose containing fluids become necessary. Overall diabetes control improving. Pain well controlled at present. Peripheral IV being utilized for vancomycin-clarify with orthopedics how long antibiotics anticipated, may benefit from PICC. To the operating room later today for debridement. Blood pressure stable. Hemoglobin down from 12.5 on admission to current value of 8.6; monitor closely for the next couple of days with further surgical debridement. May benefit from nocturnal oximetry prior to discharge due to history of sleep apnea; suspect patient needs repeat sleep study based on history. 01/01/17 Increase in fever overnight. Obtained labs, lactate and blood cultures. Continues on Vanco. Blood sugars well controlled 01/02/17-plan Recheck H&H this morning In light of decline in hemoglobin. 4. A.m. blood draw revealed hemoglobin of 6.8, redraw at 930. Indicates 7.5. Did check an ammonia level given encephalopathy and confusion however it was negative less than 9. Oxycodone is decreased to 5 milligrams as this may play a role in confusion. Continues to have fevers overnight of unknown origin. Highest fever was 100.8. White count this morning did increase to 14. No tachycardia or other sirs criteria. Chest x-ray was performed yesterday that was unremarkable, urine was negative. He did have urinary retention overnight and required straight catheterization. He does not have any other indication of skin wound source of infection. No diarrhea or abdominal pain. Blood cultures remain negative at 24 hour eren. Continue with Vancomycin given fever and leukocytosis Will discuss blood transfusion with attending. Will discuss further order and plan of care with orthopedic team and attending 01/04/17 12:00 01/04/17 s/p wound I&D per Dr. Nolasco. Continue wound vac, Vanco. New onset fevers- CXR, CT is negative LP done, appears negative. Cx NGTD. CRP is trending downward. Repeat UA today. Will obtain BC x 2, one from PICC, one peripheral. DM2- BG is fairly well controlled. He did receive a unit of blood yesterday, HGB is trending down again. Repeat CBC now. Repeat labs in AM. Low back is tender- apply lidoderm patch. Tissue does appear a bit swollen, but not red or warm. Monitor. Start LMWH in AM for DVT prophylaxis if labs remain stable today. 01/05/17 15:43-Gloria Monroe continues to improve clinically with resolution of excessive somnolence and other atypical neurological symptoms. Visual symptoms persist and are not currently explained, may require formal eye exam in the near future. Continue Levaquin for pseudomonas and second gram-negative dannielle not yet identified in conjunction with vancomycin for previously identified gram- positive organisms. Anticipate return to the operating room tomorrow after discussion with Dr. Nolasco earlier today. CSF culture negative. Blood sugars modestly increased the past 24 hours although remaining under 200. Oral intake improving and insulins have largely been resumed although NovoLog held this morning due to anticipated poor intake. Hemoglobin drifting down, reassess in a.m.-will likely require additional blood with surgery tomorrow. Bladder training initiated, will hopefully be able to discontinue Khan after next procedure. 01/07/17 DC Khan this afternoon. Anemia - hgb down to 7.1 though pt is asymptomatic. Recheck in am - may need another transfusion. Continue Vanco and cefepime per Dr. Navarro - she's recommending a 6-week course. Suspect thrombocytosis is reactive. Hyperglycemia associated with supper - likely can resume insulin pump. 01/10/17 Plan Continue with current antibiotic regimen as recommended by Dr. Navarro Follow up apt made at Dr Mann (pulmonology) office to discuss sleep study- at 1 pm. Located at the Medical office [place] attached to [facility] [address] Hgb remains stable at 7.6. Have asked nursing staff to teach patient how to give home subcutaneous injections for ongoing Lovenox given his increased risk for DVT Continue to monitor blood sugars At time of discharge medical care will return to PCP was confirmed with patient is Dr. 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 Orthopedic team is planning to repeat MRI on Friday and will likely take patient to the OR for repeat debridement and wound VAC change. Blood sugars continue to be well controlled He remains afebrile without evidence of clinical sepsis. 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 Orthopedic team is planning to repeat MRI on Friday and will likely take patient to the OR for repeat debridement and wound VAC change. Blood sugars continue to be well controlled He remains afebrile without evidence of clinical sepsis. Hgb stable at 7.6 Continue to work with PT/OT 01/12/17 12:06 01/12/17 12:10 Continue Cefepime/Vanco due to current cx and hx of MRSA. Wound vac. Planning for MRI and possible further surgery next week due to ongoing osteomyelitis. BP is slowly trending up- continue low dose HCTZ and monitor for hyponatremia. Continue to monitor anemia. s/p transfusion x 1 unit. Continue Iron replacement orally. B12/Folate ok. BG remains well controlled- continue current insulin. 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 S/p Repeat I&D 01/06/17. H/o osteomyelitis of the left great toe distal phalanx, with bone biopsy June 28, 2016 growing out methicillin-resistant Staph aureus. S/p 6 weeks of Daptomycin. H/o Gangrene of the left great toe leading to amputation on July 25, 2016. H/o Recurrent osteomyelitis L 3, 4, 5 toes, s/p L TMA on 11/05. H/o Recurrent osteomyelitis L 3rd, 4th, 5th Metatarsals with wound dehiscence. 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 Hypertension. Hyperlipidemia. Coronary artery disease. Sleep apnea-needs a repeat sleep evaluation after discharge History of depression. Penicillin allergy, rash. Alcohol use. Plan: 01/12/17 Continue Cefepime/Vanco due to current cx and hx of MRSA. Wound vac. Planning for MRI left leg Friday and further surgery for osteomyelitis BP is slowly trending up- continue low dose HCTZ and monitor for hyponatremia. Continue to monitor anemia. s/p transfusion x 1 unit on 01/02/2017. Stable since that time Continue Iron replacement orally. B12/Folate ok. BG remains well controlled- continue current insulin. Plan: 01/15/[address] Navarro recommendations from this morning. She she recommends continuing cefepime and vancomycin with total 6 weeks of IV antibiotics Continue with wound Vac. Blood sugars continue to be well controlled Hemoglobin remained stable at 8.4. Possible discharge in the next 1-2 days under the direction of Dr. Nolasco As outlined above, the patient had a complicated hospitalization secondary to the osteomyelitis of his left BKA requiring multiple surgeries and multiple adjustments in his antibiotic therapy. On the day of discharge, the patient did develop a slight amount of bleeding from his wound VAC. His hemoglobin was stable at 7.3 although it should be noted he did require blood transfusion earlier in his hospital stay. His discharge plans are as outlined above he'll be continuing on hyperbaric oxygen as well as with a wound VAC. Dr. Deidre Navarro will be managing his antibiotics of cefepime 2 g IV every 8 hours for 6 weeks with vancomycin 1750 mg IV every 12 hours. The appropriate lab work has been ordered. Discharge Plan - Med Rec/Dispo Referrals/Follow Up: Elver Best MD [Family Provider] - [facility] Instructions: Below the Knee Amputation (DC), Negative Pressure Wound Therapy (DC), Blood Transfusion (GEN) Additional Instructions: Follow up with Wound Care on Friday, Jan 16, for initial evaluation for hyperbaric oxygen. He is anticipated to require 40 treatments. In addition he' ll follow up with wound care for his wound VAC with anticipated changes twice a week. Follow-up with Dr. Margarita Navarro next week, please coordinate with wound care. The patient needs lab work every Friday including a CBC with manual differential, CMP, ESR, C-reactive protein, and Vanco trough level. Ideally the Vanco trough would be drawn by peripheral stick. Prescriptions: New Acetaminophen [Tylenol] 650 mg PO TID PRN tablet PRN Reason: Discomfort Cefepime in Iso-Osm Dextrose [Cefepime 2 gm Injection] 2 gm IV Q8HR #120 froz.piggy HydroCHLOROthiazide [Microzide] 12.5 mg PO WB #30 cap Insulin Glargine,Hum.rec.anlog [Lantus] 20 unit SQ HS vial Vancomycin/0.9 % Sod Chloride [Vanco 1.75 G/250 ml-0.9% NaCl] 1.75 gm IV Q12HR #46 plast..bag Ascorbic Acid [Vitamin C] 500 mg PO DAILY #30 tab Ferrous Sulfate [Feosol] 324 mg PO WB #30 tab Oxycodone *Ir* [Roxicodone *Ir*] 1 - 2 tab PO Q3H PRN #20 tab PRN Reason: Pain Aspirin [ASA] 325 mg PO DAILY tablet Continue Insulin Aspart [NovoLOG] 10 unit SQ ACL #0 vial Insulin Aspart [Novolog Flexpen] 7 unit SQ ACB #1 Insulin Aspart [NovoLOG] 10 unit SQ ACS #1 vial Magnesium Oxide [Magnesium] 400 mg PO DAILY 30 Days Aspirin *EC* [Ecotrin] 81 mg PO DAILY Losartan [Cozaar] 50 mg PO DAILY #30 Metformin [Glucophage] 1,000 mg PO BID pravastatin 20 mg tablet 20 mg PO HS #90 tab Discontinued hydrochlorothiazide 25 mg tablet 25 mg PO QAM #30 tab doxycycline hyclate 100 mg capsule 100 mg PO BID Lantus Solostar (insulin glargine) 100 unit/mL (3 mL) PEN 18 unit SQ HS #15 ml potassium chloride ER 10 mEq capsule,extended release 10 meq PO WB #90 cap Discharge Instructions/Outpatient Orders: Final Provider Discharge Instructions Location: Determined By Patient - Disposition 01 Discharged Home, Self-Care
== END 2017-01-16 15:25 | disposition home health service (06) | DRG 464 ==
LOC: ED 19:01 → SRG 20:13
PROVIDERS: ADMIT Orthopaedic Surgery; ATTEND Orthopaedic Surgery

== ENCOUNTER 2017-09-17 21:19 | Observation (INO) ==
[2017-09-17] MEDS ORDERED: NS 1,000 ML IV ONE (21:48)
[2017-09-17] MEDS ORDERED: SALINE FLUSH 10ml SYRINGE IVF PRN (21:48)
[2017-09-17] MEDS ORDERED: ASPIRIN 81 MG CHEWABLE TABLET PO ONE (21:48)
[2017-09-17] MEDS ORDERED: ORPHENADRINE 60 MG/2 ML INJECTION IVP ONE (21:50)
--- NOTE | 2017-09-17 21:54 | Emergency Department Report ---
Chest Pain HPI - General Chief Complaint: Chest Pain Stated Complaint: chest pains Time Seen by Provider: 09/17/17 21:37 Source: patient, family Mode of arrival: ambulatory Limitations: no limitations - History of Present Illness HPI narrative: Sometime around noon to 1 PM today, the patient began having worsening left shoulder pain with radiation down into his left arm paresthesia. Shortly thereafter over the course of several hours he began having right sided chest wall pain with shooting pain between the ribs, and finally central pressure pain in the center of his chest. All of the symptoms were similar to when he is had MIs in the past, the patient became concerned so he came to ER. Patient denies shortness of breath, does admit that he has been having neck and shoulder muscular pain for several days, but then the changes began today just before lunch. Currently the patient is still having central chest pain with the left shoulder pain and the right chest wall sharp pains. Patient had a brief episode of nausea, but no lightheadedness or dizziness, no shortness of breath, and no diaphoresis - Related Data Home Medications Medication Instructions Recorded Confirmed Insulin Aspart [NovoLOG] 10 unit SQ ACL #0 vial 07/24/16 07/21/17 Previous Rx's Medication Instructions Recorded Aspirin *EC* [Ecotrin] 81 mg PO DAILY 10/22/16 Insulin Aspart [NovoLOG] 10 unit SQ ACS #1 vial 11/30/16 Magnesium Oxide [Magnesium] 400 mg PO DAILY 30 Days 11/30/16 Acetaminophen [Tylenol] 650 mg PO TID PRN tab 01/16/17 Ascorbic Acid [Vitamin C] 500 mg PO DAILY #30 tab 01/16/17 Aspirin [ASA] 325 mg PO DAILY tab 01/16/17 Cefepime in Iso-Osm Dextrose 2 gm IV Q8HR #120 froz.piggy 01/16/17 [Cefepime 2 gm Injection] Ferrous Sulfate [Feosol] 324 mg PO WB #30 tab 01/16/17 Oxycodone *IR* [Roxicodone *Ir*] 1 - 2 tab PO Q3H PRN #20 tab 01/16/17 Vancomycin/0.9 % Sod Chloride 1.75 gm IV Q12HR #46 plast..bag 01/16/17 [Vanco 1.75 G/250 ml-0.9% NaCl] Lantus Solostar (insulin glargine) 20 unit SQ HS #9 ml 05/20/17 100 unit/mL (3 mL) PEN Glucophage (metformin) 1,000 mg 1,000 mg PO BID #120 tab 06/05/17 tablet Cozaar (losartan) 50 mg tablet 50 mg PO DAILY #30 tab 08/07/17 hydrochlorothiazide 25 mg tablet 25 mg PO DAILY #30 tab 08/21/17 Pravachol (pravastatin) 20 mg 20 mg PO HS #90 tab 09/03/17 tablet Novolog FlexPen (insulin aspart) See Label Instructions SQ ACB #1 09/08/17 100 unit/mL PEN Allergies Allergy/AdvReac Type Severity Reaction Status Date / Time lisinopril Allergy Intermediate DIZZINESS Verified 01/23/17 08:58 Penicillins Allergy Unknown HIVES Verified 01/23/17 08:58 Review of Systems All systems: reviewed and negative except as stated PFSH Patient Stated Medical History Migraine Yes Angina Yes: hx Congestive Heart Failure No Coronary Artery Disease Yes Hypertension Yes Myocardial Infarction Yes Asthma No Bronchitis Yes Sleep Apnea Yes: Does not use CPAP Diabetes Mellitus Type 1 Yes Diabetes Mellitus Type 2 Yes Gastroesophageal Reflux Yes Disease Hx Renal Disease No Other Musculoskeletal Yes: 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 Below knee ampuation,. appendectomy. Heart catheter with stent placement Family History: Family History (Last Reviewed 12/26/16 @ 08:34 by Chris Nolasco MD) Mother Diabetes Father Heart problem Sister Diabetes Heart attack Sister Diabetes - Social History Smoking status: Former smoker second hand exposure: No Substance use type: does not use Alcohol intake: current Alcohol intake frequency: does not drink Household members: spouse Does patient use chewing tobacco?: No Current residence: Apartment/Private Home Physical Exam - Limitations Limitations: no limitations - General General appearance: alert - Normal Exams: Head:: Normocephalic without trauma Eyes:: Pupils are PERRLA w/ EOMI, No scleral icterus, irritation, or foreign bodies noted ENMT:: No facial trauma, nasal exudates, pharyngeal erythema, or exudates are noted Neck:: Full range of motion, without adenopathy, JVD, bruits or thyromegaly Chest/Respirations:: Clear all gómez, with good airflow, and symmetry bilaterally Abdomen:: Bowel sounds positive, soft, non-tender, non-distended, no hepatosplenomegaly, masses or bruits noted Lymphatic:: No lymphadenopathy, or lymphedema noted Integumentary:: No rashes, hives, or bruising noted, hair and nails, without abnormality Neurological:: Patient is alert, and oriented, cranial nerves, motor/sensory/ cerebellar, exams w/o gross deficits, to observation Psychiatric:: Patient exhibits, appropriate attention, emotion and affect - Chest Chest inspection: Present: normal inspection, symmetric chest wall rise, tenderness (mild right low intercostal tenderness, palpation reproduces the right side chest pains) - Cardiovascular Cardiovascular exam: Present: regular rate, normal rhythm, normal heart sounds. Absent: diastolic murmur, rubs, gallop, clicks - Abdominal Exam Abdominal exam: Present: soft, normal bowel sounds. Absent: distention, tenderness, guarding, rebound, rigidity - Extremities Exam Extremities exam: Present: other (patient of the upper left trapezius reveals significant knots with spasm that are palpable, and palpation reproduces the patient's left arm paresthesia) Course Vital Signs Pulse Rate 100 09/17/17 21:33 Respiratory Rate 20 09/17/17 21:33 Blood Pressure 155/78 H 09/17/17 21:33 Temperature 98.3 F 09/17/17 21:39 Pulse Rate 94 09/17/17 23:15 Respiratory Rate 20 09/17/17 23:15 Blood Pressure 107/59 09/17/17 23:15 Pulse Oximetry 94 09/17/17 23:15 Chest Pain - MDM Narrative Medical decision making narrative: EKG shows a normal sinus rhythm, slight tachycardia at 102, no signs of ischemia , infarction, or STEMI Patient is given nitroglycerin and aspirin, 1 L normal saline, and Norflex CBC - n CMP/L - n CXR - n Troponin -n After aspirin and Norflex, patient's musculoskeletal pain was significantly improved. Patient wanted to wait to see with the aspirin and Norflex did before taking nitroglycerin. While central chest heaviness was unrelieved with those medications, 3 nitroglycerin tablets were given, the patient's pain dropped from 6 down to 2. Patient continues to have mild central chest heaviness. 1 inch Nitropaste is placed on the patient at this time. Case is discussed with Dr. Pgae - the patient's past history, response to nitroglycerin, and lack of any GI/GERD abnormalities, we are electing to admit the patient to telemetry, observation overnight for chest pain rule out. - Lab Data Result diagrams: 09/17/17 21:40 09/17/17 21:40 Lab Results 09/17/17 09/17/17 Range/Units 21:40 21:40 WBC 8.6 (4.5-11.0) T/MM3 RBC 4.81 (4.50-5.90) M/MM3 Hgb 14.3 (13.5-17.5) GM/DL Hct 41.3 (41-53) % MCV 85.9 (80-100) UM3 MCH 29.7 (26-34) UUG MCHC 34.6 (31-37) GM/DL RDW Std Deviation 45.3 (36.9-50.2) FL Plt Count 284 (130-400) T/MM3 MPV 10.8 (9.4-12.4) UM3 Immature Gran % (Auto) 0.5 (0.0-0.5) % Neut % (Auto) 65.3 (33-66) % Lymph % (Auto) 25.0 (23-45) % Elliott % (Auto) 5.8 (0-9.0) % Eos % (Auto) 2.8 (0-4) % Baso % (Auto) 0.6 (0-2) % Neut # (Auto) 5.6 (1.8-7.7) T/MM3 Lymph # (Auto) 2.2 (1-4.8) T/MM3 Elliott # (Auto) 0.5 (0-0.8) T/MM3 Eos # (Auto) 0.2 (0-0.5) T/MM3 Baso # (Auto) 0.1 (0-0.2) T/MM3 Abs Immat Gran (auto) 0.04 H (0.00-0.03) T/MM3 Turbidity < 20 (0-20) Sodium 142 (134-144) MEQ/L Potassium 4.1 (3.6-5) MEQ/L Chloride 104 (98-107) MEQ/L Carbon Dioxide 27 (22-30) MEQ/L Anion Gap 11 (5-15) meq/L BUN 22.0 H (9-20) MG/DL Creatinine 1.3 (0.8-1.5) mg/dL GFR Calculation 59 BUN/Creatinine Ratio 17 (6-26) RATIO Glucose 188 H (75-110) MG/DL Calculated Osmolality 281 H (261-280) MOSM/KG Calcium 9.6 (8.4-10.2) MG/DL Total Bilirubin 0.40 (0.20-1.30) MG/DL Icterus Index < 2 (0-7) AST 23 (17-59) U/L ALT 19 (1-50) U/L Alkaline Phosphatase 105 (38-126) U/L Troponin I < 0.012 (0-0.12) ng/ml NT-Pro-B Natriuret Pep 245 H (0-175) pg/mL Total Protein 8.2 (6.3-8.2) g/dL Albumin 4.2 (3.5-5.0) g/dL Globulin 4.0 H (2.4-3.6) G/DL Albumin/Globulin Ratio 1.1 (1.1-2.2) RATIO Lipase 111 (23-300) U/L Specimen Hemolysis < 15 (0-25) Disposition Clinical Impression: Chest pain Qualifiers: Chest pain type: unspecified Qualified Code(s): R07.9 - Chest pain, unspecified Disposition: [facility] [place] Condition: Improved Prescriptions: No Action Insulin Aspart [NovoLOG] 10 unit SQ ACL #0 vial Insulin Aspart [NovoLOG] 10 unit SQ ACS #1 vial Magnesium Oxide [Magnesium] 400 mg PO DAILY 30 Days Acetaminophen [Tylenol] 650 mg PO TID PRN tab PRN Reason: Discomfort Cefepime in Iso-Osm Dextrose [Cefepime 2 gm Injection] 2 gm IV Q8HR #120 froz.piggy Vancomycin/0.9 % Sod Chloride [Vanco 1.75 G/250 ml-0.9% NaCl] 1.75 gm IV Q12HR #46 plast..bag Aspirin *EC* [Ecotrin] 81 mg PO DAILY Ascorbic Acid [Vitamin C] 500 mg PO DAILY #30 tab Ferrous Sulfate [Feosol] 324 mg PO WB #30 tab Oxycodone *IR* [Roxicodone *Ir*] 1 - 2 tab PO Q3H PRN #20 tab PRN Reason: Pain Aspirin [ASA] 325 mg PO DAILY tab Glucophage (metformin) 1,000 mg tablet 1,000 mg PO BID #120 tab Cozaar (losartan) 50 mg tablet 50 mg PO DAILY #30 tab hydrochlorothiazide 25 mg tablet 25 mg PO DAILY #30 tab Pravachol (pravastatin) 20 mg tablet 20 mg PO HS #90 tab Lantus Solostar (insulin glargine) 100 unit/mL (3 mL) PEN 20 unit SQ HS #9 ml Novolog FlexPen (insulin aspart) 100 unit/mL PEN See Label Instructions SQ ACB #1 Referrals: Elver Best MD [Primary Care Provider] - - Seen By: physician
[2017-09-17] MEDS: NITROGLYCERIN 0.4 MG SUBLINGUAL TABLET SL PRN ×3 (22:31→22:56)
[2017-09-17] MEDS ORDERED: NITROGLYCERIN 2% OINTMENT 1gm PACKET TP ONE (23:25)
[2017-09-17] MEDS ORDERED: NITROGLYCERIN 0.4 MG SUBLINGUAL TABLET SL PRN (23:47)
[2017-09-17] MEDS ORDERED: MORPHINE SULFATE 4mg INJECTION IVP PRN (23:47)
[2017-09-18 00:36] VITALS: BMI 44.1
[2017-09-18 07:41] VITALS: BP 146/71; PULSE 81; RESP 14; TEMP 97.9; O2SAT 99
--- NOTE | 2017-09-18 08:11 | XRay Report ---
Indication: chest pain PROCEDURE: XR chest 1V: Encounter: Initial Comparison: January 03, 2017 FINDINGS: The lungs are clear. There is no abnormal airspace opacity, pleural effusion or pneumothorax identified. The heart size, pulmonary vasculature and mediastinum are within normal limits. No significant skeletal abnormality is seen. IMPRESSION: No acute cardiopulmonary abnormality. .
--- NOTE | 2017-09-18 10:58 | Cardiology History & Physical ---
History of Present Illness Chief complaint: chest pain HPI: Fer is a 51 year old male who is well known to Dr. Page with a history of CAD , HTN, HLD and DM type II who came to the ED with symptoms that were reportedly similar to when he is had MIs in the past. He was examined in his room with his at the bedside. He reports that left neck and shoulder pain and stiffness began on Friday. Yesterday he was at his computer when he noticed his left arm and hand was numb, he then had pain in his ribs on both sides and then numbness of the right hand. Later he noticed a tightness and pain in the center of his chest which was on and off, associated with nausea. He denies shortness of breath, no lightheadedness or dizziness, and no diaphoresis. Chest pain is reproducible. He denies recent illness, fever , chills, cough, sore throat, palpitations, abdominal pain, V/D, Dysuria. Review of Systems - Constitutional Constitutional: Present: as per HPI - EENMT Eyes: Absent: change in vision Balance: Absent: vertigo - Cardiovascular Cardiovascular: Present: chest pain. Absent: palpitations, syncope, dyspnea on exertion, orthopnea, heart murmur Rhythm: Absent: abnormal rhythm Vascular: Absent: pedal edema - Respiratory Respiratory: Present: as per HPI - Gastrointestinal Gastrointestinal: Present: as per HPI, nausea - Genitourinary Genitourinary: Present: as per HPI - Musculoskeletal Musculoskeletal: Present: other (Left BKA) - Integumentary/Breasts Integumentary: Absent: rash - Neurological Neurological: Present: as per HPI - Endocrine Endocrine: Present: as per HPI [facility] Patient Stated Medical History Migraine Yes Angina Yes: hx Congestive Heart Failure No Coronary Artery Disease Yes Hypertension Yes Myocardial Infarction Yes Asthma No Bronchitis Yes Sleep Apnea Yes: Does not use CPAP Diabetes Mellitus Type 1 Yes Diabetes Mellitus Type 2 Yes Gastroesophageal Reflux Yes Disease Hx Renal Disease No Other Musculoskeletal Yes: 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 Below knee ampuation,. appendectomy. Heart catheter with stent placement Family History: Family History (Last Reviewed 12/26/16 @ 08:34 by Chris Nolasco MD) Mother Diabetes Father Heart problem Sister Diabetes Heart attack Sister Diabetes - Social History Smoking status: Former smoker second hand exposure: No Substance use type: does not use Alcohol intake: current Alcohol intake frequency: does not drink Household members: spouse Does patient use chewing tobacco?: No Current residence: Apartment/Private Home Medications Home Medications Medication Instructions Recorded Confirmed Type Aspirin *EC* [Ecotrin] 81 mg PO DAILY 10/22/16 09/18/17 Rx Magnesium Oxide [Magnesium] 400 mg PO DAILY 30 Days 11/30/16 09/18/17 Rx Ascorbic Acid [Vitamin C] 500 mg PO DAILY #30 tab 01/16/17 09/18/17 Rx Ferrous Sulfate [Feosol] 324 mg PO WB #30 tab 01/16/17 09/18/17 Rx Glucophage (metformin) 1,000 mg 1,000 mg PO BID #120 tab 06/05/17 07/21/17 Rx tablet Cozaar (losartan) 50 mg tablet 50 mg PO DAILY #30 tab 08/07/17 09/18/17 Rx hydrochlorothiazide 25 mg tablet 25 mg PO DAILY #30 tab 08/21/17 09/18/17 Rx Pravachol (pravastatin) 20 mg 20 mg PO HS #90 tab 09/03/17 09/18/17 Rx tablet Insulin Aspart [Novolog Flexpen] 25 unit SQ ACB 09/18/17 09/18/17 History Insulin Glargine,Hum.rec.anlog 22 unit SQ HS 09/18/17 09/18/17 History [Lantus Solostar] Potassium Chloride [K-DUR 20 mEq 20 meq PO DAILY 09/18/17 09/18/17 History Tablet] Allergies Allergy/AdvReac Type Severity Reaction Status Date / Time lisinopril Allergy Intermediate DIZZINESS Verified 01/23/17 08:58 Penicillins Allergy Unknown HIVES Verified 01/23/17 08:58 Exam Vital signs: Temperature 97.9 F 09/18/17 07:34 Pulse Rate 81 09/18/17 08:11 Respiratory Rate 14 09/18/17 08:11 Blood Pressure 146/71 H 09/18/17 07:34 Pulse Oximetry 99 09/18/17 08:11 - Constitutional no acute distress, obese, cooperative - Routine HEENT Exam Head: Present: normocephalic ENT: Present: mucous membranes moist - Routine Neck Exam Absent: JVD, carotid bruit - Routine Chest/Breast/Axilla Exam Chest wall: Present: tenderness - Routine Respiratory Exam Present: decreased breath sounds (anteriorly). Absent: dyspnea, rales, crackles - Routine Cardiovascular Exam Present: no murmur, tachycardia - Routine Abdominal Exam Present: soft, non tender - Routine Extremities Exam Present: no edema - Routine Skin Exam Present: intact, dry, warm - Routine Neurological Exam Present: alert, oriented X3 - Routine Psychiatric Exam Present: normal affect, normal thought process Results 09/18/17 09:57 09/18/17 09:57 Cardiac Enzymes 09/18/17 09/18/17 Range/Units 04:51 09:57 Troponin I < 0.012 < 0.012 (0-0.12) ng/ml CBC 09/18/17 Range/Units 09:57 WBC 6.7 (4.5-11.0) T/MM3 RBC 4.38 L (4.50-5.90) M/MM3 Hgb 13.1 L (13.5-17.5) GM/DL Hct 38.1 L (41-53) % Plt Count 224 (130-400) T/MM3 Comprehensive Metabolic Panel 09/18/17 Range/Units 09:57 Sodium 143 (134-144) MEQ/L Potassium 3.8 (3.6-5) MEQ/L Chloride 106 (98-107) MEQ/L Carbon Dioxide 27 (22-30) MEQ/L BUN 19.0 (9-20) MG/DL Creatinine 1.1 D (0.8-1.5) mg/dL Glucose 140 H (75-110) MG/DL Calcium 8.6 D (8.4-10.2) MG/DL Intake and Output 09/17/17 09/18/17 09/18/17 22:59 06:59 14:59 Output Total 300 / 300 525 / 525 Balance -300 / 700 -525 / -525 Output: Urine 300 / 300 525 / 525 Other: Urine Appearance Clear Urine Color Yellow Yellow # Voids 1 Weight 298 lb 11.622 oz - Imaging and Cardiology Imaging & Cardiology Narrative: Date of Exam: 09/17/17 Ordering Provider: Yaniv Mena MD Type of Exam(s): XR chest 1V Reason for Exam(s): chest pain Indication: chest pain PROCEDURE: XR chest 1V: Encounter: Initial Comparison: January 03, 2017 FINDINGS: The lungs are clear. There is no abnormal airspace opacity, pleural effusion or pneumothorax identified. The heart size, pulmonary vasculature and mediastinum are within normal limits. No significant skeletal abnormality is seen. IMPRESSION: No acute cardiopulmonary abnormality. 09/18/17 11:23 EKG interpretations - EKG EKG results cardiology: sinus rhythm EKG shows: tachycardia Hospital Course This is a general summary of the patient's hospital course. For more details refer to the complete medical record. Time spent with patient: 25 - 35 minutes Resuscitation Status: Full Code Assessment and Plan - Attestation Attestation Narrative: 09/25/17 13:31 Recommendation After examining the patient I agree with the above assessment. I am involved in the formulation of the patient's plan of care. - Assessment and Plan (1) Atypical chest pain Status: Acute Reproducible chest pain, rib pain and neck and shoulder stiffness since Friday not likely ischemic cause. - EKG without ischemic changes - Serial troponin negative X3 - Last stress test 10/2016 abnormal but correlates with finding from in 2014 - Follow up with Dr. Page for possible outpatient stress test (2) Atherosclerotic heart disease of [place] coronary artery without angina pectoris Status: Chronic Continue home Aspirin, statin, ARB and HCTZ - Did not tolerate BB due to bradycardia (3) Essential (primary) hypertension Status: Chronic Continue ARB and HCTZ (4) Mixed hyperlipidemia Status: Chronic Takes pravastatin, PCP manages (5) DM2 (diabetes mellitus, type 2) Problem details: A1c 8.4 on 11/22/16 Status: Chronic PCP manages
[2017-09-18] MEDS ORDERED: ACETAMINOPHEN 325 MG TABLET PO ONE (11:25)
--- NOTE | 2017-09-18 15:07 | Discharge Summary ---
<Josefina Xie - Last Filed: 09/18/17 15:00> Discharge Information Date of admission: 09/18/17 00:14 Anticipated date of discharge: 09/18/17 Attending Physician: Tremaine Page MD Primary care physician: Elver Best MD - Discharge Diagnosis (1) Atypical chest pain Status: Acute (2) Atherosclerotic heart disease of [place] coronary artery without angina pectoris Status: Chronic (3) Essential (primary) hypertension Status: Chronic (4) Mixed hyperlipidemia Status: Chronic (5) DM2 (diabetes mellitus, type 2) Status: Chronic CAD, HTN, HLD, DM - Laboratory Labs: 09/18/17 09:57 09/18/17 09:57 History of Present Illness HPI: Fer is a 51 year old male who is well known to Dr. Page with a history of CAD , HTN, HLD and DM type II who came to the ED with symptoms that were reportedly similar to when he is had MIs in the past. He was examined in his room with his at the bedside. He reports that left neck and shoulder pain and stiffness began on Friday. Yesterday he was at his computer when he noticed his left arm and hand was numb, he then had pain in his ribs on both sides and then numbness of the right hand. Later he noticed a tightness and pain in the center of his chest which was on and off, associated with nausea. He denies shortness of breath, no lightheadedness or dizziness, and no diaphoresis. Chest pain is reproducible. He denies recent illness, fever , chills, cough, sore throat, palpitations, abdominal pain, V/D, Dysuria. Hospital Course This is a general summary of the patient's hospital course. For more details refer to the complete medical record. Hospital course: Atypical chest pain Acute - Reproducible chest pain, rib pain and neck and shoulder stiffness since Friday not likely ischemic cause. - EKG without ischemic changes - Serial troponin negative X3 - Last stress test 10/2016 abnormal but correlates with finding from in 2014 - Follow up with Dr. Page for possible outpatient stress test Atherosclerotic heart disease of [place] coronary artery without angina pectoris Chronic - Continue home Aspirin, statin, ARB and HCTZ - Did not tolerate BB due to bradycardia Essential (primary) hypertension Chronic - Continue ARB and HCTZ Mixed hyperlipidemia Chronic - Takes pravastatin, PCP manages DM2 (diabetes mellitus, type 2) - A1c 8.4 on 11/22/16 Chronic - PCP manages Time spent with patient: less than 15 minutes Resuscitation Status: Full Code Exam Vital signs: Temperature 97.9 F 09/18/17 07:34 Pulse Rate 81 09/18/17 08:11 Respiratory Rate 14 09/18/17 08:11 Blood Pressure 146/71 H 09/18/17 07:34 Pulse Oximetry 99 09/18/17 08:11 - Constitutional no acute distress, obese, cooperative - Routine HEENT Exam Head: Present: normocephalic ENT: Present: mucous membranes moist - Routine Neck Exam Absent: JVD, carotid bruit - Routine Chest/Breast/Axilla Exam Chest wall: Present: tenderness - Routine Respiratory Exam Present: CTA bilaterally. Absent: dyspnea, rales, wheezes - Routine Cardiovascular Exam Present: RRR, no murmur - Routine Abdominal Exam Present: soft, non tender - Routine Extremities Exam Present: no edema - Routine Skin Exam Present: intact, dry, warm - Routine Neurological Exam Present: alert, oriented X3 - Routine Psychiatric Exam Present: normal affect, normal thought process Results 09/18/17 09:57 09/18/17 09:57 Cardiac Enzymes 09/18/17 09/18/17 Range/Units 04:51 09:57 Troponin I < 0.012 < 0.012 (0-0.12) ng/ml CBC 09/18/17 Range/Units 09:57 WBC 6.7 (4.5-11.0) T/MM3 RBC 4.38 L (4.50-5.90) M/MM3 Hgb 13.1 L (13.5-17.5) GM/DL Hct 38.1 L (41-53) % Plt Count 224 (130-400) T/MM3 Comprehensive Metabolic Panel 09/18/17 Range/Units 09:57 Sodium 143 (134-144) MEQ/L Potassium 3.8 (3.6-5) MEQ/L Chloride 106 (98-107) MEQ/L Carbon Dioxide 27 (22-30) MEQ/L BUN 19.0 (9-20) MG/DL Creatinine 1.1 D (0.8-1.5) mg/dL Glucose 140 H (75-110) MG/DL Calcium 8.6 D (8.4-10.2) MG/DL Intake and Output 09/18/17 09/18/17 09/18/17 06:59 14:59 22:59 Output Total 300 / 300 525 / 525 Balance -300 / 700 -525 / -525 Output: Urine 300 / 300 525 / 525 Other: Urine Appearance Clear Urine Color Yellow Yellow # Voids 1 Weight 298 lb 11.622 oz 294 lb 8.601 oz Patient Weight 09/19/17 06:59 Weight 294 lb 8.601 oz - Imaging and Cardiology Imaging & Cardiology Narrative: Date of Exam: 09/17/17 Ordering Provider: Yaniv Mena MD Type of Exam(s): XR chest 1V Reason for Exam(s): chest pain Indication: chest pain PROCEDURE: XR chest 1V: Encounter: Initial Comparison: January 03, 2017 FINDINGS: The lungs are clear. There is no abnormal airspace opacity, pleural effusion or pneumothorax identified. The heart size, pulmonary vasculature and mediastinum are within normal limits. No significant skeletal abnormality is seen. IMPRESSION: No acute cardiopulmonary abnormality. 09/18/17 15:08 - EKG Interpretation EKG: sinus rhythm (incomplete RBBB) Discharge Plan - Med Rec/Dispo Referrals/Follow Up: Tremaine Page MD [Physician] - 10/09/17 8:30 am [place] Instructions: Chest Pain (DC) Prescriptions: Continue Magnesium Oxide [Magnesium] 400 mg PO DAILY 30 Days Insulin Aspart [Novolog Flexpen] 25 unit SQ ACB Insulin Glargine,Hum.rec.anlog [Lantus Solostar] 22 unit SQ HS Aspirin *EC* [Ecotrin] 81 mg PO DAILY Ascorbic Acid [Vitamin C] 500 mg PO DAILY #30 tab Ferrous Sulfate [Feosol] 324 mg PO WB #30 tab Potassium Chloride [K-DUR 20 mEq Tablet] 20 meq PO DAILY Glucophage (metformin) 1,000 mg tablet 1,000 mg PO BID #120 tab Cozaar (losartan) 50 mg tablet 50 mg PO DAILY #30 tab hydrochlorothiazide 25 mg tablet 25 mg PO DAILY #30 tab Pravachol (pravastatin) 20 mg tablet 20 mg PO HS #90 tab - Disposition 01 Discharged Home, Self-Care - Dismissal Complete Discharge Instructions are:: Complete <Amirani,Tremaine - Last Filed: 09/25/17 13:41> Discharge Information Date of admission: 09/18/17 00:14 Attending Physician: Tremaine Page MD Primary care physician: Elver Best MD - Discharge Diagnosis (1) Atypical chest pain Status: Acute (2) Atherosclerotic heart disease of [place] coronary artery without angina pectoris Status: Chronic (3) Essential (primary) hypertension Status: Chronic (4) Mixed hyperlipidemia Status: Chronic (5) DM2 (diabetes mellitus, type 2) Status: Chronic - Laboratory Labs: 09/18/17 09:57 09/18/17 09:57 Hospital Course This is a general summary of the patient's hospital course. For more details refer to the complete medical record. Exam Vital signs: Temperature 97.9 F 09/18/17 07:34 Pulse Rate 81 09/18/17 08:11 Respiratory Rate 14 09/18/17 08:11 Blood Pressure 146/71 H 09/18/17 07:34 Pulse Oximetry 99 09/18/17 08:11 Results 09/18/17 09:57 09/18/17 09:57 Attestation Narriative - Attestation Attestation Narrative: 09/25/17 13:41 Recommendation After examining the patient I agree with the above assessment. I am involved in the formulation of the patient's plan of care.
[2017-09-18] MEDS ORDERED: METFORMIN 1,000 MG TABLET PO SCH (17:30)
[2017-09-18] MEDS ORDERED: PRAVASTATIN 20 MG TABLET PO SCH (21:00)
[2017-09-18] MEDS ORDERED: INSULIN GLARGINE HUM REC ANLOG PO SCH (21:00)
[2017-09-19] MEDS ORDERED: INSULIN ASPART 25 UNIT PO SCH (06:30)
[2017-09-19] MEDS ORDERED: FERROUS SULFATE 324 MG TABLET PO SCH (08:00)
[2017-09-19] MEDS ORDERED: LOSARTAN 50 MG TABLET PO SCH (09:00)
[2017-09-19] MEDS ORDERED: ASPIRIN *EC* 81 MG TABLET PO SCH (09:00)
[2017-09-19] MEDS ORDERED: ASCORBIC ACID 500 MG TABLET PO SCH (09:00)
[2017-09-19] MEDS ORDERED: MAGNESIUM OXIDE 400 MG TABLET PO SCH (09:00)
== END 2017-09-18 15:39 | disposition home or self-care (01) ==
LOC: ED 21:19 → SRG 21:19
PROVIDERS: ADMIT Internal Medicine Cardiovascular Disease; ATTEND Internal Medicine Cardiovascular Disease